=== PATIENT | female | born 1940 | race Caucasian/White ===

== ENCOUNTER 2016-08-28 08:13 | Outpatient (CLI) | payer MEDICARE, OTHER | END 2016-08-28 08:14 | disposition home or self-care (01) | DX: I10 Essential (primary) hypertension (principal); K21.9 Gastro-esophageal reflux disease without esophagitis; E78.00 Pure hypercholesterolemia, unspecified ==

== ENCOUNTER 2016-09-18 13:51 | Outpatient (CLI) | payer MEDICARE, OTHER | END 2016-09-18 13:52 | disposition home or self-care (01) | DX: M19.072 Primary osteoarthritis, left ankle and foot (principal) ==

== ENCOUNTER 2016-10-19 15:55 | Outpatient (CLI) | payer MEDICARE, OTHER | END 2016-10-19 15:56 | disposition home or self-care (01) | DX: I10 Essential (primary) hypertension (principal) ==

== ENCOUNTER 2016-10-20 08:09 | Outpatient (CLI) | payer MEDICARE, OTHER | END 2016-10-20 08:10 | disposition home or self-care (01) | DX: I10 Essential (primary) hypertension (principal) ==

== ENCOUNTER 2017-09-15 08:45 | Outpatient (CLI) | payer MEDICARE, OTHER ==
[2017-09-15 13:37] LABS: ALBUMIN 4.7 g/dL (3.2-5.5); ALBUMIN/GLOBULIN RATIO 1.7 (1.0-2.2); ALKALINE PHOSPHATASE 43 IU/L (42-121); ALT ALANINE AMINOTRANSFERASE 16 IU/L (10-60); AST ASPARTATE AMINOTRANSFERASE 19 IU/L (10-42); BILIRUBIN,TOTAL 0.6 mg/dL (0.2-1.0); BUN - BLOOD UREA NITROGEN 25 mg/dL (6-20); CALCIUM 9.1 mg/dL (8.5-10.3); CARBON DIOXIDE - CO2 28 mmol/L (21-32); CHLORIDE 100 mmol/L (101-111); CHOLESTEROL 182 mg/dL; CREATININE 0.9 mg/dL (0.4-1.0); GFR - MDRD 61 (>89); GLUCOSE 109 mg/dL (70-100); HDL CHOLESTEROL 60 mg/dL; LDL CHOLESTEROL,CALCULATED 110 mg/dL; LDL/HDL RATIO 1.8 (<4.4); SODIUM 134 mmol/L (135-145); TOTAL PROTEIN 7.5 g/dL (6.7-8.2); VLDL CHOLESTEROL 12 mg/dL
== END 2017-09-15 08:46 | disposition home or self-care (01) ==
LOC: LAB.WCP 08:45
PROVIDERS: ATTEND Physician Assistant Medical
DX: E78.00 Pure hypercholesterolemia, unspecified (principal)
CPT/HCPCS: 36415; 80053; 80061; 83721

== ENCOUNTER 2017-09-16 08:55 | Outpatient (CLI) | payer MEDICARE, OTHER ==
--- NOTE | 2017-09-17 15:52 | Mammography Report ---
DIGITAL SCREENING MAMMOGRAM: 09/16/2017 CLINICAL INDICATION: A 76-year-old, for screening. COMPARISON: 02/2016, 01/2015, 01/2014, 01/2012, 10/2010, 10/2009. TECHNIQUE: Routine CC and MLO projections were obtained of the breasts. FINDINGS: The breasts again demonstrate fatty replacement bilaterally. Coarse and punctate, typically benign calcifications are present. No suspicious masses, clustered microcalcifications, or regions of architectural distortion are identified. IMPRESSION: BENIGN FINDINGS. RECOMMENDATION: ROUTINE ANNUAL SCREENING UNLESS OTHERWISE CLINICALLY INDICATED. BIRADS CATEGORY 2-BENIGN FINDINGS. STANDARD QUALIFYING STATEMENTS: 1. This examination was reviewed with the aid of Computer-Aided Detection (CAD). 2. A negative or benign imaging report should not delay biopsy if clinically suspicious findings are present. Consider surgical consultation if warranted. More than 5% of cancers are not identified by imaging. 3. Dense breasts may obscure an underlying neoplasm. TD: 09/17/2017 15:50
== END 2017-09-16 08:56 | disposition home or self-care (01) ==
LOC: DI 08:55
PROVIDERS: ATTEND Physician Assistant Medical
DX: Z12.31 Encounter for screening mammogram for malignant neoplasm of breast (principal)
CPT/HCPCS: 77067

== ENCOUNTER 2017-09-20 16:03 | Outpatient (CLI) | payer MEDICARE, OTHER ==
[2017-09-20 16:41] LABS: HB2 TOTAL 13.1 g/dL; HEMOGLOBIN A1C 0.57 g/dL; HEMOGLOBIN A1C % 6.1 % (4.6-6.2)
== END 2017-09-20 16:04 | disposition home or self-care (01) ==
LOC: LAB 16:03
PROVIDERS: ATTEND Physician Assistant Medical
DX: R73.9 Hyperglycemia, unspecified (principal)
CPT/HCPCS: 36415; 83036

== ENCOUNTER 2018-03-07 10:05 | Outpatient (CLI) | payer MEDICARE, OTHER ==
--- NOTE | 2018-03-07 11:34 | DEXA Report ---
Procedure Date: 03/07/2018 Accession Number: [id number] / [id number] Procedure: DEX - Dexa Spine and/or Hip CPT Code: FULL RESULT: EXAM: Dexa Spine and/or Hip DATE: 03/07/2018 10:39 AM CLINICAL HISTORY: ENC FOR SCREENING FOR OSTEOPOROSIS TECHNIQUE: Dual energy x-ray absorptiometry (DXA) was performed on a Sharypic System. Regions measured are the AP Spine, femoral neck, and if needed forearm. COMPARISON: None. In accordance with the International Society for Clinical Densitometry (ISCD) guidelines, data from previous exams may be reanalyzed using current recommendations and techniques. This is done to allow a more accurate basis for comparison with the current study. FINDINGS: The data for the lumbar spine is as follows: BMD (g/cm/cm) T-SCORE Z-SCORE REGION L1 1.431 2.5 3.9 L2 1.532 2.8 4.2 L3 1.670 3.9 5.3 L4 1.808 5.1 6.5 TOTAL 1.630 3.8 5.1 NOTE: All evaluable vertebrae are used for classification The data for the hip is as follows: BMD (g/cm/cm) T-SCORE Z-SCORE REGION Neck 1.235 1.4 3.1 TOTAL 1.246 1.9 3.4 NOTE: The femoral neck or total proximal femur, whichever is lowest, is used for classification. IMPRESSION: THE WHO CLASSIFICATION BASED ON THE INTERNATIONAL REFERENCE STANDARD IS NORMAL. THE FRACTURE RISK IS NOT INCREASED. RECOMMENDATION: Patients with diagnosis of osteoporosis or osteopenia should have regular bone mineral density assessment. For those eligible for Medicare, routine testing is allowed once every 2 years. Testing frequency can be increased for patients who have rapidly progressing disease or for those who are receiving medical therapy to restore bone mass. COMMENT: World Health Organization (WHO) definitions for osteoporosis and osteopenia: NORMAL BMD: T-score at -1.0 or higher, fracture risk is low OSTEOPENIA BMD: T-score between -1.0 and -2.5, fracture risk is increased. OSTEOPOROSIS BMD: T-score at -2.5 or lower, fracture risk is high. National Osteoporosis Foundation recommends: 1. Obtain adequate dietary calcium (at least 1200 mg per day) and vitamin D (400-800 international units per day). 2. Participate, as appropriate, in regular weightbearing and muscle-strengthening exercise. 3. Avoid tobacco use and reduce alcohol and caffeine intake. 4. For more detailed information see the website at www.NOF.org.
== END 2018-03-07 10:06 | disposition home or self-care (01) ==
LOC: DI 10:05
PROVIDERS: ATTEND Physician Assistant Medical
DX: Z13.820 Encounter for screening for osteoporosis (principal); Z78.0 Asymptomatic menopausal state
CPT/HCPCS: 77080

== ENCOUNTER 2018-09-15 07:40 | Outpatient (CLI) | payer MEDICARE, OTHER ==
[2018-09-15 08:13] LABS: CALCIUM 9.5 mg/dL (8.5-10.3); CREATININE 1.1 mg/dL (0.4-1.0)
[2018-09-15 08:16] LABS: HB2 TOTAL 13.2 g/dL; HEMOGLOBIN A1C 0.48 g/dL; HEMOGLOBIN A1C % 5.5 % (4.6-6.2)
== END 2018-09-15 07:41 | disposition home or self-care (01) ==
LOC: LAB 07:40
PROVIDERS: ATTEND Physician Assistant Medical
DX: R73.9 Hyperglycemia, unspecified (principal)
CPT/HCPCS: 36415; 80048; 83036

== ENCOUNTER 2018-09-16 13:53 | Outpatient (CLI) | payer MEDICARE, OTHER ==
--- NOTE | 2018-09-19 09:30 | Mammography Report ---
Reason: SCREENING MAMMO Procedure Date: 09/16/2018 Accession Number: [id number] / [id number] Procedure: AGUILAR - Screening Mammo w/Beni CPT Code: FULL RESULT: EXAM: Screening Mammo w/Beni DATE: 09/16/2018 2:16 PM CLINICAL HISTORY: Routine screening TECHNIQUE: Bilateral CC and MLO views were obtained. COMPARISON: 09/16/2017, 02/27/2016, 01/18/2015 and 01/15/2014 FINDINGS: There are scattered fibroglandular densities. No significant interval change. No suspicious masses, clustered microcalcifications, or regions of architectural distortion are identified. Few scattered benign-appearing calcifications are stable. IMPRESSION: Benign findings RECOMMENDATION: Routine annual screening unless otherwise clinically indicated. BIRADS CATEGORY 2: Benign findings STANDARD QUALIFYING STATEMENTS: 1. This examination was not reviewed with the aid of Computer-Aided Detection (CAD). 2. A negative or benign imaging report should not delay biopsy if clinically suspicious findings are present. Consider surgical consultation if warrented. More than 5% of cancers are not identified by imaging. 3. Dense breasts may obscure an underlying neoplasm. 4. This examination was reviewed with the aid of 3D breast imaging (tomosynthesis).
== END 2018-09-16 13:54 | disposition home or self-care (01) ==
LOC: DI 13:53
DX: Z12.31 Encounter for screening mammogram for malignant neoplasm of breast (principal)
CPT/HCPCS: 77063; 77067

== ENCOUNTER 2018-10-18 08:31 | Outpatient (CLI) | payer MEDICARE, OTHER ==
[2018-10-18 09:27] LABS: CHOL/HDL RATIO 3.1 (<4.4); CHOLESTEROL 174 mg/dL; HDL CHOLESTEROL 56 mg/dL; LDL CHOLESTEROL,CALCULATED 107 mg/dL; LDL/HDL RATIO 1.9 (<4.4); VLDL CHOLESTEROL 11 mg/dL
== END 2018-10-18 08:32 | disposition home or self-care (01) ==
LOC: LAB 08:31
PROVIDERS: ATTEND Physician Assistant Medical
DX: E78.00 Pure hypercholesterolemia, unspecified (principal)
CPT/HCPCS: 36415; 80061; 83721

== ENCOUNTER 2018-12-17 05:12 | Emergency (ER) | payer MEDICARE, OTHER ==
--- NOTE | 2018-12-17 05:19 | ED Physician Documentation ---
PD HPI CHEST PAIN - Stated complaint Stated Complaint: CP - Chief complaint Chief Complaint: Cardiac - History obtained from History obtained from: Patient - History of Present Illness Timing - onset: Enter time (04:30), Today Timing - onset during: Light activity Timing - details: Abrupt onset Pain level now: 5 Quality: Pressure, Pain Location: Substernal Radiation: Jaw, Neck Improved by: Rest Worsened by: Exertion Associated symptoms: No: Shortness of air, Nausea Similar symptoms before: Other (similar episode one week ago, self-limited and did not seek medical attention. otherwise no previous episodes) Recently seen: Not recently seen Review of Systems Constitutional: reports: Reviewed and negative Eyes: reports: Reviewed and negative Ears: reports: Reviewed and negative Nose: reports: Reviewed and negative Throat: reports: Reviewed and negative Cardiac: reports: Chest pain / pressure. denies: Palpitations, Pedal edema, Calf pain Respiratory: reports: Reviewed and negative GI: reports: Reviewed and negative : reports: Reviewed and negative Skin: reports: Reviewed and negative Musculoskeletal: reports: Reviewed and negative Neurologic: reports: Reviewed and negative PD PAST MEDICAL HISTORY - Past Medical History Cardiovascular: Hypertension Respiratory: None Endocrine/Autoimmune: None GI: None : None HEENT: None Psych: None Musculoskeletal: Osteoarthritis, Osteoporosis, Other Derm: None - Past Surgical History General: Appendectomy Ortho: Knee replacement, Carpal Tunnel surgery, 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, 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 - Present Medications Home Medications: Ambulatory Orders Medication Instructions Recorded Confirmed Aspirin [Aspir-Low] 81 mg PO DAILY 12/19/15 12/17/18 Benazepril HCl 10 mg PO DAILY 12/19/15 12/17/18 Ergocalciferol [Vitamin D2] 50,000 unit PO ONCE 12/19/15 12/17/18 Estradiol 0.5 mg PO ONCE 12/19/15 12/17/18 Flaxseed Oil [[place]-3 Flaxseed Oil] 1,000 mg PO DAILY 12/19/15 12/17/18 Melatonin 10 mg PO ACHS 12/19/15 12/17/18 [place]-3/Dha/Epa/Fish Oil [Fish Oil 1,000 mg PO DAILY 12/19/15 12/17/18 Conc 1,000 mg Softgel] Omeprazole [PriLOSEC] 20 mg PO DAILY 12/19/15 12/17/18 Simvastatin 40 mg PO DAILY 12/19/15 12/17/18 Zolpidem [Ambien] 10 mg PO HS 12/19/15 12/17/18 - Allergies Allergies/Adverse Reactions: Allergies Allergy/AdvReac Type Severity Reaction Status Date / Time No Known Drug Allergies Allergy Verified 12/17/18 05:21 - Living Situation Living Situation: reports: With spouse/s.o. Living Arrangement: reports: At home - Social History Does the pt smoke?: No PD ED PE NORMAL - Vitals Vital signs reviewed: Yes - General General: Alert and oriented X 3, No acute distress, Well developed/nourished - HEENT HEENT: Moist mucous membranes - Neck Neck: Supple, no meningeal sign - Cardiac Cardiac: RRR, No murmur, No gallop, No rub - Respiratory Respiratory: No respiratory distress, Clear bilaterally - Abdomen Abdomen: Soft, Non tender, Non distended - Derm Derm: Normal color, Warm and dry - Extremities Extremities: No edema - Neuro Neuro: Alert and oriented X 3 Results - Vitals Vitals: Vital Signs - 24 hr 12/17/18 12/17/18 12/17/18 05:17 05:20 05:36 Temperature 36.5 C Heart Rate 64 60 73 Respiratory 16 13 13 Rate Blood Pressure 159/70 H 159/70 H 170/74 H O2 Saturation 98 98 97 12/17/18 05:40 Temperature 36.6 C Heart Rate 70 Respiratory 16 Rate Blood Pressure 155/77 H O2 Saturation 97 Oxygen O2 Source Room air - EKG (time done) No standard instances Rate: Rate (enter#) (55) Rhythm: NSR [place]: Normal Intervals: Normal [place] QRS: Normal Ischemia: ST elevation c/w ischemia (II, III, aVF), ST depression (V2, V3, I, AVL) - Labs Labs: Laboratory Tests 12/17/18 12/17/18 12/17/18 05:24 05:24 05:24 WBC 6.0 RBC 3.53 L Hgb 11.5 L Hct 32.6 L MCV 92.5 MCH 32.6 H MCHC 35.2 RDW 13.6 Plt Count 301 MPV 7.3 L Neut # (Auto) 1.7 Lymph # (Auto) 3.2 [place] # (Auto) 0.9 Eos # (Auto) 0.1 Baso # (Auto) 0.1 Absolute Nucleated RBC 0.00 Nucleated RBC % 0.0 Sodium 133 L Potassium 4.1 Chloride 98 L Carbon Dioxide 21 Anion Gap 14.0 H BUN 40 H Creatinine 1.0 Estimated GFR (MDRD) 54 L Glucose 135 H Calcium 9.1 Total Bilirubin 0.6 AST 19 ALT 16 Alkaline Phosphatase 40 L Troponin I 0.11 Total Protein 7.2 Albumin 4.1 Globulin 3.1 Albumin/Globulin Ratio 1.3 Lipase 40 PD MEDICAL DECISION MAKING - ED course Complexity details: reviewed results, re-evaluated patient, considered differential, d/w patient ED course: D/W Dr. Naik (ED at [facility]), accepts patient for transfer. Recommends hold Clopidogrel. Recommends NTG drip at 5mcg/min, and heparin per protocol. - Critical Care Time(min): 30 Time Includes: Direct patient care, Reassess patient, Document care, Coordinate care, Medical consult, See progress note Data interpretation: Labs, Pulse ox, See progress note Procedures included in critical care time: See progress note Procedures excluded from critical care time: See progress note Departure - Departure Disposition: 02 Transfer Acute Care Hosp Clinical Impression: STEMI (ST elevation myocardial infarction) Qualifiers: Involved coronary artery: unspecified coronary artery Qualified Code(s): I21.3 - ST elevation (STEMI) myocardial infarction of unspecified site Condition: Stable Discharge Date/Time: 12/17/18 05:49
[2018-12-17 05:29] LABS: BASOPHILS # (AUTO) 0.1 10^3/uL (0.0-0.1); BASOPHILS % (AUTO) 1.2 %; EOSINOPHILS # (AUTO) 0.1 10^3/uL (0.0-0.7); EOSINOPHILS % (AUTO) 2.4 %; HGB - HEMOGLOBIN 11.5 g/dL (12.0-16.0); LYMPHOCYTES # (AUTO) 3.2 10^3/uL (1.5-3.5); LYMPHOCYTES % (AUTO) 53.2 %; MEAN CORPUSCULAR HEMOGLOBIN 32.6 pg (27.0-31.0); MEAN CORPUSCULAR HGB CONC 35.2 g/dL (32.0-36.0); MEAN CORPUSCULAR VOLUME 92.5 fL (81.0-99.0); MEAN PLATELET VOLUME 7.3 fL (7.9-10.8); MONOCYTES # (AUTO) 0.9 10^3/uL (0.0-1.0); MONOCYTES % (AUTO) 15.4 %; NEUTROPHILS # (AUTO) 1.7 10^3/uL (1.5-6.6); NEUTROPHILS % (AUTO) 27.8 %; PLT - PLATELET COUNT 301 10^3/uL (130-450); RED BLOOD COUNT 3.53 10^6/uL (4.20-5.40); RED CELL DISTRIBUTION WIDTH 13.6 % (12.0-15.0)
[2018-12-17] MEDS ORDERED: NITROGLYCERIN 50 MG/250 ML 50 MG/250 ML BOTTLE IV STA (05:32)
[2018-12-17] MEDS ORDERED: ASPIRIN CHEW 81 MG TABLET PO STA (05:33)
[2018-12-17] MEDS ORDERED: NITROGLYCERIN SL 0.4 MG TABLET SL ONE (05:34)
[2018-12-17] MEDS ORDERED: METOPROLOL TARTRATE 50 MG TABLET PO STA (05:34)
[2018-12-17] MEDS ORDERED: HEPARIN 5,000 UNIT/ML VIAL ONE (05:35)
[2018-12-17] MEDS ORDERED: CLOPIDOGREL 300 MG TABLET PO ONE (05:35)
[2018-12-17] MEDS ORDERED: HEPARIN 25000UNITS/500ML (D5W) 25,000 UNIT/500 ML BAG IV ONE (05:35)
[2018-12-17] MEDS ORDERED: ASPIRIN CHEW 81 MG TABLET ONE (05:35)
[2018-12-17] MEDS ORDERED: METOPROLOL TARTRATE 50 MG TABLET ONE (05:35)
[2018-12-17] MEDS ORDERED: NITROGLYCERIN 50 MG/250 ML 50 MG/250 ML BOTTLE IV ONE (05:39)
[2018-12-17] MEDS ORDERED: HEPARIN 25000UNITS/500ML (D5W) 25,000 UNIT/500 ML BAG IV STA (05:40)
[2018-12-17] MEDS ORDERED: HEPARIN 5,000 UNIT/ML VIAL IVP STA (05:40)
[2018-12-17 05:42] VITALS: BP 155/77
[2018-12-17 05:42] LABS: ALBUMIN 4.1 g/dL (3.2-5.5); ALBUMIN/GLOBULIN RATIO 1.3 (1.0-2.2); BILIRUBIN,TOTAL 0.6 mg/dL (0.2-1.0); CALCIUM 9.1 mg/dL (8.5-10.3); TOTAL PROTEIN 7.2 g/dL (6.7-8.2)
== END 2018-12-17 05:49 | disposition short-term general hospital (02) ==
LOC: ED 05:12
DX: I21.3 ST elevation (STEMI) myocardial infarction of unspecified site (principal); I10 Essential (primary) hypertension
CPT/HCPCS: 36415; 80053; 83690; 84484; 85025; 93005; 96374; 96375; 96376; 99284; 99291; A9270

== ENCOUNTER 2018-12-17 05:50 | Outpatient (CLI) | payer MEDICARE, OTHER | END 2018-12-17 05:51 | disposition short-term general hospital (02) | LOC: EMS 05:50 | PROVIDERS: ATTEND Surgery | DX: I21.3 ST elevation (STEMI) myocardial infarction of unspecified site (principal) | CPT/HCPCS: A0425; A0427 ==

== ENCOUNTER 2018-12-29 10:56 | Outpatient (CLI) | payer MEDICARE, OTHER ==
[2018-12-29 18:59] LABS: ABSOLUTE RETICS # AUTO 0.081 10^6/uL (0.020-0.110); MEAN RETIC VALUE 110.4; RED BLOOD COUNT 3.49 10^6/uL (4.20-5.40)
[2018-12-29 19:49] LABS: ALBUMIN 4.6 g/dL (3.2-5.5); ALBUMIN/GLOBULIN RATIO 1.5 (1.0-2.2); BILIRUBIN,TOTAL 0.9 mg/dL (0.2-1.0); CALCIUM 9.3 mg/dL (8.5-10.3); TOTAL PROTEIN 7.6 g/dL (6.7-8.2)
== END 2018-12-29 10:57 | disposition home or self-care (01) ==
LOC: LAB.WCP 10:56
PROVIDERS: ATTEND Internal Medicine Cardiovascular Disease
DX: D64.9 Anemia, unspecified (principal); E87.1 Hypo-osmolality and hyponatremia
CPT/HCPCS: 36415; 80053; 82607; 82746; 83540; 83930; 84466; 85044

== ENCOUNTER 2019-01-17 17:33 | Outpatient (CLI) | payer MEDICARE, OTHER ==
[2019-01-17 18:12] LABS: HGB - HEMOGLOBIN 10.4 g/dL (12.0-16.0); MEAN CORPUSCULAR HEMOGLOBIN 33.4 pg (27.0-31.0); MEAN CORPUSCULAR HGB CONC 36.7 g/dL (32.0-36.0); MEAN CORPUSCULAR VOLUME 90.8 fL (81.0-99.0); MEAN PLATELET VOLUME 7.1 fL (7.9-10.8); RED BLOOD COUNT 3.12 10^6/uL (4.20-5.40); RED CELL DISTRIBUTION WIDTH 13.1 % (12.0-15.0); WHITE BLOOD COUNT 9.1 x10^3/uL (4.8-10.8)
[2019-01-17 18:33] LABS: CRP - C-REACTIVE PROTEIN 6.5 mg/dL (0-1.0)
[2019-01-17 18:40] LABS: URIC ACID 3.7 mg/dL (2.6-7.2)
[2019-01-17 19:40] LABS: RHEUMATOID FACTOR NEGATIVE (Negative)
[2019-01-19 13:11] LABS: ANA SCREEN NEGATIVE (NEGATIVE)
== END 2019-01-17 17:34 | disposition home or self-care (01) ==
LOC: LAB 17:33
PROVIDERS: ATTEND Family Medicine
DX: M25.50 Pain in unspecified joint (principal)
CPT/HCPCS: 36415; 84550; 85027; 85651; 86038; 86140; 86200; 86430

== ENCOUNTER 2019-01-30 08:00 | Outpatient (CLI) | payer MEDICARE, OTHER ==
[2019-01-30 14:26] LABS: ABSOLUTE RETICS # AUTO 0.077 10^6/uL (0.020-0.110); BASOPHILS % (AUTO) 0.4 %; EOSINOPHILS # (AUTO) 0.2 10^3/uL (0.0-0.7); EOSINOPHILS % (AUTO) 2.2 %; HGB - HEMOGLOBIN 10.1 g/dL (12.0-16.0); LYMPHOCYTES # (AUTO) 2.7 10^3/uL (1.5-3.5); MEAN CORPUSCULAR HEMOGLOBIN 31.5 pg (27.0-31.0); MEAN CORPUSCULAR HGB CONC 33.4 g/dL (32.0-36.0); MEAN CORPUSCULAR VOLUME 94.1 fL (81.0-99.0); MEAN PLATELET VOLUME 8.7 fL (7.9-10.8); MONOCYTES % (AUTO) 10.8 %; NEUTROPHILS # (AUTO) 5.4 10^3/uL (1.5-6.6); NEUTROPHILS % (AUTO) 57.4 %; PLT - PLATELET COUNT 322 10^3/uL (130-450); RED BLOOD COUNT 3.21 10^6/uL (4.20-5.40); RED CELL DISTRIBUTION WIDTH 12.3 % (12.0-15.0); WHITE BLOOD COUNT 9.5 x10^3/uL (4.8-10.8)
[2019-01-30 14:49] LABS: % IRON SATURATION 10 % (20-50); IRON 34 ug/dL (28-170); TOTAL IRON BINDING CAPACITY 333 ug/dL (250-450); TRANSFERRIN 238 mg/dL (192-382)
[2019-01-30 15:04] LABS: FERRITIN 91.1 ng/mL (11.0-306.8)
== END 2019-01-30 23:59 | disposition home or self-care (01) ==
LOC: LAB 08:00
PROVIDERS: ATTEND Family Medicine
DX: D64.9 Anemia, unspecified (principal)
CPT/HCPCS: 36415; 82607; 82728; 82746; 83540; 84466; 85025; 85044

== ENCOUNTER 2019-02-05 02:35 | Outpatient (CLI) | payer MEDICARE, OTHER | END 2019-02-05 02:36 | disposition critical access hospital (66) | LOC: EMS 02:35 | PROVIDERS: ATTEND Surgery | DX: R07.9 Chest pain, unspecified (principal) | CPT/HCPCS: A0425; A0427 ==

== ENCOUNTER 2019-02-05 02:49 | Emergency (ER) | payer MEDICARE, OTHER ==
--- NOTE | 2019-02-05 02:58 | ED Physician Documentation ---
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 She states there was a remaining anterior vessel that had a 50% lesion but no other stenoses. She had some reactions to the antiplatelet agents and so is currently on Brillante. She has been having general malaise weakness and fatigue since her heart attack but noted onset of the chest discomfort and feeling of some dyspnea couple of hours ago this evening while at rest in bed.), Still present Quality: Pressure, Tightness, Aching. No: Sharp, Tearing Location: Substernal Radiation: Jaw, Neck Improved by: No: Rest Worsened by: Exertion (just walking around in the house) Associated symptoms: Shortness of air, General Weakness. 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 denies: Palpitations, Pedal edema, Calf pain Respiratory: reports: Dyspnea. denies: Cough, Wheezing GI: denies: Nausea, Vomiting, Diarrhea, Bloody / black stool Neurologic: reports: Generalized weakness. 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 - Present Medications Home Medications: Ambulatory Orders Medication Instructions Recorded Confirmed Aspirin [Aspir-Low] 81 mg PO DAILY 12/19/15 02/05/19 Benazepril HCl 10 mg PO DAILY 12/19/15 02/05/19 Ergocalciferol [Vitamin D2] 50,000 unit PO ONCE 12/19/15 02/05/19 Flaxseed Oil [[place]-3 Flaxseed Oil] 1,000 mg PO DAILY 12/19/15 02/05/19 Melatonin 10 mg PO ACHS 12/19/15 02/05/19 [place]-3/Dha/Epa/Fish Oil [Fish Oil 1,000 mg PO DAILY 12/19/15 02/05/19 Conc 1,000 mg Softgel] Omeprazole [PriLOSEC] 20 mg PO DAILY 12/19/15 02/05/19 Simvastatin 40 mg PO DAILY 12/19/15 02/05/19 Zolpidem [Ambien] 10 mg PO HS 12/19/15 02/05/19 Biotin 10,000 mcg PO 02/05/19 Cholecalciferol (Vitamin D3) 1,000 unit PO 02/05/19 [Vitamin D3] Metoprolol Succinate [Toprol Xl] 25 mg PO BID 02/05/19 02/05/19 Multivitamin [Multivitamins] 1 each PO 02/05/19 Nitroglycerin 0.4 mg SL PRN 02/05/19 PARoxetine [Paxil] 10 02/05/19 - Allergies Allergies/Adverse Reactions: Allergies Allergy/AdvReac Type Severity Reaction Status Date / Time No Known Drug Allergies Allergy Verified 12/17/18 05:21 - Social History Does the pt smoke?: No Smoking Status: Never smoker Does the pt drink ETOH?: Yes Does the pt have substance abuse?: No - Immunizations Immunizations are current?: No Immunizations: TDAP >10years/unknown - POLST Patient has POLST: No PD ED PE NORMAL - Vitals Vital signs reviewed: Yes (heart rate tachycardic, consistent though at 127-132) - General General: Alert and oriented X 3, No acute distress, Well developed/nourished - Neck Neck: Supple, no meningeal sign, No adenopathy - Cardiac Cardiac: No: RRR (regular but tachycardic) - Respiratory Respiratory: Clear bilaterally - Abdomen Abdomen: Soft, Non tender - Derm Derm: Normal color, Warm and dry - Extremities Extremities: No tenderness to palpate, Normal ROM s pain, No edema, No calf tenderness / cord - Neuro Neuro: Alert and oriented X 3, No motor deficit, Normal speech Results - Vitals Vitals: Vital Signs - 24 hr 02/05/19 02/05/19 02/05/19 02:53 03:26 03:35 Temperature 36.5 C Heart Rate 129 H 138 H 96 Respiratory 20 18 16 Rate Blood Pressure 154/83 H 137/67 H 110/59 L O2 Saturation 98 98 98 02/05/19 02/05/19 02/05/19 03:40 03:46 04:01 Temperature Heart Rate 94 93 87 Respiratory 17 18 Rate Blood Pressure 99/63 103/66 93/64 O2 Saturation 95 94 02/05/19 02/05/19 04:13 05:33 Temperature Heart Rate 89 81 Respiratory 18 16 Rate Blood Pressure 97/57 L 124/66 O2 Saturation 95 98 Oxygen O2 Source Room air - EKG (time done) 02:50 Rate: Rate (enter#) (128) Rhythm: Sinus tachycardia, Atrial flutter [place]: Normal Ischemia: Normal ST segments. No: ST elevation c/w ischemia, ST depression Compare to prior EKG: Changed from prior EKG - Labs Labs: Laboratory Tests 02/05/19 02/05/19 02/05/19 03:35 03:35 03:35 WBC 7.8 RBC 3.04 L Hgb 9.7 L Hct 28.2 L MCV 92.8 MCH 31.9 H MCHC 34.4 RDW 12.3 Plt Count 257 MPV 8.7 Neut # (Auto) 4.1 Lymph # (Auto) 2.5 [place] # (Auto) 0.8 Eos # (Auto) 0.2 Baso # (Auto) 0.0 Absolute Nucleated RBC 0.00 Nucleated RBC % 0.0 PT 13.8 H INR 1.2 APTT 25.2 Sodium 131 L Potassium 4.1 Chloride 95 L Carbon Dioxide 21 Anion Gap 15.0 H BUN 40 H Creatinine 1.0 Estimated GFR (MDRD) 54 L Glucose 119 H Calcium 9.5 Magnesium 1.9 Total Bilirubin 0.8 AST 18 ALT 18 Alkaline Phosphatase 63 Troponin I B-Natriuretic Peptide Total Protein 8.0 Albumin 3.9 Globulin 4.1 Albumin/Globulin Ratio 1.0 Lipase 35 02/05/19 02/05/19 02/05/19 03:35 03:35 05:10 WBC RBC Hgb Hct MCV MCH MCHC RDW Plt Count MPV Neut # (Auto) Lymph # (Auto) [place] # (Auto) Eos # (Auto) Baso # (Auto) Absolute Nucleated RBC Nucleated RBC % PT INR APTT Sodium Potassium Chloride Carbon Dioxide Anion Gap BUN Creatinine Estimated GFR (MDRD) Glucose Calcium Magnesium Total Bilirubin AST ALT Alkaline Phosphatase Troponin I < 0.04 < 0.04 B-Natriuretic Peptide 51 Total Protein Albumin Globulin Albumin/Globulin Ratio Lipase - Rads (name of study) chest xray Radiology: Prelim report reviewed, EMP read contemporaneously (no CHF nor effusions. ), See rad report PD MEDICAL DECISION MAKING - ED course Complexity details: re-evaluated patient (Her heart rate slowed down with an extra dose of metoprolol and the rhythm reverted to a normal sinus rhythm. This made it more clearly atrial flutter with initial ECG, and I presume that was the cause of her symptoms.), considered differential (Her heart monitor and EKG are most likely consistent with atrial flutter. The abruptness of her symptoms this evening suggest to new onset of it. She is on anticoagulation with Brillante anyway. We will give some IV beta-rula and see if her rate slows. Check for recurrent PA and also effusion nor enlarged heart with blood tests and x-ray.), d/w patient Departure - Departure Disposition: 01 Home, Self Care Clinical Impression: Chest discomfort, Atrial flutter, paroxysmal Condition: Stable Record reviewed to determine appropriate education?: Yes Health Concerns: chest discomfort, with recent PA Plan of Treatment: continue current medications. follow up with Cardiology office. Care Goals: resolution of symptoms Assessment: symptoms seem related to episode of atrial flutter. Continue current medications and stay well hydrated. Instructions: ED Paroxysmal Atrial Flutter Follow-Up: Odette Ortega PA-C [Primary Care Provider] - Gagan Delaney MD [Physician No Access] - Comments: Your symptoms seem to be related to an episode of atrial flutter that has resolved. Your blood pressure is on the low side and so there is not really much room for increasing your medications. Continue all your current medications as is and stay well-hydrated. Follow-up with your cardiology office on Wednesday to update them on symptoms and how you are feeling. Return if symptoms again. 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
[2019-02-05] MEDS ORDERED: SODIUM CHLORIDE 0.9% 1,000 ML IV ONE (03:21)
[2019-02-05] MEDS ORDERED: METOPROLOL 5 MG/5 ML VIAL IVP STA (03:24)
[2019-02-05 03:42] LABS: BASOPHILS % (AUTO) 0.5 %; EOSINOPHILS # (AUTO) 0.2 10^3/uL (0.0-0.7); EOSINOPHILS % (AUTO) 2.9 %; HGB - HEMOGLOBIN 9.7 g/dL (12.0-16.0); LYMPHOCYTES # (AUTO) 2.5 10^3/uL (1.5-3.5); LYMPHOCYTES % (AUTO) 32.1 %; MEAN CORPUSCULAR HEMOGLOBIN 31.9 pg (27.0-31.0); MEAN CORPUSCULAR HGB CONC 34.4 g/dL (32.0-36.0); MEAN CORPUSCULAR VOLUME 92.8 fL (81.0-99.0); MEAN PLATELET VOLUME 8.7 fL (7.9-10.8); MONOCYTES # (AUTO) 0.8 10^3/uL (0.0-1.0); MONOCYTES % (AUTO) 10.8 %; NEUTROPHILS # (AUTO) 4.1 10^3/uL (1.5-6.6); NEUTROPHILS % (AUTO) 52.5 %; PLT - PLATELET COUNT 257 10^3/uL (130-450); RED BLOOD COUNT 3.04 10^6/uL (4.20-5.40); RED CELL DISTRIBUTION WIDTH 12.3 % (12.0-15.0); WHITE BLOOD COUNT 7.8 x10^3/uL (4.8-10.8)
[2019-02-05 03:52] LABS: INR 1.2 (0.8-1.2); PT - PROTHROMBIN TIME 13.8 secs (9.9-12.6)
[2019-02-05 03:55] LABS: ALBUMIN 3.9 g/dL (3.2-5.5); BILIRUBIN,TOTAL 0.8 mg/dL (0.2-1.0); CALCIUM 9.5 mg/dL (8.5-10.3); MAGNESIUM 1.9 mg/dL (1.7-2.8)
[2019-02-05 04:00] LABS: PARTIAL THROMBOPLASTIN TIME 25.2 secs (24.9-33.3)
--- NOTE | 2019-02-05 04:18 | XRAY Report ---
Reason: chest pain Procedure Date: 02/05/2019 Accession Number: [id number] / [id number] Procedure: XR - Chest 1 View X-Ray CPT Code: 92512 FULL RESULT: EXAM: CHEST RADIOGRAPHY EXAM DATE: 02/05/2019 03:28 AM. CLINICAL HISTORY: Chest pain. COMPARISON: None. TECHNIQUE: 1 view. FINDINGS: Lungs/Pleura: No alveolar consolidation or pleural effusion seen. No pneumothorax. Mediastinum: Within exam limitations, the cardiomediastinal contour is normal. Other: None. IMPRESSION: 1. No acute abnormality seen in the chest. RADIA
[2019-02-05 05:36] VITALS: BP 124/66
== END 2019-02-05 05:52 | disposition home or self-care (01) ==
LOC: EDUNIT# → ED 02:49
DX: I48.92 Unspecified atrial flutter (principal); R07.89 Other chest pain; I10 Essential (primary) hypertension; I25.2 Old myocardial infarction; Z95.5 Presence of coronary angioplasty implant and graft; Z79.01 Long term (current) use of anticoagulants; Z79.82 Long term (current) use of aspirin
CPT/HCPCS: 36415; 71045; 80053; 83690; 83735; 83880; 84484; 85025; 85610; 85730; 93005; 96374; 99283; 99284

== ENCOUNTER 2019-04-01 08:21 | Outpatient (CLI) | payer MEDICARE, OTHER ==
[2019-04-01 09:02] LABS: CALCIUM 9.7 mg/dL (8.5-10.3); CREATININE 1.1 mg/dL (0.4-1.0)
[2019-04-01 09:20] LABS: BASOPHILS % (AUTO) 0.5 %; EOSINOPHILS # (AUTO) 0.1 10^3/uL (0.0-0.7); EOSINOPHILS % (AUTO) 2.3 %; HGB - HEMOGLOBIN 10.1 g/dL (12.0-16.0); LYMPHOCYTES # (AUTO) 1.7 10^3/uL (1.5-3.5); LYMPHOCYTES % (AUTO) 38.5 %; MEAN CORPUSCULAR HEMOGLOBIN 33.7 pg (27.0-31.0); MEAN CORPUSCULAR HGB CONC 35.1 g/dL (32.0-36.0); MONOCYTES # (AUTO) 0.5 10^3/uL (0.0-1.0); MONOCYTES % (AUTO) 11.8 %; PLT - PLATELET COUNT 221 10^3/uL (130-450); RED CELL DISTRIBUTION WIDTH 13.1 % (12.0-15.0); WHITE BLOOD COUNT 4.4 x10^3/uL (4.8-10.8)
== END 2019-04-01 08:22 | disposition home or self-care (01) ==
LOC: LAB 08:21
PROVIDERS: ATTEND Nurse Practitioner
DX: I10 Essential (primary) hypertension (principal); D64.9 Anemia, unspecified
CPT/HCPCS: 36415; 80048; 85025

== ENCOUNTER 2019-06-09 03:50 | Outpatient (CLI) | payer MEDICARE, OTHER ==
--- NOTE | 2019-06-09 18:09 | HISTORY & PHYSICAL EXAMINATION ---
Chief Complaint - Chief Complaint Chief Complaint: Hip pain after a fall History of Present Illness - Admitted From Admitted From:: Home - History Obtained From History obtained from: Patient and patient chart - History of Present Illness HPI Comment/Other: Mrs. Herman is a 78 y.o. female w/ a hx of HTN, ID s/p stent placment in December and Apr of this year, with a intra-stint thrombosis in Apr. presented to the ED for hip pain after a fall. She explains that a couple of weeks ago she was taking a step down the stairs in her hallway while holding an ipad when she mis sed the step and fell on her left hip. She initially didn't have any pain until 3 days later but her and her had already planned to travel to [place], so she "rode it out" and they went anyway. While in [place], her pain made her miserable. After returning back to [place], she immediately went to the urgent care in [place]. An X-ray of the hip was done and came back negative for fx so she was sent home on pain medicine. 3-4 days later, she was getting up in the middle of the night to use the restroom and it was dark. As she was reaching for the flashlight on her night stand, she fell on her right side. Her rushed over to help her, but she was unable to get up. So they called 911. Upon arrival to the ED, a hip X-ray and CT were done but there were no obvious signs of a fracture. She was, however noted to have a serum calcium of 12.9, Hct of 21.6, and a Hgb of 7.3. Also, her creatinine was 2.3 (baseline is 1). She was admitted for further workup. History - Past Medical History Cardiovascular: reports: Hypertension, High cholesterol, Coronary artery disease, ID, Other (Intra-stent thrombosis) Respiratory: reports: None, Shortness of breath Neuro: reports: None Endocrine/Autoimmune: reports: None GI: reports: None, GERD TIE BUCKER: reports: None : reports: None HEENT: reports: None Psych: reports: None Musculoskeletal: reports: Osteoarthritis, Osteoporosis, Other Derm: reports: None MRSA Hx?: No - Past Surgical History General: reports: Appendectomy Ortho: reports: Knee replacement, Carpal Tunnel surgery, Spine surgery /TIE BUCKER: reports: Hysterectomy, Oophrectomy Cardiovascular: reports: Coronary stent, Cardiac catheterization - Family & Social History Family History: Mother: , CAD (Heart failure), Father: , Cancer, Sister: , CAD Family History Comment/Other: She has 3 children as well as grandchildren and great grandchildren. Her children live in [facility] and [facility] Living arrangement: At home Living Situation: With spouse/s.o. - Substance History Use: Uses substance without health or social issues: NONE Use Issues: Sleep Disorder (Chronic; takes Ambien ) Abuse: Recurrent use of substance despite neg consequences: NONE Dependence: Experiences withdrawal or developed tolerances: NONE - POLST Patient has POLST: No POLST Status: Full Code Meds/Allgy - Home Medications Home Medications: Ambulatory Orders Medication Instructions Recorded Confirmed Aspirin [Aspir-Low] 81 mg PO DAILY 12/19/15 06/09/19 [place]-3/Dha/Epa/Fish Oil [Fish Oil 1,000 mg PO DAILY 12/19/15 06/09/19 Conc 1,000 mg Softgel] Zolpidem [Ambien] 10 mg PO HS 12/19/15 06/09/19 Biotin 10,000 mcg PO DAILY 02/05/19 06/09/19 Cholecalciferol (Vitamin D3) 1,000 unit PO DAILY 02/05/19 06/09/19 [Vitamin D3] Multivitamin [Multivitamins] 1 each PO DAILY 02/05/19 06/09/19 Nitroglycerin 0.4 mg SL PRN PRN 02/05/19 06/09/19 Atorvastatin Calcium 80 mg PO DAILY 06/09/19 06/09/19 Benazepril HCl 20 mg PO DAILY 06/09/19 06/09/19 Isosorbide Mononitrate [Isosorbide 60 mg PO DAILY 06/09/19 06/09/19 Mononitrate ER] Melatonin 5 mg PO QPM 06/09/19 06/09/19 Metoprolol Succinate 50 mg PO BID 06/09/19 06/09/19 Ticagrelor [Brilinta] 90 mg PO BID 06/09/19 06/09/19 - Allergies Allergies/Adverse Reactions: Allergies Allergy/AdvReac Type Severity Reaction Status Date / Time No Known Drug Allergies Allergy Verified 06/09/19 04:14 Review of Systems - Constitutional Constitutional: reports: Fatigue, Malaise, Other (Fatigue since first ID in December). denies: Fever, Chills, Poor appetite, Diaphoresis, Night sweats, Weight loss - Eyes Eyes: denies: Pain, Irritation, Blurred vision, Vision loss - Ears, Nose & Throat Ears, Nose & Throat: denies: Ear pain, Hearing loss, Tinnitus, Vertigo, Nosebleeds, Bleeding gums - Cardiovascular Cariovascular: reports: Lightheadedness. denies: Irregular heart rate, Palpitations, Chest pain, Edema - Respiratory Respiratory: reports: Cough (Ongoing dry cough since first ID). denies: Sputum production, Wheezing, Snoring, Hemoptysis, Orthopnea, SOB at rest, SOB with exertion, Apnea, Stridor, Pleuritic pain - Gastrointestinal Gastrointestinal: reports: Constipation (Last BM 4 days ago). denies: Abdominal pain, Abdominal distention, Black stools, Bloody stools, Nausea, Coffee grounds emesis, Reflux/heartburn, Bloating - Genitourinary Genitourinary: denies: Dysuria, Frequency, Urgency, Hematuria, Incontinence, Flank pain, Nocturia, Urethral discharge - Musculoskeletal Musculoskeletal: reports: Muscle pain (Buttocks post fall), Limited range of motion. denies: Back pain, Muscle aches, Stiffness, Muscle weakness, Gout, Joint pain, Joint swelling - Integumentary Integumentary: denies: Rash, Pruritis, Lesions, Dryness, Pigment changes, Nail changes - Neurological Neurological: reports: Dizziness. denies: General weakness, Focal weakness, Headache, Numbness, Memory problems, Abnormal gait, Seizures, Incoordination, Slurred speech - Psychiatric Psychiatric: denies: Depression, Anxiety, Suicidal, Delusions, Hallucinations - Endocrine Endocrine: denies: Polyuria, Polydypsia, Polyphagia, Intolerance to cold - Hematologic/Lymphatic Hematologic/Lymphatic: reports: Anemia, Blood clots. denies: Bruising, Petechiae, Lymphadenopathy, Bleeding tendencies, Recurrent infections - All Other Systems All Other Systems: reports: Reviewed and negative Prior Level of Functionality: Prior to arrival, Mrs. Herman was a normal functioning lady who enjoyed traveling with her . 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 Exam - Physical Exam General Appearance: positive: No acute distress, Alert. negative: Severe dist ress, Anxious, Lethargic Eyes Bilateral: positive: Normal inspection. negative: No lid inflammation, Conjunctivae nml, No scleral icterus ENT: positive: ENT inspection nml, Pharynx nml, No signs of dehydration. negative: Purulent nasal drainage, Pharyngeal erythema, Oral lesions, Dry mucous membranes Neck: positive: Nml inspection, Thyroid nml, Trachea midline. negative: Stiff neck, Kernig's sign, Brudzinski's sign, Carotid bruit, Swelling/bruising, Tracheal deviation Respiratory: positive: Chest non-tender, No respiratory distress, Breath sounds nml. negative: Wheezes, Rales, Rhonchi Cardiovascular: positive: Regular rate & rhythm, No murmur, Decreased pulse(s). negative: No gallop, JVD present Peripheral Pulses: positive: 1+ Abdomen: positive: Non-tender, Nml bowel sounds, Other (Hypoactive; semi-soft; no BM X 4 days) Rectal: positive: Non-tender. negative: Black stool, Bloody stool, Hemorrhoid, Enlarged prostate, Tender prostate Back: positive: Nml inspection. negative: CVA tenderness (R), CVA tenderness (L) Skin: positive: Color nml, No rash, Warm, Dry. negative: Cyanosis, Diaphoresis, Pallor, Skin rash, Decubitus Extremities: positive: Non-tender, Full ROM (Pain to R/L buttocks and R inguinal fold during passive/active ROM), Nml appearance, No pedal edema. negative: Calf tenderness, Joint swelling Neurologic/Psychiatric: positive: Oriented x3, CN's nml (2-12), Sensation nml, Mood/affect nml. negative: Facial droop, Slurred/abnml speech, Depressed mood/affect Conclusion/Plan - Problem List (1) Pelvic hematoma in female Conclusion/Plan: she has close to a 10 cm pelvic mass that correlates with her fracture, use of platelet inhibitor and an acute drop in hgb indicating a hematoma. Stable hemodyamics at this time . However, she is at continued risk for bleeding. I spoke her Cardiology group seasonal sales associate MD, who states that she must have her Brilinta in the face of a coronary thrombosis of her stent in April (an ID in December) Cardiology recommends a higher level of care but not at their facility which is [facility]. I also spoke to our orthopedic surgeon, and he feels that she must also go to a higher level of care. Plan: I have spoken to the patient and her . I have explained to him that her status is changed for our critical access hospital. And I will be making arrangements for transfer. I will reach out to [facility].She was accepted by Ken Taylor MD Ortho seasonal sales associate. (2) Closed fracture dislocation of pubic symphysis with diastasis Conclusion/Plan: conservative tx anticipated with touch wt bearing down the road. pain managment for now. Qualifiers: Encounter type: initial encounter Laterality: right Qualified Code(s): S32.591A - Other specified fracture of right pubis, initial encounter for closed fracture (3) Sacral fracture, closed Conclusion/Plan: same as #2. Qualifiers: Encounter type: initial encounter Zone of sacrum fracture: unspecified portion of sacrum Qualified Code(s): S32.10XA - Unspecified fracture of sacrum, initial encounter for closed fracture (4) Acute blood loss anemia Conclusion/Plan: This patient is taking Brilinta and has fallen twice within the past week. Her hip MRI showed a 10.5X 8.9X 4.4cm suprapubic hematoma. Upon arrival, Hbg was 7.3 (chronically 10) and Hct was 21.6. She was feeling malaise and experiencing mild respiratory distress. 2 units of PRBC were ordered. -Transfuse 2 units of PRBC -Supplementary O2 as needed -brilinta will be given at [facility] ER or at least anticoaglation will be evaluated there. (5) Acute renal failure Conclusion/Plan: Likely a result of hypercalcemia and anemia; both of which may be associated w/ possible malignancy. Her creatinine was 2.3 upon arrival (baseline is 1). -NS at 100/hr -BMP in the am Qualifiers: Acute renal failure type: unspecified Qualified Code(s): N17.9 - Acute kidney failure, unspecified (6) Hypercalcemia Conclusion/Plan: As noted above, may be secondary to malignancy. PTH was checked and was normal. At this point we are leaning more toward possible multiple myeloma, as she meets CRAB criteria (elevated calcium, poor renal function, anemia and osseous lesions). -Check Ca in the am -SPEP will need to be done at [facility]. It's a send out lab for us. I did discuss this with the patient and her . (7) Hypertension Conclusion/Plan: Takes Metoprolol and Isosorbide at home. She is normotensive at this time. -Hold home meds for now Qualifiers: Hypertension type: essential hypertension Qualified Code(s): I10 - Essential (primary) hypertension (8) Fall at home Conclusion/Plan: Per HPI, has fallen twice in the past 2 weeks. The first time she fell, she was walking up stairs while looking at her ipad. The second time she was using the restroom in he middle on the night, she fell as she was reaching for the flashlight. She was unable to get up so called 911. Bth times she was using ambien. -Bed alarm -Will need PT/OT - I burst her bubble and told she and her , no more ambien, ever. She needs to address her insomnia without benzo's Qualifiers: Encounter type: initial encounter Qualified Code(s): W19.XXXA - Unspecified fall, initial encounter; Y92.009 - Unspecified place in unspecified non- institutional (private) residence as the place of occurrence of the external cause (9) Chronic insomnia Conclusion/Plan: Takes Ambien at home. This may have contributed to her fall. She may need to change her sleep aid. (10) History of right coronary artery stent placement Conclusion/Plan: Has experienced 2 MIs in the past year; one in December (3 stents placed) and one in April bc stent thrombosed (2 stents placed). She was started on Brilinta, Atorvastatin and ASA. Unfortunately, she is also actively bleeding but she needs this medication but the Brilinta cannot be stopped d/t a intra-stent thrombosis in April. (this case was discussed with an on-call clinical liaison). Due to the complexity of her condition, she needs to be tranferred [facility]. -Resume Atorvastatin -Resume Brilinta once at [facility] - Lab Results Lab results reviewed: Yes - Diagnostic Imaging Results Diagnostic Imaging Results: positive: Final report reviewed - EKG Results EKG Interpreted Independently: No Core Measures - Anticipated LOS I expect patient to be DC'd or transferred within 96 hours.: Yes - DVT/VTE - Prophylaxis VTE/DVT Device ordered at admit?: Yes
== END 2019-06-09 03:51 | disposition critical access hospital (66) ==
LOC: EMS 03:50
PROVIDERS: ATTEND Surgery
DX: M25.552 Pain in left hip (principal); W18.39XA Other fall on same level, initial encounter; Y92.009 Unspecified place in unspecified non-institutional (private) residence as the place of occurrence of the external cause

== ENCOUNTER 2019-06-09 04:07 | Inpatient (IN) | payer MEDICARE, OTHER ==
[2019-06-09] MEDS ORDERED: MORPHINE 2 MG/ML CARPUJECT IVP STA ×2 (04:17→06:46)
--- NOTE | 2019-06-09 04:17 | ED Physician Documentation ---
PD HPI Fall - Stated complaint Stated Complaint: GLF/HIP PAIN - Chief complaint Chief Complaint: Trauma Ext - History obtained from History obtained from: Patient, Family - History of Present Illness Mechanism of injury: Tripped Fall distance: Standing position Where injury occurred: Home Timing - onset: Today (and one week ago) Injury(ies) location: Left Lower Extremity (left hip) Pain level max: 10 Pain level now: 6 Quality of pain: Pain Associated symptoms: No: LOC, AMS, Amnesia, Neck pain, Weakness, Paresthesias, Dyspnea, Nausea / vomiting Symptoms improve with: Rest Worsens with: Movement, Palpation Contributing factors: No: Anticoagulated, Intoxicated Similar symptoms before: No diagnosis Recently seen: Other (urgent care) - Additional information Additional information: BIBA. patient fell approximately 1 week ago at home but did not note any significant discomfort at that time. She subsequently went on a trip (flight) to grandarash's wedding and during this trip, she developed left hip pain that was constant and steadily progressive in intensity. By the time she flew back from the wedding (approximately 2-3 days ago), the pain had become severe and she went to an urgent care center where xrays were performed and were reportedly (per patient) negative for acute injury. She was prescribed vicodin and had some degree of relief with this. Tonight, while walking from bedroom to bathroom, she fell again, landing on left hip and left side of lower back, and this caused severe pain at left hip and left buttock. Review of Systems Constitutional: denies: Fever, Chills, Sweats Eyes: reports: Reviewed and negative Ears: reports: Reviewed and negative Nose: reports: Reviewed and negative Throat: reports: Reviewed and negative Cardiac: reports: Reviewed and negative Respiratory: reports: Reviewed and negative GI: reports: Reviewed and negative : denies: Dysuria, Frequency, Unable to Void, Incontinent Skin: reports: Reviewed and negative Musculoskeletal: reports: Back pain, Joint pain (left hip), Pain with weight bearing. 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 - Present Medications Home Medications: Ambulatory Orders Medication Instructions Recorded Confirmed Aspirin [Aspir-Low] 81 mg PO DAILY 12/19/15 06/09/19 [place]-3/Dha/Epa/Fish Oil [Fish Oil 1,000 mg PO DAILY 12/19/15 06/09/19 Conc 1,000 mg Softgel] Zolpidem [Ambien] 10 mg PO HS 12/19/15 06/09/19 Biotin 10,000 mcg PO DAILY 02/05/19 06/09/19 Cholecalciferol (Vitamin D3) 1,000 unit PO DAILY 02/05/19 06/09/19 [Vitamin D3] Multivitamin [Multivitamins] 1 each PO DAILY 02/05/19 06/09/19 Nitroglycerin 0.4 mg SL PRN PRN 02/05/19 06/09/19 Atorvastatin Calcium 80 mg PO DAILY 06/09/19 06/09/19 Benazepril HCl 20 mg PO DAILY 06/09/19 06/09/19 Isosorbide Mononitrate [Isosorbide 60 mg PO DAILY 06/09/19 06/09/19 Mononitrate ER] Melatonin 5 mg PO QPM 06/09/19 06/09/19 Metoprolol Succinate 50 mg PO BID 06/09/19 06/09/19 Ticagrelor [Brilinta] 90 mg PO BID 06/09/19 06/09/19 - Allergies Allergies/Adverse Reactions: Allergies Allergy/AdvReac Type Severity Reaction Status Date / Time clopidogrel [From Plavix] Allergy Severe Itching Verified 06/09/19 21:17 - Social History Does the pt smoke?: No Smoking Status: Never smoker Does the pt drink ETOH?: Yes Does the pt have substance abuse?: No - Immunizations Immunizations are current?: No Immunizations: TDAP >10years/unknown - POLST Patient has POLST: No PD ED PE NORMAL - Vitals Vital signs reviewed: Yes - General General: Alert and oriented X 3, No acute distress (NAD at rest, obvious painful distress with movement involving lower back or left hip, LLE), Well developed/nourished - HEENT HEENT: Atraumatic, PERRL, EOMI - Neck Neck: Supple, no meningeal sign, No bony TTP - Cardiac Cardiac: RRR, No murmur - Respiratory Respiratory: No respiratory distress, Clear bilaterally - Abdomen Abdomen: Soft, Non tender, Non distended - Back Back: No spinal TTP - Derm Derm: Normal color, Warm and dry - Extremities Extremities: No deformity, No edema - Neuro Neuro: Alert and oriented X 3, collections manager 2-12 intact, No motor deficit, No sensory deficit, Normal speech Eye Opening: Spontaneous Motor: Obeys Commands Verbal: Oriented GCS Score: 15 PD ED PE EXPANDED - Extremities Extremities: Tenderness (left hip, left hemipelvis (with compression)), Limited ROM (unable to ROM left hip due to severe pain with any such attempts. ). No: Deformity Results - Vitals Vitals: Vital Signs - 24 hr 06/09/19 06/09/19 09:10 10:20 Heart Rate 83 91 Respiratory 18 18 Rate Blood Pressure 114/49 L 132/52 H O2 Saturation 95 96 Oxygen O2 Source Room air - Labs Labs: Laboratory Tests 06/09/19 06/09/19 06/09/19 04:26 04:26 04:26 WBC 5.5 RBC 2.24 L Hgb 7.3 L Hct 21.6 L MCV 96.4 MCH 32.6 H MCHC 33.8 RDW 13.6 Plt Count 148 MPV 9.6 Reticulocyte % (Auto) Neut # (Auto) Not Reportable Lymph # (Auto) Not Reportable [place] # (Auto) Not Reportable Eos # (Auto) Not Reportable Baso # (Auto) Not Reportable Absolute Nucleated RBC Not Reportable Total Counted 100 Band Neuts % (Manual) 1 Abnorm Lymph % (Manual) 0 Nucleated RBC % Not Reportable Neutrophils # (Manual) 3.1 Lymphocytes # (Manual) 1.8 Monocytes # (Manual) 0.6 Eosinophils # (Manual) 0.1 Basophils # (Manual) 0.0 Differential Comment MANUAL DIFFERENTIAL Platelet Estimate NORMAL (130-450,000) Platelet Morphology NORMAL APPEARANCE RBC Morph Micro Appear 1+ SPHEROCYTES Absolute Retic PT 12.9 H INR 1.1 VBG pH Ionized Calcium Sodium 132 L Potassium 3.9 Chloride 95 L Carbon Dioxide 26 Anion Gap 11.0 BUN 59 H Creatinine 2.3 H Estimated GFR (MDRD) 21 L Glucose 129 H Calcium 12.9 H* Iron TIBC % Saturation Transferrin Ferritin Lactate Dehydrogenase Vitamin B12 PTH Intact Blood Type Recheck 06/09/19 06/09/19 06/09/19 04:55 04:55 04:55 WBC RBC 2.18 L Hgb Hct MCV MCH MCHC RDW Plt Count MPV Reticulocyte % (Auto) 1.97 Neut # (Auto) Lymph # (Auto) [place] # (Auto) Eos # (Auto) Baso # (Auto) Absolute Nucleated RBC Total Counted Band Neuts % (Manual) Abnorm Lymph % (Manual) Nucleated RBC % Neutrophils # (Manual) Lymphocytes # (Manual) Monocytes # (Manual) Eosinophils # (Manual) Basophils # (Manual) Differential Comment Platelet Estimate Platelet Morphology RBC Morph Micro Appear Absolute Retic 0.043 PT INR VBG pH Ionized Calcium Sodium Potassium Chloride Carbon Dioxide Anion Gap BUN Creatinine Estimated GFR (MDRD) Glucose Calcium Iron 76 TIBC 316 % Saturation 24 Transferrin 226 Ferritin 292.7 Lactate Dehydrogenase Vitamin B12 590 PTH Intact Blood Type Recheck 06/09/19 06/09/19 06/09/19 04:55 04:55 06:52 WBC RBC Hgb Hct MCV MCH MCHC RDW Plt Count MPV Reticulocyte % (Auto) Neut # (Auto) Lymph # (Auto) [place] # (Auto) Eos # (Auto) Baso # (Auto) Absolute Nucleated RBC Total Counted Band Neuts % (Manual) Abnorm Lymph % (Manual) Nucleated RBC % Neutrophils # (Manual) Lymphocytes # (Manual) Monocytes # (Manual) Eosinophils # (Manual) Basophils # (Manual) Differential Comment Platelet Estimate Platelet Morphology RBC Morph Micro Appear Absolute Retic PT INR VBG pH Ionized Calcium Sodium Potassium Chloride Carbon Dioxide Anion Gap BUN Creatinine Estimated GFR (MDRD) Glucose Calcium Iron TIBC % Saturation Transferrin Ferritin Lactate Dehydrogenase 209 Vitamin B12 PTH Intact 4 L Blood Type Recheck A NEGATIVE 06/09/19 10:04 WBC RBC Hgb Hct MCV MCH MCHC RDW Plt Count MPV Reticulocyte % (Auto) Neut # (Auto) Lymph # (Auto) [place] # (Auto) Eos # (Auto) Baso # (Auto) Absolute Nucleated RBC Total Counted Band Neuts % (Manual) Abnorm Lymph % (Manual) Nucleated RBC % Neutrophils # (Manual) Lymphocytes # (Manual) Monocytes # (Manual) Eosinophils # (Manual) Basophils # (Manual) Differential Comment Platelet Estimate Platelet Morphology RBC Morph Micro Appear Absolute Retic PT INR VBG pH 7.415 H Ionized Calcium 1.58 H* Sodium Potassium Chloride Carbon Dioxide Anion Gap BUN Creatinine Estimated GFR (MDRD) Glucose Calcium Iron TIBC % Saturation Transferrin Ferritin Lactate Dehydrogenase Vitamin B12 PTH Intact Blood Type Recheck - Rads (name of study) left hip/pelvis xrays Radiology: Prelim report reviewed, See rad report left hip CT scan Radiology: Prelim report reviewed, See rad report PD MEDICAL DECISION MAKING - ED course Complexity details: reviewed old records (Of note, GERON[facility] form appears to have a combination of correct information on this patient as well as information on a different patient that has same name and birthdate (patient in my ED confirms some of the GERONIMO information, but says she was not inpatient 2 days ago at another hospital as GERONIMO indicates; records faxed from that facility seem to indicate it is indeed a different person with same name (middle name spelled differently) and same birthday), reviewed results, re-evaluated patient, considered differential, d/w patient, d/w family ED course: CT hip results pending at end of my shift, and thus care of patient turned over to Dr. Briceño Departure - Departure Disposition: 66 [facility] DC/Xfer Clinical Impression: Fracture of sacrum without disruption of pelvic ring, Hypercalcemia Anemia Qualifiers: Anemia type: unspecified type Qualified Code(s): D64.9 - Anemia, unspecified Acute renal failure Qualifiers: Acute renal failure type: unspecified Qualified Code(s): N17.9 - Acute kidney failure, unspecified Condition: Stable Discharge Date/Time: 06/09/19 11:35
[2019-06-09] MEDS ORDERED: MORPHINE 10 MG/ML VIAL ONE (04:29)
[2019-06-09] MEDS ORDERED: MORPHINE 10 MG/ML VIAL IVP STA (04:37)
--- NOTE | 2019-06-09 05:33 | XRAY Report ---
Reason: fall, left hip and left pelvis pain Procedure Date: 06/09/2019 Accession Number: [id number] / [id number] Procedure: XR - Hip w/Pelvis 2-3V LT CPT Code: Final Report FULL RESULT: EXAM: LEFT HIP RADIOGRAPHY EXAM DATE: 06/09/2019 05:16 AM. CLINICAL HISTORY: Fall, left hip and left pelvis pain. COMPARISON: None. TECHNIQUE: 2 views. FINDINGS: Bones: Normal. No fractures or bone lesion. Joints: Mild degenerative changes of the hips. Soft Tissues: Vascular calcifications. IMPRESSION: No evidence of acute fracture. Mild osteoarthritis. RADIA
[2019-06-09] MEDS ORDERED: KETOROLAC 30 MG/ML VIAL IVP STA (06:46)
[2019-06-09 07:59] LABS: INR 1.1 (0.8-1.2); PT - PROTHROMBIN TIME 12.9 secs (9.9-12.6)
--- NOTE | 2019-06-09 07:59 | CT Report ---
Reason: fall, left hip pain Procedure Date: 06/09/2019 Accession Number: [id number] / [id number] Procedure: CT - LOWER EXTREMITY WO - LT CPT Code: Final Report FULL RESULT: EXAM: LEFT HIP CT WITHOUT CONTRAST EXAM DATE: 06/09/2019 07:23 AM. CLINICAL HISTORY: Fall, left hip pain. COMPARISON: HIP W/PELVIS 2-3V LT 06/09/2019 4:54 AM. TECHNIQUE: Thin-section axial images were acquired of the hip without contrast. Post-processing: Coronal and sagittal reformats. Other: None. In accordance with CT protocol optimization, one or more of the following dose reduction techniques were utilized for this exam: automated exposure control, adjustment of mA and/or KV based on patient size, or use of iterative reconstructive technique. FINDINGS: Bones: Possible nondisplaced incomplete fracture left femoral neck. Nondisplaced comminuted fracture left sacral wing. Joints: Moderate left hip osteoarthritis. Left hip joint space narrowing. Mild left femoral head collar degenerative spurring. Mild acetabulum spurring. Musculature: Normal. No fatty atrophy. Other: The visualized intraperitoneal structures are unremarkable. Calcific tendinosis proximal hamstrings. IMPRESSION: 1. Comminuted nondisplaced fracture left sacral wing. 2. Indeterminate for incomplete nondisplaced left femoral neck fracture. 3. Moderate osteoarthritis left hip. 4. MRI left hip for exclusion of left femoral neck fracture. RADIA
[2019-06-09 08:02] LABS: BASOPHILS % (AUTO) 0.2 %; EOSINOPHILS % (AUTO) 1.6 %; HGB - HEMOGLOBIN 7.3 g/dL (12.0-16.0); LYMPHOCYTES % (AUTO) 34.7 %; MEAN CORPUSCULAR HEMOGLOBIN 32.6 pg (27.0-31.0); MEAN CORPUSCULAR HGB CONC 33.8 g/dL (32.0-36.0); MEAN CORPUSCULAR VOLUME 96.4 fL (81.0-99.0); MEAN PLATELET VOLUME 9.6 fL (7.9-10.8); MONOCYTES % (AUTO) 10.3 %; NEUTROPHILS % (AUTO) 50.7 %; PLT - PLATELET COUNT 148 10^3/uL (130-450); RED BLOOD COUNT 2.24 10^6/uL (4.20-5.40); RED CELL DISTRIBUTION WIDTH 13.6 % (12.0-15.0); WHITE BLOOD COUNT 5.5 x10^3/uL (4.8-10.8)
[2019-06-09 08:18] LABS: ABNORMAL LYMPHS % (MANUAL) 0 %
--- NOTE | 2019-06-09 08:20 | ED Physician Documentation ---
History of Present Illness - Stated complaint Stated Complaint: GLF/HIP PAIN - Chief complaint Chief Complaint: Trauma Ext - History obtained from History obtained from: Patient - Additonal information Additional information: see Dr. Chaney note for full H&P, signed out to me awaiting CT of the L hip. 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 Cardiovascular: Coronary stent, Cardiac catheterization - Present Medications Home Medications: Ambulatory Orders Medication Instructions Recorded Confirmed Aspirin [Aspir-Low] 81 mg PO DAILY 12/19/15 06/09/19 [place]-3/Dha/Epa/Fish Oil [Fish Oil 1,000 mg PO DAILY 12/19/15 06/09/19 Conc 1,000 mg Softgel] Zolpidem [Ambien] 10 mg PO HS 12/19/15 06/09/19 Biotin 10,000 mcg PO DAILY 02/05/19 06/09/19 Cholecalciferol (Vitamin D3) 1,000 unit PO DAILY 02/05/19 06/09/19 [Vitamin D3] Multivitamin [Multivitamins] 1 each PO DAILY 02/05/19 06/09/19 Nitroglycerin 0.4 mg SL PRN PRN 02/05/19 06/09/19 Atorvastatin Calcium 80 mg PO DAILY 06/09/19 06/09/19 Benazepril HCl 20 mg PO DAILY 06/09/19 06/09/19 Isosorbide Mononitrate [Isosorbide 60 mg PO DAILY 06/09/19 06/09/19 Mononitrate ER] Melatonin 5 mg PO QPM 06/09/19 06/09/19 Metoprolol Succinate 50 mg PO BID 06/09/19 06/09/19 Ticagrelor [Brilinta] 90 mg PO BID 06/09/19 06/09/19 - Allergies Allergies/Adverse Reactions: Allergies Allergy/AdvReac Type Severity Reaction Status Date / Time No Known Drug Allergies Allergy Verified 06/09/19 04:14 - Social History Does the pt smoke?: No Smoking Status: Never smoker Does the pt drink ETOH?: Yes Does the pt have substance abuse?: No - Immunizations Immunizations are current?: No Immunizations: TDAP >10years/unknown - POLST Patient has POLST: No PD ED PE NORMAL - Vitals Vital signs reviewed: Yes - General General: Alert and oriented X 3, No acute distress - Derm Derm: Warm and dry - Extremities Extremities: Other (Left hip -Tender to palpation over the left side of the lower sacrum. Mild bruising. No tenderness with compression of the hip via the greater trochanter. No pain with isolated internal and external rotation of the hip. Neurovascular intact.) - Neuro Neuro: Alert and oriented X 3 - Psych Psych: Normal mood, Normal affect Results - Vitals Vitals: Vital Signs - 24 hr 06/09/19 06/09/19 06/09/19 04:08 04:14 05:43 Temperature 36.9 C 36.7 C Heart Rate 78 82 67 Respiratory 18 17 17 Rate Blood Pressure 134/66 H 134/66 H 109/46 L O2 Saturation 97 100 94 06/09/19 06/09/19 06/09/19 07:42 09:10 10:20 Temperature Heart Rate 79 83 91 Respiratory 18 18 18 Rate Blood Pressure 117/49 L 114/49 L 132/52 H O2 Saturation 97 95 96 Oxygen O2 Source Room air - EKG (time done) 1036 Rate: Rate (enter#) (85) Rhythm: NSR Mears: Normal Intervals: Normal FL QRS: Normal Ischemia: Normal ST segments - Labs Labs: Laboratory Tests 06/09/19 06/09/19 06/09/19 04:26 04:26 04:26 WBC 5.5 RBC 2.24 L Hgb 7.3 L Hct 21.6 L MCV 96.4 MCH 32.6 H MCHC 33.8 RDW 13.6 Plt Count 148 MPV 9.6 Reticulocyte % (Auto) Neut # (Auto) Not Reportable Lymph # (Auto) Not Reportable [place] # (Auto) Not Reportable Eos # (Auto) Not Reportable Baso # (Auto) Not Reportable Absolute Nucleated RBC Not Reportable Total Counted 100 Band Neuts % (Manual) 1 Abnorm Lymph % (Manual) 0 Nucleated RBC % Not Reportable Neutrophils # (Manual) 3.1 Lymphocytes # (Manual) 1.8 Monocytes # (Manual) 0.6 Eosinophils # (Manual) 0.1 Basophils # (Manual) 0.0 Differential Comment MANUAL DIFFERENTIAL Platelet Estimate NORMAL (130-450,000) Platelet Morphology NORMAL APPEARANCE RBC Morph Micro Appear 1+ SPHEROCYTES Absolute Retic PT 12.9 H INR 1.1 VBG pH Ionized Calcium Sodium 132 L Potassium 3.9 Chloride 95 L Carbon Dioxide 26 Anion Gap 11.0 BUN 59 H Creatinine 2.3 H Estimated GFR (MDRD) 21 L Glucose 129 H Calcium 12.9 H* Iron TIBC % Saturation Transferrin Ferritin Lactate Dehydrogenase Vitamin B12 PTH Intact Blood Type Recheck 06/09/19 06/09/19 06/09/19 04:55 04:55 04:55 WBC RBC 2.18 L Hgb Hct MCV MCH MCHC RDW Plt Count MPV Reticulocyte % (Auto) 1.97 Neut # (Auto) Lymph # (Auto) [place] # (Auto) Eos # (Auto) Baso # (Auto) Absolute Nucleated RBC Total Counted Band Neuts % (Manual) Abnorm Lymph % (Manual) Nucleated RBC % Neutrophils # (Manual) Lymphocytes # (Manual) Monocytes # (Manual) Eosinophils # (Manual) Basophils # (Manual) Differential Comment Platelet Estimate Platelet Morphology RBC Morph Micro Appear Absolute Retic 0.043 PT INR VBG pH Ionized Calcium Sodium Potassium Chloride Carbon Dioxide Anion Gap BUN Creatinine Estimated GFR (MDRD) Glucose Calcium Iron 76 TIBC 316 % Saturation 24 Transferrin 226 Ferritin 292.7 Lactate Dehydrogenase Vitamin B12 590 PTH Intact Blood Type Recheck 06/09/19 06/09/19 06/09/19 04:55 04:55 06:52 WBC RBC Hgb Hct MCV MCH MCHC RDW Plt Count MPV Reticulocyte % (Auto) Neut # (Auto) Lymph # (Auto) [place] # (Auto) Eos # (Auto) Baso # (Auto) Absolute Nucleated RBC Total Counted Band Neuts % (Manual) Abnorm Lymph % (Manual) Nucleated RBC % Neutrophils # (Manual) Lymphocytes # (Manual) Monocytes # (Manual) Eosinophils # (Manual) Basophils # (Manual) Differential Comment Platelet Estimate Platelet Morphology RBC Morph Micro Appear Absolute Retic PT INR VBG pH Ionized Calcium Sodium Potassium Chloride Carbon Dioxide Anion Gap BUN Creatinine Estimated GFR (MDRD) Glucose Calcium Iron TIBC % Saturation Transferrin Ferritin Lactate Dehydrogenase 209 Vitamin B12 PTH Intact 4 L Blood Type Recheck A NEGATIVE 06/09/19 10:04 WBC RBC Hgb Hct MCV MCH MCHC RDW Plt Count MPV Reticulocyte % (Auto) Neut # (Auto) Lymph # (Auto) [place] # (Auto) Eos # (Auto) Baso # (Auto) Absolute Nucleated RBC Total Counted Band Neuts % (Manual) Abnorm Lymph % (Manual) Nucleated RBC % Neutrophils # (Manual) Lymphocytes # (Manual) Monocytes # (Manual) Eosinophils # (Manual) Basophils # (Manual) Differential Comment Platelet Estimate Platelet Morphology RBC Morph Micro Appear Absolute Retic PT INR VBG pH 7.415 H Ionized Calcium 1.58 H* Sodium Potassium Chloride Carbon Dioxide Anion Gap BUN Creatinine Estimated GFR (MDRD) Glucose Calcium Iron TIBC % Saturation Transferrin Ferritin Lactate Dehydrogenase Vitamin B12 PTH Intact Blood Type Recheck - Rads (name of study) CT left hip Radiology: Prelim report reviewed, EMP read contemporaneously, See rad report (Comminuted nondisplaced fracture left sacral wing. 2. Indeterminate for incomplete nondisplaced left femoral neck fracture. 3. Moderate osteoarthritis left hip. 4. MRI left hip for exclusion of left femoral neck fracture. ) PD MEDICAL DECISION MAKING - ED course Complexity details: reviewed results, re-evaluated patient, considered differential, d/w patient, d/w family, d/w beauty sales consultant ED course: 78-year-old female presents to the emergency department with left hip pain after a fall. She fell a week ago and then fell again last night. Likely that the cause of her pain is the comminuted nondisplaced fracture of the left sacral wing, however there is an indeterminant possible incomplete nondisplaced left femoral neck fracture. Discussed the case with orthopedics on-call Dr. Light and he recommends an MRI Radiology also recommends an MRI. This was ordered. Laboratory testing shows a significant drop in her hemoglobin from 10-7. Denies any dark or tarry stools. Denies any visible blood. Has never needed transfusions before. She feels short of breath when attempting to walk up the stairs. She also does not have a history of renal failure or hypercalcemia. She was given IV fluids, Lasix. Will type and screen as well. Will admit to the hospitalist for further care. Departure - Departure Disposition: 66 [facility] DC/Xfer Clinical Impression: Fracture of sacrum without disruption of pelvic ring, Hypercalcemia Anemia Qualifiers: Anemia type: unspecified type Qualified Code(s): D64.9 - Anemia, unspecified Acute renal failure Qualifiers: Acute renal failure type: unspecified Qualified Code(s): N17.9 - Acute kidney failure, unspecified Condition: Stable Discharge Date/Time: 06/09/19 11:35
[2019-06-09 08:32] LABS: BAND NEUTROPHILS % (MANUAL) 1 %; EOSINOPHILS # (MANUAL) 0.1 10^3/uL (0-0.7); LYMPHOCYTES # (MANUAL) 1.8 10^3/uL (1.5-3.5); LYMPHOCYTES % (MANUAL) 32 %; MONOCYTES # (MANUAL) 0.6 10^3/uL (0.0-1.0)
[2019-06-09 08:33] LABS: PLATELET ESTIMATE, MANUAL NORMAL (130-450,000) (NORMAL); PLATELET MORPHOLOGY NORMAL APPEARANCE (NORMAL); RBC MORPHOLOGY (MULTIPLE) 1+ SPHEROCYTES (NORMAL)
[2019-06-09 08:34] LABS: DIFFERENTIAL COMMENT MANUAL DIFFERENTIAL
[2019-06-09] MEDS ORDERED: LORazepam 2 MG/ML VIAL IVP STA (08:41)
[2019-06-09 09:22] LABS: CREATININE 2.3 mg/dL (0.4-1.0)
[2019-06-09 09:23] LABS: CALCIUM 12.9 mg/dL (8.5-10.3)
[2019-06-09] MEDS ORDERED: SODIUM CHLORIDE 0.9% 1,000 ML IV ONE ×2 (09:23)
[2019-06-09 10:10] LABS: VBG PH 7.415 (7.31-7.41)
[2019-06-09] MEDS ORDERED: FUROSEMIDE 40 MG/4 ML VIAL IVP STA (10:15)
--- NOTE | 2019-06-09 10:42 | PROVIDER PROGRESS NOTE ---
Subjective - Prog Note Date Prog Note Date: 06/09/19 Prog Note Time: 10:40 - Subjective Pt reports feeling: No change (See dictated note) Objective - Vital Signs/Intake & Output Vital Signs: Vital Signs x48h Temp Pulse Resp BP Pulse Ox 06/09/19 10:20 91 18 132/52 H 96 06/09/19 09:10 83 18 114/49 L 95 06/09/19 07:42 79 18 117/49 L 97 06/09/19 05:43 36.7 C 67 17 109/46 L 94 06/09/19 04:14 82 17 134/66 H 100 06/09/19 04:08 36.9 C 78 18 134/66 H 97 - Lab Results Fish Bones: 06/09/19 04:26 06/09/19 04:26 Other Labs: Lab Results x24hrs 06/09/19 06/09/19 06/09/19 Range/Units 10:04 04:26 04:26 WBC (4.8-10.8) x10^3/uL RBC (4.20-5.40) 10^6/uL Hgb (12.0-16.0) g/dL Hct (37.0-47.0) % MCV (81.0-99.0) fL MCH (27.0-31.0) pg MCHC (32.0-36.0) g/dL RDW (12.0-15.0) % Plt Count (130-450) 10^3/uL MPV (7.9-10.8) fL Neut # (Auto) Lymph # (Auto) Marathon # (Auto) Eos # (Auto) Baso # (Auto) Absolute Nucleated RBC Total Counted Band Neuts % (Manual) (0 - 10) % Abnorm Lymph % (Manual) % Nucleated RBC % Neutrophils # (Manual) (1.5-6.6) 10^3/uL Lymphocytes # (Manual) (1.5-3.5) 10^3/uL Monocytes # (Manual) (0.0-1.0) 10^3/uL Eosinophils # (Manual) (0-0.7) 10^3/uL Basophils # (Manual) (0-0.1) 10^3/uL Differential Comment Platelet Estimate (NORMAL) Platelet Morphology (NORMAL) RBC Morph Micro Appear (NORMAL) PT 12.9 H (9.9-12.6) secs INR 1.1 (0.8-1.2) VBG pH 7.415 H (7.31-7.41) Ionized Calcium 1.58 H* (1.15-1.33) mmol/L Sodium 132 L (135-145) mmol/L Potassium 3.9 (3.5-5.0) mmol/L Chloride 95 L (101-111) mmol/L Carbon Dioxide 26 (21-32) mmol/L Anion Gap 11.0 (6-13) BUN 59 H (6-20) mg/dL Creatinine 2.3 H (0.4-1.0) mg/dL Estimated GFR (MDRD) 21 L (>89) Glucose 129 H (70-100) mg/dL Calcium 12.9 H* (8.5-10.3) mg/dL 06/09/19 Range/Units 04:26 WBC 5.5 (4.8-10.8) x10^3/uL RBC 2.24 L (4.20-5.40) 10^6/uL Hgb 7.3 L (12.0-16.0) g/dL Hct 21.6 L (37.0-47.0) % MCV 96.4 (81.0-99.0) fL MCH 32.6 H (27.0-31.0) pg MCHC 33.8 (32.0-36.0) g/dL RDW 13.6 (12.0-15.0) % Plt Count 148 (130-450) 10^3/uL MPV 9.6 (7.9-10.8) fL Neut # (Auto) Not Reportable Lymph # (Auto) Not Reportable Marathon # (Auto) Not Reportable Eos # (Auto) Not Reportable Baso # (Auto) Not Reportable Absolute Nucleated RBC Not Reportable Total Counted 100 Band Neuts % (Manual) 1 (0 - 10) % Abnorm Lymph % (Manual) 0 % Nucleated RBC % Not Reportable Neutrophils # (Manual) 3.1 (1.5-6.6) 10^3/uL Lymphocytes # (Manual) 1.8 (1.5-3.5) 10^3/uL Monocytes # (Manual) 0.6 (0.0-1.0) 10^3/uL Eosinophils # (Manual) 0.1 (0-0.7) 10^3/uL Basophils # (Manual) 0.0 (0-0.1) 10^3/uL Differential Comment MANUAL DIFFERENTIAL Platelet Estimate NORMAL (130-450,000) (NORMAL) Platelet Morphology NORMAL APPEARANCE (NORMAL) RBC Morph Micro Appear 1+ SPHEROCYTES (NORMAL) PT (9.9-12.6) secs INR (0.8-1.2) VBG pH (7.31-7.41) Ionized Calcium (1.15-1.33) mmol/L Sodium (135-145) mmol/L Potassium (3.5-5.0) mmol/L Chloride (101-111) mmol/L Carbon Dioxide (21-32) mmol/L Anion Gap (6-13) BUN (6-20) mg/dL Creatinine (0.4-1.0) mg/dL Estimated GFR (MDRD) (>89) Glucose (70-100) mg/dL Calcium (8.5-10.3) mg/dL - Diagnostic Imaging Diagnostic Imaging Comments: No obvious hip fracture seen on XR or CT scan. Left sacral ala fracture seen - Other Results/Comments Other Results/Comments: EXAM: Tender over posterior lower back, near sacrl ala. Pelvis stable on stressing. Left hip with excellent flexion and rotation without pain. No focal hip tenderness. Negative anvil sx on heel percussion. Moves toes well. sensation intact. Good cap filling Assessment/Plan - Problem List (1) Fracture of sacrum without disruption of pelvic ring Impression: Stable sacral fracture. clinically not likely to have a femoral neck hip fracture PLAN: Symptomatic treatment. Walker ambulate -WBAT on left. MRI scan to rule out an occult left hip fracture.
[2019-06-09] MEDS ORDERED: ONDANSETRON 4 MG/2 ML VIAL IVP PRN (11:03)
[2019-06-09] MEDS ORDERED: SODIUM CHLORIDE FLUSH 0.9% 10 ML SYRINGE IVP PRN (11:03)
[2019-06-09] MEDS ORDERED: ACETAMINOPHEN 325 MG TABLET PO PRN (11:03)
[2019-06-09] MEDS ORDERED: ONDANSETRON ODT 4 MG TABLET TL PRN (11:03)
[2019-06-09] MEDS ORDERED: MORPHINE 2 MG/ML CARPUJECT IVP PRN (11:03)
[2019-06-09 11:31] LABS: ABSOLUTE RETICS # AUTO 0.043 10^6/uL (0.020-0.110); RED BLOOD COUNT 2.18 10^6/uL (4.20-5.40)
--- NOTE | 2019-06-09 11:31 | CONSULTATION NOTE ---
DATE OF SERVICE: 06/09/2019 Physician: August Light MD REFERRING PHYSICIAN: Dr. Greg Briceño of the Emergency Room Department CHIEF COMPLAINT: "My left side hurts." HISTORY OF PRESENT ILLNESS: Patient is a 78-year-old woman who apparently had a fall appro ximately 10 days to 2 weeks ago, landing on her left side. She did not notice any continuing pain or difficulty after this fall. Several days later, she flew to [place] on a trip. She was there for a pproximately 5 days. The last 3 days while she was down there, she again began noticing problems garrett nikita in her left buttock region. There was no subsequent fall from the first incident. No distal weakness or numbness noted. She eventually returned back to [place] on the flight. Her pain ruby me so exquisitely painful and tender that she sought medical evaluation in [place], [place] on h er way back home to [facility]. Apparently x-rays taken at that time showed no fractures and she was discharged from the emergency room. Last evening, she apparently had another fall while at home on her way to the bathroom. She was unable to stand or weight bear after this fall. She was taken by ambulance to the emergency room here at [facility] for an evaluation. Initial x-rays were neg ative for any fractures. Subsequent CT scan of the pelvic regions again showed what appeared to be e ssentially a minimally displaced sacral ala type fracture on the left side. There was a questionable tank seen on CT scan of the femoral neck suspicious for a possible fracture. Orthopedics was consul shavon to see if any further workup or treatment was indicated. PHYSICAL EXAMINATION: Patient appears to be relatively comfortable lying in bed. Does have tenderne ss in the lower back region in the area of the sacrum on the left side. Pelvis appeared to be stable on stressing. Examination of the left hip showed no focal tenderness laterally over the anterior gr oin region. The patient had excellent hip flexion and rotation noted today of the left hip without a ny apparent pain. Neurovascular appears to be intact distally with good toe active motion, sensation intact, and good capillary filling noted. IMAGING: Review of the x-rays and CT scan was done of the pelvis and hip region again shows the sacr al ala fracture present. Focusing on her hip, however, there does not appear any obvious radiographi c evidence of a hip fracture seen. ASSESSMENT: 1. Closed minimally displaced left sacral ala fracture - not associated with any neurovascular compr omise. It should be structurally stable. 2. Possible left hip fracture - clinically this does not appear to be a fracture, though there was a radiologist's interpretation of a possible subtle abnormality on CT scan of the hip. PLAN: Would suggest doing one other workup, namely an MRI scan of the pelvic region, specifically lo oking for an occult left hip fracture. Appears as if patient is going to be admitted to the medical service for workup of other medical abnormalities detected here in the emergency room. If she does i ndeed become more symptomatic and has evidence of a nondisplaced femoral neck fracture, she could sandra efit from surgical fixation of this fracture. Otherwise, if she continues to be a benign clinical pr esentation and the MRI scan is not positive for fracture she may be started on physical therapy and m ay be weightbearing as tolerated on this extremity. Only symptomatic treatment would be needed in th is case. TD: 06/09/2019 10:42
[2019-06-09 11:32] LABS: BILIRUBIN,URINE NEGATIVE (NEGATIVE); GLUCOSE, URINE (UA) NEGATIVE (NEGATIVE); KETONES,URINE (UA) NEGATIVE (NEGATIVE); LEUKOCYTE ESTERASE, URINE NEGATIVE (NEGATIVE); NITRITE,URINE NEGATIVE (NEGATIVE); OCCULT BLOOD,URINE NEGATIVE (NEGATIVE); PH,URINE 5.5 PH (5.0-7.5); PROTEIN,URINE TRACE mg/dL (NEGATIVE); UROBILINOGEN,URINE 0.2 (NORMAL) E.U./dL (NORMAL)
[2019-06-09 11:34] LABS: CLARITY,URINE CLEAR (CLEAR)
[2019-06-09 11:45] LABS: % IRON SATURATION 24 % (20-50); IRON 76 ug/dL (28-170); TOTAL IRON BINDING CAPACITY 316 ug/dL (250-450); TRANSFERRIN 226 mg/dL (192-382)
[2019-06-09] MEDS ORDERED: SODIUM CHLORIDE 0.9% 1,000 ML IV SCH (12:00)
[2019-06-09 12:20] LABS: FERRITIN 292.7 ng/mL (11.0-306.8)
[2019-06-09] MEDS ORDERED: SODIUM CHLORIDE 0.9% MINIBAG 100 ML IV ONE (15:40)
--- NOTE | 2019-06-09 16:02 | MRI Report ---
Reason: possible non-dsiplaced fracture fem neck, fall Procedure Date: 06/09/2019 Accession Number: [id number] / [id number] Procedure: MRI - Hip LT W/O CPT Code: Final Report FULL RESULT: EXAM: LEFT HIP MRI WITHOUT CONTRAST EXAM DATE: 06/09/2019 02:10 PM. CLINICAL HISTORY: Left hip pain after fall. Possible left femoral neck fracture. COMPARISON: LOWER EXTREMITY LEFT W/O 06/09/2019 7:13 AM HIP W/PELVIS 2-3V LT 06/09/2019 4:54 AM. TECHNIQUE: Multiplanar, multisequence T1-weighted and fluid-sensitive, small wlthn-ms-sxio sequences of the hip and large dvvfw-hy-deot sequences of the pelvis without contrast. Other: None. FINDINGS: Bones: There is abnormal, T1 isointense and slightly T2 hyperintense marrow signal within most of the visualized osseous structures which include the visualized lower lumbar spine, sacrum, bony pelvis, and proximal femurs. There is sparing and normal fat signal within the femoral heads and greater trochanters. There is a nondisplaced zone 1 fracture at the left lateral aspect of the sacrum. There is a mildly displaced right pubic bone parasymphyseal fracture. No definite fracture lines are seen within the visualized proximal femurs. Left Hip: No acetabular retroversion. Femoral head/neck offset is within normal limits. No effusion or loose bodies. The articular cartilage is intact. The labrum is unremarkable on this nonarthrographic study. The ligamentum teres is intact. Other Joints: Degenerative changes of the visualized lower lumbar spine. The sacroiliac joints are unremarkable. Mild to moderate arthritic changes at the pubic symphysis. The right hip is unremarkable. Musculature: Edema along the posterior margins of the iliacus muscles. Mild edema within and around the piriformis muscles. Small amount of free fluid and/or edema along the anterior margins of the iliopsoas muscles. Edema and enlargement of the right pectineus, obturator externus, adductor mello muscles. Edema and possible partial tear at the distal aspect of the right rectus abdominal muscle. The gluteus medius and minimus tendons are normal. The visualized hamstring tendons are normal. The ischiofemoral space is normal. Pelvic Cavity: There is an approximately 10.5 cm superior to inferior by 8.9 cm AP by 4.4 cm medial to lateral heterogeneous, T1 isointense to slightly hyperintense and T2 isointense to slightly hyperintense extraperitoneal collection or mass at the right hemipelvic sidewall. The mass or collection compresses the right lateral aspect of the bladder. Other: The visualized sciatic nerves are unremarkable. No bursitis. The subcutaneous tissues are unremarkable. IMPRESSION: 1. Abnormal marrow signal within most of the visualized osseous structures which may be due to marrow hyperplasia, a marrow replacing disorder, or a myeloproliferative disorder. Clinical correlation is recommended. 2. Nondisplaced fracture at the left lateral aspect of the sacrum. Mildly displaced right pubic bone parasymphyseal fracture. No definite fracture lines are seen within the visualized proximal femurs. 3. A 10.5 x 8.9 x 4.4 cm heterogeneous extraperitoneal collection or mass at the right hemipelvic sidewall which compresses the right lateral aspect of the bladder. In the setting of recent trauma, the finding most likely represents a hematoma. A neoplasm cannot be entirely excluded. Recommend short interval follow-up CT or MRI imaging in 3-4 weeks without and with intravenous contrast to evaluate for interval change. 4. Edema and enlargement of the right pectineus, obturator externus, and adductor mello muscles which most likely represents strain or contusion. 5. Edema and a possible partial tear at the distal aspect of the right rectus abdominal muscle. RADIA
[2019-06-09] MEDS ORDERED: SODIUM CHLORIDE FLUSH 0.9% 10 ML SYRINGE IVP SCH (17:00)
[2019-06-09] MEDS ORDERED: POLYETHYLENE GLYCOL 3350 17 GM PACKET PO SCH (17:32)
[2019-06-09] MEDS ORDERED: SODIUM CHLORIDE 0.9% 500 ML ONE (18:34)
--- NOTE | 2019-06-09 20:19 | Discharge Plan ---
Discharge Plan Problem Reviewed?: Yes Disposition: 02 Transfer Acute Care Hosp Condition: Stable Diet: Cardiac Activity Restrictions: Non weight bearing Assistance Devices: Other (bedrest) Health Concerns: Pelvic hematoma in female: You were found to have a pelvic mass which measured about 10cm in diameter. In light of your hip fracture, use of platelet inhibitor and acute drop in hemoglobin, this is consistent with a hematoma. You were transfused 2 units of PRBC because your hemoglobin dropped from 10 to 7. As a result of your cardiac history with stents that recently thrombosed. Your brilinta and aspirin are being continued. This was agreed upon by cardiology. This information was relayed to the accepting physician Dr Ken Taylor at [facility]. IT will be addressed up arrival there today 06/09/19 You will be transferred to [facility]. Closed fracture dislocation of pubic symphysis with diastasis: Sacral fracture, closed: We will continue pain management. You are being transferred to [facility] for higher level of care. Acute blood loss anemia: You have a hematoma as a result of you fall and fractures. This is also complicated by taking brilinta and asprin (which are necessary) for your heart. You have been transfused 2 units of PRBC. Anticoagulation will be revaluated at [facility]. Based on further development interventional radiology may need to be consulted for possible embolization Acute Renal Failure Likely related to malignancy (multiple myeloma). Will give IV hydration for now Subsequent labs (BMP) will be checked in the morning. The underlying problem multiple myeloma will need to be addressed by oncology after the more immediate problems of hematoma and fractures Hypertension: Currently normotensive Hypercalcemia: Likely 2/2 malignancy (multiple myeloma) IV hydration for now with recheck on subsequent labs SPEP will need to be done at [facility] History of right coronary artery stent placement: In light of recent stent placements and subsequent thrombosis.Continue brilinta, atorvastatin and aspirin. Multiple Myeloma: In light of lab findings of hypercalcemia, renal failure, anemia and abnormal marrow signal on MRI. Multiple myeloma is suspected. SPEP will need to be done at [facility]. You will need to see an oncologist for further evaluation and treatment. Plan of Treatment: You are being transferred to [facility] where you have been accepted by Dr Ken Taylor for higher level of care Care Goals: Once the immediate concerns of hematoma and fractures have been adressed, you will need to be seen by an oncologist regarding the Multiple Myeloma diagnosis Assessment: This was discussed with the patient and her who expressed understanding No Smoking: If you smoke, Please STOP! Call for help.
[2019-06-09 22:04] VITALS: BP 162/68
--- NOTE | 2019-06-10 02:06 | DISCHARGE SUMMARY ---
"Discharge Summary Admit Date: 06/09/19 Discharge Date: 06/09/19 Discharging Provider: Teo Gerardo Primary Care Provider: Odette Ortega Code Status: Attempt Resuscitation Condition at Discharge: Stable Discharge Disposition: 02 Transfer Acute Care Hosp Discharge Facility Name: [facility] - DIAGNOSES Admission Diagnoses: 1. Pelvic hematoma in female 2. Closed fracture dislocation of pubic symphysis with diastasis 3. Sacral fracture, closed 4. Acute blood loss anemia 5. Acute renal failure 6. Hypercalcemia 7. Hypertension 8. Fall at home 9. Chronic Insomnia 10. History of right coronary artery stent placement Discharge Diagnoses with Status of Each Condition: 1. Pelvic hematoma in female: Guarded 2. Closed fracture dislocation of pubic symphysis with diastasis: Transferred for higher level of care 3. Sacral fracture, closed: Transferred for higher level of care 4. Acute blood loss anemia: Ongoing. S/p transfusion of 2 units of PRBC 5. Acute renal failure: Ongoing 6. Hypercalcemia: Ongoing 7. Hypertension: Chronic. Normotensive on home medications 8. Fall at home 9. Chronic Insomnia: Chronic 10. History of right coronary artery stent placement: Chronic. On home medications (brilinta, aspirin, atorvastatin) 11. Malignancy (Multiple myeloma): Acute/New. Patient will need follow up with oncology for further evaluation and treatment. - HPI History of Present Illness: HPI Patient is a 78 y/o female with history of HTN, NC s/p stent placement in December and Apr with an intra-stent thrombosis in Apr who presented to the ED with hip pain after a fall. She had also fallen on her left hip down the stair in her home 2 weeks prior. It started hurting 3 days after the incident, however she left with her for a previously planned trip to [place]. Her pain persisted and made her miserable in [place]. Upon returning she went to an [facility] in [facility] where an xray of the hip was negative for fracture so she was sent home with pain medications. 3-4 days later while getting out of the bed at night to use the restroom, she fell on her right side as she was reaching for the flashlight. She was unable to get up despite are 's help. As a result EMS was called and she presented to [facility] ED. Hip xray was done which showed no obvious signs of a fracture. This was followed with a CT of the left hip without contrast which showed a comminuted nondisplaced fracture of the left sacral wing and an indeterminate for complete nondisplaced left femoral neck fracture. An MRI of the left hip for exclusion of left femoral neck fracture was recommended. She was also noted to have a serum creatinine of 2.3, calcium of 12.9, Hct of 21.6 and a hemoglobin of 7.3. He baseline creatinine was 1 and her previous hemoglobin was 10. She was admitted for further work up The MRI results showed abnormal marrow signal with most of the visual osseous structures which may be due to marrow hyperplasia, a marrow replacing disorder or a myeloproliferative disorder. Clinical correlation was recommended. A nondisplaced fracture at the left lateral aspect of the sacrum and a mildly displaced right pubic bone parasymphyseal fracture were noted. Also a 10.5X8.9X4.4cm heterogeneous extraperitoneal collection or mass at the right hem ipelvic sidewall which compressed the right lateral aspect of the bladder. It was suspected to represent a hematoma. In light of the radiologic findings, acute drop in hemoglobin and continued use of brilinta and aspirin, the patient's cardiology group was contacted. The strongly recommended continuing brilinta despite continued risk of bleeding because the patient has thrombosis of her stent in April 2019 and an NC in December 2018. They also advised transferring the patient for higher level of care. The orthopedic surgeon on [facility] also concurred to a transfer for higher level of care. A call was placed to [facility] and the patient was accepted by Ken Taylor MD ortho pony edger. - CONSULTS | PROCEDURES Consultations: Orthopedic surgeon: Dr August Light - HOSPITAL COURSE Hospital Course: While the patient was admitted at [facility], she received 2 units of PRBC. for the acute blood loss anemia. It was determined that her anticoagulation status will be evaluated upon arrival to [facility] and brilinta will be administered there. She was given pain medication for her fractures. She received IV hydration for hypercalcemia and acute renal failure. In the light of the marrow hyperplacia, hypercalcemia, acute renal failure and anemia (even before the hematoma), it was suspected that the patient has multiple myeloma. She would need to follow up with oncology after the immediate concerns of trauma (hematoma in light of continued brilinta use and fractures) has been addressed. She will also need an SPEP done at [facility], since this is a send out lab at [facility]. This was explained to the patient and her . She was transferred by BLS ambulance around 9pm on 06/09/19. - ALLERGIES Allergies/Adverse Reactions: Allergies Allergy/AdvReac Type Severity Reaction Status Date / Time clopidogrel [From Plavix] Allergy Severe Itching Verified 06/09/19 21:17 - MEDICATIONS Home Medications: Ambulatory Orders Medication Instructions Recorded Confirmed Aspirin [Aspir-Low] 81 mg PO DAILY 12/19/15 06/09/19 [place]-3/Dha/Epa/Fish Oil [Fish Oil 1,000 mg PO DAILY 12/19/15 06/09/19 Conc 1,000 mg Softgel] Zolpidem [Ambien] 10 mg PO HS 12/19/15 06/09/19 Biotin 10,000 mcg PO DAILY 02/05/19 06/09/19 Cholecalciferol (Vitamin D3) 1,000 unit PO DAILY 02/05/19 06/09/19 [Vitamin D3] Multivitamin [Multivitamins] 1 each PO DAILY 02/05/19 06/09/19 Nitroglycerin 0.4 mg SL PRN PRN 02/05/19 06/09/19 Atorvastatin Calcium 80 mg PO DAILY 06/09/19 06/09/19 Benazepril HCl 20 mg PO DAILY 06/09/19 06/09/19 Isosorbide Mononitrate [Isosorbide 60 mg PO DAILY 06/09/19 06/09/19 Mononitrate ER] Melatonin 5 mg PO QPM 06/09/19 06/09/19 Metoprolol Succinate 50 mg PO BID 06/09/19 06/09/19 Ticagrelor [Brilinta] 90 mg PO BID 06/09/19 06/09/19 - LABS Result Diagrams: 06/09/19 04:26 06/09/19 04:26 - QUALITY (Female Hip Fx Only) Was patient sent home on osteoporosis medication?: No (Patient was transferred to another Acute care hospital for higher level of ) - FOLLOW UP Follow Up: To be determined by [facility] medical team when patient is ready for discharge - TIME SPENT Time Spent in Discharge (Minutes): 40"
[2019-06-10] MEDS ORDERED: SENNA 8.6 MG TABLET PO SCH (09:00)
[2019-06-10] MEDS ORDERED: POLYETHYLENE GLYCOL 3350 17 GM PACKET PO SCH (09:00)
[2019-06-10] MEDS ORDERED: DOCUSATE SODIUM 250 MG CAPSULE PO SCH (09:00)
--- NOTE | 2019-06-12 11:04 | HISTORY & PHYSICAL EXAMINATION ---
Chief Complaint - Chief Complaint Chief Complaint: Hip pain after a fall History of Present Illness - Admitted From Admitted From:: Home - History Obtained From History obtained from: Patient and patient chart - History of Present Illness HPI Comment/Other: Mrs. Herman is a 78 y.o. female w/ a hx of HTN, MD s/p stent placment in December and Apr of this year, with a intra-stint thrombosis in Apr. presented to the ED for hip pain after a fall. She explains that a couple of weeks ago she was taking a step down the stairs in her hallway while holding an ipad when she mis sed the step and fell on her left hip. She initially didn't have any pain until 3 days later but her and her had already planned to travel to [place], so she "rode it out" and they went anyway. While in [place], her pain made her miserable. After returning back to [place], she immediately went to the urgent care in [place]. An X-ray of the hip was done and came back negative for fx so she was sent home on pain medicine. 3-4 days later, she was getting up in the middle of the night to use the restroom and it was dark. As she was reaching for the flashlight on her night stand, she fell on her right side. Her rushed over to help her, but she was unable to get up. So they called 911. Upon arrival to the ED, a hip X-ray and CT were done but there were no obvious signs of a fracture. She was, however noted to have a serum calcium of 12.9, Hct of 21.6, and a Hgb of 7.3. Also, her creatinine was 2.3 (baseline is 1). She was admitted for further workup. History - Past Medical History Cardiovascular: reports: Hypertension, High cholesterol, Coronary artery disease, MD, Other (Intra-stent thrombosis) Respiratory: reports: None, Shortness of breath Neuro: reports: None Endocrine/Autoimmune: reports: None GI: reports: None, GERD MACHINE COMPOSITOR: reports: None : reports: None HEENT: reports: None Psych: reports: None Musculoskeletal: reports: Osteoarthritis, Osteoporosis, Other Derm: reports: None MRSA Hx?: No - Past Surgical History General: reports: Appendectomy Ortho: reports: Knee replacement, Carpal Tunnel surgery, Spine surgery /MACHINE COMPOSITOR: reports: Hysterectomy, Oophrectomy Cardiovascular: reports: Coronary stent, Cardiac catheterization - Family & Social History Family History: Mother: , CAD (Heart failure), Father: , Cancer, Sister: , CAD Family History Comment/Other: She has 3 children as well as grandchildren and great grandchildren. Her children live in [facility] and [facility] Living arrangement: At home Living Situation: With spouse/s.o. - Substance History Use: Uses substance without health or social issues: NONE Use Issues: Sleep Disorder (Chronic; takes Ambien ) Abuse: Recurrent use of substance despite neg consequences: NONE Dependence: Experiences withdrawal or developed tolerances: NONE - POLST Patient has POLST: No POLST Status: Full Code Meds/Allgy - Home Medications Home Medications: Ambulatory Orders Medication Instructions Recorded Confirmed Aspirin [Aspir-Low] 81 mg PO DAILY 12/19/15 06/09/19 [place]-3/Dha/Epa/Fish Oil [Fish Oil 1,000 mg PO DAILY 12/19/15 06/09/19 Conc 1,000 mg Softgel] Zolpidem [Ambien] 10 mg PO HS 12/19/15 06/09/19 Biotin 10,000 mcg PO DAILY 02/05/19 06/09/19 Cholecalciferol (Vitamin D3) 1,000 unit PO DAILY 02/05/19 06/09/19 [Vitamin D3] Multivitamin [Multivitamins] 1 each PO DAILY 02/05/19 06/09/19 Nitroglycerin 0.4 mg SL PRN PRN 02/05/19 06/09/19 Atorvastatin Calcium 80 mg PO DAILY 06/09/19 06/09/19 Benazepril HCl 20 mg PO DAILY 06/09/19 06/09/19 Isosorbide Mononitrate [Isosorbide 60 mg PO DAILY 06/09/19 06/09/19 Mononitrate ER] Melatonin 5 mg PO QPM 06/09/19 06/09/19 Metoprolol Succinate 50 mg PO BID 06/09/19 06/09/19 Ticagrelor [Brilinta] 90 mg PO BID 06/09/19 06/09/19 - Allergies Allergies/Adverse Reactions: Allergies Allergy/AdvReac Type Severity Reaction Status Date / Time clopidogrel [From Plavix] Allergy Severe Itching Verified 06/09/19 21:17 Review of Systems - Constitutional Constitutional: reports: Fatigue, Malaise, Other (Fatigue since first MD in December). denies: Fever, Chills, Poor appetite, Diaphoresis, Night sweats, Weight loss - Eyes Eyes: denies: Pain, Irritation, Blurred vision, Vision loss - Ears, Nose & Throat Ears, Nose & Throat: denies: Ear pain, Hearing loss, Tinnitus, Vertigo, Nosebleeds, Bleeding gums - Cardiovascular Cariovascular: reports: Lightheadedness. denies: Irregular heart rate, Palpitations, Chest pain, Edema - Respiratory Respiratory: reports: Cough (Ongoing dry cough since first MD). denies: Sputum production, Wheezing, Snoring, Hemoptysis, Orthopnea, SOB at rest, SOB with exertion, Apnea, Stridor, Pleuritic pain - Gastrointestinal Gastrointestinal: reports: Constipation (Last BM 4 days ago). denies: Abdominal pain, Abdominal distention, Black stools, Bloody stools, Nausea, Coffee grounds emesis, Reflux/heartburn, Bloating - Genitourinary Genitourinary: denies: Dysuria, Frequency, Urgency, Hematuria, Incontinence, Flank pain, Nocturia, Urethral discharge - Musculoskeletal Musculoskeletal: reports: Muscle pain (Buttocks post fall), Limited range of motion. denies: Back pain, Muscle aches, Stiffness, Muscle weakness, Gout, Joint pain, Joint swelling - Integumentary Integumentary: denies: Rash, Pruritis, Lesions, Dryness, Pigment changes, Nail changes - Neurological Neurological: reports: Dizziness. denies: General weakness, Focal weakness, Headache, Numbness, Memory problems, Abnormal gait, Seizures, Incoordination, Slurred speech - Psychiatric Psychiatric: denies: Depression, Anxiety, Suicidal, Delusions, Hallucinations - Endocrine Endocrine: denies: Polyuria, Polydypsia, Polyphagia, Intolerance to cold - Hematologic/Lymphatic Hematologic/Lymphatic: reports: Anemia, Blood clots. denies: Bruising, Petechiae, Lymphadenopathy, Bleeding tendencies, Recurrent infections - All Other Systems All Other Systems: reports: Reviewed and negative Prior Level of Functionality: Prior to arrival, Mrs. Herman was a normal functioning lady who enjoyed traveling with her . 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 Exam - Physical Exam General Appearance: positive: No acute distress, Alert. negative: Severe distress, Anxious, Lethargic Eyes Bilateral: positive: Normal inspection. negative: No lid inflammation, Conjunctivae nml, No scleral icterus ENT: positive: ENT inspection nml, Pharynx nml, No signs of dehydration. negative: Purulent nasal drainage, Pharyngeal erythema, Oral lesions, Dry mucous membranes Neck: positive: Nml inspection, Thyroid nml, Trachea midline. negative: Stiff neck, Kernig's sign, Brudzinski's sign, Carotid bruit, Swelling/bruising, Tracheal deviation Respiratory: positive: Chest non-tender, No respiratory distress, Breath sounds nml. negative: Wheezes, Rales, Rhonchi Cardiovascular: positive: Regular rate & rhythm, No murmur, Decreased pulse(s). negative: No gallop, JVD present Peripheral Pulses: positive: 1+ Abdomen: positive: Non-tender, Nml bowel sounds, Other (Hypoactive; semi-soft; no BM X 4 days) Rectal: positive: Non-tender. negative: Black stool, Bloody stool, Hemorrhoid, Enlarged prostate, Tender prostate Back: positive: Nml inspection. negative: CVA tenderness (R), CVA tenderness (L) Skin: positive: Color nml, No rash, Warm, Dry. negative: Cyanosis, Diaphoresis, Pallor, Skin rash, Decubitus Extremities: positive: Non-tender, Full ROM (Pain to R/L buttocks and R inguinal fold during passive/active ROM), Nml appearance, No pedal edema. negative: Calf tenderness, Joint swelling Neurologic/Psychiatric: positive: Oriented x3, CN's nml (2-12), Sensation nml, Mood/affect nml. negative: Facial droop, Slurred/abnml speech, Depressed mood/affect Conclusion/Plan - Problem List (1) Fall at home Conclusion/Plan: Per HPI, has fallen twice in the past 2 weeks. The first time she fell, she was walking up stairs while looking at her ipad. The second time she was using the restroom in he middle on the night, she fell as she was reaching for the flashlight. She was unable to get up so called 911. Bth times she was using ambien. -Bed alarm -Will need PT/OT - I burst her bubble and told she and her , no more ambien, ever. She needs to address her insomnia without benzo's Qualifiers: Qualifiers: initial encounter Qualifiers: [id number] Qualifiers: [id number] (2) Chronic insomnia Conclusion/Plan: Takes Ambien at home. This may have contributed to her fall. She may need to change her sleep aid. (3) Pelvic hematoma in female Conclusion/Plan: she has close to a 10 cm pelvic mass that correlates with her fracture, use of platelet inhibitor and an acute drop in hgb indicating a hematoma. Stable hemodyamics at this time . However, she is at continued risk for bleeding. I spoke her Cardiology group freedom of information officer MD, who states that she must have her Brilinta in the face of a coronary thrombosis of her stent in April (an MD in December) Cardiology recommends a higher level of care but not at their facility which is [facility]. I also spoke to our orthopedic surgeon, and he feels that she must also go to a higher level of care. Plan: I have spoken to the patient and her . I have explained to him that her status is changed for our critical access hospital. And I will be making arrangements for transfer. I will reach out to [facility].She was accepted by Ken Taylor MD Ortho freedom of information officer. (4) Closed fracture dislocation of pubic symphysis with diastasis Conclusion/Plan: conservative tx anticipated with touch wt bearing down the road. pain managment for now. Qualifiers: Qualifiers: initial encounter Qualifiers: right Qualifiers: [id number] Qualifiers: [id number] (5) Sacral fracture, closed Conclusion/Plan: same as #2. Qualifiers: Qualifiers: initial encounter Qualifiers: unspecified portion of sacrum Qualifiers: [id number] Qualifiers: [id number] (6) History of right coronary artery stent placement Conclusion/Plan: Has experienced 2 MIs in the past year; one in December (3 stents placed) and one in April bc stent thrombosed (2 stents placed). She was started on Brilinta, Atorvastatin and ASA. Unfortunately, she is also actively bleeding but she needs this medication but the Brilinta cannot be stopped d/t a intra-stent thrombosis in April. (this case was discussed with an on-call staff developer). Due to the complexity of her condition, she needs to be tranferred [facility]. -Resume Atorvastatin -Resume Brilinta once at [facility] (7) Hypercalcemia Conclusion/Plan: As noted above, may be secondary to malignancy. PTH was checked and was normal. At this point we are leaning more toward possible multiple myeloma, as she meets CRAB criteria (elevated calcium, poor renal function, anemia and osseous lesions). -Check Ca in the am -SPEP will need to be done at [facility]. It's a send out lab for us. I did discuss this with the patient and her . (8) Acute renal failure Conclusion/Plan: Likely a result of hypercalcemia and anemia; both of which may be associated w/ possible malignancy. Her creatinine was 2.3 upon arrival (baseline is 1). -NS at 100/hr -BMP in the am Qualifiers: Qualifiers: unspecified Qualifiers: [id number] Qualifiers: [id number] (9) Acute blood loss anemia Conclusion/Plan: This patient is taking Brilinta and has fallen twice within the past week. Her hip MRI showed a 10.5X 8.9X 4.4cm suprapubic hematoma. Upon arrival, Hbg was 7.3 (chronically 10) and Hct was 21.6. She was feeling malaise and experiencing mild respiratory distress. 2 units of PRBC were ordered. -Transfuse 2 units of PRBC -Supplementary O2 as needed -brilinta will be given at [facility] ER or at least anticoaglation will be evaluated there. (10) Hypertension Conclusion/Plan: Takes Metoprolol and Isosorbide at home. She is normotensive at this time. -Hold home meds for now Qualifiers: Qualifiers: essential hypertension Qualifiers: [id number] Qualifiers: [id number] - Lab Results Lab results reviewed: Yes Fish Bones: 06/09/19 04:26 06/09/19 04:26 - Diagnostic Imaging Results Diagnostic Imaging Results: positive: Final report reviewed - EKG Results EKG Interpreted Independently: No Core Measures - Anticipated LOS I expect patient to be DC'd or transferred within 96 hours.: Yes - DVT/VTE - Prophylaxis VTE/DVT Device ordered at admit?: Yes
== END 2019-06-09 22:16 | disposition short-term general hospital (02) | DRG 552 ==
LOC: EDUNIT# → ED 04:07 → MS3 11:03
PROVIDERS: ADMIT Specialist; ATTEND Internal Medicine
PROC: 30233N1 Transfusion of Nonautologous Red Blood Cells into Peripheral Vein, Percutaneous Approach (ICD-10-PCS; principal; 2019-06-09)
DX: S32.10XA Unspecified fracture of sacrum, initial encounter for closed fracture (principal); S32.110A Nondisplaced Zone I fracture of sacrum, initial encounter for closed fracture; T79.2XXA Traumatic secondary and recurrent hemorrhage and seroma, initial encounter; S32.810A Multiple fractures of pelvis with stable disruption of pelvic ring, initial encounter for closed fracture; N17.9 Acute kidney failure, unspecified; D64.9 Anemia, unspecified; C90.00 Multiple myeloma not having achieved remission; D62 Acute posthemorrhagic anemia; W01.0XXA Fall on same level from slipping, tripping and stumbling without subsequent striking against object, initial encounter; Y92.009 Unspecified place in unspecified non-institutional (private) residence as the place of occurrence of the external cause; E83.52 Hypercalcemia; I10 Essential (primary) hypertension; M19.90 Unspecified osteoarthritis, unspecified site; M81.0 Age-related osteoporosis without current pathological fracture; F51.04 Psychophysiologic insomnia; Z96.659 Presence of unspecified artificial knee joint; Z79.02 Long term (current) use of antithrombotics/antiplatelets; Z79.82 Long term (current) use of aspirin; Z79.899 Other long term (current) drug therapy; Z95.5 Presence of coronary angioplasty implant and graft; Z86.718 Personal history of other venous thrombosis and embolism
CPT/HCPCS: 36415; 73502; 73700; 73721; 80048; 81003; 82330; 82607; 82728; 83540; 83615; 83970; 84466; 85025; 85045; 85610; 86850; 86900; 86901; 86920; 93005; 96361; 96374; 96375; 96376; 99284; 99285; A9270; J2060; P9016; 81001; 82274; 87086

== ENCOUNTER 2019-07-11 10:11 | Outpatient (CLI) | payer MEDICARE, OTHER ==
[2019-07-11 11:34] LABS: CHOL/HDL RATIO 3.2 (<4.4); CHOLESTEROL 126 mg/dL; HDL CHOLESTEROL 40 mg/dL; LDL CHOLESTEROL,CALCULATED 69 mg/dL; LDL/HDL RATIO 1.7 (<4.4); VLDL CHOLESTEROL 17 mg/dL
== END 2019-07-11 10:12 | disposition home or self-care (01) ==
LOC: LAB 10:11
PROVIDERS: ATTEND Internal Medicine Cardiovascular Disease
DX: I10 Essential (primary) hypertension (principal)
CPT/HCPCS: 36415; 80061; 83721

== ENCOUNTER 2019-07-18 10:43 | Emergency (ER) | payer MEDICARE, OTHER ==
[2019-07-18] MEDS ORDERED: SODIUM CHLORIDE 0.9% 1,000 ML IV ONE (11:05)
--- NOTE | 2019-07-18 11:06 | ED Physician Documentation ---
History of Present Illness - Stated complaint Stated Complaint: LOW BLOOD COUNT - Chief complaint Chief Complaint: Cardiac - History obtained from History obtained from: Patient, Family - History of Present Illness Timing: Prior to arrival Severity Comments: moderate Quality: generalized, lightheadedness Radiates to: none Improved by: sitting down Worsened by: standing up Associated symptoms: feeling lightheaded and having low blood pressure - Treatment prior to arrival Treatment prior to arrival: none - Additonal information Additional information: Pt with Multiple Myeloma undergoing chemotherapy was seen in the MAC clinic just prior to arrival and sent to ED for low blood pressure. She is on Brillinta for hx of CAD but denies any bleeding - no blood per rectum or dark tarry stool. At clinic she was lightheaded on standing and admits to some generalized fatigue. Review of Systems Ten Systems: 10 systems reviewed and negative Constitutional: reports: Fatigue Eyes: reports: Reviewed and negative Nose: reports: Reviewed and negative Throat: reports: Reviewed and negative Cardiac: reports: Reviewed and negative Respiratory: reports: Reviewed and negative GI: reports: Reviewed and negative : reports: Reviewed and negative Skin: reports: Reviewed and negative Musculoskeletal: reports: Reviewed and negative Neurologic: reports: Reviewed and negative Endocrine: reports: Reviewed and negative Immunocompromised: reports: Immunocompromised, Chemotherapy PD PAST MEDICAL HISTORY - Past Medical History Past Medical History: Yes Cardiovascular: Hypertension Respiratory: None Endocrine/Autoimmune: None GI: None : None HEENT: None Psych: None Musculoskeletal: Osteoarthritis, Other Derm: None - Past Surgical History Past Surgical History: Yes General: Appendectomy Ortho: Knee replacement, Carpal Tunnel surgery, 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, 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 Cardiovascular: Coronary stent, Cardiac catheterization - Present Medications Home Medications: Ambulatory Orders Medication Instructions Recorded Confirmed Aspirin [Aspir-Low] 81 mg PO DAILY 12/19/15 07/12/19 [place]-3/Dha/Epa/Fish Oil [Fish Oil 1,000 mg PO DAILY 12/19/15 07/12/19 Conc 1,000 mg Softgel] Biotin 10,000 mcg PO DAILY 02/05/19 07/12/19 Cholecalciferol (Vitamin D3) 1,000 unit PO DAILY 02/05/19 07/12/19 [Vitamin D3] Multivitamin [Multivitamins] 1 each PO DAILY 02/05/19 07/12/19 Nitroglycerin 0.4 mg SL PRN PRN 02/05/19 07/12/19 Atorvastatin Calcium 80 mg PO DAILY 06/09/19 07/12/19 Benazepril HCl 20 mg PO DAILY 06/09/19 07/12/19 Isosorbide Mononitrate [Isosorbide 60 mg PO DAILY 06/09/19 07/12/19 Mononitrate ER] Melatonin 5 mg PO QPM 06/09/19 07/12/19 Ticagrelor [Brilinta] 90 mg PO BID 06/09/19 07/12/19 Sulfamethox/Trimeth 800/160 1 tab PO DAILY 30 Days #12 tab 06/21/19 07/12/19 [Bactrim Ds 800/160] dexAMETHasone [Decadron] 40 mg PO ONCE 30 Days #80 tablet 06/21/19 07/12/19 Cyclophosphamide 550 mg PO DAILY 06/23/19 07/12/19 Prochlorperazine [Compazine] 10 mg PO Q6H PRN 06/27/19 07/12/19 Acyclovir 400 mg PO BID 07/04/19 07/12/19 Escitalopram Oxalate [Lexapro] 5 mg PO DAILY #30 tablet 07/12/19 Lenalidomide [Revlimid] 15 mg PO DAILY 07/13/19 07/13/19 - Allergies Allergies/Adverse Reactions: Allergies Allergy/AdvReac Type Severity Reaction Status Date / Time clopidogrel [From Plavix] Allergy Severe Itching Verified 07/12/19 12:03 - Social History Does the pt smoke?: No Smoking Status: Former smoker Does the pt drink ETOH?: Yes Does the pt have substance abuse?: No - Immunizations Immunizations are current?: No Immunizations: TDAP >10years/unknown - POLST Patient has POLST: No PD ED PE NORMAL - Vitals Vital signs reviewed: Yes - General General: Alert and oriented X 3, No acute distress, Well developed/nourished - HEENT HEENT: Atraumatic, Moist mucous membranes, Pharynx benign - Neck Neck: Supple, no meningeal sign - Cardiac Cardiac: RRR, No murmur, No gallop, No rub, Strong equal pulses - Respiratory Respiratory: No respiratory distress, Clear bilaterally - Abdomen Abdomen: Soft, Non tender, Non distended - Female Female : Deferred - Rectal Rectal: Deferred - Derm Derm: Normal color, Warm and dry, No rash, Other (no pallor ) - Extremities Extremities: No deformity, No tenderness to palpate, Normal ROM s pain, No edema, No calf tenderness / cord - Neuro Neuro: Alert and oriented X 3, No motor deficit, No sensory deficit, Normal speech Eye Opening: Spontaneous Motor: Obeys Commands Verbal: Oriented GCS Score: 15 - Psych Psych: Normal mood, Normal affect PD ED PE EXPANDED - Rectal Rectal: Heme Occult Neg - QC+ Results - Vitals Vitals: Oxygen O2 Source Room air - Labs Labs: Laboratory Tests 07/18/19 07/18/19 11:10 11:15 Stl Occult Blood (IFOB) NEGATIVE Blood Type A NEGATIVE Antibody Screen NEGATIVE Crossmatch IS Only See Detail pt is hemoccult negative. Labs from today as outpt demonstrated significant panctyopenia likely due to chemotherapy and anemia in particular, mildy worse than baseline. PD MEDICAL DECISION MAKING - ED course Complexity details: reviewed results, re-evaluated patient, considered differential, d/w patient, d/w family ED course: 78 y/o F with multiple myeloma undergoing chemo sent to ED from [facility] for low blood pressure. Her ekg is normal. In the ED her BP improved but pt does appear to be orthostatic. She has no infectious symptoms. No fever, no urinary symptoms, no elevated wbc count. Denies GI bleeding and has a neg rectal here despite being on Brillinta. Her labs demonstrate pancytopenia and particularly worsened anemia. Given her hx of CAD advised pt to give a blood transfusion. Consented pt for blood products and she agrees to try a transfusion. Transfusion performed without incident. Pt is feeling better and is stable for discharge. Departure - Departure Disposition: 01 Home, Self Care Clinical Impression: Pancytopenia Anemia Qualifiers: Anemia type: unspecified type Qualified Code(s): D64.9 - Anemia, unspecified Condition: Stable Record reviewed to determine appropriate education?: Yes Instructions: Anemia Chemo Follow-Up: Odette Ortega PA-C [Primary Care Provider] - Within 1 week (recheck your symptoms and your blood work) Comments: You were evaluated today for low blood pressure and low blood counts. You have anemia and what we call pancytopenia meaning that all of your blood counts are low due to your chemotherapy. There was no evidence of blood in your stool. You also appear to be dehydratedion with low sodium. You were given a liter of fluids for dehydration and blood transfusion for low hemaglobin. This improved your blood pressure and your symptoms. You are stable to follow up with your doctors as an outpatient for recheck of your lab work within a week. If you have worsening symptoms return to the ED. Discharge Date/Time: 07/18/19 16:40
[2019-07-18 16:23] VITALS: BP 104/49
== END 2019-07-18 16:40 | disposition home or self-care (01) ==
LOC: ED 10:43
DX: D61.810 Antineoplastic chemotherapy induced pancytopenia (principal); T45.1X5A Adverse effect of antineoplastic and immunosuppressive drugs, initial encounter; C90.00 Multiple myeloma not having achieved remission; D64.9 Anemia, unspecified; E86.0 Dehydration; I25.10 Atherosclerotic heart disease of native coronary artery without angina pectoris; Z95.5 Presence of coronary angioplasty implant and graft; I10 Essential (primary) hypertension; Z79.02 Long term (current) use of antithrombotics/antiplatelets; Z79.82 Long term (current) use of aspirin; Z87.891 Personal history of nicotine dependence
CPT/HCPCS: 36430; 82274; 86850; 86900; 86901; 86920; 93005; 96360; 99284; 99285; P9016

== ENCOUNTER 2019-08-02 09:07 | Outpatient (CLI) | payer MEDICARE, OTHER | END 2019-08-02 09:08 | disposition critical access hospital (66) | LOC: EMS 09:07 | PROVIDERS: ATTEND Surgery | DX: R06.02 Shortness of breath (principal); R06.2 Wheezing; I25.2 Old myocardial infarction; Z95.5 Presence of coronary angioplasty implant and graft | CPT/HCPCS: A0425; A0427 ==

== ENCOUNTER 2019-08-02 09:21 | Emergency (ER) | payer MEDICARE, OTHER ==
--- NOTE | 2019-08-02 09:33 | ED Physician Documentation ---
History of Present Illness - Stated complaint Stated Complaint: SOA - Chief complaint Chief Complaint: Resp - Additonal information Additional information: This is a 78-year-old female with a history of multiple myeloma, and pelvic fracture in the last around 1 month related to lytic lesions, CAD status post multiple PCI's with stents, and possible past cardiomyopathy, unknown ejection fraction, who presents with acute onset shortness of breath. Patient was feeling well yesterday but this morning she suddenly began feeling short of breath. She took nitroglycerin and aspirin, without immediate improvement, EMS was called and given DuoNeb treatment which seemed to improve her symptoms and wheezing. Now she is feeling quite well. She denies any chest pain. She denies a diagnosis of past COPD or asthma. No fever. Review of Systems Constitutional: denies: Fever Nose: denies: Rhinorrhea / runny nose Cardiac: denies: Chest pain / pressure Respiratory: reports: Dyspnea. denies: Hemoptysis GI: denies: Abdominal Pain : denies: Dysuria Skin: denies: Rash Musculoskeletal: reports: Other (Sacral pain from recent fracture) Immunocompromised: reports: Other (Multiple Myeloma) PD PAST MEDICAL HISTORY - Past Medical History Cardiovascular: Hypertension, Coronary artery disease Respiratory: None Neuro: None Endocrine/Autoimmune: None GI: None : None HEENT: None Psych: None Musculoskeletal: Osteoarthritis, Other Derm: None Other Past Medical History: Multiple Myeloma - Past Surgical History Past Surgical History: Yes General: Appendectomy Ortho: Knee replacement, Carpal Tunnel surgery, 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, 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 Cardiovascular: Coronary stent, Cardiac catheterization - Present Medications Home Medications: Ambulatory Orders Medication Instructions Recorded Confirmed Aspirin [Aspir-Low] 81 mg PO DAILY 12/19/15 08/02/19 [place]-3/Dha/Epa/Fish Oil [Fish Oil 1,000 mg PO DAILY 12/19/15 08/02/19 Conc 1,000 mg Softgel] Biotin 10,000 mcg PO DAILY 02/05/19 08/02/19 Cholecalciferol (Vitamin D3) 1,000 unit PO DAILY 02/05/19 08/02/19 [Vitamin D3] Multivitamin [Multivitamins] 1 each PO DAILY 02/05/19 08/02/19 Nitroglycerin 0.4 mg SL PRN PRN 02/05/19 08/02/19 Atorvastatin Calcium 80 mg PO DAILY 06/09/19 08/02/19 Benazepril HCl 20 mg PO DAILY 06/09/19 08/02/19 Isosorbide Mononitrate [Isosorbide 60 mg PO DAILY 06/09/19 08/02/19 Mononitrate ER] Melatonin 5 mg PO QPM 06/09/19 08/02/19 Ticagrelor [Brilinta] 90 mg PO BID 06/09/19 08/02/19 Sulfamethox/Trimeth 800/160 1 tab PO DAILY 30 Days #12 tab 06/21/19 08/02/19 [Bactrim Ds 800/160] dexAMETHasone [Decadron] 40 mg PO ONCE 30 Days #80 tablet 06/21/19 08/02/19 Cyclophosphamide 550 mg PO DAILY 06/23/19 08/02/19 Prochlorperazine [Compazine] 10 mg PO Q6H PRN 06/27/19 08/02/19 Acyclovir 400 mg PO BID 07/04/19 08/02/19 Escitalopram Oxalate [Lexapro] 5 mg PO DAILY #30 tablet 07/12/19 08/02/19 Lenalidomide [Revlimid] 15 mg PO DAILY 07/13/19 08/02/19 Furosemide 20 mg PO DAILY #5 tablet 08/02/19 - Allergies Allergies/Adverse Reactions: Allergies Allergy/AdvReac Type Severity Reaction Status Date / Time clopidogrel [From Plavix] Allergy Severe Itching Verified 08/02/19 09:37 - Living Situation Living Situation: reports: With family Living Arrangement: reports: At home - Social History Does the pt smoke?: No Smoking Status: Former smoker Does the pt drink ETOH?: Yes Does the pt have substance abuse?: No - Immunizations Immunizations are current?: No Immunizations: TDAP >10years/unknown - POLST Patient has POLST: No PD ED PE NORMAL - Vitals Vital signs reviewed: Yes - General General: Alert and oriented X 3 - HEENT HEENT: Atraumatic - Cardiac Cardiac: RRR - Respiratory Respiratory: No respiratory distress, Other (Basilar crackles, no wheeze. Currently on 1 L nasal cannula. Normal work of breathing) - Abdomen Abdomen: Soft, Non tender, Non distended - Extremities Extremities: Other (1+ edema of the bilateral lower extremities) - Neuro Neuro: Alert and oriented X 3, Other (No focal deficits) - Psych Psych: Normal mood, Normal affect Results - Vitals Vitals: Vital Signs - 24 hr 08/02/19 08/02/19 08/02/19 09:22 09:32 10:51 Temperature 36.9 C Heart Rate 93 80 75 Respiratory 16 20 19 Rate Blood Pressure 190/90 H 187/78 H 173/78 H O2 Saturation 96 96 94 08/02/19 08/02/19 12:10 13:13 Temperature 36.6 C Heart Rate 82 78 Respiratory 19 20 Rate Blood Pressure 167/72 H 169/83 H O2 Saturation 96 98 Oxygen O2 Source Room air Oxygen Flow Rate 2 - EKG (time done) EKG Other comments: Other comments (Rate 83, rhythm sinus, there is no ST segment elevation or depression, no T wave inversions. There is T wave flattening in lead III. QRS appears borderline prolonged in the inferior leads suggestive of nonspecific IVCD, otherwise intervals are within normal limits) - Labs Labs: Laboratory Tests 08/02/19 08/02/19 08/02/19 10:09 10:09 10:09 WBC 7.5 RBC 2.59 L Hgb 7.9 L Hct 23.7 L MCV 91.5 MCH 30.5 MCHC 33.3 RDW 17.2 H Plt Count 156 MPV 9.3 Neut # (Auto) 6.1 Lymph # (Auto) 0.5 L [place] # (Auto) 0.6 Eos # (Auto) 0.0 Baso # (Auto) 0.0 Absolute Nucleated RBC 0.00 Nucleated RBC % 0.0 Sodium 130 L Potassium 3.2 L Chloride 99 L Carbon Dioxide 22 Anion Gap 9.0 BUN 24 H Creatinine 0.7 Estimated GFR (MDRD) 81 L Glucose 107 H Calcium 7.9 L Total Bilirubin 0.9 AST 62 H ALT 90 H Alkaline Phosphatase 167 H Troponin I High Sens 9.6 B-Natriuretic Peptide Total Protein 5.8 L Albumin 3.3 Globulin 2.5 Albumin/Globulin Ratio 1.3 Lipase 34 08/02/19 10:09 WBC RBC Hgb Hct MCV MCH MCHC RDW Plt Count MPV Neut # (Auto) Lymph # (Auto) [place] # (Auto) Eos # (Auto) Baso # (Auto) Absolute Nucleated RBC Nucleated RBC % Sodium Potassium Chloride Carbon Dioxide Anion Gap BUN Creatinine Estimated GFR (MDRD) Glucose Calcium Total Bilirubin AST ALT Alkaline Phosphatase Troponin I High Sens B-Natriuretic Peptide 538 H Total Protein Albumin Globulin Albumin/Globulin Ratio Lipase - Rads (name of study) XR Radiology: Other (Bilateral lower airspace opacities which could represent pneumonia versus pulmonary edema.) PD MEDICAL DECISION MAKING - ED course Complexity details: considered differential (Heart failure, pulmonary edema, hypertensive emergency, ACS, dysrhythmia, pneumonia, pneumothorax, pleural effusion, asthma/COPD, electrolyte abnormality, pulmonary embolism) ED course: On arrival patient is well-appearing per EMS she was having work of breathing before the DuoNeb treatment. She now is on 1 L nasal cannula and feeling well. Her lungs do have some bibasilar crackles, but no wheezing. X-rays obtained and shows bibasilar opacities which on my review appears most consistent with pulmonary edema/volume overload. She has not had any fever, no cough, making pneumonia less likely. EKG is obtained and shows no significant change from prior, no convincing signs of ischemia or dysrhythmia. Her troponin is negative, and she has had no chest pain whatsoever, making ACS less likely. CBC is notable for a anemia 7.9 which is at patient's baseline, CMP shows a stable hyponatremia, mild hypo-kalemia 3.2, mild AST and ALT elevations (but non-tender abdomen), and a elevated BNP at 538. Overall I am most concerned for heart failure with volume overload, she may have had flash pulmonary edema earlier in the morning, which may have in fact responded to the nitroglycerin that she took, as well as the oxygen delivered by EMS. COPD or asthma is less likely given she does not have history of these types of lung disease, and she has not had any wheezing. Patient was served in the emergency department for multiple hours, and she continued to be very well-appearing, she required no oxygen whatsoever, and she is maintaining her saturations in the mid to upper 90s on room air. I discussed that I would like to admit her for further work-up of her volume overload, and treatment of what appears to be heart failure at this time. Patient declines and states she needs to spend [place] with her family. I obtained an ambulatory oxygen saturation and she maintained saturation in the mid 90s with ambulation, and she continued to feel well with no significant increased work of breathing. I considered pulmonary embolism, however she does not have unilateral leg swelling erythema, she has no chest pain, and her shortness of breath completely resolved, which is not consistent with pulmonary embolism. Given that patient is adamant about going home, and will not stay in the hospital, I discussed my concerns, the risk of worsening, Or symptoms recurring, and the fact that If she goes home we will not be able to finish some more work- up such as further testing of the heart with serial troponins and echocardiogram. Patient is aware of these risks and understands them, would still like to go home. Given her signs of volume overload we will start her on 20 mg of furosemide daily, and she understands that she needs to have her electrolytes rechecked this week, And she needs to see her club attendant as soon as possible. I also discussed that if she has any worsening whatsoever she is to return to the Emergency department immediately. Patient agrees and according to her wishes was discharged home in the care of family. Departure - Departure Disposition: Home, Self Care Clinical Impression: Shortness of breath, Elevated brain natriuretic peptide (BNP) level Condition: Good Follow-Up: Odette Ortega PA-C [Primary Care Provider] - Within 3 Days () Prescriptions: Furosemide 20 mg PO DAILY #5 tablet Comments: You were seen today for shortness of breath which has improved. I am concerned that you have some heart failure which is causing you to retain fluid both in your lungs and on your legs. Your BNP which is a lab that measure strain in your heart is elevated at 538. We will start you on a low-dose of a diuretic for the next 5 days which may help eliminate extra fluid, but it may also change your sodium and potassium levels, which is why it is very important you have your labs redrawn this week to check them. Please call your club attendant to get the next available appointment within the week. You likely need an echocardiogram or ultrasound of your heart. If you have any worsening whatsoever including worsening swelling of the legs, shortness of breath, chest pain, or any other concerning symptoms return to the emergency department immediately There are several lab values you need to review with your PCP and club attendant: Your labs show an anemia of 7.9, which is stable from your past values. Your sodium and potassium are also a bit low at 130 and 3.2, respectively. You have an elevation of your BNP, which suggest that you have some heart dysfunction. Your chest x-ray also shows some likely fluid on the lungs. Your ALT and AST are slightly elevated as well. Discharge Date/Time: 08/02/19 13:17
[2019-08-02 10:14] LABS: BASOPHILS % (AUTO) 0.1 %; HGB - HEMOGLOBIN 7.9 g/dL (12.0-16.0); LYMPHOCYTES % (AUTO) 6.1 %; MEAN CORPUSCULAR HEMOGLOBIN 30.5 pg (27.0-31.0); MEAN CORPUSCULAR HGB CONC 33.3 g/dL (32.0-36.0); MEAN CORPUSCULAR VOLUME 91.5 fL (81.0-99.0); RED BLOOD COUNT 2.59 10^6/uL (4.20-5.40)
[2019-08-02 10:17] LABS: LYMPHOCYTES # (AUTO) 0.5 10^3/uL (1.5-3.5); MEAN PLATELET VOLUME 9.3 fL (7.9-10.8); MONOCYTES # (AUTO) 0.6 10^3/uL (0.0-1.0); NEUTROPHILS # (AUTO) 6.1 10^3/uL (1.5-6.6); NEUTROPHILS % (AUTO) 80.8 %; PLT - PLATELET COUNT 156 10^3/uL (130-450); RED CELL DISTRIBUTION WIDTH 17.2 % (12.0-15.0); WHITE BLOOD COUNT 7.5 x10^3/uL (4.8-10.8)
[2019-08-02 10:28] LABS: ALBUMIN 3.3 g/dL (3.2-5.5); ALBUMIN/GLOBULIN RATIO 1.3 (1.0-2.2); BILIRUBIN,TOTAL 0.9 mg/dL (0.2-1.0); CALCIUM 7.9 mg/dL (8.5-10.3); CREATININE 0.7 mg/dL (0.4-1.0); TOTAL PROTEIN 5.8 g/dL (6.7-8.2)
--- NOTE | 2019-08-02 10:41 | XRAY Report ---
Reason: Shortness of breath Procedure Date: 08/02/2019 Accession Number: [id number] / [id number] Procedure: XR - Chest 2 View X-Ray CPT Code: 21963 Final Report FULL RESULT: EXAM: CHEST RADIOGRAPHY EXAM DATE: 08/02/2019 10:29 AM. CLINICAL HISTORY: Shortness of breath. COMPARISON: CHEST 1 VIEW 02/05/2019 3:28 AM. TECHNIQUE: 2 views. FINDINGS: Lungs/Pleura: Bilateral lower lung predominant airspace consolidation could reflect pneumonia versus pulmonary edema.. No focal upper lung consolidation is seen. No pneumothorax. Possible small basal pleural effusions. Mediastinum: Stable heart size and mediastinum. Other: Osteopenia evident. IMPRESSION: 1. Bilateral lower lung predominant airspace consolidation could reflect pneumonia or pulmonary edema. Suggest follow-up to radiographic resolution. [facility]
[2019-08-02] MEDS ORDERED: POTASSIUM CHLORIDE 20 MEQ TABLET PO STA (12:57)
[2019-08-02] MEDS ORDERED: FUROSEMIDE 20 MG TABLET PO STA (12:58)
[2019-08-02 13:14] VITALS: BP 169/83
== END 2019-08-02 13:17 | disposition home or self-care (01) ==
LOC: EDUNIT# → ED 09:21
DX: R06.02 Shortness of breath (principal); R79.89 Other specified abnormal findings of blood chemistry; I10 Essential (primary) hypertension; D64.9 Anemia, unspecified; E87.1 Hypo-osmolality and hyponatremia; E87.6 Hypokalemia; R74.8 Abnormal levels of other serum enzymes; R91.8 Other nonspecific abnormal finding of lung field; Z87.891 Personal history of nicotine dependence
CPT/HCPCS: 36415; 71046; 80053; 83690; 83880; 84484; 85025; 93005; 99283; 99284; A9270

== ENCOUNTER 2019-08-16 09:06 | Outpatient (CLI) | payer MEDICARE, OTHER | END 2019-08-16 09:07 | disposition home or self-care (01) | LOC: LAB 09:06 | PROVIDERS: ATTEND Internal Medicine Cardiovascular Disease | DX: Z53.9 Procedure and treatment not carried out, unspecified reason (principal) ==

== ENCOUNTER 2019-08-27 11:53 | Outpatient (CLI) | payer MEDICARE, OTHER | END 2019-08-27 11:54 | disposition critical access hospital (66) | LOC: EMS 11:53 | PROVIDERS: ATTEND Surgery | DX: R55 Syncope and collapse (principal) | CPT/HCPCS: A0425; A0427 ==

== ENCOUNTER 2019-08-27 12:10 | Inpatient (IN) | payer MEDICARE, OTHER ==
[2019-08-27] MEDS ORDERED: DEXAMETHASONE 10 MG/ML VIAL IVP STA (12:57)
[2019-08-27] MEDS ORDERED: SODIUM CHLORIDE 0.9% 1,000 ML IV ONE (12:57)
--- NOTE | 2019-08-27 12:59 | ED Physician Documentation ---
PD HPI SYNCOPE - Stated complaint Stated Complaint: ABD PX - Chief complaint Chief Complaint: Neuro - History obtained from History obtained from: Patient, Family - History of Present Illness Witnessed: Witnessed (78-year-old woman who presents with family for a near syncopal or syncopal episode today. She has a history of hypertension, ME with stents, on Brilinta, multiple myeloma under treatment. She had an ME in December of last year and in-stent thrombosis in April of last year. She has had several falls recently, and today she did not fall but she kind of slumped over and was helped to the ground by family. Low blood pressure was noted. She felt good prior to that this morning and there is been no chest pain or trouble breathing. Yesterday she had poor appetite and vomiting. Of note she recently had a decrease in her steroid dose, according the oncologist note it was supposed to go from 40 mg of dexamethasone a day to 20 mg of dexamethasone a day. Looking at the patient's med list, it says she is supposed to take 5 x 2 mg tablets, but then the says that they he thinks they are 0.4 mg tablets. She denies fevers, chills, body aches, abdominal pain although the daughter says she was complaining of abdominal pain yesterday. She is been anemic recently and has been transfused recently as well.) Review of Systems Ten Systems: 10 systems reviewed and negative Constitutional: reports: Fatigue. denies: Fever, Chills Nose: denies: Rhinorrhea / runny nose, Congestion Cardiac: denies: Palpitations Respiratory: denies: Dyspnea, Cough PD PAST MEDICAL HISTORY - Past Medical History Past Medical History: Yes Cardiovascular: Hypertension, Coronary artery disease Respiratory: None Neuro: None Endocrine/Autoimmune: None GI: None AUDIT CLERKS SUPERVISOR: None : None HEENT: None Psych: None Musculoskeletal: Osteoarthritis, Other Derm: None Other Past Medical History: multiple myloma - Past Surgical History Past Surgical History: Yes General: Appendectomy Ortho: Knee replacement, Carpal Tunnel surgery, Spine surgery /AUDIT CLERKS SUPERVISOR: Hysterectomy, Oophrectomy Cardiovascular: Coronary stent, Cardiac catheterization - Present Medications Home Medications: Ambulatory Orders Medication Instructions Recorded Confirmed Aspirin [Aspir-Low] 81 mg PO DAILY 12/19/15 08/27/19 Nitroglycerin 0.4 mg SL [id number] PRN 02/05/19 08/27/19 Atorvastatin Calcium 80 mg PO QPM 06/09/19 08/27/19 Isosorbide Mononitrate [Isosorbide 60 mg PO DAILY 06/09/19 08/27/19 Mononitrate ER] Melatonin 10 mg PO QPM 06/09/19 08/27/19 Ticagrelor [Brilinta] 90 mg PO BID 06/09/19 08/27/19 Prochlorperazine [Compazine] 10 mg PO Q6H PRN 06/27/19 08/27/19 Acyclovir 400 mg PO BID 08/27/19 08/27/19 Benazepril HCl 20 mg PO BID 08/27/19 08/27/19 Escitalopram Oxalate [Lexapro] 5 mg PO QPM 08/27/19 08/27/19 Multivitamin [Theragran] 1 tab PO DAILY 08/27/19 08/27/19 Sulfamethox/Trimeth 800/160 1 tab PO MOWEFR@0900 08/27/19 08/27/19 [Bactrim Ds 800/160] carvediloL [Carvedilol] 12.5 mg PO BID 08/27/19 08/27/19 dexAMETHasone [Dexamethasone] 20 mg PO DAILY 08/27/19 08/27/19 - Allergies Allergies/Adverse Reactions: Allergies Allergy/AdvReac Type Severity Reaction Status Date / Time clopidogrel [From Plavix] Allergy Severe Itching Verified 08/27/19 12:33 - Social History Does the pt smoke?: No Smoking Status: Never smoker Does the pt drink ETOH?: Yes Does the pt have substance abuse?: No - Immunizations Immunizations are current?: Yes Immunizations: TDAP >10years/unknown - POLST Patient has POLST: No PD ED PE NORMAL - Vitals Vital signs reviewed: Yes - General General: No acute distress, Well developed/nourished, Other (She seem slightly confused and admits that her memory is "shaky.") - Neck Neck: Other (Bruising on the right side of the face from a previous fall) - Cardiac Cardiac: RRR (diminished heart sounds), No murmur - Respiratory Respiratory: No respiratory distress, Clear bilaterally - Abdomen Abdomen: Soft, Non tender - Back Back: No CVA TTP, No spinal TTP - Derm Derm: Normal color, Warm and dry - Extremities Extremities: No edema, No calf tenderness / cord - 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 Eye Opening: Spontaneous Motor: Obeys Commands Verbal: Confused (slight) GCS Score: 14 Results - Vitals Vitals: Vital Signs - 24 hr 08/27/19 08/27/19 12:22 14:04 Temperature 37.2 C 36.9 C Heart Rate 67 60 Respiratory 18 12 Rate Blood Pressure 93/52 L 119/51 L O2 Saturation 96 97 Oxygen O2 Source Room air - EKG (time done) 1224 Rate: Rate (enter#) (67) Rhythm: NSR [place]: Normal Intervals: Normal [place] QRS: Normal Ischemia: Normal ST segments Computer interpretation: Agree with computer - Labs Labs: Laboratory Tests 08/27/19 08/27/19 08/27/19 13:55 13:55 13:55 WBC 7.1 RBC 2.36 L Hgb 7.4 L Hct 21.4 L MCV 90.7 MCH 31.4 H MCHC 34.6 RDW 16.8 H Plt Count 111 L MPV 10.2 Neut # (Auto) 5.2 Lymph # (Auto) 0.6 L [place] # (Auto) 1.0 Eos # (Auto) 0.1 Baso # (Auto) 0.0 Absolute Nucleated RBC 0.02 Nucleated RBC % 0.3 Sodium 123 L Potassium 4.0 Chloride 93 L Carbon Dioxide 22 Anion Gap 8.0 BUN 28 H Creatinine 0.9 Estimated GFR (MDRD) 61 L Glucose 112 H Lactic Acid 0.9 Calcium 7.7 L Total Bilirubin 1.0 AST 18 ALT 24 Alkaline Phosphatase 80 Troponin I High Sens Total Protein 5.1 L Albumin 3.1 L Globulin 2.0 L Albumin/Globulin Ratio 1.6 Lipase 43 Blood Type Antibody Screen Crossmatch IS Only 08/27/19 08/27/19 13:55 14:03 WBC RBC Hgb Hct MCV MCH MCHC RDW Plt Count MPV Neut # (Auto) Lymph # (Auto) [place] # (Auto) Eos # (Auto) Baso # (Auto) Absolute Nucleated RBC Nucleated RBC % Sodium Potassium Chloride Carbon Dioxide Anion Gap BUN Creatinine Estimated GFR (MDRD) Glucose Lactic Acid Calcium Total Bilirubin AST ALT Alkaline Phosphatase Troponin I High Sens 4.9 Total Protein Albumin Globulin Albumin/Globulin Ratio Lipase Blood Type A NEGATIVE Antibody Screen NEGATIVE Crossmatch IS Only See Detail PD MEDICAL DECISION MAKING - ED course ED course: 78-year-old woman presents with hypotension, on my examination her blood pressure is 65/30 and a near syncopal episode today. Differential diagnosis is broad and includes but is not limited to anemia, steroid withdrawal, dehydration from vomiting yesterday. Low suspicion for ME given normal EKG. Low suspicion for pulmonary embolism given lack of chest pain or trouble breathing. Her blood pressure came up with IV fluids and a dose of Decadron, she needs the blood to though given that she has a history of coronary disease, Dr. Jonas will admit. Departure - Departure Disposition: ED Place in Observation Clinical Impression: Addisons disease Syncope Qualifiers: Syncope type: unspecified Qualified Code(s): R55 - Syncope and collapse Anemia Qualifiers: Anemia type: unspecified type Qualified Code(s): D64.9 - Anemia, unspecified Hypotension Qualifiers: Hypotension type: hypotension due to hypovolemia Qualified Code(s): I95.89 - Other hypotension; E86.1 - Hypovolemia Condition: Serious Discharge Date/Time: 08/27/19 16:03
[2019-08-27 14:11] LABS: BASOPHILS % (AUTO) 0.1 %; EOSINOPHILS # (AUTO) 0.1 10^3/uL (0.0-0.7); EOSINOPHILS % (AUTO) 1.4 %; HGB - HEMOGLOBIN 7.4 g/dL (12.0-16.0); LYMPHOCYTES # (AUTO) 0.6 10^3/uL (1.5-3.5); LYMPHOCYTES % (AUTO) 8.4 %; MEAN CORPUSCULAR HEMOGLOBIN 31.4 pg (27.0-31.0); MEAN CORPUSCULAR HGB CONC 34.6 g/dL (32.0-36.0); MEAN CORPUSCULAR VOLUME 90.7 fL (81.0-99.0); MEAN PLATELET VOLUME 10.2 fL (7.9-10.8); MONOCYTES % (AUTO) 13.5 %; NEUTROPHILS # (AUTO) 5.2 10^3/uL (1.5-6.6); NEUTROPHILS % (AUTO) 74.2 %; PLT - PLATELET COUNT 111 10^3/uL (130-450); RED BLOOD COUNT 2.36 10^6/uL (4.20-5.40); RED CELL DISTRIBUTION WIDTH 16.8 % (12.0-15.0); WHITE BLOOD COUNT 7.1 x10^3/uL (4.8-10.8)
[2019-08-27 14:25] LABS: ALBUMIN 3.1 g/dL (3.2-5.5); ALBUMIN/GLOBULIN RATIO 1.6 (1.0-2.2); CALCIUM 7.7 mg/dL (8.5-10.3); CREATININE 0.9 mg/dL (0.4-1.0); TOTAL PROTEIN 5.1 g/dL (6.7-8.2)
[2019-08-27] MEDS ORDERED: SODIUM CHLORIDE FLUSH 0.9% 10 ML SYRINGE IVP PRN (15:00)
[2019-08-27] MEDS ORDERED: ACETAMINOPHEN 325 MG TABLET PO PRN (15:00)
[2019-08-27] MEDS ORDERED: PROCHLORPERAZINE 10 MG/2 ML VIAL IVP PRN (15:00)
[2019-08-27] MEDS ORDERED: NITROGLYCERIN SL 0.4 MG TABLET SL PRN (15:28)
--- NOTE | 2019-08-27 15:47 | PHARMACY PROGRESS NOTE ---
- Best Possible Medication History Admit Date and Time: 08/27/19 1455 Processed by: Pharmacy Medication History completed: Yes Patient Interview: Pt unable to participate Secondary Source(s): Written medication list, Spouse/Significant other, Pharmacy records As the person ultimately responsible for medication therapy, providers are able to order a medication from an existing home medication list in [facility] via the "Reconcile Routine" prior to Confirmation of that medication by technician support association. Such practice is discouraged except when the physician, in their clinical judgment, deems that a medical need exists for a medication without regard to previous use.
[2019-08-27 16:56] LABS: INR 1.2 (0.8-1.2); PT - PROTHROMBIN TIME 13.9 secs (9.9-12.6)
[2019-08-27] MEDS: SODIUM CHLORIDE FLUSH 0.9% 10 ML SYRINGE IVP SCH (17:16)
--- NOTE | 2019-08-27 19:36 | XRAY Report ---
Reason: Syncope, Hx CAD Procedure Date: 08/27/2019 Accession Number: [id number] / [id number] Procedure: XR - Chest 1 View X-Ray CPT Code: 85348 Final Report FULL RESULT: EXAM: CHEST RADIOGRAPHY EXAM DATE: 08/27/2019 04:59 PM. CLINICAL HISTORY: Syncope and collapse. COMPARISON: CHEST 2 VIEW 08/02/2019 10:17 AM. TECHNIQUE: 1 view. FINDINGS: Lungs/Pleura: No focal opacities evident. No pleural effusion. No pneumothorax. Mediastinum: Within exam limitations, the cardiomediastinal contour is normal. Other: None. IMPRESSION: Normal single view chest. RADIA
[2019-08-27] MEDS: SODIUM CHLORIDE 0.9% 1,000 ML IV SCH (20:15)
[2019-08-27 20:20] LABS: BILIRUBIN,URINE NEGATIVE (NEGATIVE); GLUCOSE, URINE (UA) NEGATIVE (NEGATIVE); KETONES,URINE (UA) NEGATIVE (NEGATIVE); LEUKOCYTE ESTERASE, URINE NEGATIVE (NEGATIVE); NITRITE,URINE NEGATIVE (NEGATIVE); OCCULT BLOOD,URINE NEGATIVE (NEGATIVE); PROTEIN,URINE NEGATIVE (NEGATIVE); UROBILINOGEN,URINE 0.2 (NORMAL) E.U./dL (NORMAL)
[2019-08-27 20:22] LABS: CLARITY,URINE CLEAR (CLEAR)
--- NOTE | 2019-08-27 20:48 | HISTORY & PHYSICAL EXAMINATION ---
DATE OF SERVICE: 08/27/2019 Physician: Andreia Jonas MD HISTORY OF PRESENT ILLNESS: This is a 78-year-old white female with history of multiple myeloma, on medications, and seen at the oncology [facility] here by Dr. Cavanaugh. She has a history of coronary artery disease with an MS in 12/2018 requiring 5 stents. She then underwent cardiac rehab. She had occlusion of 2 of her stents in 04/2019 and needed repeat angiography. The following month, she tripped, fell and broke her pelvis, and had continued bleeding because she needed to stay on Brilinta, and needed transfer from our emergency room for higher level of care for management of the pelvic fracture. She was discharged to home with home PT. From that time on, she has had worsening complaints of weakness, she has needed a walker. She was seen by her oncologist 4 days ago and advised to decrease her dose of Decadron from 40 mg daily to 20 mg daily. However, it appears that she decreased it down to 4 mg daily or even lower. In the last one week, she has had 5 falls. She could not remember any of them, she states she has no warning. The and 2 daughters are at the bedside and give me descriptions of the falls: she was walking, was upright, using her walker, and then would have sudden fall and found syncopal. Two falls occurred a week ago and with one she fell onto the edge of her walker, hit her right cheek and jaw, and did not seek medical attention. She had another 2 events occur last night, one at 6 p.m. and one at 3 in the morning, with both she was getting up to use the bathroom. The daughter was following her and described that her legs buckled under her and she fell. At the 6 p.m. event, her blood pressure was checked, after she was supine, back in bed and the BP was "normal". She refused to have an ambulance called and then at 3 in the morning when she fell in the bathroom she again refused help from EMS. This morning, she was walking after breakfast, and the daughter did notice that her legs were buckling, and the daughter helped her down to the ground so she would not fall. With this event, the family insisted she be brought to the emergency room. In the emergency room, she was found to have a blood pressure of 60/30. She started to receive IV fluids and the blood pressure has improved into the 130/50 range. She has not been tachycardic, heart rate is in the 60s, probably because she is on a beta rula. In the last 24 hours, she has also had nausea and vomiting. There was no diarrhea or fever. She denies eating at a restaurant, no sick contacts, no other people in the house have vomiting or diarrhea. She does have a history of esophageal stricture, which needed stretching in the past, and currently when food gets stuck she "vomits it up." She is able to tolerate soft food like pudding and all liquids. She has had low blood pressures documented in the past. At the oncology visit 4 days ago, it was also 60 systolic and she required a liter of fluid before being sent home. She was not told to decrease any of her medications, however. She did use Lasix with potassium approximately 2 weeks ago for leg edema, and when she contacted her modern and contemporary art curator about "low blood pressures", she was told to stop taking that. Her anginal symptoms were jaw pain and upper chest pain, and when she gets these now she takes a sublingual nitroglycerin and sits, needs to sit for about 1 hour, so that she does not have "severe exhaustion." The patient states she gets no warning signs before these events of falling, but reports other episodes of getting out of bed to stand up and use her walker and then gets "complete exhaustion" and then lays back down in bed. She does not describe this as lightheadedness, but only "complete exhaustion" ALLERGIES: CLOPIDOGREL, which probably is listed because of stent failure while on Plavix . MEDICATIONS 1. Melatonin q.p.m. 2. Brilinta 90 mg b.i.d. 3. Tylenol p.r.n. 4. Zovirax 400 b.i.d. 5. Baby aspirin daily. 6. Lipitor 80 mg every night. 7. Coreg 12.5 b.i.d. 8. Nitroglycerin sublingual p.r.n. 9. Multivitamin daily. 10. Isosorbide ER 60 mg daily. 11. Lexapro 5 mg every night. 12. Dexamethasone unknown dose daily, but less than 40 mg or 20 mg daily. 13. Compazine p.r.n. 14. Benazepril 20 mg b.i.d. 15. TMP/sulfa on Wednesday, Wednesday, Wednesday. REVIEW OF SYSTEMS: The daughter states that when she fell yesterday, she fell on her coccyx and the tailbone has not been x-rayed. A comprehensive review of systems was performed and the pertinent positives are listed above in the HPI, the rest are negative. FAMILY HISTORY: Noncontributory. SOCIAL HISTORY: She is a nonsmoker, who never smoked, drinks no alcohol. No illicit drug use history. She lives with her and the adult daughter also helps in the house. PHYSICAL EXAMINATION GENERAL: Elderly white female, who appears very fatigued. VITAL SIGNS: Blood pressure 130/53 in a supine position, heart rate 60 and regular, afebrile, room air saturation 97%. HEENT: She appears very fatigued. Oral mucosa is moist. She has a large bruise of her right lower cheek that is approximately 8 cm in diameter. The skin is not torn. NECK: No JVD or carotid bruits, but there is a transmitted murmur heard in the right neck. CHEST: Clear. HEART: Normal S1, S2 and a 2-3/6 systolic murmur heard at the lower left sternal border radiating to the base and to the neck. There is no gallop. ABDOMEN: Soft, positive bowel sounds, nontender. No organomegaly. EXTREMITIES: No edema. NEUROLOGIC: Grossly intact. LABORATORY DATA: Sodium 133, potassium 4.0, BUN 28, creatinine 0.9. Troponin high sensitivities are normal at 4.9 and 4.5. Albumin 3.1. White blood count 7.1, hemoglobin 7.4, RDW 16, platelet count 111. INR 1.2. EKG: Sinus rhythm at a rate of 67 with a Q-wave only seen in lead III and otherwise within normal limits. EKG there was no chest x-ray done yet. IMPRESSION/DIAGNOSES 1. Syncope. 2. Hypotension. 3. Fall at home. 4. Garo's disease. 5. Hyponatremia. 6. Coronary artery disease with stent. 7. Old myocardial infarction. 8. Multiple myeloma. 9. Anemia. 10. Heart murmur. PLAN: Place the patient in Observation status on telemetry. Troponins have now been cycled and have ruled out an acute coronary event. Obtain an Echo to evaluate her LV and RV contractility and the murmur. Obtain carotid Dopplers to rule out carotid stenosis. Decrease her medications by stopping the Benazepril, decreasing the Coreg dose to lowest dose 3.125 b.i.d., but continue her Brilinta, baby aspirin, her vitamins and statin. Check orthostatic vital signs every shift while we are adjusting her medications. Give antiemetics for her emesis and start IV fluid hydration. I discussed the possibility of needing Florinef and Midodrine, which will be ordered if needed. Start compression stockings, on during the day, off at night. DEEP VENOUS THROMBOSIS PROPHYLAXIS: SCDs. CODE STATUS: FULL CODE, but she wants to be a DO NOT INTUBATE. ATTESTATION: The patient is expected to be discharged or transferred to another facility within 96 hours: Yes. cc: ATA , TD: 08/27/2019 19:18 LILIA
[2019-08-27 21:24] LABS: BASOPHILS % (AUTO) 0.3 %; EOSINOPHILS % (AUTO) 0.2 %; HGB - HEMOGLOBIN 9.2 g/dL (12.0-16.0); LYMPHOCYTES # (AUTO) 0.4 10^3/uL (1.5-3.5); LYMPHOCYTES % (AUTO) 6.7 %; MEAN CORPUSCULAR HGB CONC 33.9 g/dL (32.0-36.0); MEAN CORPUSCULAR VOLUME 91.2 fL (81.0-99.0); MEAN PLATELET VOLUME 10.4 fL (7.9-10.8); MONOCYTES # (AUTO) 0.2 10^3/uL (0.0-1.0); MONOCYTES % (AUTO) 3.4 %; NEUTROPHILS # (AUTO) 5.5 10^3/uL (1.5-6.6); NEUTROPHILS % (AUTO) 84.5 %; PLT - PLATELET COUNT 119 10^3/uL (130-450); RED BLOOD COUNT 2.97 10^6/uL (4.20-5.40); RED CELL DISTRIBUTION WIDTH 16.4 % (12.0-15.0); WHITE BLOOD COUNT 6.5 x10^3/uL (4.8-10.8)
--- NOTE | 2019-08-27 21:31 | XRAY Report ---
Reason: fell on coccyx during syncope Procedure Date: 08/27/2019 Accession Number: [id number] / [id number] Procedure: XR - Sacrum/Coccyx CPT Code: Final Report FULL RESULT: EXAM: SACRUM AND COCCYX RADIOGRAPHY EXAM DATE: 08/27/2019 07:24 PM. HISTORY: Fell on coccyx during syncope. COMPARISONS: HIP W/PELVIS 2-3V LT 06/09/2019 4:54 AM HIP LT W/O 06/09/2019 1:50 PM LOWER EXTREMITY LEFT W/O 06/09/2019 7:13 AM. TECHNIQUE: 3 views. FINDINGS: Alignment: Normal. The sacrum and coccyx are normally aligned. Bones: Bones appear mildly heterogeneous and osteopenic. There is nondisplaced fracture of inferior sacrum (S4-S5 level). Coccyx appears intact. Fracture deformity at right pubis, probably stable. Osseous degenerative changes evident. Joints: Normal. The sacroiliac joints and visualized hips are within normal limits. Soft Tissues: No significant soft tissue swelling evident. IMPRESSION: 1. Nondisplaced fracture of inferior sacrum. 2. Right pubis fracture, probably nonacute. 3. CT or MRI can further assess for acute fractures, particularly given history of recent pelvic fractures. RADIA
--- NOTE | 2019-08-27 21:33 | XRAY Report ---
Reason: fell on R face during syncope/upper and lower jaw Procedure Date: 08/27/2019 Accession Number: [id number] / [id number] Procedure: XR - Facial Bones Limited CPT Code: Final Report FULL RESULT: EXAM: FACIAL BONES RADIOGRAPHY EXAM DATE: 08/27/2019 07:35 PM. CLINICAL HISTORY: Fell on R face during syncope/upper and lower jaw. COMPARISON: None. TECHNIQUE: 4 views. FINDINGS: Bones: Mild heterogeneity of bones. Advanced degenerative changes of the cervical spine. No definite skull or facial bone fractures evident. Temporomandibular Joints: Appeared normally aligned on provided views. Sinuses: Normal. No opacities or fluid levels. Other: No significant soft tissue swelling. IMPRESSION: No facial bone fracture evident radiographically. RADIA
[2019-08-27] MEDS: FAMOTIDINE 20 MG TABLET PO SCH (21:52)
[2019-08-27] MEDS: carvediloL 3.125 MG TABLET PO SCH (21:52)
[2019-08-27] MEDS: ACYCLOVIR 200 MG CAPSULE PO SCH (21:54)
[2019-08-27] MEDS: ESCITALOPRAM 10 MG TABLET PO SCH (21:54)
[2019-08-27] MEDS: ATORVASTATIN 40 MG TABLET PO SCH (21:55)
[2019-08-27] MEDS: TICAGRELOR 90 MG PO SCH (21:58)
[2019-08-28] MEDS: SODIUM CHLORIDE FLUSH 0.9% 10 ML SYRINGE IVP SCH ×4 (00:53→23:42)
[2019-08-28 05:37] LABS: BASOPHILS % (AUTO) 0.1 %; EOSINOPHILS % (AUTO) 0.1 %; HGB - HEMOGLOBIN 8.8 g/dL (12.0-16.0); LYMPHOCYTES # (AUTO) 0.6 10^3/uL (1.5-3.5); LYMPHOCYTES % (AUTO) 7.8 %; MEAN CORPUSCULAR HEMOGLOBIN 31.5 pg (27.0-31.0); MEAN CORPUSCULAR HGB CONC 34.9 g/dL (32.0-36.0); MEAN CORPUSCULAR VOLUME 90.3 fL (81.0-99.0); MEAN PLATELET VOLUME 10.4 fL (7.9-10.8); MONOCYTES # (AUTO) 0.6 10^3/uL (0.0-1.0); NEUTROPHILS # (AUTO) 5.7 10^3/uL (1.5-6.6); NEUTROPHILS % (AUTO) 79.9 %; PLT - PLATELET COUNT 128 10^3/uL (130-450); RED BLOOD COUNT 2.79 10^6/uL (4.20-5.40); RED CELL DISTRIBUTION WIDTH 16.2 % (12.0-15.0); WHITE BLOOD COUNT 7.2 x10^3/uL (4.8-10.8)
[2019-08-28 05:44] LABS: CALCIUM 7.9 mg/dL (8.5-10.3); CREATININE 0.7 mg/dL (0.4-1.0)
[2019-08-28] MEDS: SODIUM CHLORIDE 0.9% 1,000 ML IV SCH ×3 (05:47→19:42)
[2019-08-28] MEDS ORDERED: SULFAMETH/TRIMETH DS 800/160 MG TABLET PO SCH (09:00)
[2019-08-28] MEDS: FAMOTIDINE 20 MG TABLET PO SCH ×2 (09:16→20:37)
[2019-08-28] MEDS: ASPIRIN EC 81 MG TABLET PO SCH (09:16)
[2019-08-28] MEDS: ACYCLOVIR 200 MG CAPSULE PO SCH ×2 (09:16→20:35)
[2019-08-28] MEDS: carvediloL 3.125 MG TABLET PO SCH ×2 (09:16→20:35)
[2019-08-28] MEDS: dexAMETHasone 4 MG TABLET PO SCH (09:16)
[2019-08-28] MEDS: MULTIVITAMIN TABLET PO SCH (09:16)
[2019-08-28] MEDS: TICAGRELOR 90 MG PO SCH ×2 (09:17→20:37)
--- NOTE | 2019-08-28 10:34 | PROVIDER PROGRESS NOTE ---
Assessment/Plan - Problem List (1) Syncope Qualifiers: Syncope type: unspecified Qualified Code(s): R55 - Syncope and collapse Assessment/Plan: Telemetry has been stable. Echo showed normal LVEF Carotid Doppler showed mild-moderate stenosis of the L carotid system. Orthostatic checks have been abnormal and medications are being adjusted and compression stockings started. Continue to do vital sign checks, will decrease the IV saline rehydration, probably no Florinef or Midodrin start because of supine hypertension. I updated the patient in her bed, today with the and 2 adult daughters at bedside and answered all the questions to their satisfaction. (2) Orthostatic hypotension Assessment/Plan: She does have supine hypertension. She then drops her blood pressure greater than 40 mmHg when she stands, as of this morning's Orthostatic vital sign check. Her Decadron dose was increased which will help with the blood pressure. Her Benazepril is on hold starting today and her carvedilol dose has been decreased which will also help the orthostasis. The HENRY inhibitor may need to be resumed if the EF is <40% by Echo. The Echo ended up showing a normal LVEF. Orthostatic checks have been abnormal and medications are being adjusted Will order compression stockings. The daughter reported that she already ordered by mail 20-30 mmHg compression knee-high stockings. Continue to do vital sign checks, will decrease the IV saline rehydration. Cannot order Florinef or Midodrine because of the supine hypertension. She will be made inpatient status since there are still further adjustment of medications that need to be done, recheck of orthostasis. Will also order PT and OT evaluation regarding her weakness and use of a walker when she has falls. (3) Addisons disease Assessment/Plan: She was on Decadron 40 mg daily, she decreased her dose excessively. The dose has been adjusted to what Dr. Cavnaaugh had recommended: Dexamethasone 20 mg orally daily (4) Fall at home Assessment/Plan: The bruise on her right cheek prompted x-rays of the right facial bones which showed no fracture. The description of falling on her tailbone prompted x-rays of the coccyx area. She does have a a new fracture of S4-S5 vertebrae. There is also the old pelvic fracture seen. Will order PT evaluation and OT. (5) Sacral fracture, closed Qualifiers: Encounter type: initial encounter Zone of sacrum fracture: unspecified portion of sacrum Qualified Code(s): S32.10XA - Unspecified fracture of sacrum, initial encounter for closed fracture Assessment/Plan: As above (6) Anemia Qualifiers: Anemia type: unspecified type Qualified Code(s): D64.9 - Anemia, unspecified Assessment/Plan: She got 1U PRBCs transfused, ordered by ER doctor. We will check guaiac of stool and iron stores. She may have low iron stores since she had blood loss from hemorrhage when she had her pelvic fracture in May 2019 and Brilinta could not be stopped then because she had a new coronary stent 1 month previously. Follow CBC daily. (7) Hyponatremia Assessment/Plan: Continue IV saline. We will decrease the IV rate as we are adjusting her medications for orthostasis. Follow BMP daily. (8) History of right coronary artery stent placement Assessment/Plan: Continue with her aspirin and Brilinta while here (patient's own Brilinta dose since we do not have it on formulary). Troponins were within normal limits x2. Continue her statin. Her other cardiac medications which dropped blood pressure have been adjusted slightly due to orthostasis. (9) Old [place] (myocardial infarction) Assessment/Plan: She had [place] in December 2018 and possibly again in April 2019 which led to repeat angiography and they found that 2 of her 5 stents had occluded, she needed restenting and was started on Brilinta, Plavix was stopped then. Awaiting the Echo to evaluate LV function. (10) Yeast dermatitis Assessment/Plan: Reddened areas of skin under breasts found by RN at admission (photographed). Will order topical Nystatin powder. (11) Multiple myeloma Assessment/Plan: He is on steroids and immunotherapy, followed by Dr. Cavanaugh of [facility] here. This could also be a reason for the (? chronic) anemia - Current Meds Current Meds: Current Medications Generic Name Dose Route Start Last Admin Trade Name Freq PRN Reason Stop Dose Admin Acyclovir 400 mg 08/27/19 21:00 08/28/19 09:16 Zovirax PO 400 mg BID SHREYAS Administration Aspirin 81 mg 08/28/19 09:00 08/28/19 09:16 Ecotrin PO 81 mg DAILY SHREYAS Administration Atorvastatin Calcium 80 mg 08/27/19 21:00 08/27/19 21:55 Lipitor PO 80 mg QPM HSREYAS Administration Carvedilol 3.125 mg 08/27/19 21:00 08/28/19 09:16 Coreg PO 3.125 mg BID SHREYAS Administration Dexamethasone 20 mg 08/28/19 09:00 08/28/19 09:16 Decadron PO 20 mg DAILY SHREYAS Administration Escitalopram Oxalate 5 mg 08/27/19 21:00 08/27/19 21:54 Lexapro PO 5 mg QPM SHREYAS Administration Famotidine 20 mg 08/27/19 21:00 08/28/19 09:16 Pepcid PO 20 mg BID SHREYAS Administration Multivitamins 1 tab 08/28/19 09:00 08/28/19 09:16 Theragran PO 1 tab DAILY SHRYEAS Administration (Melatonin [ 1 each 08/27/19 21:00 08/27/19 21:59 Melatonin] 10 Mg) PO 1 each Tab QPM SHREYAS Administration (Ticagrelor [ 1 each 08/27/19 21:00 08/28/19 09:17 Brilinta] 90 Mg) PO 1 each Capsule BID SHREYAS Administration Sodium Chloride 10 ml 08/27/19 17:00 08/28/19 09:18 Normal Saline Flush 0.9% IVP 10 ml 0100,0900,1700 SHREYAS Administration Trimethoprim/Sulfamethoxazole 1 tab 08/28/19 09:00 08/28/19 09:16 Bactrim Ds 800/160 PO 1 tab MOWEFR@0900 SHREYAS Administration - Lab Result Fish Bone Diagrams: 08/28/19 05:21 08/28/19 05:21 - Additional Planning My Orders: My Active Orders 08/27/19 15:00 Activity Orders [RC] Q2HR IO [RC] IOSHIFT Initiate Bowel Care Protocol [RC] .protocol Initiate Line Care Protocol [RC] QSHIFT Initiate Personal Care Protoco [RC] .protocol Oxygen Therapy [RC] Routine Telemetry (24 Hour) [RC] Q4HR Vital Signs [RC] 0800,1600,0000 Acetaminophen [Tylenol] 650 mg PO Q4HR PRN Prochlorperazine Inj [Compazine Inj] 10 mg IVP Q6HR PRN Sodium Chloride Flush 0.9% [Normal Saline Flush 0.9%] 10 ml IVP PRN PRN Code Status [OTHERS] Routine Condition of Patient [OTHERS] Routine DVT Prophylaxis [OTHERS] Routine 08/27/19 15:01 IV Insert [RC] .ONCE SCDs [RC] QSHIFT 08/27/19 15:05 Miscellaenous Nursing Order [RC] ONCE 08/27/19 15:28 Nitroglycerin [Nitrostat] 0.4 mg SL Q5MIN PRN 08/27/19 15:30 Orthostatic [Vital Signs - Orthostatic] [RC] QSHIFT 08/27/19 15:31 Miscellaenous Nursing Order [RC] QSHIFT 08/27/19 17:00 Sodium Chloride Flush 0.9% [Normal Saline Flush 0.9%] 10 ml IVP 0100,0900,1700 08/27/19 18:59 Carotid Doppler Complete [US] Routine 08/27/19 21:00 Acyclovir [Zovirax] 400 mg PO BID Atorvastatin [Lipitor] 80 mg PO QPM Escitalopram [Lexapro] 5 mg PO QPM Famotidine [Pepcid] 20 mg PO BID Patient Own Med [Patient Own Medication] 1 each PO BID Patient Own Med [Patient Own Medication] 1 each PO QPM carvediloL [Coreg] 3.125 mg PO BID 08/27/19 Dinner Cardiac Diet [DIET] 08/28/19 Evaluate and Treat OT [OT] Routine Evaluate and Treat PT [PT] Routine 08/28/19 05:21 IRON TIBC PANEL [CHEM] Urgent 08/28/19 08:00 Echo Transthoracic Complete [ECHO] Routine 08/28/19 09:00 Aspirin EC [Ecotrin] 81 mg PO DAILY Multivitamin [Theragran] 1 tab PO DAILY Sulfamethox/Trimeth 800/160 [Bactrim Ds 800/160] 1 tab PO MOWEFR@0900 dexAMETHasone [Decadron] 20 mg PO DAILY 08/28/19 10:10 Miscellaenous Nursing Order [RC] ONCE Lionel Hose and Compression Devic [RC] Q8H 08/28/19 10:15 Sodium Chloride 0.9% [Normal Saline 0.9%] 1,000 ml IV 60 mls/hr 08/29/19 05:00 BMP - BASIC METABOLIC PANEL [CHEM] DAILYLAB CBC - COMP BLD CT W/AUTO DIFF [HEME] DAILYLAB MAGNESIUM [CHEM] DAILYLAB Objective Vital Signs: Vital Signs - 24 hr 08/27/19 08/27/19 08/27/19 12:22 14:04 15:45 Temperature 37.2 C 36.9 C 37.2 C Heart Rate 67 60 Heart Rate [ 67 Monitoring electrodes] Heart Rate [ Sitting (After 1 Minute)] Heart Rate [ Standing (After 1 Minute)] Heart Rate [ Supine] Respiratory 18 12 16 Rate Blood Pressure 93/52 L 119/51 L Blood Pressure 115/54 L [Left Brachial artery] Blood Pressure [Sitting (After 1 Minute)] Blood Pressure [Standing ( After 1 Minute) ] Blood Pressure [Supine] O2 Saturation 96 97 96 08/27/19 08/27/19 08/27/19 16:00 16:52 17:05 Temperature 36.7 C 37.2 C 37.1 C Heart Rate 62 68 70 Heart Rate [ Monitoring electrodes] Heart Rate [ Sitting (After 1 Minute)] Heart Rate [ Standing (After 1 Minute)] Heart Rate [ Supine] Respiratory 16 12 12 Rate Blood Pressure 133/53 H 147/44 H 139/57 H Blood Pressure [Left Brachial artery] Blood Pressure [Sitting (After 1 Minute)] Blood Pressure [Standing ( After 1 Minute) ] Blood Pressure [Supine] O2 Saturation 97 08/27/19 08/27/19 08/27/19 17:15 18:00 19:55 Temperature 37.1 C 36.9 C Heart Rate 69 83 Heart Rate [ Monitoring electrodes] Heart Rate [ 92 Sitting (After 1 Minute)] Heart Rate [ 98 Standing (After 1 Minute)] Heart Rate [ 83 Supine] Respiratory 16 20 Rate Blood Pressure 130/54 L Blood Pressure [Left Brachial artery] Blood Pressure 100/69 [Sitting (After 1 Minute)] Blood Pressure 88/50 L [Standing ( After 1 Minute) ] Blood Pressure 126/58 L [Supine] O2 Saturation 98 08/27/19 08/27/19 08/27/19 20:00 20:50 23:57 Temperature 37.1 C 36.9 C 36.9 C Heart Rate 77 Heart Rate [ 72 75 Monitoring electrodes] Heart Rate [ Sitting (After 1 Minute)] Heart Rate [ Standing (After 1 Minute)] Heart Rate [ Supine] Respiratory 16 16 18 Rate Blood Pressure 114/54 L Blood Pressure 138/58 H 138/55 H [Left Brachial artery] Blood Pressure [Sitting (After 1 Minute)] Blood Pressure [Standing ( After 1 Minute) ] Blood Pressure [Supine] O2 Saturation 96 97 08/28/19 08/28/19 08/28/19 05:00 05:44 08:00 Temperature 36.9 C 37.2 C Heart Rate Heart Rate [ 79 83 Monitoring electrodes] Heart Rate [ 83 Sitting (After 1 Minute)] Heart Rate [ 88 Standing (After 1 Minute)] Heart Rate [ 75 Supine] Respiratory 18 17 Rate Blood Pressure Blood Pressure 158/62 H 176/64 H [Left Brachial artery] Blood Pressure 132/67 H [Sitting (After 1 Minute)] Blood Pressure 125/62 [Standing ( After 1 Minute) ] Blood Pressure 162/63 H [Supine] O2 Saturation 96 96 Oxygen O2 Source Room air I&O (Last 24 Hrs): Intake and Output Totals x24h 08/26/19 08/27/19 08/28/19 23:59 23:59 23:59 Intake Total 1640 1293.333 Output Total 300 200 Balance 1340 1093.333 - Results Results: Laboratory Results WBC 7.2 x10^3/uL (4.8-10.8) 08/28/19 05:21 RBC 2.79 10^6/uL (4.20-5.40) L 08/28/19 05:21 Hgb 8.8 g/dL (12.0-16.0) L 08/28/19 05:21 Hct 25.2 % (37.0-47.0) L 08/28/19 05:21 MCV 90.3 fL (81.0-99.0) 08/28/19 05:21 MCH 31.5 pg (27.0-31.0) H 08/28/19 05:21 MCHC 34.9 g/dL (32.0-36.0) 08/28/19 05:21 RDW 16.2 % (12.0-15.0) H 08/28/19 05:21 Plt Count 128 10^3/uL (130-450) L 08/28/19 05:21 MPV 10.4 fL (7.9-10.8) 08/28/19 05:21 Neut # (Auto) 5.7 10^3/uL (1.5-6.6) 08/28/19 05:21 Lymph # (Auto) 0.6 10^3/uL (1.5-3.5) L 08/28/19 05:21 Petroleum # (Auto) 0.6 10^3/uL (0.0-1.0) 08/28/19 05:21 Eos # (Auto) 0.0 10^3/uL (0.0-0.7) 08/28/19 05:21 Baso # (Auto) 0.0 10^3/uL (0.0-0.1) 08/28/19 05:21 Absolute Nucleated RBC 0.00 x10^3/uL 08/28/19 05:21 Nucleated RBC % 0.0 /100WBC 08/28/19 05:21 PT 13.9 secs (9.9-12.6) H 08/27/19 13:55 INR 1.2 (0.8-1.2) 08/27/19 13:55 Sodium 124 mmol/L (135-145) L 08/28/19 05:21 Potassium 4.0 mmol/L (3.5-5.0) 08/28/19 05:21 Chloride 96 mmol/L (101-111) L 08/28/19 05:21 Carbon Dioxide 19 mmol/L (21-32) L 08/28/19 05:21 Anion Gap 9.0 (6-13) 08/28/19 05:21 BUN 24 mg/dL (6-20) H 08/28/19 05:21 Creatinine 0.7 mg/dL (0.4-1.0) 08/28/19 05:21 Estimated GFR (MDRD) 81 (>89) L 08/28/19 05:21 Glucose 120 mg/dL (70-100) H 08/28/19 05:21 Lactic Acid 0.9 mmol/L (0.5-2.2) 08/27/19 13:55 Calcium 7.9 mg/dL (8.5-10.3) L 08/28/19 05:21 Total Bilirubin 1.0 mg/dL (0.2-1.0) 08/27/19 13:55 AST 18 IU/L (10-42) 08/27/19 13:55 ALT 24 IU/L (10-60) 08/27/19 13:55 Alkaline Phosphatase 80 IU/L (42-121) 08/27/19 13:55 Troponin I High Sens 4.5 ng/L (2.3-14.8) 08/27/19 16:03 Total Protein 5.1 g/dL (6.7-8.2) L 08/27/19 13:55 Albumin 3.1 g/dL (3.2-5.5) L 08/27/19 13:55 Globulin 2.0 g/dL (2.1-4.2) L 08/27/19 13:55 Albumin/Globulin Ratio 1.6 (1.0-2.2) 08/27/19 13:55 Lipase 43 U/L (22-51) 08/27/19 13:55 Urine Color YELLOW 08/27/19 19:50 Urine Clarity CLEAR (CLEAR) 08/27/19 19:50 Urine pH 6.0 PH (5.0-7.5) 08/27/19 19:50 Ur Specific [place] 1.010 (1.002-1.030) 08/27/19 19:50 Urine Protein NEGATIVE mg/dL (NEGATIVE) 08/27/19 19:50 Urine Glucose (UA) NEGATIVE mg/dL (NEGATIVE) 08/27/19 19:50 Urine Ketones NEGATIVE mg/dL (NEGATIVE) 08/27/19 19:50 Urine Occult Blood NEGATIVE (NEGATIVE) 08/27/19 19:50 Urine Nitrite NEGATIVE (NEGATIVE) 08/27/19 19:50 Urine Bilirubin NEGATIVE (NEGATIVE) 08/27/19 19:50 Urine Urobilinogen 0.2 (NORMAL) E.U./dL (NORMAL) 08/27/19 19:50 Ur Leukocyte Esterase NEGATIVE (NEGATIVE) 08/27/19 19:50 Ur Microscopic Review NOT INDICATED 08/27/19 19:50 Urine Culture Comments NOT INDICATED 08/27/19 19:50 Blood Type A NEGATIVE 08/27/19 14:03 Antibody Screen NEGATIVE 08/27/19 14:03 Crossmatch IS Only See Detail 08/27/19 14:03 - Procedures Procedures: Procedures INSPECTION OF LOWER INTESTINAL TRACT, ENDO (12/19/15) TRANSFUSE NONAUT RED BLOOD CELLS IN PERIPH VEIN, PERC (06/09/19)
--- NOTE | 2019-08-28 10:49 | Ultrasound Report ---
Reason: recurrent syncope Procedure Date: 08/28/2019 Accession Number: [id number] / [id number] Procedure: US - Carotid Doppler Complete CPT Code: Final Report FULL RESULT: EXAM: BILATERAL CAROTID AND VERTEBRAL ARTERY DUPLEX DOPPLER ULTRASOUND: EXAM DATE: 08/28/2019 08:55 AM CLINICAL HISTORY: Recurrent syncope. COMPARISON: 08/28/2019 8:53 AM. TECHNIQUE: Grayscale imaging, color Doppler, and duplex spectral Doppler were used to evaluate the carotid and vertebral arteries bilaterally. Static images were obtained. FINDINGS: Mild atheromatous plaques are noted in the right common carotid, carotid bulb and internal and external carotid arteries. No hemodynamically significant stenosis, occlusion or dissection is noted in the right internal carotid artery system. Elevated velocities are noted in the right external carotid artery concerning for a component of stenosis. Mild atheromatous plaques are noted in the left common carotid, carotid bulb and internal and external carotid arteries. Mildly elevated velocities are noted in the mid left internal carotid artery. The color and grayscale imaging suggests a lesser degree of stenosis. Based on strict velocity criteria, elevated mid internal carotid artery velocities are concerning for stenosis of 50-69%. Elevated velocities are noted in the left external carotid artery concerning for a component of stenosis. Normal antegrade flow is present in bilateral vertebral arteries. VELOCITIES (cm/sec): Doppler Measurements Summary: Right: Prox CCA: PSV 103.0 cm/sec, EDV 13.7 cm/sec. Mid CCA: PSV 135.5 cm/sec, EDV 19.4 cm/sec. Distal CCA: PSV 105.9 cm/sec, EDV 13.7 cm/sec. Bulb: PSV 119.4 cm/sec, EDV 11.8 cm/sec. Proximal ECA: PSV 189.1 cm/sec, EDV 4.6 cm/sec. Proximal ICA: PSV 93.4 cm/sec, EDV 14.2 cm/sec. Mid ICA: PSV 90.5 cm/sec, EDV 17.6 cm/sec. Distal ICA: PSV 43.3 cm/sec, EDV 11.6 cm/sec. Vertebral Artery: PSV 51.3 cm/sec, EDV 7.6 cm/sec. Right ICA/CCA Ratio: 0.3. Left: Prox CCA: PSV 93.4 cm/sec, EDV 12.0 cm/sec. Mid CCA: PSV 120.0 cm/sec, EDV 9.9 cm/sec. Distal CCA: PSV 106.1 cm/sec, EDV 12.4 cm/sec. Proximal ECA: PSV 184.5 cm/sec, EDV 0.0 cm/sec. Proximal ICA: PSV 95.7 cm/sec, EDV 12.8 cm/sec. Mid ICA: PSV 126.1 cm/sec, EDV 17.5 cm/sec. Distal ICA: PSV 76.5 cm/sec, EDV 16.4 cm/sec. Vertebral Artery: PSV 69.7 cm/sec, EDV 8.7 cm/sec. Left ICA/CCA Ratio: 1.1. ICA diameter stenosis: Right: <50% by velocity and <70% by NASCET criteria. Left: 50-69% by velocity and <70% by NASCET criteria. IMPRESSION: 1. Mild bilateral carotid artery plaquing. 2. In the right carotid artery there are no elevated carotid artery velocities to suggest hemodynamically significant stenosis. 3. Based on strict velocity criteria, elevated velocities in the mid left internal carotid artery are concerning for stenosis of 50-69%. However, the color and grayscale imaging suggests a lesser degree of stenosis. Consider a CT angiogram of the head and neck for confirmation as needed, particularly if management is affected. 4. Normal antegrade flow is present in bilateral vertebral arteries. General Recommendations: Stenosis =50% ICA - Follow-up ultrasound 6-12 months Stenosis <50% ICA - High Risk Patient with plaque - Follow-up ultrasound 1-2 years Normal Study but High Risk Patient - Follow-up ultrasound 3-5 years Management recommendations and diagnostic criteria are based on current IAC endorsed standards in Carotid Artery Stenosis: Grayscale and Doppler Ultrasound Diagnosis. Validated velocity measurements with angiographic measurements and velocity criteria are extrapolated from diameter data as defined by the Society of Radiologists in Ultrasound Consensus Conference Radiology 2003; 229;340-346. RADIA
[2019-08-28 11:39] LABS: IRON 84 ug/dL (28-170)
[2019-08-28 11:40] LABS: % IRON SATURATION 31 % (20-50); TOTAL IRON BINDING CAPACITY 274 ug/dL (250-450); TRANSFERRIN 196 mg/dL (192-382)
[2019-08-28] MEDS: NYSTATIN POWDER 15 GM TOP SCH ×2 (14:16→20:37)
[2019-08-28] MEDS: ATORVASTATIN 40 MG TABLET PO SCH (20:35)
[2019-08-28] MEDS: ESCITALOPRAM 10 MG TABLET PO SCH (20:36)
[2019-08-29 05:26] LABS: BASOPHILS % (AUTO) 0.2 %; EOSINOPHILS % (AUTO) 0.1 %; HGB - HEMOGLOBIN 8.9 g/dL (12.0-16.0); LYMPHOCYTES # (AUTO) 0.7 10^3/uL (1.5-3.5); LYMPHOCYTES % (AUTO) 5.1 %; MEAN CORPUSCULAR HEMOGLOBIN 31.7 pg (27.0-31.0); MEAN CORPUSCULAR HGB CONC 34.8 g/dL (32.0-36.0); MEAN CORPUSCULAR VOLUME 91.1 fL (81.0-99.0); MEAN PLATELET VOLUME 10.2 fL (7.9-10.8); MONOCYTES # (AUTO) 0.9 10^3/uL (0.0-1.0); MONOCYTES % (AUTO) 6.8 %; NEUTROPHILS # (AUTO) 11.1 10^3/uL (1.5-6.6); NEUTROPHILS % (AUTO) 85.9 %; PLT - PLATELET COUNT 144 10^3/uL (130-450); RED BLOOD COUNT 2.81 10^6/uL (4.20-5.40); RED CELL DISTRIBUTION WIDTH 16.5 % (12.0-15.0); WHITE BLOOD COUNT 12.9 x10^3/uL (4.8-10.8)
[2019-08-29 05:35] LABS: CALCIUM 8.5 mg/dL (8.5-10.3); CREATININE 0.6 mg/dL (0.4-1.0)
[2019-08-29] MEDS ORDERED: polyethylene glycoL 3350 17 GM PACKET PO SCH (09:00)
[2019-08-29 09:09] VITALS: BP 158/61
--- NOTE | 2019-08-29 09:50 | Discharge Plan ---
Discharge Plan Problem Reviewed?: Yes Disposition: Home, Self Care Condition: Stable Prescriptions: Carvedilol [Coreg] 6.25 mg PO BID #60 tablet Diet: Cardiac Activity Restrictions: Activity as Tolerated Shower Restrictions: No Assistance Devices: Walker Instruction Topics: ED Hypotension Orthostatic Health Concerns: You were admitted after falling from fainting spells and extreme exhaustion when standing and the causes were found to be: Excessively high cardiac medication doses, too low of a Deacdron dose recently, anemia requiring transfusion, low sodium and dehydration. The fall on your tailbone did cause a fracture. Your medications have been decreased and adjusted and he required IV saline fluid and 1 unit of blood transfusion. Please follow the new list of medications, no new medications were required, the benazepril was stopped and the carvedilol dose has been decreased. You may use your 12.5 mg tablets of carvedilol and cut them in half to use 6.25 twice a day but a new prescription was sent to your [facility] pharmacy electronically for the 6.25 mg size. Also stay well-hydrated but not over hydrated. Use support stockings every day, while awake, off at night, and measure your blood pressure as we discussed. See your PCP in routine follow-up, see your window draper and your specialty c ardiologist as scheduled. Plan of Treatment: As above. Home Health visits will be resumed. Care Goals: Improvement in symptoms and stabilization are the goals. Assessment: The patient and family understand and are in agreement with the plan. Follow-Up Care: Home Health - RN, Home Health - PT No Smoking: If you smoke, Please STOP! Call for help. Follow-up with: Odette Ortega PA-C [Primary Care Provider] -
[2019-08-29] MEDS: FAMOTIDINE 20 MG TABLET PO SCH (09:55)
[2019-08-29] MEDS: carvediloL 3.125 MG TABLET PO SCH (09:55)
[2019-08-29] MEDS: dexAMETHasone 4 MG TABLET PO SCH (09:55)
[2019-08-29] MEDS: MULTIVITAMIN TABLET PO SCH (09:55)
[2019-08-29] MEDS: ASPIRIN EC 81 MG TABLET PO SCH (09:55)
[2019-08-29] MEDS: ACYCLOVIR 200 MG CAPSULE PO SCH (09:55)
[2019-08-29] MEDS: SODIUM CHLORIDE FLUSH 0.9% 10 ML SYRINGE IVP SCH (09:56)
[2019-08-29] MEDS: TICAGRELOR 90 MG PO SCH (10:03)
[2019-08-29] MEDS: NYSTATIN POWDER 15 GM TOP SCH (10:39)
--- NOTE | 2019-08-31 09:41 | DISCHARGE SUMMARY ---
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 Four days ago, she had an Oncology appointment at [facility] [place], her BP was 69 systolic, and she needed a litre of IV fluid. She was told to decrease her Decadron from 40 mg daily to 20 mg daily, but she decreased it to 4 mg daily or lower, as she misunderstood. In the past 1 week, she has fallen 5 times: 1 week ago she hit her R cheek on her walker handle while falling, and with the 4th fall she fell on her tailbone. She said there was no warning, and family witnessed several of these. She refused the family to call EMS for transport to the ER or medical evaluation until the family insisted after the 5th fall. In the ER, her BP was 60/30, HR 68 (but she is on a B-rula) and she was given a fluid bolus, which improved the supine BP to 130/50. She was placed in Observation status to manage syncope and falls. - HOSPITAL COURSE Hospital Course: (1) Syncope She was placed on hotel associate which was stable throughout her stay. Troponins showed no AK, an Echo showed normal LVEF, Carotid Doppler showed mild- moderate stenosis of the L carotid system which will need future follow-up. Her marked hypotension was felt to be the cause of recurrent syncope and falls. The hypotension was felt to be multi-factorial (see below). (2) Orthostatic hypotension The patient described that over the past 3 months, whenever she stood up from a seated position, she felt "exhausted and had to sit back down". This was likely her orthostatic symptom, as well as the recurrent syncope causing falls. After her severe supine hypotension improved with saline volume replacement, her orthostatic VS were checked every shift, to adjust her medication doses. She initailly had a drop in systolic BP of > 40 mmHg. She was made Inpatient status since there were still further adjustment of medications that needed to be done, with close monitoring of orthostatic BP and heart rate. Her Decadron dose was increased from 4mg to 20 mg daily. Her Benazepril was stopped and her Carvedilol dose was decreased which helped the orthostasis. The Echo showed a normal LVEF, therefore the Benazipril was not resumed. Compression stockings were recommednded and the daughter reported that she already ordered them by mail: 20-30 mmHg compression, knee-high stockings. Florinef or Midodrine were not used because of the supine hypertension. On the day of discharge, Physical Therapy measured her BP and it finally was stable during upright posture and with walking. (3) Addisons disease Last week, she was on Decadron 40 mg daily, and she had mistakenly decreased her dose excessively. While here and at the time of discharge, her Decadron dose was as Dr. Cavanaugh had recommended: Dexamethasone 20 mg orally daily (4) Fall at home The bruise on her right cheek prompted x-rays of the right facial bones which showed no fracture. The description of falling on her tailbone prompted x-rays of the coccyx area. She does have a a new fracture of S4-S5 vertebrae. There is also the old pelvic fracture seen. A PT evaluation was done and she was able to ambulate well with a walker and did not need rehab at a SNF. (5) Sacral fracture, closed Acute, as described above in #4. She had no complaints of pain at the site. (6) Anemia She got 1U PRBCs transfused, which was ordered by ER doctor. The Hgb went from 7.4 to 9.2 and was 8.9 at discharge. Her B12, Folate and Iron stores were evaluated and were adequate. (7) Hyponatremia She was dehydrated (BUN/creat at admission was 28/0.9) and she got iv Normal Saline continuously while here. Her serum sodium improved from 123>> 124>> 129. She was advised to stay well hydrated with electrolyte-containing fluids. (8) History of right coronary artery stent placement She was kept on her statin, aspirin and Brilinta while here. Her other cardiac medications were adjusted slightly due to orthostasis. (9) Old AK (myocardial infarction) She had AK in December 2018 and possibly again in April 2019 which led to repeat angiography and they found that 2 of her 5 stents had occluded, she needed restenting and was changed to Brilinta from Plavix. Her hs-troponins were cycled here, and were normal at 4.9 and 4.5. The Echo done here showed normal LV and RV sizes, normal LV systolic function with EF 60%, mild mitral and aortic regurgitation,and moderate tricuspid regurgitation with moderate pulmonary HTN (PA pressure 53 mmHg). (10) Yeast dermatitis Reddened areas of skin under her breasts was found by RN at admission, and this was treated with topical Nystatin powder. (11) Multiple myeloma This could also be a reason for the (? chronic) anemia. She is on steroids and immune chemotherapy, followed by Dr. Cavanaugh of [facility] here. - ALLERGIES Allergies/Adverse Reactions: Allergies Allergy/AdvReac Type Severity Reaction Status Date / Time clopidogrel [From Plavix] Allergy Severe Itching Verified 08/27/19 12:33 - MEDICATIONS Home Medications: Ambulatory Orders Medication Instructions Recorded Confirmed Aspirin [Aspir-Low] 81 mg PO DAILY 12/19/15 08/30/19 Nitroglycerin 0.4 mg SL Q5MX3 PRN 02/05/19 08/30/19 Atorvastatin Calcium 80 mg PO QPM 06/09/19 08/30/19 Isosorbide Mononitrate [Isosorbide 60 mg PO DAILY 06/09/19 08/30/19 Mononitrate ER] Melatonin 10 mg PO QPM 06/09/19 08/30/19 Ticagrelor [Brilinta] 90 mg PO BID 06/09/19 08/30/19 Prochlorperazine [Compazine] 10 mg PO Q6H PRN 06/27/19 08/30/19 Acyclovir 400 mg PO BID 08/27/19 08/30/19 Multivitamin [Theragran] 1 tab PO DAILY 08/27/19 08/30/19 Sulfamethox/Trimeth 800/160 1 tab PO MOWEFR@0900 08/27/19 08/30/19 [Bactrim Ds] dexAMETHasone [Dexamethasone] 20 mg PO ONCE 08/27/19 08/30/19 Carvedilol [Coreg] 6.25 mg PO BID #60 tablet 08/29/19 08/30/19 - PHYSICAL EXAM AT DISCHARGE General Appearance: positive: No acute distress, Alert Eyes Bilateral: positive: Normal inspection, EOMI ENT: positive: ENT inspection nml, No signs of dehydration, Other (Large bruise of R cheek, with swelling and purple color.) Neck: positive: Nml inspection, No JVD Respiratory: positive: No respiratory distress, Breath sounds nml Cardiovascular: positive: Regular rate & rhythm, Systolic murmur (3/6 systolic murmur at LLSB, rading to neck) Abdomen: positive: Non-tender, Nml bowel sounds, No distention Skin: positive: Color nml Extremities: positive: Non-tender, No pedal edema Neurologic/Psychiatric: positive: Oriented x3, Other (Grossly intact) - LABS Result Diagrams: 08/29/19 05:15 08/29/19 05:15 - DIAGNOSTIC IMAGING Diagnostic Imaging Results: Final report reviewed - FOLLOW UP Follow Up: Keep appointment with new Transformer Tester, Dr Cervantes at , later today. See PCP in about 1 week in follow-up. See Oncologist and Transformer Tester as previously scheduled. - TIME SPENT Time Spent in Discharge (Minutes): 60
== END 2019-08-29 10:47 | disposition home health service (06) | DRG 312 ==
LOC: EDUNIT# → ED 12:10 → MS2 14:51 → OBSVTOIN 08-28 10:07
PROVIDERS: ADMIT Internal Medicine; ATTEND Internal Medicine
DX: R55 Syncope and collapse (principal); I95.1 Orthostatic hypotension; S32.10XA Unspecified fracture of sacrum, initial encounter for closed fracture; I95.9 Hypotension, unspecified; I10 Essential (primary) hypertension; E87.1 Hypo-osmolality and hyponatremia; C90.00 Multiple myeloma not having achieved remission; E27.1 Primary adrenocortical insufficiency; R01.1 Cardiac murmur, unspecified; W19.XXXA Unspecified fall, initial encounter; D64.9 Anemia, unspecified; E86.0 Dehydration; I65.22 Occlusion and stenosis of left carotid artery; B37.2 Candidiasis of skin and nail; I25.10 Atherosclerotic heart disease of native coronary artery without angina pectoris; T38.0X6A Underdosing of glucocorticoids and synthetic analogues, initial encounter; Z91.138 Patient's unintentional underdosing of medication regimen for other reason; S32.501D Unspecified fracture of right pubis, subsequent encounter for fracture with routine healing; S00.83XD Contusion of other part of head, subsequent encounter; W19.XXXD Unspecified fall, subsequent encounter; Z91.81 History of falling; Z74.09 Other reduced mobility; Y92.009 Unspecified place in unspecified non-institutional (private) residence as the place of occurrence of the external cause; Z79.82 Long term (current) use of aspirin; Z79.02 Long term (current) use of antithrombotics/antiplatelets; Z79.52 Long term (current) use of systemic steroids; Z79.899 Other long term (current) drug therapy; I25.2 Old myocardial infarction; Z95.5 Presence of coronary angioplasty implant and graft
CPT/HCPCS: 36415; 70140; 71045; 72220; 80048; 80053; 81003; 83540; 83605; 83690; 83735; 84466; 84484; 85025; 85610; 86850; 86900; 86901; 86920; 93005; 93306; 93880; 96361; 96374; 97161; 97166; 99283; 99285; A9270; G0378; J8540; P9016; 81001; 87086

== ENCOUNTER 2019-09-22 08:00 | Outpatient (CLI) | payer MEDICARE, OTHER ==
[2019-09-22 18:34] LABS: BASOPHILS % (AUTO) 0.2 %; EOSINOPHILS # (AUTO) 0.1 10^3/uL (0.0-0.7); EOSINOPHILS % (AUTO) 1.4 %; HGB - HEMOGLOBIN 8.9 g/dL (12.0-16.0); LYMPHOCYTES # (AUTO) 0.4 10^3/uL (1.5-3.5); LYMPHOCYTES % (AUTO) 8.1 %; MEAN CORPUSCULAR HEMOGLOBIN 31.1 pg (27.0-31.0); MEAN CORPUSCULAR HGB CONC 32.2 g/dL (32.0-36.0); MEAN CORPUSCULAR VOLUME 96.5 fL (81.0-99.0); MEAN PLATELET VOLUME 10.8 fL (7.9-10.8); MONOCYTES # (AUTO) 0.9 10^3/uL (0.0-1.0); MONOCYTES % (AUTO) 16.7 %; NEUTROPHILS # (AUTO) 3.7 10^3/uL (1.5-6.6); NEUTROPHILS % (AUTO) 72.4 %; PLT - PLATELET COUNT 176 10^3/uL (130-450); RED BLOOD COUNT 2.86 10^6/uL (4.20-5.40); RED CELL DISTRIBUTION WIDTH 17.4 % (12.0-15.0); WHITE BLOOD COUNT 5.1 x10^3/uL (4.8-10.8)
[2019-09-22 19:02] LABS: ALBUMIN 3.7 g/dL (3.2-5.5); ALBUMIN/GLOBULIN RATIO 1.5 (1.0-2.2); BILIRUBIN,TOTAL 1.1 mg/dL (0.2-1.0); CALCIUM 8.5 mg/dL (8.5-10.3); CREATININE 0.8 mg/dL (0.4-1.0); TOTAL PROTEIN 6.1 g/dL (6.7-8.2)
== END 2019-09-22 23:59 | disposition home or self-care (01) ==
LOC: LAB.WCP 08:00
PROVIDERS: ATTEND Family Medicine
DX: N18.9 Chronic kidney disease, unspecified (principal); I95.1 Orthostatic hypotension; C90.00 Multiple myeloma not having achieved remission; D64.9 Anemia, unspecified; E78.5 Hyperlipidemia, unspecified; E87.1 Hypo-osmolality and hyponatremia
CPT/HCPCS: 36415; 80053; 82728; 83540; 84300; 84466; 85025

== ENCOUNTER 2020-06-20 11:12 | Outpatient (CLI) | payer MEDICARE, OTHER ==
--- NOTE | 2020-06-20 11:57 | CT Report ---
PROCEDURE: Abdomen/Pelvis WO INDICATIONS: HEMATURIA (PROV INDICATES POSSIBLE KIDNEY STONE) TECHNIQUE: Noncontrast 5 mm thick sections acquired from the diaphragms to the symphysis. 5 mm coronal and sagi ttal reformats were then performed. For radiation dose reduction, the following was used: automated exposure control, adjustment of mA and/or kV according to patient size. COMPARISON: Chest plain film 08/27/2019. Also, MR left hip 06/09/[address] scanning that includes th e left hip region 06/09/2019 is reviewed. FINDINGS: Image quality: Limited quality visualization due to absence of both oral and intravenous contrast.. ABDOMEN: Lung bases: Lung bases are abnormal with a lobulated mass at the left lower lobe, measuring up to 3. 0 solid and approximately 3.0 cm craniocaudad.. Heart size is normal. Solid organs: Liver and spleen are normal in size. Gallbladder contains faintly calcified layering small gallstones dorsally. Pancreas is normal in contours. No adrenal nodules. Kidneys are normal in size, without hydronephrosis or nephrolithiasis. Peritoneum and bowel: Unenhanced bowel loops demonstrate normal wall thickness and caliber. No free fluid or air. There is prominent colonic obstipation greater on the right than the left. Nodes and vessels: No retroperitoneal or mesenteric adenopathy by size criteria. Aorta and inferior vena cava are normal in caliber. Miscellaneous: No ventral hernias. PELVIS: Genitourinary: Bladder wall thickness is normal. Note is made of an air-fluid level within the ante rior bladder lumen, etiology uncertain. Miscellaneous: No inguinal hernias or adenopathy. Bones: There is a relatively sharply demarcated radiolucency at the femoral head on the left, with th inning of the anterior cortex where a possible permeative extension of an intraluminal process is pre sent. More inferiorly at the posterior aspect of the proximal femoral left diaphysis and additional o steal lucency is present extending into the lesser trochanter. The femoral head/neck junction area os seous lucency measures up to 2.9 cm. Note is made of what appears to be old trauma at the right symph ysis pubis and contiguous superior obturator ring. No vertebral body compression fractures. IMPRESSION: 1. Spiculated 3.0 cm lung mass left lower lobe appears to represent coincidental finding of a primary bronchogenic carcinoma. 2. Osteolytic process at the left femoral neck and intertrochanteric left femur, not present on prior CT scanning 06/09/2019. Metastatic disease is presumed. 3. Unexplained finding of gas within the bladder lumen. Please correlate for whether the patient has been recently catheterized. Diverticulitis with fistula to the bladder lumen is a potential alternati ve etiology. The study is performed without oral and intravenous contrast and definite diverticulitis is not found. 4. Given the findings discussed above contrast-enhanced staging CT of the chest abdomen and pelvis li leonor is warranted electively. Also, nuclear medicine bone scan or PET/CT scanning would be recommende d. Reviewed by: Isrrael Lagos MD on 06/20/2020 11:56 AM PST Approved by: Isrrael Lagos MD on 06/20/2020 11:56 AM PST Station ID: [id number]
== END 2020-06-20 11:13 | disposition home or self-care (01) ==
LOC: DI 11:12
PROVIDERS: ATTEND Nurse Practitioner Obstetrics & Gynecology
DX: R91.8 Other nonspecific abnormal finding of lung field (principal); R93.6 Abnormal findings on diagnostic imaging of limbs; R93.41 Abnormal radiologic findings on diagnostic imaging of renal pelvis, ureter, or bladder
CPT/HCPCS: 74176

== ENCOUNTER 2020-07-02 16:05 | Outpatient (CLI) | payer MEDICARE, OTHER ==
[2020-07-02 16:31] LABS: BASOPHILS # (AUTO) 0.1 10^3/uL (0.0-0.1); BASOPHILS % (AUTO) 1.3 %; EOSINOPHILS # (AUTO) 0.1 10^3/uL (0.0-0.7); EOSINOPHILS % (AUTO) 2.8 %; HGB - HEMOGLOBIN 7.3 g/dL (12.0-16.0); LYMPHOCYTES # (AUTO) 0.8 10^3/uL (1.5-3.5); LYMPHOCYTES % (AUTO) 16.3 %; MEAN CORPUSCULAR HEMOGLOBIN 34.8 pg (27.0-31.0); MEAN CORPUSCULAR HGB CONC 34.1 g/dL (32.0-36.0); MEAN CORPUSCULAR VOLUME 101.9 fL (81.0-99.0); MEAN PLATELET VOLUME 8.2 fL (7.9-10.8); MONOCYTES # (AUTO) 0.9 10^3/uL (0.0-1.0); MONOCYTES % (AUTO) 19.1 %; NEUTROPHILS # (AUTO) 2.8 10^3/uL (1.5-6.6); NEUTROPHILS % (AUTO) 59.6 %; PLT - PLATELET COUNT 294 10^3/uL (130-450); RED CELL DISTRIBUTION WIDTH 15.1 % (12.0-15.0); WHITE BLOOD COUNT 4.7 x10^3/uL (4.8-10.8)
[2020-07-02 16:37] LABS: INR 1.3 (0.8-1.2); PT - PROTHROMBIN TIME 14.2 secs (9.9-12.6)
[2020-07-02 16:40] LABS: ALBUMIN 3.3 g/dL (3.2-5.5); ALBUMIN/GLOBULIN RATIO 0.9 (1.0-2.2); BILIRUBIN,TOTAL 0.6 mg/dL (0.2-1.0); CALCIUM 8.9 mg/dL (8.5-10.3); CREATININE 0.9 mg/dL (0.4-1.0); TOTAL PROTEIN 6.8 g/dL (6.7-8.2)
== END 2020-07-02 16:06 | disposition home or self-care (01) ==
LOC: LAB 16:05
PROVIDERS: ATTEND Internal Medicine
DX: Z01.818 Encounter for other preprocedural examination (principal); M17.12 Unilateral primary osteoarthritis, left knee
CPT/HCPCS: 36415; 80053; 85025; 85610

== ENCOUNTER 2020-07-06 15:51 | Inpatient (IN) | payer MEDICARE, OTHER ==
--- NOTE | 2020-07-06 16:14 | ED Physician Documentation ---
PD HPI ABD PAIN - Stated complaint Stated Complaint: FEMALE - Chief complaint Chief Complaint: UTI - History obtained from History obtained from: Patient - Additional information Additional information: 79-year-old woman with history of coronary disease, multiple myeloma in remission presents with severe intermittent bandlike lower abdominal pain that is been going on for about 5 days. She states that at times she is pain-free but then she will get a spasm and has severe lower abdominal pain which is profound for about a minute and then it goes away. She denies nausea, no changes in bowel movements. She was seen by her physician 3 days ago and evidently had a positive urinalysis, was started on Bactrim but she has not had any relief with that. Of note she had a CAT scan done about 3 weeks ago of her belly. She was unaware of the results, but it did show concern for likely primary bronchogenic carcinoma in the left lower lung with metastatic disease presumed in the left hip. Also gas within the bladder lumen, she states she had not been recently catheterized. Review of Systems Ten Systems: 10 systems reviewed and negative Constitutional: denies: Fever, Chills Nose: reports: Reviewed and negative Cardiac: reports: Reviewed and negative Respiratory: reports: Reviewed and negative PD PAST MEDICAL HISTORY - Past Medical History Cardiovascular: Hypertension, Coronary artery disease, [place] Respiratory: None Neuro: None Endocrine/Autoimmune: None GI: None WHIZZER HAND: None : None HEENT: None Psych: None Musculoskeletal: Osteoarthritis, Other Derm: None - Past Surgical History Past Surgical History: Yes General: Appendectomy Ortho: Knee replacement, Carpal Tunnel surgery, Spine surgery /WHIZZER HAND: Hysterectomy, Oophrectomy Cardiovascular: Coronary stent, Cardiac catheterization HEENT: Cataracts - Present Medications Home Medications: Ambulatory Orders Medication Instructions Recorded Confirmed Aspirin [Aspir-Low] 81 mg PO DAILY 12/19/15 05/29/20 Nitroglycerin 0.4 mg SL Q5MX3 PRN 02/05/19 05/29/20 Atorvastatin Calcium 80 mg PO QPM 06/09/19 05/29/20 Isosorbide Mononitrate [Isosorbide 60 mg PO DAILY 06/09/19 05/29/20 Mononitrate ER] Melatonin 10 mg PO QPM 06/09/19 05/29/20 Ticagrelor [Brilinta] 90 mg PO BID 06/09/19 05/29/20 Acyclovir 400 mg PO BID 08/27/19 05/29/20 Multivitamin [Theragran] 1 tab PO DAILY 08/27/19 05/29/20 Sulfamethox/Trimeth 800/160 1 tab PO MOWEFR@0900 08/27/19 05/29/20 [Bactrim Ds] Carvedilol [Coreg] 6.25 mg PO BID #60 tablet 08/29/19 05/29/20 Zolpidem Tartrate [Ambien] 10 mg PO QPM PRN 11/02/19 05/29/20 Lenalidomide [Revlimid] 10 mg PO DAILY 02/14/20 05/29/20 - Allergies Allergies/Adverse Reactions: Allergies Allergy/AdvReac Type Severity Reaction Status Date / Time clopidogrel [From Plavix] Allergy Severe Itching Verified 07/06/20 17:05 - Social History Does the pt smoke?: No Smoking Status: Never smoker Does the pt drink ETOH?: Yes Does the pt have substance abuse?: No - Family History Family history: reports: Non contributory - Immunizations Immunizations are current?: Yes Immunizations: TDAP >10years/unknown - POLST Patient has POLST: No PD ED PE NORMAL - Vitals Vital signs reviewed: Yes - General General: Alert and oriented X 3, No acute distress - HEENT HEENT: PERRL, EOMI - Neck Neck: Supple, no meningeal sign, No bony TTP - Cardiac Cardiac: RRR, No murmur - Respiratory Respiratory: No respiratory distress, Clear bilaterally - Abdomen Abdomen: Normal bowel sounds, Soft, Non tender - Back Back: No CVA TTP, No spinal TTP - Derm Derm: Normal color, Warm and dry - Extremities Extremities: No deformity, No edema, No calf tenderness / cord - Neuro Neuro: Alert and oriented X 3, Normal speech Results - Vitals Vitals: Vital Signs - 24 hr 07/06/20 07/06/20 07/06/20 15:55 17:42 18:16 Temperature 36.6 C Heart Rate 81 76 77 Respiratory 15 18 18 Rate Blood Pressure 162/63 H 172/69 H 149/77 H O2 Saturation 99 99 100 Oxygen O2 Source Room air - Labs Labs: Laboratory Tests 07/06/20 07/06/20 07/06/20 16:35 16:35 16:35 WBC 8.1 RBC 2.21 L Hgb 7.5 L Hct 21.9 L MCV 99.1 H MCH 33.9 H MCHC 34.2 RDW 14.6 Plt Count 299 MPV 8.7 Neut # (Auto) 6.5 Lymph # (Auto) 0.9 L Yancey # (Auto) 0.5 Eos # (Auto) 0.1 Baso # (Auto) 0.0 Absolute Nucleated RBC 0.00 Nucleated RBC % 0.0 Sodium 120 L* Potassium 3.9 Chloride 85 L Carbon Dioxide 24 Anion Gap 11.0 BUN 25 H Creatinine 0.9 Estimated GFR (MDRD) 61 L Glucose 123 H Lactic Acid 1.2 Calcium 8.4 L Total Bilirubin 0.6 AST 15 ALT 14 Alkaline Phosphatase 74 Total Protein 6.6 L Albumin 3.0 L Globulin 3.6 Albumin/Globulin Ratio 0.8 L Lipase 34 Urine Color Urine Clarity Urine pH Ur Specific [place] Urine Protein Urine Glucose (UA) Urine Ketones Urine Occult Blood Urine Nitrite Urine Bilirubin Urine Urobilinogen Ur Leukocyte Esterase Urine RBC Urine WBC Urine WBC Clumps Ur Squamous Epith Cells Urine Bacteria Ur Microscopic Review Urine Culture Comments 07/06/20 17:10 WBC RBC Hgb Hct MCV MCH MCHC RDW Plt Count MPV Neut # (Auto) Lymph # (Auto) Yancey # (Auto) Eos # (Auto) Baso # (Auto) Absolute Nucleated RBC Nucleated RBC % Sodium Potassium Chloride Carbon Dioxide Anion Gap BUN Creatinine Estimated GFR (MDRD) Glucose Lactic Acid Calcium Total Bilirubin AST ALT Alkaline Phosphatase Total Protein Albumin Globulin Albumin/Globulin Ratio Lipase Urine Color YELLOW Urine Clarity HAZY Urine pH 6.0 Ur Specific [place] 1.010 Urine Protein NEGATIVE Urine Glucose (UA) NEGATIVE Urine Ketones NEGATIVE Urine Occult Blood SMALL H Urine Nitrite NEGATIVE Urine Bilirubin NEGATIVE Urine Urobilinogen 0.2 (NORMAL) Ur Leukocyte Esterase LARGE H Urine RBC 11-25 H Urine WBC >25 H Urine WBC Clumps PRESENT Ur Squamous Epith Cells RARE Squamous Urine Bacteria Moderate H Ur Microscopic Review INDICATED Urine Culture Comments INDICATED PD MEDICAL DECISION MAKING - ED course Complexity details: d/w family (her daughter by phone, ) ED course: Spoke with the on-call surgeon, Dr. Tomas at 7:26 PM, I cannot think of any reason for the air in her bladder other than diverticular vesicular fistula. He will consult. 79-year-old woman presents with persistent lower abdominal pain, recent diagnosis of UTI, persistently positive urinalysis and CT showing air in the bladder. This is confirmed concerning for fistula which would explain the recalcitrant nature of the infection. Also new findings of severe hyponatremia, lung mass and potential mets to the hip. Case was discussed by phone initially with Dr. Tomas who will consult given the possibility of colovesicular fistula. Then Dr. Light who will consult regarding weightbearing options. Finally Dr. Mims the hospitalist to admit. Departure - Departure Disposition: 66 [facility] DC/Xfer Clinical Impression: Hyponatremia, Lung mass Urinary tract infection Qualifiers: Urinary tract infection type: site unspecified Hematuria presence: without hematuria Qualified Code(s): N39.0 - Urinary tract infection, site not specified Condition: Serious
[2020-07-06] MEDS ORDERED: MORPHINE 2 MG/ML CARPUJECT IVP STA ×2 (16:30→17:56)
[2020-07-06 16:45] LABS: BASOPHILS % (AUTO) 0.5 %; EOSINOPHILS # (AUTO) 0.1 10^3/uL (0.0-0.7); EOSINOPHILS % (AUTO) 1.7 %; HGB - HEMOGLOBIN 7.5 g/dL (12.0-16.0); LYMPHOCYTES # (AUTO) 0.9 10^3/uL (1.5-3.5); LYMPHOCYTES % (AUTO) 10.6 %; MEAN CORPUSCULAR HEMOGLOBIN 33.9 pg (27.0-31.0); MEAN CORPUSCULAR HGB CONC 34.2 g/dL (32.0-36.0); MEAN CORPUSCULAR VOLUME 99.1 fL (81.0-99.0); MEAN PLATELET VOLUME 8.7 fL (7.9-10.8); MONOCYTES # (AUTO) 0.5 10^3/uL (0.0-1.0); MONOCYTES % (AUTO) 5.7 %; NEUTROPHILS # (AUTO) 6.5 10^3/uL (1.5-6.6); NEUTROPHILS % (AUTO) 80.5 %; PLT - PLATELET COUNT 299 10^3/uL (130-450); RED BLOOD COUNT 2.21 10^6/uL (4.20-5.40); RED CELL DISTRIBUTION WIDTH 14.6 % (12.0-15.0); WHITE BLOOD COUNT 8.1 x10^3/uL (4.8-10.8)
[2020-07-06 16:58] LABS: ALBUMIN/GLOBULIN RATIO 0.8 (1.0-2.2); BILIRUBIN,TOTAL 0.6 mg/dL (0.2-1.0); CALCIUM 8.4 mg/dL (8.5-10.3); CREATININE 0.9 mg/dL (0.4-1.0); TOTAL PROTEIN 6.6 g/dL (6.7-8.2)
[2020-07-06] MEDS ORDERED: IOVERSOL 320 50 ML VIAL ONE (17:15)
[2020-07-06] MEDS ORDERED: IOVERSOL 320 100 ML VIAL IVP ONE ×2 (17:15→19:07)
[2020-07-06 17:21] LABS: BILIRUBIN,URINE NEGATIVE (NEGATIVE); GLUCOSE, URINE (UA) NEGATIVE (NEGATIVE); KETONES,URINE (UA) NEGATIVE (NEGATIVE); LEUKOCYTE ESTERASE, URINE LARGE (NEGATIVE); NITRITE,URINE NEGATIVE (NEGATIVE); OCCULT BLOOD,URINE SMALL (NEGATIVE); PROTEIN,URINE NEGATIVE (NEGATIVE); UROBILINOGEN,URINE 0.2 (NORMAL) E.U./dL (NORMAL)
[2020-07-06 17:33] LABS: CLARITY,URINE HAZY (CLEAR); WBC CLUMPS,URINE PRESENT
[2020-07-06 17:34] LABS: BACTERIA,URINE Moderate /HPF (None Seen); SQUAMOUS EPITHELIAL CELL,UR RARE Squamous (<= Few)
[2020-07-06] MEDS ORDERED: IOVERSOL 320 50 ML VIAL PO ONE (19:08)
[2020-07-06] MEDS ORDERED: cefTRIAXone 1 GM VIAL IVP STA (19:27)
[2020-07-06] MEDS ORDERED: SODIUM CHLORIDE 0.9% 1,000 ML IV STA (19:27)
--- NOTE | 2020-07-06 19:34 | CT Report ---
PROCEDURE: CHEST W INDICATIONS: Lung CA staging CONTRAST: IV CONTRAST: Optiray 320 ml: 100 PO CONTRAST: Optiray 320 ml50 TECHNIQUE: After the administration of intravenous contrast, 5 mm thick sections acquired from the pulmonary api marycarmen to the posterior costophrenic angles. 7 mm thick coronal MIP reformats were acquired. For radia tion dose reduction, the following was used: automated exposure control, adjustment of mA and/or kV according to patient size. COMPARISON: CT abdomen and pelvis without contrast 3.6 cm spiculated mass, left lower lobe. Dated , CT abdomen and pelvis with contrast dated 07/06/2020. FINDINGS: Image quality: Excellent. Lungs and pleura: No acute air space opacities. No pleural effusions or pneumothorax. Central and peripheral airways are patent and normal in caliber. Mediastinum: Heart size is normal. No pericardial effusion. Dense coronary artery atherosclerotic c alcifications. No mediastinal or hilar adenopathy by size criteria. Thoracic aorta and central pulm onary arteries are normal in size. Esophagus is normal in caliber. No hiatal hernia. Bones and chest wall: No suspicious bony lesions. No vertebral body compression fractures. No axil natalia or supraclavicular adenopathy by size criteria. Thyroid gland is unremarkable as visualized. Abdomen: Visualized upper abdominal solid organs appear normal. Upper abdominal bowel loops are nor mal in caliber. IMPRESSION: 1. 3.6 cm spiculated mass, left lower lobe, presumed to represent bronchogenic carcinoma. 2. There is also a lytic lesion of the left femoral neck/trochanteric region of the left femur, which is presumed to represent a metastatic lesion. Comment: The lung mass would be amenable to CT-guided biopsy for diagnosis. PET CT is suggested for t umor staging. Additional comment: Please refer to a separate report for CT abdomen and pelvis findings. Above discussed with SEAN ST at the time of dictation. Reviewed by: Jono Martin MD on 07/06/2020 7:32 PM PST Approved by: Jono Martin MD on 07/06/2020 7:32 PM PST Station ID: [id number]
--- NOTE | 2020-07-06 19:34 | CT Report ---
PROCEDURE: Abdomen/Pelvis W INDICATIONS: IV and PO, abd pain, recent CT with gas in bladder CONTRAST: IV CONTRAST: Optiray 320 ml: 100 PO CONTRAST: Optiray 320 ml50 TECHNIQUE: After the administration of intravenous contrast, 5 mm thick sections acquired from the diaphragms to the symphysis. 5 mm thick coronal and sagittal reformats were acquired. For radiation dose reducti on, the following was used: automated exposure control, adjustment of mA and/or kV according to pushpa ent size. COMPARISON: CT chest from today, CT abdomen and pelvis without contrast dated 06/20/2020, CT left lo wer extremity dated 06/09/2019. FINDINGS: Image quality: Excellent. ABDOMEN: Lung bases: Spiculated mass, left lower lobe, measuring 3.6 cm. Heart size is normal. Advanced coron raymond artery calcifications. Solid organs: Liver and spleen are normal in size and enhancement. Gallbladder contains multiple pr obable tiny stones. No gallbladder wall thickening. Biliary system is non dilated. Pancreas enhance s normally. No adrenal nodules. Kidneys demonstrate normal size and enhancement, without hydronephr osis. Peritoneum and bowel: There is marked diffuse sigmoid wall thickening with mild associated diverticul osis. Proximal to the sigmoid, there is a large amount of fecal debris. Nodes and vessels: No retroperitoneal or mesenteric adenopathy by size criteria. Aorta and inferior vena cava are normal in size. Extensive atherosclerotic calcifications. Miscellaneous: No ventral hernias. PELVIS: Genitourinary: There is air present in the bladder. Bladder wall thickening is present. Miscellaneous: No inguinal hernias or adenopathy. Bones: A lytic lesion has developed in the left femoral head measuring 3.3 x 2.7 cm. There is also pe rmeative lucency present in the femoral neck as well as a focal lytic area that has developed in the trochanteric region which measures approximately 2.5 x 1.8 cm. There is risk for pathologic fracture. There is chronic deformity of the right symphysis pubis related to remote fracture. No vertebral bod y compression fractures. IMPRESSION: 1. 3.6 cm spiculated mass, left lower lobe. 2. Advanced coronary atherosclerotic calcifications. 3. Diffuse generalized atherosclerosis. 4. Development of a large lytic lesion involving the left femoral head with permeative lucency in the left femoral neck and a lytic lesion in the trochanteric region of the left hip. Patient is at risk for pathologic fracture. 5. Extensive thickening of the sigmoid colon. Cannot exclude a superficial spreading neoplasm. Sugges t direct visualization utilizing colonoscopy on a nonemergent basis. 6. Air present in the bladder. This may potentially indicate the presence of a fistula with the sigmo id colon. Alternatively, this may simply represent bacterial cystitis with a gas-forming organism. 7. Destructive lesion involving the left femoral head and neck and trochanteric region of the hip. Ri sk of impending pathologic fracture. Above discussed with SEAN ST at the time of dictation. Reviewed by: Jono Martin MD on 07/06/2020 7:32 PM PST Approved by: Jono Martin MD on 07/06/2020 7:32 PM PST Station ID: [id number]
[2020-07-06] MEDS ORDERED: ONDANSETRON 4 MG/2 ML VIAL IVP PRN (19:49)
[2020-07-06] MEDS ORDERED: ONDANSETRON ODT 4 MG TABLET TL PRN (19:49)
--- NOTE | 2020-07-06 20:13 | HISTORY & PHYSICAL EXAMINATION ---
Chief Complaint - Chief Complaint Chief Complaint: lower abd pain History of Present Illness - Admitted From Admitted From:: Home via ER - History Obtained From Records Reviewed: [facility] History obtained from: Dr. Hernandez, Patient, daughter at the bedside Exam Limitations: none - History of Present Illness HPI Comment/Other: This is a 79-year-old female who was last admitted in August 2019 for syncope due to inadequate steroids in the face of adrenal insufficiency from chronic steroid suppression, chronic anemia, and has been closely followed by Dr. Marcus Cavanaugh in the oncology clinic for her multiple myeloma diagnosed 06/2019 after fall with 10 cm pelvic hematoma and found to have hypercalcemia, PERLA, and anemia that presents today with lower abdominal pain in the pelvis that is waxing and waning over the last 5 days. Bowel movements are the same as always. No diarrhea, no emesis. She is passing gas, and there is no blood in urine or stool. The pain will last about a minute and then goes away but then will have frequent episodes throughout the day. She was seen by her primary care provider 3 days ago and started on Bactrim for a UTI. There has been no relief of her pain with this. CT of the abdomen was done June 20 to work-up hematuria with a possible kidney stone and ordered by her Sprinkler Driver. That CT showed a lobulated mass of the left lower lobe that was 3 x 3 cm. Liver and spleen were normal. No adrenal masses. Kidneys were normal without hydro or nephrolithiasis. She also had a sharply demarcated radiolucency at the femoral head on the left that extended inferiorly at the posterior aspect of the proximal femoral left diaphysis and more ostial lucency extending into the lesse r trochanter. Overall it measured about 2.9 cm. It was felt to be bronchogenic carcinoma with a presumed metastatic osteolytic process of the left femoral neck and intertrochanteric left femur that was not present on previous CT June 09, 2019. There was also unexplained findings of gas within the bladder lumen. She does have osteoarthritis of the knee. She was scheduled to have an elective knee replacement next week. She was instructed By Dr. Cavanaugh to stop her Brilinta and her aspirin this week in preparation for surgery. Unfortunately the patient was not aware of this process. Dr. Hernandez verified the news with her as well as her daughter. On physical examination the patient is afebrile at 36.6. Heart rate 81. Blood pressure 162/63. Respiratory rate 15. She is 99% on room air. Weight is 55.3 kg. In reviewing her weight the following was noted: December 19, 2015 74.1 kg. June 09, 2019 68.5 kg. September 06, 2019 62.5 kg November 29, 2019 58.96 kg March 06, 2020 56.1 kg She was found to be alert and oriented. No acute distress. Negative cardiac and pulmonary exam. Abdomen had normal bowel sounds, was soft, nontender. Extremities were without edema. White cell count was 8.1. Hemoglobin is 7.5. Sodium is 120. Potassium 3.9. BUN 25, creatinine 0.9. Random glucose 123. Lactic acid 1.2. Total protein is 6.6 with albumin 3.0. Urinalysis had small amount of occult blood, large amount of leukocyte Estrace, 11-25 RBCs, greater than 25 white cells. Rare squamous epithelial cells. Moderate bacteria. He ordered a repeat CT of the chest abdomen and pelvis on the basis of the previous CT results. She continues to have a spiculated mass of the left lower lung that is 3.6 cm. Advanced coronary calcifications. Liver and spleen normal. No adrenal masses. Marked diffuse sigmoid wall thickening and mild associated diverticulosis. Proximal to the sigmoid there is a large amount of fecal debris. Air is again present in the bladder. Bladder wall thickening is present. Lytic lesion in the left femoral head is 3.3 x 2.7 cm. There is also a permeative lucency present in the femoral neck as well as a focal lytic area that is 2.5 x 1.8 cm. There is risk for pathologic fracture. Chronic deformity of the right symphysis pubis related to remote fracture. Differential diagnosis includes bronchogenic carcinoma with metastatic disease to the bones. Also cannot exclude a superficial spreading neoplasm to the colon. Air in the bladder seen today and with previous CT may indicate bacterial cystitis with gas-forming organism or a fistula between the sigmoid bowel and the bladder. 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 Dr. Hernandez has already spoken to both surgery and orthopedics. They are not urgent consults and will be seen at their convenience. History - Past Medical History Cardiovascular: reports: Hypertension, Coronary artery disease (SD x2, 2019. Drug-eluting stent to RCA 12/26/18. Recurrent cp with findings of in-stent thrombosis and 70% disease of ramus beyond stent 04/26/19. Plasty in UDS to ramus. She was started on Brilinta, atorvastatin, aspirin.Echo 08/2019.EF 65 to 70%. M AR, m MR, mod TR, severe LAE, mod OWEN, RVSP 53), Peripheral Vascular Disease (Left carotid stenosis 50 to 69%.), SD Respiratory: reports: None Neuro: reports: Peripheral neuropathy (From treatment for multiple myeloma) Endocrine/Autoimmune: reports: Other (adrenal suppression from steroids 08/2019) GI: reports: GERD (History of esophageal stricture. Has needed dilation in the past. Currently food will get stuck and she will have emesis. Tolerating soft food.), Other (BRBPR once. Mentioned in last oncology visit June 2020) DIRECTOR OF EMPLOYER SERVICES: reports: Other () : reports: Other (Recent hematuria) HEENT: reports: Chronic vision loss (And wears glasses.) Psych: reports: None Musculoskeletal: reports: Osteoarthritis, Other (Two falls June 2019. Pubic and alar fractures. Dual platelet therapy resulted in large pelvic hematoma. Transfer to [facility].) Derm: reports: None MRSA Hx?: No Other Past Medical History: Multiple myeloma. IgA kappa, FISH positive. 14: 16 translocation since May 28, 2019. C1D1 CyBorD initiated weekly June 12, [address] [facility]. Weekly Velcade instituted at cycle 3, August 16, 2019 due to neuropathy and fatigue. Completed cycle 8 of sideboard D on March 06, 2020. Follow-up BM BX (-). Maintenance lenalidomide 10 mg 3 weeks, 1 week off. Started March 10, 2020. Increased risk of DVTs on Revlimid. To continue antiplatelet therapy. - Past Surgical History General: reports: Appendectomy Ortho: reports: Knee replacement, Carpal Tunnel surgery, Spine surgery /DIRECTOR OF EMPLOYER [employer]: reports: Hysterectomy, Oophrectomy Cardiovascular: reports: Coronary stent, Cardiac catheterization HEENT: reports: Cataracts - Family & Social History Family History Comment/Other: Father of metastatic prostate cancer. Mom of complications of SD and CHF at 78. 1 sister of complications of drug abuse. 3 children healthy without CAD, DM, cancer, thyroid disease Living arrangement: At home Living Situation: With spouse/s.o. Social History Notes: Smoked 5 to 10 years. At most half pack per day. Quit 2017. Occasional alcohol with wine. No history of alcohol abuse. 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 Lives with her on [facility]. - Substance History Use: Uses substance without health or social issues: NONE Abuse: Recurrent use of substance despite neg consequences: NONE Dependence: Experiences withdrawal or developed tolerances: NONE - POLST Patient has POLST: No POLST Status: DNR (She wants everything done for aggressive treatment up until the time her heart stops or she stops breathing.) Meds/Allgy - Home Medications Home Medications: Ambulatory Orders Medication Instructions Recorded Confirmed Aspirin [Aspir-Low] 81 mg PO DAILY 12/19/15 05/29/20 Nitroglycerin 0.4 mg SL [id number] PRN 02/05/19 05/29/20 Atorvastatin Calcium 80 mg PO QPM 06/09/19 05/29/20 Isosorbide Mononitrate [Isosorbide 60 mg PO DAILY 06/09/19 05/29/20 Mononitrate ER] Melatonin 10 mg PO QPM 06/09/19 05/29/20 Ticagrelor [Brilinta] 90 mg PO BID 06/09/19 05/29/20 Acyclovir 400 mg PO BID 08/27/19 05/29/20 Multivitamin [Theragran] 1 tab PO DAILY 08/27/19 05/29/20 Sulfamethox/Trimeth 800/160 1 tab PO MOWEFR@0900 08/27/19 05/29/20 [Bactrim Ds] Carvedilol [Coreg] 6.25 mg PO BID #60 tablet 08/29/19 05/29/20 Zolpidem Tartrate [Ambien] 10 mg PO QPM PRN 11/02/19 05/29/20 Lenalidomide [Revlimid] 10 mg PO DAILY 02/14/20 05/29/20 - Allergies Allergies/Adverse Reactions: Allergies Allergy/AdvReac Type Severity Reaction Status Date / Time clopidogrel [From Plavix] Allergy Severe Itching Verified 07/06/20 17:05 Review of Systems - Constitutional Constitutional: reports: Fatigue, Malaise, Weakness, Poor appetite, Weight loss. denies: Fever, Chills - Eyes Eyes: reports: Blurred vision, Corrective lenses. denies: Pain, Field loss, Vision loss - Ears, Nose & Throat Ears, Nose & Throat: denies: Hearing loss, Hearing aids, Vertigo, Sore throat, Hoarseness - Cardiovascular Cariovascular: reports: Lightheadedness (as equiv of angina. sudden exhaustion and fatigue will resolve w SL NTG), Exertional dyspnea (for months), Decr. exercise tolerance (for months). denies: Irregular heart rate, Palpitations, Chest pain, Edema - Respiratory Respiratory: reports: SOB with exertion. denies: Cough, Sputum production, Wheezing, Snoring, Hemoptysis, SOB at rest, Apnea - Gastrointestinal Gastrointestinal: reports: Abdominal pain, Abdominal distention, Constipation (if she takes opiates), Diarrhea (a few times this last month), Rectal bleeding (once this last month), Reflux/heartburn, Poor appetite. denies: Black stools, Bloody stools, Nausea, Vomiting, Coffee grounds emesis - Genitourinary Genitourinary: reports: Frequency, Urgency, Hematuria. denies: Flank pain, N octuria Prior Level of Functionality: Since April 2019 no longer independent. She used to walk 4 times a week for 3 miles at a time. Progressive weakness requiring rehab after her broken pelvis. Then started treatment for multiple myeloma. She has had physical therapy, needs a walker. Fell 5 times in August 2019 in relation to anemia and sudden drop of steroid dose where she misunderstood instructions. She was admitted then. She hit her face, cheek, and legs will just buckle under her. She now uses a cane to walk with. Exam - Vital Signs Reviewed Vital Signs: Yes Vital Signs: Vital Signs x48h Temp Pulse Resp BP Pulse Ox 07/06/20 18:16 77 18 149/77 H 100 07/06/20 17:42 76 18 172/69 H 99 07/06/20 15:55 36.6 C 81 15 162/63 H 99 - Physical Exam General Appearance: positive: No acute distress, Alert, Other (Cachectic elderly woman who has dyed magenta hair. Wearing glasses. Eating applesauce. Daughter at the bedside.) Eyes Bilateral: positive: PERRL, EOMI, Other (wearing her glasses) ENT: positive: Pharynx nml, Dry mucous membranes Neck: positive: No JVD, Carotid bruit. negative: Lymphadenopathy (R), Lymphadenopathy (L), Stiff neck Respiratory: positive: Chest non-tender. negative: Wheezes, Rales, Rhonchi Cardiovascular: positive: Regular rate & rhythm, Systolic murmur. negative: Gallop/S4, Friction rub Peripheral Pulses: positive: 1+ Abdomen: positive: No organomegaly, Nml bowel sounds, No distention, Tenderness (That is episodic. Spasms that occurred twice during my exam. Causing sudden urge to get up to go urinate. She was very impulsive, and did not want to wait for nurse and did not want to use a walker.). negative: Guarding, Rebound Skin: positive: Warm, Dry, Pallor Extremities: positive: Non-tender, Full ROM, No pedal edema Neurologic/Psychiatric: positive: Oriented x3 (However, subtle findings of cognitive loss. Has lost track of certain events and exactly when they happened. Also her interpretation of events is different than stated at times.), CN's nml (2-12), Motor nml Conclusion/Plan - Problem List (1) Hyponatremia Conclusion/Plan: Low possibility that she has ectopic production of ADH by tumor in her lung. That would be small cell carcinoma. She is not on SSRIs. She is not on any carbamazepine or derivatives of carbamazepine. She is not on imatinib. With her last visit she was felt to be just dehydrated and responded to normal saline. With this visit creatinine is normal. Plan: spot urine Na judicious NS or LR repeat labs in am. (2) Urinary tract infection Conclusion/Plan: She has pelvic abdominal pain that brought her in. Gas in bladder indicating possible colovesicular fistula. Plan: General surgery consult requested thru ER MD. Dr. Tomas has a case to do and will see the patient later. Rocephin 1 g initially ordered. But with the thickened sigmoid bowel, and possible diverticulitis, I will order single agent Zosyn. Cipro can cause wors ening hyponatremia. Owens considered and I will hold off for now. Low-dose morphine for as needed pain management Colace on a daily basis for stool softener because she fears constipation Qualifiers: Urinary tract infection type: acute cystitis Hematuria presence: without hematuria Qualified Code(s): N30.00 - Acute cystitis without hematuria (3) Anemia Conclusion/Plan: This is a patient who has multiple myeloma. Recent bone marrow biopsy shows clearing of disease on her completed therapy and maintenance therapy. Previous B12 and iron studies were normal. In the face of someone who has significant coronary artery disease hemoglobin aim would be above 8. 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 Next step would be biopsy of the lung mass followed by MRI of the brain or CT of brain, PET CT for diffuse bone imaging. If this is small cell lung CA, treatment should be instituted relatively quickly. She already has a relationship that is ongoing with oncology. That will make it easier. By description she has poor performance status and has had significant weight loss. This is an adverse prognostic factor. By TNM staging she is already stage IV. (5) Chronic insomnia Conclusion/Plan: She is still using Ambien on a nightly basis. I reminded her that I explained to her the last visit when I had seen her, that she is not to take Ambien every day. If she must use a benzodiazepine such as Ambien, try and use it sparingly. Probably no more than 3-4 nights a week. 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 Plan: Ortho consult verbally he told ER to have her be non weight bearing on that leg. She is not happy with that. During my exam she suddenly had an urge to urinate because of a bladder spasm and got up. Tried to actually walk without a cane. I explained to her and her daughter that she cannot do that. I would rather that she have urge incontinence then suddenly get up and break her hip in the bathroom or on the way to the bathroom. She states that that will not happen. In that she refuses to wait, because she refuses to have incontinence. I have reexplained the high risk of pathologic fracture in her left femur again. (7) CAD (coronary artery disease), [place] coronary artery Conclusion/Plan: Are aspirin 81 mg, Brilinta, isosorbide mononitrate, sublingual nitroglycerin. She was also started on carvedilol in August 2019. Angina equivalent is just sudden exhaustion, no real chest pain. Plan: Resume Brilinta and aspirin since surgery will be canceled for her knee Qualifiers: [place] vs. transplanted heart: [place] heart Associated angina: with stable angina Qualified Code(s): I25.118 - Atherosclerotic heart disease of [place] coronary artery with other forms of angina pectoris (8) At risk for deep venous thrombosis Conclusion/Plan: Per oncology notes, she is maintained on Brilinta and aspirin. Those were stopped temporarily in preparation for a knee surgery this coming week. I will not add Lovenox subcu while she is here but will use compression stockings. However this woman already fell in the past with symptomatic pelvic hematoma. If she falls and breaks her hip she would be at significant risk of bleeding within the thigh. Plan: Resume Brilinta and aspirin (9) Osteoarthritis of knee Conclusion/Plan: I have carefully explained that I think her surgery will most likely be canceled for right now. The question of a colovesicular fistula needs to be addressed. An orthopedic surgeon would like to reduce the risk of arthroplasty infection as much as possible. Qualifiers: Osteoarthritis type: primary (10) Do not resuscitate status Conclusion/Plan: When I discussed CODE STATUS with her, daughter initially was shaking her head silently when mom wanted to be DO NOT RESUSCITATE. But I made it clear that DO NOT RESUSCITATE does not mean do not treat. All aggressive therapies will be offered to her and she can choose to do them or decline on a [id number] basis depending on what she needs. However if we have done everything possible to treat her disease status and her heart stops or she has respiratory failure with stopping breathing, we will not resuscitate her at her request. She states that is what she wants. (11) Multiple myeloma Conclusion/Plan: Patient may use own Revlimid. It is 100 mg daily for 3 weeks in a row with 1 week off. Daughter is to find out where she is in her cycle and she can use her own medications. Qualifiers: Multiple myeloma remission status: in remission Qualified Code(s): C90.01 - Multiple myeloma in remission (12) History of dysphasia Conclusion/Plan: due to esophageal stricture and has had dilations. will continue soft mechanical diet while here. (13) Moderate protein-calorie malnutrition Conclusion/Plan: Since December 2015 she is gone from 74.1 kg to 55.3 kg. Nutritional intake is less than 50% of recommended for the more than 2 weeks. She has significant muscle wasting on examination. She has reduced functional capacity. So she is somew here between moderate malnutrition and severe protein calorie malnutrition. Plan: Mechanical soft diet, Ensure, nutrition consult - Lab Results Lab results reviewed: Yes Fish Bones: 07/06/20 16:35 07/06/20 16:35 - Diagnostic Imaging Results Diagnostic Imaging Results: positive: Final report reviewed Core Measures - Anticipated LOS I expect patient to be DC'd or transferred within 96 hours.: Yes - DVT/VTE - Prophylaxis VTE/DVT Device ordered at admit?: Yes
[2020-07-06] MEDS: PIPERACILLIN/TAZOBACTAM 3.375 GM in SODIUM CHLORIDE 0.9% MINIBAG 100 ML IV SCH (21:56)
[2020-07-06] MEDS ORDERED: MELATONIN 10 MG PO SCH (22:07)
[2020-07-06] MEDS ORDERED: TICAGRELOR 90 MG PO SCH (22:30)
[2020-07-06] MEDS: ACETAMINOPHEN 325 MG TABLET PO PRN (22:35)
[2020-07-06] MEDS: oxyCODONE 5 MG TABLET PO PRN (22:35)
[2020-07-06] MEDS: carvediloL 3.125 MG TABLET PO SCH (22:46)
[2020-07-06] MEDS: MORPHINE 2 MG/ML CARPUJECT IVP PRN (22:59)
[2020-07-06] MEDS ORDERED: CALCIUM CARBONATE CHEW 500 MG TABLET PO STA (23:24)
--- NOTE | 2020-07-07 00:14 | ADVANCE CARE PLANNING NOTE ---
Advance Care Planning - Planning Encounter Date: 07/06/20 Time: 21:00 Purpose: establish CODE STATUS Parties in Attendance: Patient, daughter who lives in [place], 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 Seen on CAT scan earlier this month. Patient did not know the results until tonight. She has a left lung mass as well as metastatic disease to the trochanter and femoral neck left hip. - Encounter Subjective/Patient's Story: She was living in independent, very active life of travel. Spending vidales in [place]. 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 Everything changed tremendously in June 2019. Prior to that she was walking 4 times a week up to 3 miles at a time. Independent with all activities of daily living. She had stents placed in December 2018 after an SD. She then had recurrence of angina and April 2019 and was found to have an IntraStent thrombosis and had needed 2 more stents. She has been on Brilinta and aspirin because of that. She then fell in June 2019. Went on to travel to [place] and had tremendous pain in her hip region and pelvic rim. Seen by an urgent care clinic not in this area and x-rays were negative. She got up in the middle of the night at home to go to the bathroom and fell. Had such tremendous pain in the same areas that she came to the emergency room. She was found to have a pubic and alar fracture. She then had a drop in her hemoglobin and a pelvic hematoma was noted. At that same visit she was found to have acute kidney injury, hypercalcemia, anemia and was the beginning diagnosis of multiple myeloma. She is required extensive rehab to get back some functional status. She now walks with a cane. 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 She can still dress herself and feed herself but needs help with doctors visits, getting to places outside the house. She relies on her and her daughter. One daughter lives in [place] and comes over frequently to help mom. The other daughter also lives in the [facility] and also comes over frequently to help mom. Son lives in [place]. She is followed by Dr. Marcus Cavanaugh. She is now in remission with regards to multiple myeloma. But unfortunately has now been diagnosed with a new neoplasm of uncertain behavior of the lung. It is most certainly lung cancer by visualization and she has metastatic disease to the left femur. I asked her if she had any advanced directives and she does not. We discussed DNR status. We discussed what an active resuscitation meant with intubation, chest compressions, electrical shock, and the low chances of recovery in a patient who is severely ill and not responding to treatment. If she did recover, the chances of needing further rehab, or some cognitive deficits, and increased level of care beyond what she currently had was most likely occur. With that in mind she did not want to be resuscitated. Out of the corner of my eye, I could see her daughter shaking her head no. I finished my history and physical, and advance care planning discussion after answering all of their questions. Advance care planning discussion lasted 35 minutes. After approximately 20 minutes, nurse came to inform me that the patient had changed her mind and wanted to be a full code. I went back in the room, and asked the patient if she wanted to be a code as stated by nursing. The patient said she did. I asked Pointblank if her daughter had changed her mind. The daughter says that she had talked to mom, was not happy about the DNR decision, but wanted her mom to make up her own mind. We rediscussed resuscitative efforts, and that DO NOT RESUSCITATE does not mean do not treat. No matter what her illness was, even with his current lung cancer and high risk of pathologic fracture, she was still get treatment. She would be offered everything for every single problem. Only at the time of her heart stopping or if she stopped breathing would we not resuscitate her. That is what DO NOT RESUSCITATE means. With that in mind, the patient again stated she wanted to be a DO NOT RESUSCITATE. Daughter was respectful of that decision. Objective/Medical Story: This is a 79-year-old female who was last admitted in August 2019 for syncope due to inadequate steroids in the face of adrenal insufficiency from chronic steroid suppression, chronic anemia, and has been closely followed by Dr. Marcus Cavanaugh in the oncology clinic for her multiple myeloma diagnosed 06/2019 after fall with 10 cm pelvic hematoma and found to have hypercalcemia, PERLA, and anemia that presents today with lower abdominal pain in the pelvis that is waxing and waning over the last 5 days. Bowel movements are the same as always. No diarrhea, no emesis. She is passing gas, and there is no blood in urine or stool. The pain will last about a minute and then goes away but then will have frequent episodes throughout the day. She was seen by her primary care provider 3 days ago and started on Bactrim for a UTI. There has been no relief of her pain with this. CT of the abdomen was done June 20 to work-up hematuria with a possible kidney stone and ordered by her Loss Prevention Representative. That CT showed a lobulated mass of the left lower lobe that was 3 x 3 cm. Liver and spleen were normal. No adrenal masses. Kidneys were normal without hydro or nephr olithiasis. She also had a sharply demarcated radiolucency at the femoral head on the left that extended inferiorly at the posterior aspect of the proximal femoral left diaphysis and more ostial lucency extending into the lesser trochanter. Overall it measured about 2.9 cm. It was felt to be bronchogenic carcinoma with a presumed metastatic osteolytic process of the left femoral neck and intertrochanteric left femur that was not present on previous CT June 09, 2019. There was also unexplained findings of gas within the bladder lumen. She does have osteoarthritis of the knee. She was scheduled to have an elective knee replacement next week. She was instructed By Dr. Cavanaugh to stop her Brilinta and her aspirin this week in preparation for surgery. Unfortunately the patient was not aware of this process. Dr. Hernandez verified the news with her as well as her daughter. On physical examination the patient is afebrile at 36.6. Heart rate 81. Blood pressure 162/63. Respiratory rate 15. She is 99% on room air. Weight is 55.3 kg. In reviewing her weight the following was noted: December 19, 2015 74.1 kg. June 09, 2019 68.5 kg. September 06, 2019 62.5 kg November 29, 2019 58.96 kg March 06, 2020 56.1 kg She was found to be alert and oriented. No acute distress. Negative cardiac and pulmonary exam. Abdomen had normal bowel sounds, was soft, nontender. Extremities were without edema. White cell count was 8.1. Hemoglobin is 7.5. Sodium is 120. Potassium 3.9. BUN 25, creatinine 0.9. Random glucose 123. Lactic acid 1.2. Total protein is 6.6 with albumin 3.0. Urinalysis had small amount of occult blood, large amount of leukocyte Estrace, 11-25 RBCs, greater than 25 white cells. Rare squamous epithelial cells. Moderate bacteria. He ordered a repeat CT of the chest abdomen and pelvis on the basis of the previous CT results. She continues to have a spiculated mass of the left lower lung that is 3.6 cm. Advanced coronary calcifications. Liver and spleen normal. No adrenal masses. Marked diffuse sigmoid wall thickening and mild associated diverticulosis. Proximal to the sigmoid there is a large amount of fecal debris. Air is again present in the bladder. Bladder wall thickening is present. Lytic lesion in the left femoral head is 3.3 x 2.7 cm. There is also a permeative lucency present in the femoral neck as well as a focal lytic area that is 2.5 x 1.8 cm. There is risk for pathologic fracture. Chronic deformity of the right symphysis pubis related to remote fracture. Differential diagnosis includes bronchogenic carcinoma with metastatic disease to the bones. Also cannot exclude a superficial spreading neoplasm to the colon. Air in the bladder seen today and with previous CT may indicate bacterial cystitis with gas-forming organism or a fistula between the sigmoid bowel and the bladder. 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 Dr. Hernandez has already spoken to both surgery and orthopedics. They are not urgent consults and will be seen at their convenience. History - Past Medical History Cardiovascular: reports: Hypertension, Coronary artery disease (SD x2, 2019. Drug-eluting stent to RCA 12/26/18. Recurrent cp with findings of in-stent thrombosis and 70% disease of ramus beyond stent 04/26/19. Plasty in UDS to ramus. She was started on Brilinta, atorvastatin, aspirin.Echo 08/2019.EF 65 to 70%. M AR, m MR, mod TR, severe LAE, mod OWEN, RVSP 53), Peripheral Vascular Disease (Left carotid stenosis 50 to 69%.), SD Respiratory: reports: None Neuro: reports: Peripheral neuropathy (From treatment for multiple myeloma) Endocrine/Autoimmune: reports: Other (adrenal suppression from steroids 08/2019) GI: reports: GERD (History of esophageal stricture. Has needed dilation in the past. Currently food will get stuck and she will have emesis. Tolerating soft food.), Other (BRBPR once. 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 Pubic and alar fractures. Dual platelet therapy resulted in large pelvic hematoma. Transfer to [facility].) Derm: reports: None MRSA Hx?: No Other Past Medical History: Multiple myeloma. IgA kappa, FISH positive. 14: 16 translocation since May 28, 2019. C1D1 CyBorD initiated weekly June 12, 2019 at [facility]. Weekly Velcade instituted at cycle 3, August 16, 2019 due to neuropathy and fatigue. Completed cycle 8 of sideboard D on March 06, 2020. Follow-up BM BX (-). Maintenance lenalidomide 10 mg 3 weeks, 1 week off. Started March 10, 2020. Increased risk of DVTs on Revlimid. To continue antiplatelet therapy. - Past Surgical History General: reports: Appendectomy Ortho: reports: Knee replacement, Carpal Tunnel surgery, Spine surgery /PREPARATION ROOM MANAGER: reports: Hysterectomy, Oophrectomy Cardiovascular: reports: Coronary stent, Cardiac catheterization HEENT: reports: Cataracts Goals of Care: 1. To continue to stay in remission from her multiple myeloma 2. To continue to hopefully regain some strength and weight since she has lost close to 20 kg 3. To get an opinion from orthopedics and general surgery about what to do with this colovesicular fistula and possible diverticulitis 4. To move forward with seeing Dr. Marcus Cavanaugh in follow-up for her myeloma, as well as what to do next for this new lung mass and what her options are Plan: 1. Complete current episode of care with regards to colovesicular fistula, UTI 2. Dr. Cavanaugh will be notified of admission via history and physical as well as this note Code Status: Do Not Attempt Resuscitation
--- NOTE | 2020-07-07 00:44 | CONSULTATION NOTE ---
Referring Provider Name of Referring Provider:: Dr. Trev Brown Consult Date: 07/08/20 Chief Complaint - Chief Complaint Chief Complaint: Pneumaturia/abdominal pain History of Present Illness - Admitted From Admitted From:: HOME - History Obtained From Records Reviewed: EMR/NOTES History obtained from: Patient Exam Limitations: NONE - History of Present Illness HPI Comment/Other: 79-year-old female with multiple comorbid states including multiple myeloma who was admitted with fractures as well as abdominal pain and newly diagnosed lung mass and the incidental finding of air in the bladder in the setting of likely diverticular disease with active inflammatory changes along the sigmoid colon. Patient has had historic hysterectomy as well as salpingo-oophorectomy. Remote colonoscopy. No family history of colorectal cancer. She does report flatus per vagina. She denies any change in color of urine. She presents with history of recurrent urinary tract infections. Surgical consult called for air in the bladder in the setting of diverticular d isease. History - Past Medical History Cardiovascular: reports: Hypertension, Coronary artery disease, Peripheral Vascular Disease, [place] Respiratory: reports: None Neuro: reports: Peripheral neuropathy Endocrine/Autoimmune: reports: Other GI: reports: GERD, Other BILL ADJUSTER: reports: Other () : reports: Other HEENT: reports: Chronic vision loss (And wears glasses.) Psych: reports: None Musculoskeletal: reports: Osteoarthritis, Other Derm: reports: None MRSA Hx?: No Other Past Medical History: Multiple myeloma. IgA kappa, FISH positive. 14: 16 translocation since May 28, 2019. C1D1 CyBorD initiated weekly June 12, 2019 at [facility]. Weekly Velcade instituted at cycle 3, August 16, 2019 due to neuropathy and fatigue. Completed cycle 8 of sideboard D on March 06, 2020. Follow-up BM BX (-). Maintenance lenalidomide 10 mg 3 weeks, 1 week off. Started March 10, 2020. Increased risk of DVTs on Revlimid. To continue antiplatelet therapy. - Past Surgical History General: reports: Appendectomy Ortho: reports: Knee replacement, Carpal Tunnel surgery, Spine surgery /BILL ADJUSTER: reports: Hysterectomy, Oophrectomy Cardiovascular: reports: Coronary stent, Cardiac catheterization HEENT: reports: Cataracts - Family & Social History Family History Comment/Other: Father of metastatic prostate cancer. Mom of complications of [place] and CHF at 78. 1 sister of complications of drug abuse. 3 children healthy without CAD, DM, cancer, thyroid disease Living arrangement: At home Living Situation: With spouse/s.o. Social History Notes: Smoked 5 to 10 years. At most half pack per day. Quit 2017. Occasional alcohol with wine. No history of alcohol abuse. 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 Lives with her on [facility]. - Substance History Use: Uses substance without health or social issues: NONE Abuse: Recurrent use of substance despite neg consequences: NONE Dependence: Experiences withdrawal or developed tolerances: NONE - POLST Patient has POLST: No POLST Status: DNR (She wants everything done for aggressive treatment up until the time her heart stops or she stops breathing.) Meds/Allgy - Home Medications Home Medications: Ambulatory Orders Medication Instructions Recorded Confirmed Aspirin [Aspir-Low] 81 mg PO DAILY 12/19/15 07/07/20 Atorvastatin Calcium 80 mg PO QPM 06/09/19 07/07/20 Isosorbide Mononitrate [Isosorbide 60 mg PO DAILY 06/09/19 07/07/20 Mononitrate ER] Melatonin 10 mg PO QPM 06/09/19 07/07/20 Ticagrelor [Brilinta] 90 mg PO BID 06/09/19 07/07/20 Acyclovir 400 mg PO BID 08/27/19 07/07/20 Multivitamin [Theragran] 1 tab PO DAILY 08/27/19 07/07/20 Zolpidem Tartrate [Ambien] 10 mg PO QPM PRN 11/02/19 07/07/20 Carvedilol [Coreg] 3.125 mg PO BID 07/07/20 07/07/20 Lenalidomide [Revlimid] 10 mg PO DAILY 07/07/20 07/07/20 Anderson-3/Dha/Epa/Fish Oil [Fish Oil 1 cap PO DAILY 07/09/20 07/09/20 1,000 mg Softgel] - Allergies Allergies/Adverse Reactions: Allergies Allergy/AdvReac Type Severity Reaction Status Date / Time clopidogrel [From Plavix] Allergy Severe Itching Verified 07/06/20 17:05 Review of Systems - Constitutional Constitutional: reports: Fatigue, Fever - Gastrointestinal Gastrointestinal: reports: Abdominal pain, Abdominal distention Exam - Vital Signs Reviewed Vital Signs: Yes Vital Signs: Vital Signs x48h Temp Pulse Pulse Resp BP BP Pulse Ox 07/06/20 23:17 36.8 C 82 18 141/50 H 07/06/20 23:02 37.1 C 80 19 154/64 H 07/06/20 20:58 36.8 C 76 20 146/57 H 100 07/06/20 18:16 77 18 149/77 H 100 07/06/20 17:42 76 18 172/69 H 99 - Physical Exam General Appearance: positive: No acute distress, Alert Eyes Bilateral: positive: Normal inspection, PERRL, EOMI ENT: positive: ENT inspection nml Neck: positive: Nml inspection Respiratory: positive: Chest non-tender, No respiratory distress, Breath sounds nml Cardiovascular: positive: Regular rate & rhythm Abdomen: positive: Tenderness, Other (Suprapubic tenderness to palpation. No global rebound or guarding. No peritoneal signs.). negative: Guarding, Rebound Rectal: positive: Other (Pending colonoscopy thus deferred.) Skin: positive: Color nml Extremities: positive: Non-tender, Full ROM, Nml appearance Neurologic/Psychiatric: positive: Oriented x3, CN's nml (2-12), Motor nml, Sensation nml, Mood/affect nml Conclusion and Plan - Lab Results Laboratory Results 07/06/20 21:50: Urine Sodium 17.0 07/06/20 21:21: Blood Type A NEGATIVE, Antibody Screen NEGATIVE, Crossmatch IS Only See Detail 07/06/20 17:10: Urine Color YELLOW, Urine Clarity HAZY, Urine pH 6.0, Ur Specific [place] 1.010, Urine Protein NEGATIVE, Urine Glucose (UA) NEGATIVE, Urine Ketones NEGATIVE, Urine Occult Blood SMALL H, Urine Nitrite NEGATIVE, Urine Bilirubin NEGATIVE, Urine Urobilinogen 0.2 (NORMAL), Ur Leukocyte Esterase LARGE H, Urine RBC 11-25 H, Urine WBC >25 H, Urine WBC Clumps PRESENT, Ur Squamous Epith Cells RARE Squamous, Urine Bacteria Moderate H, Ur Microscopic Review INDICATED, Urine Culture Comments INDICATED 07/06/20 16:35: Lactic Acid 1.2 07/06/20 16:35: Sodium 120 L*, Potassium 3.9, Chloride 85 L, Carbon Dioxide 24, Anion Gap 11.0, BUN 25 H, Creatinine 0.9, Estimated GFR (MDRD) 61 L, Glucose 123 H, Calcium 8.4 L, Total Bilirubin 0.6, AST 15, ALT 14, Alkaline Phosphatase 74, Total Protein 6.6 L, Albumin 3.0 L, Globulin 3.6, Albumin/Globulin Ratio 0.8 L, Lipase 34 // 16:35: WBC 8.1, RBC 2.21 L, Hgb 7.5 L, Hct 21.9 L, MCV 99.1 H, MCH 33.9 H, MCHC 34.2, RDW 14.6, Plt Count 299, MPV 8.7, Neut # (Auto) 6.5, Lymph # (Auto) 0.9 L, [place] # (Auto) 0.5, Eos # (Auto) 0.1, Baso # (Auto) 0.0, Absolute Nucleated RBC 0.00, Nucleated RBC % 0.0 - Diagnostic Imaging Results Diagnostic Imaging Results Comments: CT of the chest impression: 1. 3.6 cm spiculated mass, left lower lobe, presumed to represent bronchogenic carcinoma. 2. There is also a lytic lesion of the left femoral neck/trochanteric region of the left femur which is presumed to represent a metastatic lesion. CT abdomen pelvis impression: 1. 3.6 cm spiculated mass, left lower lobe 2. Advanced coronary arthrosclerotic calcifications 3. Diffuse generalized atherosclerosis 4. Development of a large lytic lesion involving the left femoral head with permeative lucency in the left femoral neck and a lytic lesion in the trochanteric region of the left hip. Patient is at risk for pathologic fracture. 5. Extensive thickening of the sigmoid colon. Cannot exclude a superficial s preading neoplasm. Suggest direct visualization utilizing colonoscopy on a nonemergent basis. 6. Air present within the bladder. This may potentially indicate the presence of a fistula with the sigmoid colon alternatively this may simply represent bacterial cystitis with a gas-forming organism. 7. Destructive lesion involving the left femoral head and neck intertrochanteric region of the hip. Risk of impending pathologic fracture. - Diagnosis Diagnosis: 1. Newly diagnosed lung mass. 2. Multiple myeloma. 3. Sigmoid diverticulitis. 4. 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 5. Suspected pathologic fractures. 6. Abdominal pain - Plan Plan: 1. Recommend CT cystogram to evaluate for any direct communication of the bladder with the sigmoid colon as suggested on the recent CAT scan during her ER evaluation. 2. Recommend the patient undergo bowel prep with colonoscopy to evaluate for potential source of fistula could very likely be malignant in origin as opposed to diverticular. 3. The presence of a fistula in the setting of the patient's current oncologic management especially should there be concerns for active inflammatory and infectious disease would likely preclude the patient from palliative chemotherapy and thus these would necessarily require work-up prior and possible intervention with likely Weeks's if the care team deems the patient appropriate candidate. Moreover if indeed this is a true sequelae of chronic diverticular disease any consideration for future implant would also have considerations thereof. 4. Would necessarily require tissue diagnosis for both areas of concern both musculoskeletal and pulmonary. 5. Would recommend extensive discussion as relates to her multiple competing pathologies as it relates to the indication for any colorectal interventions. Patient was advised that if she were to undergo any operative intervention for likely complicated diverticulitis with fistula in the setting of historic hysterectomy she would be best served with Weeks's and end colostomy as any anastomotic complications would preclude future oncologic care. 6. We will instill methylene blue within the colon and Place Owens catheter to evaluate for any dye extravasation within the Owens. Or over a urinalysis and urine culture that is polymicrobial will also be suggestive of a colovesical fistula.
[2020-07-07] MEDS: SODIUM CHLORIDE FLUSH 0.9% 10 ML SYRINGE IVP SCH ×4 (01:07→15:36)
[2020-07-07] MEDS: PIPERACILLIN/TAZOBACTAM 3.375 GM in SODIUM CHLORIDE 0.9% MINIBAG 100 ML IV SCH ×4 (02:51→21:41)
[2020-07-07] MEDS: ACETAMINOPHEN 325 MG TABLET PO PRN (02:51)
[2020-07-07] MEDS: oxyCODONE 5 MG TABLET PO PRN ×2 (02:51→08:09)
[2020-07-07] MEDS: SODIUM CHLORIDE FLUSH 0.9% 10 ML SYRINGE IVP PRN ×2 (02:53→05:41)
[2020-07-07 05:39] LABS: BASOPHILS # (AUTO) 0.1 10^3/uL (0.0-0.1); EOSINOPHILS # (AUTO) 0.2 10^3/uL (0.0-0.7); EOSINOPHILS % (AUTO) 3.3 %; HGB - HEMOGLOBIN 8.6 g/dL (12.0-16.0); LYMPHOCYTES # (AUTO) 0.6 10^3/uL (1.5-3.5); LYMPHOCYTES % (AUTO) 8.6 %; MEAN CORPUSCULAR HEMOGLOBIN 32.2 pg (27.0-31.0); MEAN CORPUSCULAR HGB CONC 33.7 g/dL (32.0-36.0); MEAN CORPUSCULAR VOLUME 95.5 fL (81.0-99.0); MEAN PLATELET VOLUME 8.8 fL (7.9-10.8); MONOCYTES # (AUTO) 0.7 10^3/uL (0.0-1.0); MONOCYTES % (AUTO) 9.1 %; NEUTROPHILS # (AUTO) 5.6 10^3/uL (1.5-6.6); NEUTROPHILS % (AUTO) 77.2 %; PLT - PLATELET COUNT 251 10^3/uL (130-450); RED BLOOD COUNT 2.67 10^6/uL (4.20-5.40); RED CELL DISTRIBUTION WIDTH 15.9 % (12.0-15.0); WHITE BLOOD COUNT 7.2 x10^3/uL (4.8-10.8)
[2020-07-07] MEDS: MORPHINE 2 MG/ML CARPUJECT IVP PRN ×3 (05:41→16:41)
[2020-07-07 05:46] LABS: CALCIUM 8.7 mg/dL (8.5-10.3); CREATININE 0.9 mg/dL (0.4-1.0)
--- NOTE | 2020-07-07 07:21 | PROVIDER PROGRESS NOTE ---
Subjective - Prog Note Date Prog Note Date: 07/07/20 Prog Note Time: 07:14 - Subjective Pt reports feeling: Improved Subjective: c/o indigestion last night and asked for tums which provided relief. no new complaints. episodic abd pain helped w MS q2h prn but it's still there not happy at having to use walker to go to bathroom. really really wants to go home Gen Surg or Ortho have not been by to see her yet and she is asking when, I reassured her they will be by today. It is still early yet. she keeps on forgetting why and I re-explained the possible colovesicular fistula. She forgot each time and I re-explained 3 times. Sodium is up from 120>>128 Hbg is up from 7.5>>8.6 Current Medications - Current Medications Current Medications: Active Medications Acetaminophen (Tylenol) 650 mg PO Q4HR PRN PRN Reason: Pain 1 to 4 Last Admin: 07/07/20 02:51 Dose: 650 mg Documented by: Aspirin (Ecotrin) 81 mg PO DAILY [facility] Calcium Carbonate/Glycine (Tums) 500 mg PO BID [facility] Carvedilol (Coreg) 3.125 mg PO BID [facility] Last Admin: 07/06/20 22:46 Dose: 3.125 mg Documented by: Docusate Sodium (Colace 100mg Capsule) 100 mg PO DAILY [facility] Sodium Chloride (Normal Saline 0.9%) 1,000 mls @ 75 mls/hr IV .[id number] STA Stop: 07/07/20 08:46 Last Infusion: 07/06/20 22:09 Dose: 0 mls/hr Documented by: Piperacillin Sod/Tazobactam (Sod 3.375 gm/ Sodium Chloride) 100 mls @ 200 mls/hr IV Q6H [facility] Last Infusion: 07/07/20 03:32 Dose: Infused Documented by: Isosorbide Mononitrate (Imdur) 60 mg PO DAILY [facility] Morphine Sulfate (Morphine (Carpuject)) 2 mg IVP Q2HR PRN PRN Reason: PAIN Last Admin: 07/07/20 05:41 Dose: 2 mg Documented by: Nitroglycerin (Nitrostat) 0.4 mg SL Q5MIN PRN PRN Reason: Chest Pain Non-Formulary Medication (Melatonin) 10 mg PO QPM [facility] Last Admin: 07/06/20 23:07 Dose: 10 mg Documented by: Ondansetron HCl (Zofran Odt) 4 mg TL Q6HR PRN PRN Reason: Nausea / Vomiting Ondansetron HCl (Zofran Inj) 4 mg IVP Q6HR PRN PRN Reason: Nausea / Vomiting Oxycodone HCl (Roxicodone) 5 mg PO Q4HR PRN PRN Reason: Pain 5 to 7 Last Admin: 07/07/20 02:51 Dose: 5 mg Documented by: Brilinta 90 Mg 1 each PO BID [facility] Polyethylene Glycol (Miralax) 17 gm PO DAILY [facility] Sodium Chloride (Normal Saline Flush 0.9%) 10 ml IVP PRN PRN PRN Reason: NEEDED PER PROVIDER ORDERS Last Admin: 07/07/20 05:41 Dose: 10 ml Documented by: Sodium Chloride (Normal Saline Flush 0.9%) 10 ml IVP 0100,0900,1700 [facility] Last Admin: 07/07/20 01:07 Dose: Not Given Documented by: Aspirin [Aspir-Low] 81 mg PO DAILY 12/19/15 Nitroglycerin 0.4 mg SL [id number] PRN 02/05/19 Atorvastatin Calcium 80 mg PO QPM 06/09/19 Isosorbide Mononitrate [Isosorbide Mononitrate ER] 60 mg PO DAILY 06/09/19 Melatonin 10 mg PO QPM 06/09/19 Ticagrelor [Brilinta] 90 mg PO BID 06/09/19 Acyclovir 400 mg PO BID 08/27/19 Multivitamin [Theragran] 1 tab PO DAILY 08/27/19 Sulfamethox/Trimeth 800/160 [Bactrim Ds] 1 tab PO MOWEFR@0900 08/27/19 Zolpidem Tartrate [Ambien] 10 mg PO QPM PRN 11/02/19 Lenalidomide [Revlimid] 10 mg PO DAILY 02/14/20 Objective - Vital Signs/Intake & Output Reviewed Vital Signs: Yes Vital Signs: Vital Signs x48h Temp Pulse Resp BP Pulse Ox 07/07/20 03:14 37 C 72 18 100 07/07/20 02:57 37 C 72 18 145/64 H 07/06/20 23:17 36.8 C 82 18 141/50 H Intake & Output: Intake & Output 11/26/20 11/27/20 11/28/20 11/29/20 23:59 23:59 23:59 23:59 Intake Total 388.75 500 Output Total 375 1650 Balance 13.75 -1150 - Objective General Appearance: positive: Alert Eyes Bilateral: positive: PERRL ENT: positive: No signs of dehydration Respiratory: positive: No respiratory distress. negative: Wheezes, Rales, Rhonchi Cardiovascular: positive: Regular rate & rhythm, Systolic murmur. negative: Gallop/S4, Friction rub Abdomen: positive: Non-tender, No organomegaly, Nml bowel sounds, Tenderness (that is minimal LLQ but she says the spasms still come and go. She just had one 10 minutes ago.). negative: Guarding, Rebound Skin: positive: Warm, Dry Neurologic/Psychiatric: positive: Oriented x3, CN's nml (2-12), Motor nml, Other (but having memory issues as noted in HPI) - Lab Results Fish Bones: 07/07/20 05:26 07/07/20 05:26 Other Labs: Lab Results x24hrs 07/07/20 07/07/20 07/06/20 Range/Units 05:26 05:26 21:50 WBC 7.2 (4.8-10.8) x10^3/uL RBC 2.67 L (4.20-5.40) 10^6/uL Hgb 8.6 L (12.0-16.0) g/dL Hct 25.5 L (37.0-47.0) % MCV 95.5 (81.0-99.0) fL MCH 32.2 H (27.0-31.0) pg MCHC 33.7 (32.0-36.0) g/dL RDW 15.9 H (12.0-15.0) % Plt Count 251 (130-450) 10^3/uL MPV 8.8 (7.9-10.8) fL Neut # (Auto) 5.6 (1.5-6.6) 10^3/uL Lymph # (Auto) 0.6 L (1.5-3.5) 10^3/uL [place] # (Auto) 0.7 (0.0-1.0) 10^3/uL Eos # (Auto) 0.2 (0.0-0.7) 10^3/uL Baso # (Auto) 0.1 (0.0-0.1) 10^3/uL Absolute Nucleated RBC 0.00 x10^3/uL Nucleated RBC % 0.0 /100WBC Sodium 128 L (135-145) mmol/L Potassium 3.6 (3.5-5.0) mmol/L Chloride 94 L (101-111) mmol/L Carbon Dioxide 24 (21-32) mmol/L Anion Gap 10.0 (6-13) BUN 19 (6-20) mg/dL Creatinine 0.9 (0.4-1.0) mg/dL Estimated GFR (MDRD) 61 L (>89) Glucose 110 H (70-100) mg/dL Lactic Acid (0.5-2.2) mmol/L Calcium 8.7 (8.5-10.3) mg/dL Total Bilirubin (0.2-1.0) mg/dL AST (10-42) IU/L ALT (10-60) IU/L Alkaline Phosphatase (42-121) IU/L Total Protein (6.7-8.2) g/dL Albumin (3.2-5.5) g/dL Globulin (2.1-4.2) g/dL Albumin/Globulin Ratio (1.0-2.2) Lipase (22-51) U/L Urine Color Urine Clarity (CLEAR) Urine pH (5.0-7.5) PH Ur Specific [place] (1.002-1.030) Urine Protein (NEGATIVE) mg/dL Urine Glucose (UA) (NEGATIVE) mg/dL Urine Ketones (NEGATIVE) mg/dL Urine Occult Blood (NEGATIVE) Urine Nitrite (NEGATIVE) Urine Bilirubin (NEGATIVE) Urine Urobilinogen (NORMAL) E.U./dL Ur Leukocyte Esterase (NEGATIVE) Urine RBC (0-5) /HPF Urine WBC (0-5) /HPF Urine WBC Clumps Ur Squamous Epith Cells (<= Few) Urine Bacteria (None Seen) /HPF Ur Microscopic Review Urine Culture Comments Urine Sodium 17.0 mmol/L Blood Type Antibody Screen Crossmatch IS Only 07/06/20 07/06/20 07/06/20 Range/Units 21:21 17:10 16:35 WBC (4.8-10.8) x10^3/uL RBC (4.20-5.40) 10^6/uL Hgb (12.0-16.0) g/dL Hct (37.0-47.0) % MCV (81.0-99.0) fL MCH (27.0-31.0) pg MCHC (32.0-36.0) g/dL RDW (12.0-15.0) % Plt Count (130-450) 10^3/uL MPV (7.9-10.8) fL Neut # (Auto) (1.5-6.6) 10^3/uL Lymph # (Auto) (1.5-3.5) 10^3/uL [place] # (Auto) (0.0-1.0) 10^3/uL Eos # (Auto) (0.0-0.7) 10^3/uL Baso # (Auto) (0.0-0.1) 10^3/uL Absolute Nucleated RBC x10^3/uL Nucleated RBC % /100WBC Sodium (135-145) mmol/L Potassium (3.5-5.0) mmol/L Chloride (101-111) mmol/L Carbon Dioxide (21-32) mmol/L Anion Gap (6-13) BUN (6-20) mg/dL Creatinine (0.4-1.0) mg/dL Estimated GFR (MDRD) (>89) Glucose (70-100) mg/dL Lactic Acid 1.2 (0.5-2.2) mmol/L Calcium (8.5-10.3) mg/dL Total Bilirubin (0.2-1.0) mg/dL AST (10-42) IU/L ALT (10-60) IU/L Alkaline Phosphatase (42-121) IU/L Total Protein (6.7-8.2) g/dL Albumin (3.2-5.5) g/dL Globulin (2.1-4.2) g/dL Albumin/Globulin Ratio (1.0-2.2) Lipase (22-51) U/L Urine Color YELLOW Urine Clarity HAZY (CLEAR) Urine pH 6.0 (5.0-7.5) PH Ur Specific [place] 1.010 (1.002-1.030) Urine Protein NEGATIVE (NEGATIVE) mg/dL Urine Glucose (UA) NEGATIVE (NEGATIVE) mg/dL Urine Ketones NEGATIVE (NEGATIVE) mg/dL Urine Occult Blood SMALL H (NEGATIVE) Urine Nitrite NEGATIVE (NEGATIVE) Urine Bilirubin NEGATIVE (NEGATIVE) Urine Urobilinogen 0.2 (NORMAL) (NORMAL) E.U./dL Ur Leukocyte Esterase LARGE H (NEGATIVE) Urine RBC 11-25 H (0-5) /HPF Urine WBC >25 H (0-5) /HPF Urine WBC Clumps PRESENT Ur Squamous Epith Cells RARE Squamous (<= Few) Urine Bacteria Moderate H (None Seen) /HPF Ur Microscopic Review INDICATED Urine Culture Comments INDICATED Urine Sodium mmol/L Blood Type A NEGATIVE Antibody Screen NEGATIVE Crossmatch IS Only See Detail 07/06/20 07/06/20 Range/Units 16:35 16:35 WBC 8.1 (4.8-10.8) x10^3/uL RBC 2.21 L (4.20-5.40) 10^6/uL Hgb 7.5 L (12.0-16.0) g/dL Hct 21.9 L (37.0-47.0) % MCV 99.1 H (81.0-99.0) fL MCH 33.9 H (27.0-31.0) pg MCHC 34.2 (32.0-36.0) g/dL RDW 14.6 (12.0-15.0) % Plt Count 299 (130-450) 10^3/uL MPV 8.7 (7.9-10.8) fL Neut # (Auto) 6.5 (1.5-6.6) 10^3/uL Lymph # (Auto) 0.9 L (1.5-3.5) 10^3/uL [place] # (Auto) 0.5 (0.0-1.0) 10^3/uL Eos # (Auto) 0.1 (0.0-0.7) 10^3/uL Baso # (Auto) 0.0 (0.0-0.1) 10^3/uL Absolute Nucleated RBC 0.00 x10^3/uL Nucleated RBC % 0.0 /100WBC Sodium 120 L* (135-145) mmol/L Potassium 3.9 (3.5-5.0) mmol/L Chloride 85 L (101-111) mmol/L Carbon Dioxide 24 (21-32) mmol/L Anion Gap 11.0 (6-13) BUN 25 H (6-20) mg/dL Creatinine 0.9 (0.4-1.0) mg/dL Estimated GFR (MDRD) 61 L (>89) Glucose 123 H (70-100) mg/dL Lactic Acid (0.5-2.2) mmol/L Calcium 8.4 L (8.5-10.3) mg/dL Total Bilirubin 0.6 (0.2-1.0) mg/dL AST 15 (10-42) IU/L ALT 14 (10-60) IU/L Alkaline Phosphatase 74 (42-121) IU/L Total Protein 6.6 L (6.7-8.2) g/dL Albumin 3.0 L (3.2-5.5) g/dL Globulin 3.6 (2.1-4.2) g/dL Albumin/Globulin Ratio 0.8 L (1.0-2.2) Lipase 34 (22-51) U/L Urine Color Urine Clarity (CLEAR) Urine pH (5.0-7.5) PH Ur Specific [place] (1.002-1.030) Urine Protein (NEGATIVE) mg/dL Urine Glucose (UA) (NEGATIVE) mg/dL Urine Ketones (NEGATIVE) mg/dL Urine Occult Blood (NEGATIVE) Urine Nitrite (NEGATIVE) Urine Bilirubin (NEGATIVE) Urine Urobilinogen (NORMAL) E.U./dL Ur Leukocyte Esterase (NEGATIVE) Urine RBC (0-5) /HPF Urine WBC (0-5) /HPF Urine WBC Clumps Ur Squamous Epith Cells (<= Few) Urine Bacteria (None Seen) /HPF Ur Microscopic Review Urine Culture Comments Urine Sodium mmol/L Blood Type Antibody Screen Crossmatch IS Only ABX Reporting Has patient been on IV antibiotics over the past 48 hours?: Yes Assessment/Plan - Problem List (1) Hyponatremia Impression: Her sodium has rebounded more quickly that I expected with LR and she is now 128. But no symptoms of CPM. I was considering DD of ectopic production of ADH by tumor in her lung. That would be small cell carcinoma. She is not on SSRIs. She is not on any carbamazepine or derivatives of carbamazepine. She is not on imatinib. With her last visit she was felt to be just dehydrated and responded to normal saline. With this visit creatinine is normal. Her spot urine sodium is 17 and low so I think she is dehydrated. Plan: stop LR repeat labs daily (2) Urinary tract infection Conclusion/Plan: She has pelvic abdominal pain that brought her in. Gas in bladder indicating possible colovesicular fistula. Plan: General surgery consult requested thru ER MD. Dr. Tomas has a case to do and will see the patient later. Rocephin 1 g initially ordered. But with the thickened sigmoid bowel, and possible diverticulitis, I will order single agent Zosyn. Cipro can cause worsening hyponatremia. She is day #2 zosyn. . Low-dose morphine for as needed pain management is working for pain control. Continue Colace on a daily basis for stool softener because she fears constipation Qualifiers: Urinary tract infection type: acute cystitis Hematuria presence: without hematuria Qualified Code(s): N30.00 - Acute cystitis without hematuria (3) Anemia Conclusion/Plan: This is a patient who has multiple myeloma. Recent bone marrow biopsy shows clearing of disease on her completed therapy and maintenance therapy. Previous B12 and iron studies were normal. In the face of someone who has significant coronary artery disease hemoglobin aim would be above 8. She started at 7.5 grams and with 1 unit of transfusion she is 8.6 this am. 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 Next step would be biopsy of the lung mass followed by MRI of the brain or CT of brain, PET CT for diffuse bone imaging. If this is small cell lung CA, treatment should be instituted relatively quickly. She already has a relationship that is ongoing with oncology. That will make it easier. By description she has poor performance status and has had significant weight loss. This is an adverse prognostic factor. By TNM staging she is already stage IV. (5) Chronic insomnia Conclusion/Plan: She is still using Ambien on a nightly basis. I reminded her that I explained to her the last visit when I had seen her, that she is not to take Ambien every day. If she must use a benzodiazepine such as Ambien, try and use it sparingly. Probably no more than 3-4 nights a week. Plan: Patient may use own melatonin and she corrects me with stating that she is on 3 melatonin tablets, not just 1. So i will increase the patient may take own dose to 30 mg. 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 Plan: Ortho consult verbally he told ER to have her be non weight bearing on that leg. She is not happy with that. During my exam on admission, she suddenly had an urge to urinate because of a bladder spasm and got up. She quickly got up and before nurse and I could get to her, tried to actually walk without a cane. I explained to her and her daughter that she cannot do that. I would rather that she have urge incontinence then suddenly get up and break her hip in the bathroom or on the way to the bathroom. She states that that will not happen. In that she refuses to wait, because she refuses to have incontinence. I have reexplained the high risk of pathologic fracture in her left femur again. She will try and use a cane. (7) CAD (coronary artery disease), enterprise coronary artery Conclusion/Plan: Are aspirin 81 mg, Brilinta, isosorbide mononitrate, sublingual nitroglycerin. She was also started on carvedilol in August 2019. Angina equivalent is just sudden exhaustion, no real chest pain. Plan: Resume Brilinta and aspirin since surgery will be canceled for her knee Qualifiers: [place] vs. transplanted heart: enterprise heart Associated angina: with stable angina Qualified Code(s): I25.118 - Atherosclerotic heart disease of enterprise coronary artery with other forms of angina pectoris (8) At risk for deep venous thrombosis Conclusion/Plan: Per oncology notes, she is maintained on Brilinta and aspirin. Those were stopped temporarily in preparation for a knee surgery this coming week. I will not add Lovenox subcu while she is here but will use compression stockings. However this woman already fell in the past with symptomatic pelvic hematoma. If she falls and breaks her hip she would be at significant risk of bleeding wi thin the thigh. Plan: Resume Brilinta and aspirin (9) Osteoarthritis of knee Conclusion/Plan: I have carefully explained that I think her surgery will most likely be canceled for right now. The question of a colovesicular fistula needs to be addressed. An orthopedic surgeon would like to reduce the risk of arthroplasty infection as much as possible. Qualifiers: Osteoarthritis type: primary (10) Multiple myeloma Conclusion/Plan: Patient may use own Revlimid. It is 100 mg daily for 3 weeks in a row with 1 week off. Daughter is to find out where she is in her cycle and she can use her own medications. Thru nursing last night, no report yet. Daughter is due to come in this morning and will let us know. Qualifiers: Multiple myeloma remission status: in remission Qualified Code(s): C90.01 - Multiple myeloma in remission
[2020-07-07] MEDS: ISOSORBIDE MONONITRATE ER 30 MG TABLET PO SCH (08:08)
[2020-07-07] MEDS: carvediloL 3.125 MG TABLET PO SCH ×2 (08:08→21:39)
[2020-07-07] MEDS: ASPIRIN EC 81 MG TABLET PO SCH (08:08)
[2020-07-07] MEDS: DOCUSATE SODIUM 100 MG CAPSULE PO SCH (08:08)
[2020-07-07] MEDS: polyethylene glycoL 3350 17 GM PACKET PO SCH (08:09)
[2020-07-07] MEDS: CALCIUM CARBONATE CHEW 500 MG TABLET PO SCH ×2 (08:09→21:39)
--- NOTE | 2020-07-07 10:36 | PROVIDER PROGRESS NOTE ---
Objective - Vital Signs/Intake & Output Vital Signs: Vital Signs x48h Temp Pulse Pulse Resp BP BP Pulse Ox 07/07/20 08:00 37.3 C 77 18 146/67 H 97 07/07/20 03:14 37 C 72 18 100 07/07/20 02:57 37 C 72 18 145/64 H Intake & Output: Intake & Output 07/04/20 07/05/20 07/06/20 07/07/20 23:59 23:59 23:59 23:59 Intake Total 388.75 1080.25 Output Total 375 1650 Balance 13.75 -569.75 - Lab Results Fish Bones: 07/07/20 05:26 07/07/20 05:26 Other Labs: Lab Results x24hrs 07/07/20 07/07/20 07/06/20 Range/Units 05:26 05:26 21:50 WBC 7.2 (4.8-10.8) x10^3/uL RBC 2.67 L (4.20-5.40) 10^6/uL Hgb 8.6 L (12.0-16.0) g/dL Hct 25.5 L (37.0-47.0) % MCV 95.5 (81.0-99.0) fL MCH 32.2 H (27.0-31.0) pg MCHC 33.7 (32.0-36.0) g/dL RDW 15.9 H (12.0-15.0) % Plt Count 251 (130-450) 10^3/uL MPV 8.8 (7.9-10.8) fL Neut # (Auto) 5.6 (1.5-6.6) 10^3/uL Lymph # (Auto) 0.6 L (1.5-3.5) 10^3/uL [place] # (Auto) 0.7 (0.0-1.0) 10^3/uL Eos # (Auto) 0.2 (0.0-0.7) 10^3/uL Baso # (Auto) 0.1 (0.0-0.1) 10^3/uL Absolute Nucleated RBC 0.00 x10^3/uL Nucleated RBC % 0.0 /100WBC Sodium 128 L (135-145) mmol/L Potassium 3.6 (3.5-5.0) mmol/L Chloride 94 L (101-111) mmol/L Carbon Dioxide 24 (21-32) mmol/L Anion Gap 10.0 (6-13) BUN 19 (6-20) mg/dL Creatinine 0.9 (0.4-1.0) mg/dL Estimated GFR (MDRD) 61 L (>89) Glucose 110 H (70-100) mg/dL Lactic Acid (0.5-2.2) mmol/L Calcium 8.7 (8.5-10.3) mg/dL Total Bilirubin (0.2-1.0) mg/dL AST (10-42) IU/L ALT (10-60) IU/L Alkaline Phosphatase (42-121) IU/L Total Protein (6.7-8.2) g/dL Albumin (3.2-5.5) g/dL Globulin (2.1-4.2) g/dL Albumin/Globulin Ratio (1.0-2.2) Lipase (22-51) U/L Urine Color Urine Clarity (CLEAR) Urine pH (5.0-7.5) PH Ur Specific [place] (1.002-1.030) Urine Protein (NEGATIVE) mg/dL Urine Glucose (UA) (NEGATIVE) mg/dL Urine Ketones (NEGATIVE) mg/dL Urine Occult Blood (NEGATIVE) Urine Nitrite (NEGATIVE) Urine Bilirubin (NEGATIVE) Urine Urobilinogen (NORMAL) E.U./dL Ur Leukocyte Esterase (NEGATIVE) Urine RBC (0-5) /HPF Urine WBC (0-5) /HPF Urine WBC Clumps Ur Squamous Epith Cells (<= Few) Urine Bacteria (None Seen) /HPF Ur Microscopic Review Urine Culture Comments Urine Sodium 17.0 mmol/L Blood Type Antibody Screen Crossmatch IS Only 07/06/20 07/06/20 07/06/20 Range/Units 21:21 17:10 16:35 WBC (4.8-10.8) x10^3/uL RBC (4.20-5.40) 10^6/uL Hgb (12.0-16.0) g/dL Hct (37.0-47.0) % MCV (81.0-99.0) fL MCH (27.0-31.0) pg MCHC (32.0-36.0) g/dL RDW (12.0-15.0) % Plt Count (130-450) 10^3/uL MPV (7.9-10.8) fL Neut # (Auto) (1.5-6.6) 10^3/uL Lymph # (Auto) (1.5-3.5) 10^3/uL [place] # (Auto) (0.0-1.0) 10^3/uL Eos # (Auto) (0.0-0.7) 10^3/uL Baso # (Auto) (0.0-0.1) 10^3/uL Absolute Nucleated RBC x10^3/uL Nucleated RBC % /100WBC Sodium (135-145) mmol/L Potassium (3.5-5.0) mmol/L Chloride (101-111) mmol/L Carbon Dioxide (21-32) mmol/L Anion Gap (6-13) BUN (6-20) mg/dL Creatinine (0.4-1.0) mg/dL Estimated GFR (MDRD) (>89) Glucose (70-100) mg/dL Lactic Acid 1.2 (0.5-2.2) mmol/L Calcium (8.5-10.3) mg/dL Total Bilirubin (0.2-1.0) mg/dL AST (10-42) IU/L ALT (10-60) IU/L Alkaline Phosphatase (42-121) IU/L Total Protein (6.7-8.2) g/dL Albumin (3.2-5.5) g/dL Globulin (2.1-4.2) g/dL Albumin/Globulin Ratio (1.0-2.2) Lipase (22-51) U/L Urine Color YELLOW Urine Clarity HAZY (CLEAR) Urine pH 6.0 (5.0-7.5) PH Ur Specific [place] 1.010 (1.002-1.030) Urine Protein NEGATIVE (NEGATIVE) mg/dL Urine Glucose (UA) NEGATIVE (NEGATIVE) mg/dL Urine Ketones NEGATIVE (NEGATIVE) mg/dL Urine Occult Blood SMALL H (NEGATIVE) Urine Nitrite NEGATIVE (NEGATIVE) Urine Bilirubin NEGATIVE (NEGATIVE) Urine Urobilinogen 0.2 (NORMAL) (NORMAL) E.U./dL Ur Leukocyte Esterase LARGE H (NEGATIVE) Urine RBC 11-25 H (0-5) /HPF Urine WBC >25 H (0-5) /HPF Urine WBC Clumps PRESENT Ur Squamous Epith Cells RARE Squamous (<= Few) Urine Bacteria Moderate H (None Seen) /HPF Ur Microscopic Review INDICATED Urine Culture Comments INDICATED Urine Sodium mmol/L Blood Type A NEGATIVE Antibody Screen NEGATIVE Crossmatch IS Only See Detail 07/06/20 07/06/20 Range/Units 16:35 16:35 WBC 8.1 (4.8-10.8) x10^3/uL RBC 2.21 L (4.20-5.40) 10^6/uL Hgb 7.5 L (12.0-16.0) g/dL Hct 21.9 L (37.0-47.0) % MCV 99.1 H (81.0-99.0) fL MCH 33.9 H (27.0-31.0) pg MCHC 34.2 (32.0-36.0) g/dL RDW 14.6 (12.0-15.0) % Plt Count 299 (130-450) 10^3/uL MPV 8.7 (7.9-10.8) fL Neut # (Auto) 6.5 (1.5-6.6) 10^3/uL Lymph # (Auto) 0.9 L (1.5-3.5) 10^3/uL [place] # (Auto) 0.5 (0.0-1.0) 10^3/uL Eos # (Auto) 0.1 (0.0-0.7) 10^3/uL Baso # (Auto) 0.0 (0.0-0.1) 10^3/uL Absolute Nucleated RBC 0.00 x10^3/uL Nucleated RBC % 0.0 /100WBC Sodium 120 L* (135-145) mmol/L Potassium 3.9 (3.5-5.0) mmol/L Chloride 85 L (101-111) mmol/L Carbon Dioxide 24 (21-32) mmol/L Anion Gap 11.0 (6-13) BUN 25 H (6-20) mg/dL Creatinine 0.9 (0.4-1.0) mg/dL Estimated GFR (MDRD) 61 L (>89) Glucose 123 H (70-100) mg/dL Lactic Acid (0.5-2.2) mmol/L Calcium 8.4 L (8.5-10.3) mg/dL Total Bilirubin 0.6 (0.2-1.0) mg/dL AST 15 (10-42) IU/L ALT 14 (10-60) IU/L Alkaline Phosphatase 74 (42-121) IU/L Total Protein 6.6 L (6.7-8.2) g/dL Albumin 3.0 L (3.2-5.5) g/dL Globulin 3.6 (2.1-4.2) g/dL Albumin/Globulin Ratio 0.8 L (1.0-2.2) Lipase 34 (22-51) U/L Urine Color Urine Clarity (CLEAR) Urine pH (5.0-7.5) PH Ur Specific [place] (1.002-1.030) Urine Protein (NEGATIVE) mg/dL Urine Glucose (UA) (NEGATIVE) mg/dL Urine Ketones (NEGATIVE) mg/dL Urine Occult Blood (NEGATIVE) Urine Nitrite (NEGATIVE) Urine Bilirubin (NEGATIVE) Urine Urobilinogen (NORMAL) E.U./dL Ur Leukocyte Esterase (NEGATIVE) Urine RBC (0-5) /HPF Urine WBC (0-5) /HPF Urine WBC Clumps Ur Squamous Epith Cells (<= Few) Urine Bacteria (None Seen) /HPF Ur Microscopic Review Urine Culture Comments Urine Sodium mmol/L Blood Type Antibody Screen Crossmatch IS Only Assessment/Plan - Problem List (1) 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 Limited mobility. She wishes to reconsult with her orthopedist DR.. Castelan? at [facility] in [place], [place] re: TKR and possible prophyllactic stabilization of left femoral head vs hip hemiarthroplasty at the same time. Also preop consideration of a consult with a orthopedic oncologist would be helpful. FULL NOTE DICTATED
--- NOTE | 2020-07-07 10:57 | CONSULTATION NOTE ---
DATE OF SERVICE: 07/07/2020 Physician: August Light MD REFERRING PHYSICIAN: Dr. Solitario Hernandez of the emergency room department. CHIEF COMPLAINT: "I'm here because I have a urinary tract infection." HISTORY OF PRESENT ILLNESS: Patient is a 79-year-old female who was recently diagnosed with multiple myeloma and currently on medical treatment for this problem. 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 She is pending general surgical consultation for further workup of this problem and treatment of urinary tract infection. During her workup, CT scan of the abdomen was obtained, and she was noted to have a rather large lytic appearing lesion in her left femoral head. This along with her pulmonary lesion in the left pulmonary field is of concern. We have been consulted to see if anything further was indicated for her lytic lesion in her left hip. Speaking with patient, she has had no real problems with her left hip. She has been able to ambulate and move her hip without any pain. Her main pain in the left lower extremity has been rather advanced osteoarthritis of her left knee. She has been seen by Dr. Castelan of [facility] in [place], [place], for her knee problem. Actually had been tentatively scheduled for a total knee replacement in early 07/2020. PHYSICAL EXAM: Patient's left hip was evaluated. She has no significant swelling or discoloration noted. No focal tenderness on palpation of the anterior groin on the lateral aspect of the hip. Has good hip rotation noted without any pain or restriction in motion. Although not witnessed, she apparently has been ambulatory to the bathroom with her baseline discomfort in her left knee. Review of the CT scan that was done of her abdomen focusing specifically in the left hip region we can see a rather large lytic oval shaped lesion probably measures about 3 cm in diameter. On some cuts it appears as if there may be a somewhat sclerotic border around this lesion insert and cuts. There is no apparent fractures visible in the femoral neck or head. Some mild osteoarthritis was noted in the hip joint itself. ASSESSMENT 1. 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 pulmonary cancer origin? 2. History of multiple myeloma. 3. Severe osteoarthritis of the left knee - had been scheduled in early 07/2020 for a total knee replacement with her orthopedic surgeon, Dr. Castelan at [facility] in [place], [place]. PLAN: I talked to length with patient and her daughter today about her new diagnosis and her left hip. She does have a pending pathologic fracture in this region, though currently she is asymptomatic. She has been still quite functional with regard to the hip. Her activities have been restricted because of her rather severe symptomatic left knee osteoarthritis. At the moment, her current admission will deal primarily with her urinary tract infection and any possible treatment for a possible colovesicular fistula, which general surgery will be addressing. Once she is able to be discharged she will be careful as to avoid any further falls that might stress her left hip region. She will consult with her orthopedist in [place] to see if they will still proceed with total knee replacement in view of her new pulmonary diagnosis. It is her preference that if surgery can be done for her left knee and prophylactic surgery is indicated for her left hip, she would like her orthopedist at [place] to perform both procedures, hopefully under the same anesthetic. Also, while over in [facility], as necessary, a consultation with an orthopedic oncologist may be helpful for determining all the various surgical options that would be indicated for this hip lesion. TD: 07/07/2020 10:32 LILIA
[2020-07-07 11:06] LABS: CALCIUM 8.8 mg/dL (8.5-10.3)
--- NOTE | 2020-07-07 14:34 | PHARMACY PROGRESS NOTE ---
- Best Possible Medication History Admit Date and Time: 07/06/201948 Processed by: Pharmacy Medication History completed: Yes Secondary Source(s): Prescription bottles, Physician records, Pharmacy records, Insurance records As the person ultimately responsible for medication therapy, providers are able to order a medication from an existing home medication list in [facility] via the "Reconcile Routine" prior to Confirmation of that medication by direct support specialist. Such practice is discouraged except when the physician, in their clinical judgment, deems that a medical need exists for a medication without regard to previous use.
[2020-07-07] MEDS: NON FORMULARY MED (Lenalidomide [Revlimid] 10 MG) PO SCH (18:30)
[2020-07-07] MEDS ORDERED: cefTRIAXone 1 GM in SODIUM CHLORIDE 0.9% MINIBAG 100 ML IV SCH (19:56)
[2020-07-07] MEDS ORDERED: ZOLPIDEM 5 MG TABLET PO PRN (21:09)
[2020-07-07] MEDS: MELATONIN 30 MG PO SCH (21:39)
[2020-07-07] MEDS: ZOLPIDEM 5 MG TABLET PO PRN (21:41)
[2020-07-08 05:43] LABS: BASOPHILS # (AUTO) 0.1 10^3/uL (0.0-0.1); BASOPHILS % (AUTO) 1.1 %; EOSINOPHILS # (AUTO) 0.2 10^3/uL (0.0-0.7); EOSINOPHILS % (AUTO) 4.9 %; HGB - HEMOGLOBIN 8.2 g/dL (12.0-16.0); LYMPHOCYTES # (AUTO) 0.7 10^3/uL (1.5-3.5); LYMPHOCYTES % (AUTO) 14.3 %; MEAN CORPUSCULAR HEMOGLOBIN 32.4 pg (27.0-31.0); MEAN CORPUSCULAR HGB CONC 33.2 g/dL (32.0-36.0); MEAN CORPUSCULAR VOLUME 97.6 fL (81.0-99.0); MEAN PLATELET VOLUME 9.2 fL (7.9-10.8); MONOCYTES # (AUTO) 0.6 10^3/uL (0.0-1.0); MONOCYTES % (AUTO) 13.9 %; NEUTROPHILS % (AUTO) 65.1 %; PLT - PLATELET COUNT 237 10^3/uL (130-450); RED BLOOD COUNT 2.53 10^6/uL (4.20-5.40); RED CELL DISTRIBUTION WIDTH 16.2 % (12.0-15.0); WHITE BLOOD COUNT 4.5 x10^3/uL (4.8-10.8)
[2020-07-08 05:56] LABS: CALCIUM 8.7 mg/dL (8.5-10.3)
[2020-07-08] MEDS: PIPERACILLIN/TAZOBACTAM 3.375 GM in SODIUM CHLORIDE 0.9% MINIBAG 100 ML IV SCH ×4 (07:29→22:25)
[2020-07-08] MEDS: SODIUM CHLORIDE FLUSH 0.9% 10 ML SYRINGE IVP SCH ×3 (07:29→18:20)
[2020-07-08] MEDS: ASPIRIN EC 81 MG TABLET PO SCH (08:04)
[2020-07-08] MEDS: ISOSORBIDE MONONITRATE ER 30 MG TABLET PO SCH (08:50)
[2020-07-08] MEDS: carvediloL 3.125 MG TABLET PO SCH ×2 (08:50→20:47)
[2020-07-08] MEDS: DOCUSATE SODIUM 100 MG CAPSULE PO SCH (08:50)
[2020-07-08] MEDS: CALCIUM CARBONATE CHEW 500 MG TABLET PO SCH ×3 (08:50→20:52)
[2020-07-08] MEDS: polyethylene glycoL 3350 17 GM PACKET PO SCH (08:51)
[2020-07-08] MEDS: NON FORMULARY MED (Lenalidomide [Revlimid] 10 MG) PO SCH (08:55)
[2020-07-08] MEDS: oxyCODONE 5 MG TABLET PO PRN ×3 (09:06→21:02)
[2020-07-08 11:22] LABS: BILIRUBIN,URINE NEGATIVE (NEGATIVE); GLUCOSE, URINE (UA) NEGATIVE (NEGATIVE); KETONES,URINE (UA) NEGATIVE (NEGATIVE); LEUKOCYTE ESTERASE, URINE MODERATE (NEGATIVE); NITRITE,URINE NEGATIVE (NEGATIVE); OCCULT BLOOD,URINE TRACE-INTA (NEGATIVE); PROTEIN,URINE NEGATIVE (NEGATIVE); UROBILINOGEN,URINE 0.2 (NORMAL) E.U./dL (NORMAL)
[2020-07-08 11:24] LABS: CLARITY,URINE CLEAR (CLEAR)
[2020-07-08 11:57] LABS: RBC,URINE 0-5 /HPF (0-5)
[2020-07-08 11:58] LABS: BACTERIA,URINE Rare /HPF (None Seen); SQUAMOUS EPITHELIAL CELL,UR FEW Squamous (<= Few)
[2020-07-08] MEDS ORDERED: MORPHINE 2 MG/ML CARPUJECT IVP STA (12:23)
[2020-07-08] MEDS: SODIUM CHLORIDE FLUSH 0.9% 10 ML SYRINGE IVP PRN ×2 (12:47→16:00)
--- NOTE | 2020-07-08 13:26 | PROVIDER PROGRESS NOTE ---
Subjective - Prog Note Date Prog Note Date: 07/08/20 - Subjective Subjective: She complains of lower abdominal spasms and pain that come and go. She states never he had any dysuria or urgency or hematuria. She [place] treated with Bactrim outpatient 3 different times with persistent symptoms. She does have left hip pain this is been present for a few months now. Does complain of some left lower quadrant tenderness. No nausea or vomiting. Current Medications - Current Medications Current Medications: Active Medications Acetaminophen (Tylenol) 650 mg PO Q4HR PRN PRN Reason: Pain 1 to 4 Last Admin: 07/07/20 02:51 Dose: 650 mg Documented by: Aspirin (Ecotrin) 81 mg PO DAILY [facility] Last Admin: 07/08/20 08:04 Dose: 81 mg Documented by: Calcium Carbonate/Glycine (Tums) 500 mg PO BID [facility] Last Admin: 07/08/20 08:50 Dose: 500 mg Documented by: Carvedilol (Coreg) 3.125 mg PO BID [facility] Last Admin: 07/08/20 08:50 Dose: 3.125 mg Documented by: Docusate Sodium (Colace 100mg Capsule) 100 mg PO DAILY [facility] Last Admin: 07/08/20 08:50 Dose: 100 mg Documented by: Piperacillin Sod/Tazobactam (Sod 3.375 gm/ Sodium Chloride) 100 mls @ 25 mls/hr IV Q8H [facility] Isosorbide Mononitrate (Imdur) 60 mg PO DAILY [facility] Last Admin: 07/08/20 08:50 Dose: 60 mg Documented by: Lorazepam (Lorazepam 0.5 Mg Tablet) 0.5 mg PO ONCE STA Stop: 07/08/20 14:57 Mineral Oil (Min Oil/Dimethicon/Coconut Oil 92 Gm Tube) 1 applic TOP BID [facility] Nitroglycerin (Nitrostat) 0.4 mg SL Q5MIN PRN PRN Reason: Chest Pain Non-Formulary Medication (Melatonin) 30 mg PO QPM [facility] Last Admin: 07/07/20 21:39 Dose: 20 mg Documented by: Non-Formulary Medication (Lenalidomide [Revlimid]) 10 mg PO DAILY [facility] Last Admin: 07/08/20 08:55 Dose: 10 mg Documented by: Ondansetron HCl (Zofran Odt) 4 mg TL Q6HR PRN PRN Reason: Nausea / Vomiting Ondansetron HCl (Zofran Inj) 4 mg IVP Q6HR PRN PRN Reason: Nausea / Vomiting Oxycodone HCl (Roxicodone) 5 mg PO Q4HR PRN PRN Reason: Pain 5 to 7 Last Admin: 07/08/20 14:14 Dose: 5 mg Documented by: Brilinta 90 Mg 1 each PO BID [facility] Last Admin: 07/08/20 08:52 Dose: 1 each Documented by: Polyethylene Glycol (Miralax) 17 gm PO DAILY [facility] Last Admin: 07/08/20 08:51 Dose: 17 gm Documented by: Sodium Chloride (Normal Saline Flush 0.9%) 10 ml IVP PRN PRN PRN Reason: NEEDED PER PROVIDER ORDERS Last Admin: 07/08/20 12:47 Dose: 10 ml Documented by: Sodium Chloride (Normal Saline Flush 0.9%) 10 ml IVP 0100,0900,1700 [facility] Last Admin: 07/08/20 08:05 Dose: 10 ml Documented by: Sodium Sulfate/Potass Sulf/Mag Sulf (Sodium/Potassium/Mag Sulfates 354 Ml Prep Kit) 177 ml PO 1800,0500 [facility] Stop: 07/09/20 05:01 Zolpidem Tartrate (Ambien) 10 mg PO QPM PRN PRN Reason: Insomnia Last Admin: 07/07/20 21:41 Dose: 10 mg Documented by: Aspirin [Aspir-Low] 81 mg PO DAILY 12/19/15 Atorvastatin Calcium 80 mg PO QPM 06/09/19 Isosorbide Mononitrate [Isosorbide Mononitrate ER] 60 mg PO DAILY 06/09/19 Melatonin 10 mg PO QPM 06/09/19 Ticagrelor [Brilinta] 90 mg PO BID 06/09/19 Acyclovir 400 mg PO BID 08/27/19 Multivitamin [Theragran] 1 tab PO DAILY 08/27/19 Zolpidem Tartrate [Ambien] 10 mg PO QPM PRN 11/02/19 Carvedilol [Coreg] 3.125 mg PO BID 07/07/20 Lenalidomide [Revlimid] 10 mg PO DAILY 07/07/20 Objective - Vital Signs/Intake & Output Reviewed Vital Signs: Yes Vital Signs: Vital Signs x48h Temp Pulse Resp BP Pulse Ox 07/08/20 08:00 37.1 C 77 20 121/56 L 94 Intake & Output: Intake & Output 07/05/20 07/06/20 07/07/20 07/08/20 23:59 23:59 23:59 23:59 Intake Total 388.75 1880.25 340 Output Total 375 1650 250 Balance 13.75 230.25 90 - Objective General Appearance: positive: Alert, Mild distress Eyes Bilateral: positive: Normal inspection, Conjunctivae nml ENT: positive: ENT inspection nml Neck: positive: Nml inspection Respiratory: positive: No respiratory distress. negative: Wheezes, Rales Cardiovascular: positive: Regular rate & rhythm. negative: Tachycardia Abdomen: positive: Nml bowel sounds, Tenderness (Left lower quadrant tenderness.). negative: Non-tender, Guarding, Rebound Skin: positive: Warm, Dry Extremities: positive: No pedal edema Neurologic/Psychiatric: negative: Disoriented to person, Disoriented to place - Lab Results Fish Bones: 07/08/20 05:22 07/08/20 05:22 Other Labs: Lab Results x24hrs 07/08/20 07/08/20 07/08/20 Range/Units 10:15 05:22 05:22 WBC 4.5 L (4.8-10.8) x10^3/uL RBC 2.53 L (4.20-5.40) 10^6/uL Hgb 8.2 L (12.0-16.0) g/dL Hct 24.7 L (37.0-47.0) % MCV 97.6 (81.0-99.0) fL MCH 32.4 H (27.0-31.0) pg MCHC 33.2 (32.0-36.0) g/dL RDW 16.2 H (12.0-15.0) % Plt Count 237 (130-450) 10^3/uL MPV 9.2 (7.9-10.8) fL Neut # (Auto) 3.0 (1.5-6.6) 10^3/uL Lymph # (Auto) 0.7 L (1.5-3.5) 10^3/uL [place] # (Auto) 0.6 (0.0-1.0) 10^3/uL Eos # (Auto) 0.2 (0.0-0.7) 10^3/uL Baso # (Auto) 0.1 (0.0-0.1) 10^3/uL Absolute Nucleated RBC 0.00 x10^3/uL Nucleated RBC % 0.0 /100WBC Sodium 130 L (135-145) mmol/L Potassium 3.7 (3.5-5.0) mmol/L Chloride 97 L (101-111) mmol/L Carbon Dioxide 25 (21-32) mmol/L Anion Gap 8.0 (6-13) BUN 17 (6-20) mg/dL Creatinine 1.0 (0.4-1.0) mg/dL Estimated GFR (MDRD) 54 L (>89) Glucose 103 H (70-100) mg/dL Calcium 8.7 (8.5-10.3) mg/dL Urine Color YELLOW Urine Clarity CLEAR (CLEAR) Urine pH 7.0 (5.0-7.5) PH Ur Specific [place] 1.015 (1.002-1.030) Urine Protein NEGATIVE (NEGATIVE) mg/dL Urine Glucose (UA) NEGATIVE (NEGATIVE) mg/dL Urine Ketones NEGATIVE (NEGATIVE) mg/dL Urine Occult Blood TRACE-INTA (NEGATIVE) Urine Nitrite NEGATIVE (NEGATIVE) Urine Bilirubin NEGATIVE (NEGATIVE) Urine Urobilinogen 0.2 (NORMAL) (NORMAL) E.U./dL Ur Leukocyte Esterase MODERATE H (NEGATIVE) Urine RBC 0-5 (0-5) /HPF Urine WBC 11-25 H (0-5) /HPF Ur Squamous Epith Cells FEW Squamous (<= Few) Urine Bacteria Rare (None Seen) /HPF Urine Culture Comments INDICATED - Diagnostic Imaging Diagnostic Imaging Results: negative: Final report reviewed ABX Reporting Has patient been on IV antibiotics over the past 48 hours?: Yes Assessment/Plan - Problem List (1) Urinary tract infection Impression: It is unclear if her symptoms represented true urinary tract infection or not. I suspect that her lower quadrant abdominal pain may be related to the sigmoid thickening that is evident on CT. Initial urine culture grew polymicrobial growth. In further history, she denies really any sense of dysuria, urgency, frequency. We will repeat a urinalysis today in hopes of obtaining one bacteria so we can de-escalate antibiotics to something oral. If this is not possible, we will likely discharge her on oral ciprofloxacin given she has already failed treatment with Bactrim a few times. Imaging on admission was also concerning for possible colovesical fistula. I spoke with general surgery today and they recommend obtaining a CT cystogram which has been ordered. We will follow up on the results of this. They are also to perform a colonoscopy tomorrow and so she will be started on a bowel prep in preparation for this. (2) Hyponatremia Impression: Has improved and is back to baseline. This was likely hypovolemic hyponatremia as she responded well to IV fluids and at an appropriate rate. We have since discontinued IV fluids. Daily BMP while hospitalized. 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 It is unclear if this is associated with her lung mass or her multiple myeloma. She was evaluated by orthopedic surgery and she will see her orthopedist in [place] to discuss further options for this lesion. I discussed with the patient and her daughter today that she is at high risk for fracture if she were to fall. The patient understands this and will take her time when ambulating and she will try not to be so impulsive. (4) Multiple myeloma Impression: She continues to receive ongoing treatment. We have continued her home medication during this hospitalization. She will continue outpatient follow-up with her oncologist, Dr. Cavanaugh. 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 It is unclear if this is metastatic or not at this point but there is concerns given the lytic lesion in the left hip. She will need outpatient follow-up with her oncologist as she will require biopsy and further evaluation. (6) Anemia Impression: He is chronically anemic secondary to her multiple myeloma. She received 1 unit of packed red blood cells during this hospitalization. Her hemoglobin has since been relatively stable. Her stool is Hemoccult positive. Given concern for the colovesical fistula, she will be undergoing a colonoscopy tomorrow. Continue with daily CBCs. Transfuse for goal hemoglobin greater than 8 given her history of coronary artery disease. (7) CAD (coronary artery disease), [place] coronary artery Impression: Stable. She has been continued on aspirin and Brilinta. She is anemic and her stool is Hemoccult positive. She was transfused 1 unit of packed red blood cell given hemoglobin was less than 8 and she has history of coronary artery disease. Plan is for colonoscopy tomorrow. We will continue aspirin and B rilinta for the time being. (8) Moderate protein-calorie malnutrition Impression: Nutrition has been consulted. Continue to encourage oral intake. Ensure with meals.
[2020-07-08] MEDS ORDERED: IOVERSOL 320 50 ML VIAL ONE (13:48)
[2020-07-08] MEDS ORDERED: IOVERSOL 320 100 ML VIAL IVP ONE ×2 (13:48→19:46)
[2020-07-08] MEDS ORDERED: LORazepam 0.5 MG TABLET PO STA (14:56)
[2020-07-08] MEDS: MIN OIL/DIMETHICON/COCONUT OIL 92 GM TUBE TOP SCH ×2 (16:01→20:48)
[2020-07-08] MEDS ORDERED: HYDROmorphone 1 MG/ML CARPUJECT IVP STA (16:51)
[2020-07-08] MEDS: MORPHINE 2 MG/ML CARPUJECT IVP PRN ×2 (17:13→20:13)
[2020-07-08] MEDS: SODIUM/POTASSIUM/MAG SULFATES 354 ML PREP KIT PO SCH (18:20)
--- NOTE | 2020-07-08 19:15 | CT Report ---
PROCEDURE: PELVIS W INDICATIONS: CONCERN FOR COLOVESICAL FISTULA CONTRAST: IV CONTRAST: Optiray 320 ml: 90 PO CONTRAST: *NO PO CONTRAST TECHNIQUE: Before and after the administration of intravesicular contrast, 5 mm thick sections acquired from the iliac crests to the symphysis. 5 mm thick coronal and sagittal reformats were acquired. For radiat ion dose reduction, the following was used: automated exposure control, adjustment of mA and/or kV a ccording to patient size. COMPARISON: CT abdomen/pelvis dated 07/06/2020. CT left hip 06/09/2019 FINDINGS: Image quality: Excellent. A Owens catheter is seen within the bladder with a small amount of nondependent air on precontrast im ages. Postcontrast images demonstrate contrast material filling the bladder without a focal filling d efect. No extravasation of intracystic contrast is seen. Delayed images demonstrate reflux of intracy stic contrast material into the ureters and into the included portions of the renal collecting system s. Mild diffuse bladder wall thickening is seen throughout the exam. Hyperdense fecal material is noted on precontrast exam, which mildly compromises evaluation for colov esical fistula. Multiple diverticula are again noted in the colon. Bowel wall thickening at the junct ion of the descending and sigmoid colon does not appear significantly changed when compared to the CT abdomen/pelvis from 07/06/2020. No ascites or pneumoperitoneum is seen. Atherosclerotic calcifications are seen in the abdominal aorta and iliac vessels. Status post hysterectomy. No adnexal mass is seen. Permeative lucency is again seen involving the proximal femoral head and neck to the level of the tro chanters. Chronic fracture deformity is seen in the right and left pubic bones. Irregular appearance of the sacrum is also likely related to a prior fracture. IMPRESSION: 1. No extravasation of intra-vesicular contrast is seen to suggest fistula formation. There is mild diffuse bladder wall thickening throughout the exam, which may be related to nonspecific cystitis. 2. Reflux of intravesicular contrast material is seen to the level of the renal pelvises bilaterally . 3. Bowel wall thickening in the sigmoid colon is again seen with surrounding diverticulosis, possibl y related to chronic muscular hypertrophy versus neoplasm. Again recommend correlation with colonosco py when feasible if not already obtained. 4. A permeative radiolucent lesion is redemonstrated in the left proximal femur that may be related to a primary malignancy or metastatic disease. Multiple chronic fracture deformities are seen in the pelvis and sacrum. Reviewed by: Marcus Perry MD on 07/08/2020 6:14 PM [facility] Approved by: Marcus Perry MD on 07/08/2020 6:14 PM [facility] Station ID: [id number]
[2020-07-08] MEDS ORDERED: IOVERSOL 320 50 ML VIAL PO ONE (19:45)
[2020-07-08] MEDS: MELATONIN 30 MG PO SCH (20:48)
[2020-07-08] MEDS: ZOLPIDEM 5 MG TABLET PO PRN (20:55)
[2020-07-09] MEDS: SODIUM CHLORIDE FLUSH 0.9% 10 ML SYRINGE IVP SCH ×3 (02:42→16:55)
[2020-07-09 05:14] LABS: BASOPHILS # (AUTO) 0.1 10^3/uL (0.0-0.1); BASOPHILS % (AUTO) 0.9 %; EOSINOPHILS # (AUTO) 0.3 10^3/uL (0.0-0.7); EOSINOPHILS % (AUTO) 4.3 %; HGB - HEMOGLOBIN 8.3 g/dL (12.0-16.0); LYMPHOCYTES # (AUTO) 0.7 10^3/uL (1.5-3.5); MEAN CORPUSCULAR HGB CONC 32.8 g/dL (32.0-36.0); MEAN CORPUSCULAR VOLUME 97.7 fL (81.0-99.0); MEAN PLATELET VOLUME 9.1 fL (7.9-10.8); MONOCYTES # (AUTO) 0.9 10^3/uL (0.0-1.0); MONOCYTES % (AUTO) 15.9 %; NEUTROPHILS # (AUTO) 3.9 10^3/uL (1.5-6.6); PLT - PLATELET COUNT 244 10^3/uL (130-450); RED BLOOD COUNT 2.59 10^6/uL (4.20-5.40); RED CELL DISTRIBUTION WIDTH 15.9 % (12.0-15.0); WHITE BLOOD COUNT 5.9 x10^3/uL (4.8-10.8)
[2020-07-09] MEDS: SODIUM/POTASSIUM/MAG SULFATES 354 ML PREP KIT PO SCH (05:20)
[2020-07-09 05:23] LABS: CALCIUM 8.4 mg/dL (8.5-10.3); CREATININE 0.9 mg/dL (0.4-1.0)
[2020-07-09] MEDS: DOCUSATE SODIUM 100 MG CAPSULE PO SCH (05:55)
[2020-07-09] MEDS: SODIUM CHLORIDE FLUSH 0.9% 10 ML SYRINGE IVP PRN ×2 (06:31→07:38)
[2020-07-09] MEDS: PIPERACILLIN/TAZOBACTAM 3.375 GM in SODIUM CHLORIDE 0.9% MINIBAG 100 ML IV SCH ×3 (06:35→22:49)
[2020-07-09] MEDS: MORPHINE 2 MG/ML CARPUJECT IVP PRN ×2 (07:30→10:34)
[2020-07-09] MEDS: POTASSIUM CHLOR 10 MEQ/100 ML 10 MEQ/100 ML BAG IV SCH ×4 (07:38→13:03)
[2020-07-09] MEDS: MIN OIL/DIMETHICON/COCONUT OIL 92 GM TUBE TOP SCH ×2 (08:02→20:01)
[2020-07-09] MEDS: polyethylene glycoL 3350 17 GM PACKET PO SCH (08:02)
[2020-07-09] MEDS: CALCIUM CARBONATE CHEW 500 MG TABLET PO SCH ×2 (09:44→20:01)
[2020-07-09] MEDS: ASPIRIN EC 81 MG TABLET PO SCH (10:27)
[2020-07-09] MEDS: carvediloL 3.125 MG TABLET PO SCH ×2 (10:29→20:01)
[2020-07-09] MEDS: ISOSORBIDE MONONITRATE ER 30 MG TABLET PO SCH (10:30)
[2020-07-09] MEDS: NON FORMULARY MED (Lenalidomide [Revlimid] 10 MG) PO SCH (11:16)
[2020-07-09] MEDS: D5NS W/20 MEQ KCL 1,000 ML IV SCH (11:52)
--- NOTE | 2020-07-09 14:45 | ANESTHESIA ---
Pre-Anesthesia VS, & Labs - Diagnosis anemia, lower abdominal pain - Procedure colonoscopy Vital Signs: Temp Pulse Resp BP Pulse Ox 37.2 C 76 18 147/52 H 94 07/09/20 08:00 07/09/20 08:00 07/09/20 08:00 07/09/20 08:00 07/09/20 08:00 Height: 5 ft 6 in Weight (kg): 124.5 kg Body Mass Index: 44.3 BMI Classification: Morbidly Obese - NPO >8 hours - Is Patient ?: No - Lab Results Current Lab Results: Laboratory Tests 07/09/20 04:50: Sodium 133 L, Potassium 3.0 L, Chloride 96 L, Carbon Dioxide 26, Anion Gap 11.0, BUN 18, Creatinine 0.9, Estimated GFR (MDRD) 61 L, Glucose 105 H , Calcium 8.4 L 07/09/20 04:50: WBC 5.9, RBC 2.59 L, Hgb 8.3 L, Hct 25.3 L, MCV 97.7, MCH 32.0 H , MCHC 32.8, RDW 15.9 H, Plt Count 244, MPV 9.1, Neut # (Auto) 3.9, Lymph # (Auto) 0.7 L, [place] # (Auto) 0.9, Eos # (Auto) 0.3, Baso # (Auto) 0.1, Absolute Nucleated RBC 0.00, Nucleated RBC % 0.0 07/08/20 05:22: Sodium 130 L, Potassium 3.7, Chloride 97 L, Carbon Dioxide 25, Anion Gap 8.0, BUN 17, Creatinine 1.0, Estimated GFR (MDRD) 54 L, Glucose 103 H, Calcium 8.7 07/08/20 05:22: WBC 4.5 L, RBC 2.53 L, Hgb 8.2 L, Hct 24.7 L, MCV 97.6, MCH 32.4 H, MCHC 33.2, RDW 16.2 H, Plt Count 237, MPV 9.2, Neut # (Auto) 3.0, Lymph # (Auto) 0.7 L, [place] # (Auto) 0.6, Eos # (Auto) 0.2, Baso # (Auto) 0.1, Absolute Nucleated RBC 0.00, Nucleated RBC % 0.0 07/07/20 10:42: Sodium 129 L, Potassium 3.7, Chloride 88 L, Carbon Dioxide 27, Anion Gap 14.0 H, BUN 19, Creatinine 1.0, Estimated GFR (MDRD) 54 L, Glucose 116 H, Calcium 8.8 07/07/20 05:26: Sodium 128 L, Potassium 3.6, Chloride 94 L, Carbon Dioxide 24, Anion Gap 10.0, BUN 19, Creatinine 0.9, Estimated GFR (MDRD) 61 L, Glucose 110 H , Calcium 8.7 07/07/20 05:26: WBC 7.2, RBC 2.67 L, Hgb 8.6 L, Hct 25.5 L, MCV 95.5, MCH 32.2 H , MCHC 33.7, RDW 15.9 H, Plt Count 251, MPV 8.8, Neut # (Auto) 5.6, Lymph # (Auto) 0.6 L, [place] # (Auto) 0.7, Eos # (Auto) 0.2, Baso # (Auto) 0.1, Absolute Nucleated RBC 0.00, Nucleated RBC % 0.0 07/06/20 21:21: Blood Type A NEGATIVE, Antibody Screen NEGATIVE, Crossmatch IS Only See Detail 07/06/20 16:35: Lactic Acid 1.2 07/06/20 16:35: Sodium 120 L*, Potassium 3.9, Chloride 85 L, Carbon Dioxide 24, Anion Gap 11.0, BUN 25 H, Creatinine 0.9, Estimated GFR (MDRD) 61 L, Glucose 123 H, Calcium 8.4 L, Total Bilirubin 0.6, AST 15, ALT 14, Alkaline Phosphatase 74, Total Protein 6.6 L, Albumin 3.0 L, Globulin 3.6, Albumin/Globulin Ratio 0.8 L, Lipase 34 07/06/20 16:35: WBC 8.1, RBC 2.21 L, Hgb 7.5 L, Hct 21.9 L, MCV 99.1 H, MCH 33.9 H, MCHC 34.2, RDW 14.6, Plt Count 299, MPV 8.7, Neut # (Auto) 6.5, Lymph # (Auto) 0.9 L, [place] # (Auto) 0.5, Eos # (Auto) 0.1, Baso # (Auto) 0.0, Absolute Nucleated RBC 0.00, Nucleated RBC % 0.0 Fish Bones: 07/09/20 04:50 07/09/20 04:50 Home Medications and Allergies Home Medications: Ambulatory Orders Carvedilol [Coreg] 3.125 mg PO BID 07/07/20 Lenalidomide [Revlimid] 10 mg PO DAILY 07/07/20 [place]-3/Dha/Epa/Fish Oil [Fish Oil 1,000 mg Softgel] 1 cap PO DAILY 07/09/20 Active Medications Acetaminophen (Tylenol) 650 mg PO Q4HR PRN PRN Reason: Pain 1 to 4 Last Admin: 07/07/20 02:51 Dose: 650 mg Documented by: Aspirin (Ecotrin) 81 mg PO DAILY [facility] Last Admin: 07/09/20 10:27 Dose: 81 mg Documented by: Calcium Carbonate/Glycine (Tums) 500 mg PO BID [facility] Last Admin: 07/09/20 09:44 Dose: Not Given Documented by: Carvedilol (Coreg) 3.125 mg PO BID [facility] Last Admin: 07/09/20 10:29 Dose: 3.125 mg Documented by: Docusate Sodium (Colace 100mg Capsule) 100 mg PO DAILY [facility] Last Admin: 07/09/20 05:55 Dose: Not Given Documented by: Piperacillin Sod/Tazobactam (Sod 3.375 gm/ Sodium Chloride) 100 mls @ 25 mls/hr IV Q8H [facility] Last Infusion: 07/09/20 10:35 Dose: Infused Documented by: Potassium Chloride/Dextrose/Sod Cl () 1,000 mls @ 60 mls/hr IV .[id number] [facility] Last Admin: 07/09/20 11:52 Dose: 60 mls/hr Documented by: Isosorbide Mononitrate (Imdur) 60 mg PO DAILY [facility] Last Admin: 07/09/20 10:30 Dose: 60 mg Documented by: Mineral Oil (Min Oil/Dimethicon/Coconut Oil 92 Gm Tube) 1 applic TOP BID [facility] Last Admin: 07/09/20 08:02 Dose: 1 applic Documented by: Morphine Sulfate (Morphine 2 Mg/Ml Carpuject) 2 mg IVP Q2HR PRN PRN Reason: PAIN Last Admin: 07/09/20 10:34 Dose: 2 mg Documented by: Nitroglycerin (Nitrostat) 0.4 mg SL Q5MIN PRN PRN Reason: Chest Pain Non-Formulary Medication (Melatonin) 30 mg PO QPM [facility] Last Admin: 07/08/20 20:48 Dose: 20 mg Documented by: Non-Formulary Medication (Lenalidomide [Revlimid]) 10 mg PO DAILY [facility] Last Admin: 07/09/20 11:16 Dose: 10 mg Documented by: [id number] Ethyl Esters ([place]-3 Acid Ethyl Esters 1 Gm Capsule) 1 gm PO DAILY [facility] Ondansetron HCl (Zofran Odt) 4 mg TL Q6HR PRN PRN Reason: Nausea / Vomiting Ondansetron HCl (Zofran Inj) 4 mg IVP Q6HR PRN PRN Reason: Nausea / Vomiting Last Admin: 07/09/20 06:20 Dose: 4 mg Documented by: Oxycodone HCl (Roxicodone) 5 mg PO Q4HR PRN PRN Reason: Pain 5 to 7 Last Admin: 07/08/20 21:02 Dose: 5 mg Documented by: Brilinta 90 Mg 1 each PO BID [facility] Last Admin: 07/09/20 10:28 Dose: 1 each Documented by: Polyethylene Glycol (Miralax) 17 gm PO DAILY [facility] Last Admin: 07/09/20 08:02 Dose: Not Given Documented by: Sodium Chloride (Normal Saline Flush 0.9%) 10 ml IVP PRN PRN PRN Reason: NEEDED PER PROVIDER ORDERS Last Admin: 07/09/20 07:38 Dose: 10 ml Documented by: Sodium Chloride (Normal Saline Flush 0.9%) 10 ml IVP 0100,0900,1700 [facility] Last Admin: 07/09/20 07:46 Dose: 10 ml Documented by: Zolpidem Tartrate (Ambien) 10 mg PO QPM PRN PRN Reason: Insomnia Last Admin: 07/08/20 20:55 Dose: 10 mg Documented by: Aspirin [Aspir-Low] 81 mg PO DAILY 12/19/15 Atorvastatin Calcium 80 mg PO QPM 06/09/19 Isosorbide Mononitrate [Isosorbide Mononitrate ER] 60 mg PO DAILY 06/09/19 Melatonin 10 mg PO QPM 06/09/19 Ticagrelor [Brilinta] 90 mg PO BID 06/09/19 Acyclovir 400 mg PO BID 08/27/19 Multivitamin [Theragran] 1 tab PO DAILY 08/27/19 Zolpidem Tartrate [Ambien] 10 mg PO QPM PRN 11/02/19 Carvedilol [Coreg] 3.125 mg PO BID 07/07/20 Lenalidomide [Revlimid] 10 mg PO DAILY 07/07/20 [place]-3/Dha/Epa/Fish Oil [Fish Oil 1,000 mg Softgel] 1 cap PO DAILY 07/09/20 Allergies/Adverse Reactions: Allergies Allergy/AdvReac Type Severity Reaction Status Date / Time clopidogrel [From Plavix] Allergy Severe Itching Verified 07/06/20 17:05 Anes History & Medical History - Anesthetic History Anesthesia Complications: reports: No previous complications - Medical History Cardiovascular: reports: Hypertension, Coronary artery disease, Peripheral Vascular Disease, [place] Pulmonary: reports: None Gastrointestinal: reports: GERD Urinary: reports: None, Kidney stones Neuro: reports: Peripheral neuropathy Musculoskeletal: reports: Osteoarthritis, Other (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 IgA kappa, FISH positive. 14: 16 translocation since May 28, 2019. C1D1 CyBorD initiated weekly June 12, 2019 at [facility]. Weekly Velcade instituted at cycle 3, August 16, 2019 due to neuropathy and fatigue. Completed cycle 8 of sideboard D on March 06, 2020. Follow-up BM BX (-). Maintenance lenalidomide 10 mg 3 weeks, 1 week off. Started March 10, 2020. Increased risk of DVTs on Revlimid. To continue antiplatelet therapy. - Surgical History General: Appendectomy Eyes Ears Nose Throat (EENT): Cataracts Cardiothoracic: Coronary stent, Cardiac catheterization Gynecologic: Hysterectomy, Oophrectomy Orthopedic: Knee replacement, Carpal Tunnel surgery, Spine surgery Exam General: Alert, Oriented x3, Cooperative, No acute distress Dental: WNL Mouth Openin Fingerbreadth Neck Mobility: Normal Mallampati classification: II Thyromental Distance: 4-6 cm Mental/Cognitive Status: Alert/Oriented X3, Normal for patient Plan Anesthesia Type: MAC Consent for Procedure(s) Verified and Reviewed: Yes Code Status: Attempt Resuscitation ASA classification: 4-Incapacitating disease Is this case an emergency?: No
--- NOTE | 2020-07-09 16:14 | HISTORY & PHYSICAL EXAMINATION ---
HPI - Admitted From Admitted from: ED - History Obtained From Records Reviewed: Old records reviewed History obtained from: Patient, Other (Other physicians) - History of Present Illness Severity at the worst: reports: Moderate HPI Comment/Other: 79-year-old lady admitted with chronic anemia and findings of multiple myeloma. She was noted on CT scan to have extensive thickening of the sigmoid colon as well as air in the bladder which could suggest a colonic fistula. This may significantly complicate her treatment for other malignancy. For this reason we have been consulted for consideration of colonoscopy.Amairani reports she took the prep today and has tolerated it reasonably well.She denies any abdominal pain currently.She reports that her abdomen is always a little "sore". 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 IgA kappa, FISH positive. 14: 16 translocation since May 28, 2019. C1D1 CyBorD initiated weekly June 12, [address] [facility]. Weekly Velcade instituted at cycle 3, August 16, 2019 due to neuropathy and fatigue. Completed cycle 8 of sideboard D on March 06, 2020. Follow-up BM BX (-). Maintenance lenalidomide 10 mg 3 weeks, 1 week off. Started March 10, 2020. Increased risk of DVTs on Revlimid. To continue antiplatelet therapy. 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: positive: Hysterectomy, Oophrectomy Cardiovascular: positive: Coronary stent, Cardiac catheterization HEENT: positive: Cataracts Social & Family Hx - Social History Does the pt smoke?: No Smoking Status: Never smoker Does the pt drink ETOH?: Yes Does the pt have substance abuse?: No - POLST Patient has POLST: No POLST Status: DNR (She wants everything done for aggressive treatment up until the time her heart stops or she stops breathing.) Meds/Allgy - Home Medications Home Medications: Ambulatory Orders Medication Instructions Recorded Confirmed Aspirin [Aspir-Low] 81 mg PO DAILY 12/19/15 07/07/20 Atorvastatin Calcium 80 mg PO QPM 06/09/19 07/07/20 Isosorbide Mononitrate [Isosorbide 60 mg PO DAILY 06/09/19 07/07/20 Mononitrate ER] Melatonin 10 mg PO QPM 06/09/19 07/07/20 Ticagrelor [Brilinta] 90 mg PO BID 06/09/19 07/07/20 Acyclovir 400 mg PO BID 08/27/19 07/07/20 Multivitamin [Theragran] 1 tab PO DAILY 08/27/19 07/07/20 Zolpidem Tartrate [Ambien] 10 mg PO QPM PRN 11/02/19 07/07/20 Carvedilol [Coreg] 3.125 mg PO BID 07/07/20 07/07/20 Lenalidomide [Revlimid] 10 mg PO DAILY 07/07/20 07/07/20 [place]-3/Dha/Epa/Fish Oil [Fish Oil 1 cap PO DAILY 07/09/20 07/09/20 1,000 mg Softgel] - Allergies Allergies/Adverse Reactions: Allergies Allergy/AdvReac Type Severity Reaction Status Date / Time clopidogrel [From Plavix] Allergy Severe Itching Verified 07/06/20 17:05 Exam - Vital Signs Reviewed Vital Signs: Yes - Physical Exam General Appearance: positive: No acute distress, Alert Eyes Bilateral: positive: Normal inspection, PERRL Neck: positive: Nml inspection Cardiovascular: positive: Regular rate & rhythm Abdomen: positive: Tenderness (Very mild suprapubic tenderness). negative: Guarding, Rebound Skin: positive: Color nml Neurologic/Psychiatric: positive: Oriented x3 Results - Lab Results Fish Bones: 07/09/20 04:50 07/09/20 04:50 Other Lab Results: Lab Results x24hrs 07/09/20 07/09/20 Range/Units 04:50 04:50 WBC 5.9 (4.8-10.8) x10^3/uL RBC 2.59 L (4.20-5.40) 10^6/uL Hgb 8.3 L (12.0-16.0) g/dL Hct 25.3 L (37.0-47.0) % MCV 97.7 (81.0-99.0) fL MCH 32.0 H (27.0-31.0) pg MCHC 32.8 (32.0-36.0) g/dL RDW 15.9 H (12.0-15.0) % Plt Count 244 (130-450) 10^3/uL MPV 9.1 (7.9-10.8) fL Neut # (Auto) 3.9 (1.5-6.6) 10^3/uL Lymph # (Auto) 0.7 L (1.5-3.5) 10^3/uL [place] # (Auto) 0.9 (0.0-1.0) 10^3/uL Eos # (Auto) 0.3 (0.0-0.7) 10^3/uL Baso # (Auto) 0.1 (0.0-0.1) 10^3/uL Absolute Nucleated RBC 0.00 x10^3/uL Nucleated RBC % 0.0 /100WBC Sodium 133 L (135-145) mmol/L Potassium 3.0 L (3.5-5.0) mmol/L Chloride 96 L (101-111) mmol/L Carbon Dioxide 26 (21-32) mmol/L Anion Gap 11.0 (6-13) BUN 18 (6-20) mg/dL Creatinine 0.9 (0.4-1.0) mg/dL Estimated GFR (MDRD) 61 L (>89) Glucose 105 H (70-100) mg/dL Calcium 8.4 L (8.5-10.3) mg/dL - Diagnostic Imaging Results Diagnostic Imaging Results Comments: CT abdomen pelvis results as reported in the history of present illness - EKG Results EKG Interpreted Independently: No Impression/Plan - Problem List Problem List: Complex issues in the setting of a 79-year-old lady with a spiculated mass in her lung and evidence of lytic lesions in the bone consistent with multiple myeloma who now has thickening of the sigmoid colon with evidence of air in the bladder which could be consistent with colovesicle fistula. I agree with plans for colonoscopy. We have discussed the risks and benefits of the procedure and the patient is expressed a desire to complete it today. Both verbal and written consent were obtained
[2020-07-09] MEDS ORDERED: fentaNYL 100 MCG/2 ML VIAL IVP ONE (16:23)
[2020-07-09] MEDS ORDERED: PROPOFOL 200 MG/20 ML VIAL IVP ONE (16:23)
[2020-07-09] MEDS ORDERED: METHYLENE BLUE 0.5% 50 MG/10 ML AMPULE IR ONE (16:32)
[2020-07-09] MEDS ORDERED: METHYLENE BLUE 0.5% 50 MG/10 ML AMPULE ONE (16:40)
--- NOTE | 2020-07-09 17:34 | PROVIDER PROGRESS NOTE ---
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 Status post prep. Seen with Dr. Marielos Luong. Results as follows: 1. 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 2. Proximal obstruction with extensive retained stool in spite of prep. Exceedingly tortuous and angular colon requiring counterpressure postural change and stiffening wire to achieve the cecum. 3. Poor prep with extensive proximal retained stool making visualization challenging. No large masses seen. However prep precluded full evaluation. 4. Instilled with methylene blue proximal to stricture and Owens placed to assess for any extravasation of dye within the bladder. Would maintain the patient on an aggressive bowel regimen going forward, however anticipate that the stricture is the source of chronic obstruction. In the setting of presumptive active diverticulitis would limit diet to clears. Continue antibiotics IV for presumptive diverticulitis. Stricturing it of itself is a surgical indication however given the patient's multiple competing pathologies she requires a care conference to decide if Weeks's procedure with end colostomy would be part of her therapeutic plan going forward. If the patient is to be considered for any kind of oncologic measures including chemotherapy would be our recommendation to proceed with resection and end colostomy given the risk associated of ongoing infectious compromise. Please note that voice recognition software was used to transcribe this note and inadvertent errors might persist in spite of review and editing. I am obliged to you for your attention. I am thankful to you for allowing me to participate with you in this care of this patient.
--- NOTE | 2020-07-09 17:37 | ANESTHESIA POST OP EVALUATION ---
Anesthesia Post Eval - Post Anesthesia Eval Vitals: Last Vital Signs Temp 37.2 C 07/09/20 16:00 Pulse 74 07/09/20 16:00 Resp 16 07/09/20 16:00 BP 138/84 H 07/09/20 16:00 Pulse Ox 95 07/09/20 16:00 CV Function Including HR & BP: positive: Stable Pain Control: positive: Satisfactory Nausea & Vomiting: positive: Negative Mental Status: positive: Baseline Respiratory Status: Airway Patent Hydration Status: Satisfactory Anesthesia Complications: positive: None
--- NOTE | 2020-07-09 18:06 | PROVIDER PROGRESS NOTE ---
Assessment/Plan - Problem List (1) Urinary tract infection Assessment/Plan: It is unclear if her symptoms represented true urinary tract infection or not. I suspect that her lower quadrant abdominal pain may be related to the sigmoid thickening that is evident on CT. Initial urine culture grew polymicrobial growth. In further history, she denies really any sense of dysuria, urgency, frequency. We repeated a urinalysis in hopes of obtaining one bacteria so we can de-escalate antibiotics to something oral. If this is not possible, we will likely discharge her on oral ciprofloxacin given she has already failed treatment with Bactrim a few times. Imaging on admission was also concerning for possible colovesical fistula. General surgery recommend obtaining a CT cystogram which has been ordered. She is to have a colonoscopy today. (2) Large bowel stricture Assessment/Plan: As per the colonoscopy done this afternoon. Dr Tomas recommended clear liquid diet, bowel protocol and continue iv antibx. (3) Hyponatremia Assessment/Plan: Has improved and is back to baseline. This was likely hypovolemic hyponatremia as she responded well to IV fluids and at an appropriate rate. We have since discontinued IV fluids. Daily BMP while hospitalized. 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 It is unclear if this is associated with her lung mass or her multiple myeloma. She was evaluated by orthopedic surgery and she will see her orthopedist in [place] to discuss further options for this lesion. The last Hospitalist discussed with the patient and her daughter that she is at high risk for fracture if she were to fall. The patient understands this and will take her time when ambulating and she will try not to be so impulsive. (5) Multiple myeloma Assessment/Plan: She continues to receive ongoing treatment. We have continued her home medication during this hospitalization. She will continue outpatient follow-up with her oncologist, Dr. Cavanaugh. 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 It is unclear if this is metastatic or not at this point but there is concerns given the lytic lesion in the left hip. She will need outpatient follow-up with her oncologist as she will require biopsy and further evaluation. (7) Anemia Assessment/Plan: She is chronically anemic secondary to her multiple myeloma. She received 1 u nit of packed red blood cells during this hospitalization. Her hemoglobin has since been relatively stable. Her stool is Hemoccult positive. Given concern for the colovesical fistula, she had ma colonoscopy today. Continue with daily CBCs. Transfuse for goal hemoglobin greater than 8 given her history of coronary artery disease. (8) CAD (coronary artery disease), [place] coronary artery Assessment/Plan: Stable. She has been continued on aspirin and Brilinta. She is anemic and her stool is Hemoccult positive. She was transfused 1 unit of packed red blood cell given hemoglobin was less than 8 and she has history of coronary artery disease. We will continue aspirin and Brilinta for the time being. No bleeding was seen during today's colonoscopy. (9) Moderate protein-calorie malnutrition Assessment/Plan: Nutrition has been consulted. Continue to encourage oral intake. Ensure with meals. (10) Hypokalemia Assessment/Plan: Likely due to inadequate intake Replace Follow BMP daily. - Current Meds Current Meds: Current Medications Generic Name Dose Route Start Last Admin Trade Name Freq PRN Reason Stop Dose Admin Acetaminophen 650 mg 07/06/20 19:49 07/07/20 02:51 Tylenol PO 650 mg Q4HR PRN Administration Pain 1 to 4 Aspirin 81 mg 07/07/20 09:00 07/09/20 10:27 Ecotrin PO 81 mg DAILY SHREYAS Administration Calcium Carbonate/Glycine 500 mg 07/07/20 09:00 07/09/20 09:44 Tums PO Not Given BID SHREYAS Carvedilol 3.125 mg 07/06/20 23:00 07/09/20 10:29 Coreg PO 3.125 mg BID SHREYAS Administration Docusate Sodium 100 mg 07/07/20 09:00 07/09/20 05:55 Colace 100mg Capsule PO Not Given DAILY SHREYAS Piperacillin Sod/Tazobactam 100 mls @ 25 mls/hr 07/08/20 15:00 07/09/20 16:36 Sod 3.375 gm/ Sodium Chloride IV Not Given Q8H SHREYAS Potassium Chloride/Dextrose/Sod Cl 1,000 mls @ 60 mls/hr 07/09/20 12:00 07/09/20 11:52 IV 60 mls/hr .[id number] SHREYAS Administration Isosorbide Mononitrate 60 mg 07/07/20 09:00 07/09/20 10:30 Imdur PO 60 mg DAILY SHREYAS Administration Mineral Oil 1 applic 07/08/20 14:00 07/09/20 08:02 Min Oil/Dimethicon/Coconut Oil 92 Gm Tube TOP 1 applic BID SHREYAS Administration Morphine Sulfate 2 mg 07/08/20 16:54 07/09/20 10:34 Morphine 2 Mg/Ml Carpuject IVP 2 mg Q2HR PRN Administration PAIN Non-Formulary Medication 30 mg 07/07/20 21:00 07/08/20 20:48 Melatonin PO 20 mg QPM SHREYAS Administration Non-Formulary Medication 10 mg 07/07/20 18:20 07/09/20 11:16 Lenalidomide [Revlimid] PO 10 mg DAILY SHREYAS Administration Ondansetron HCl 4 mg 07/06/20 19:49 07/09/20 06:20 Zofran Inj IVP 4 mg Q6HR PRN Administration Nausea / Vomiting Oxycodone HCl 5 mg 07/06/20 19:49 07/08/20 21:02 Roxicodone PO 5 mg Q4HR PRN Administration Pain 5 to 7 Brilinta 90 Mg 1 each 07/07/20 09:00 07/09/20 10:28 PO 1 each BID SHREYAS Administration Polyethylene Glycol 17 gm 07/07/20 09:00 07/09/20 08:02 Miralax PO Not Given DAILY SHREYAS Sodium Chloride 10 ml 07/06/20 19:49 07/09/20 07:38 Normal Saline Flush 0.9% IVP 10 ml PRN PRN Administration NEEDED PER PROVIDER ORDERS Sodium Chloride 10 ml 07/07/20 01:00 07/09/20 16:55 Normal Saline Flush 0.9% IVP Not Given 0100,0900,1700 SHREYAS Zolpidem Tartrate 10 mg 07/07/20 21:09 07/08/20 20:55 Ambien PO 10 mg QPM PRN Administration Insomnia - Lab Result Fish Bone Diagrams: 07/09/20 04:50 07/09/20 04:50 - Additional Planning My Orders: My Active Orders 07/09/20 11:39 Miscellaenous Nursing Order [RC] ONCE 07/09/20 12:00 D5ns W/20 Meq KCl 1,000 ml IV 60 mls/hr 12/01/20 Dinner Clear Liquid Diet [DIET] 07/10/20 09:00 Benjamin-3 Acid Ethyl Esters [Lovaza] 1 gm PO DAILY Subjective - Subjective Patient Reports: Feeling Better, Abdominal Pain (This a.m. she had severe lower abdominal pain, received IV morphine x1 and it resolved, then she has been on clear liquids and n.p.o. awaiting the colonoscopy and has had no further pain.) Objective Vital Signs: Vital Signs - 24 hr 07/08/20 07/09/20 07/09/20 20:46 00:57 08:00 Temperature 37.5 C 37.2 C Heart Rate [ 78 100 76 Brachial] Respiratory 16 18 Rate Blood Pressure 112/78 137/61 H 147/52 H [Right Brachial artery] O2 Saturation 95 94 07/09/20 16:00 Temperature 37.2 C Heart Rate [ 74 Brachial] Respiratory 16 Rate Blood Pressure 138/84 H [Right Brachial artery] O2 Saturation 95 Oxygen O2 Source Room air I&O (Last 24 Hrs): Intake and Output Totals x24h 07/07/20 07/08/20 07/09/20 23:59 23:59 23:59 Intake Total 1880.25 1130 589.167 Output Total 1650 800 700 Balance 230.25 330 -110.833 General: Alert, Oriented x3 HEENT: EOMI, Mucous membr. moist/pink Neck: Supple, No JVD Neuro: Alert, Non Focal Cardiovascular: Regular rate, No murmurs Respiratory: No respiratory distress Abdomen: Normal bowel sounds, Soft, No tenderness, No masses Extremities: No clubbing, No edema - Results Results: Laboratory Results WBC 5.9 x10^3/uL (4.8-10.8) 07/09/20 04:50 RBC 2.59 10^6/uL (4.20-5.40) L 07/09/20 04:50 Hgb 8.3 g/dL (12.0-16.0) L 07/09/20 04:50 Hct 25.3 % (37.0-47.0) L 07/09/20 04:50 MCV 97.7 fL (81.0-99.0) 07/09/20 04:50 MCH 32.0 pg (27.0-31.0) H 07/09/20 04:50 MCHC 32.8 g/dL (32.0-36.0) 07/09/20 04:50 RDW 15.9 % (12.0-15.0) H 07/09/20 04:50 Plt Count 244 10^3/uL (130-450) 07/09/20 04:50 MPV 9.1 fL (7.9-10.8) 07/09/20 04:50 Neut # (Auto) 3.9 10^3/uL (1.5-6.6) 07/09/20 04:50 Lymph # (Auto) 0.7 10^3/uL (1.5-3.5) L 07/09/20 04:50 [place] # (Auto) 0.9 10^3/uL (0.0-1.0) 07/09/20 04:50 Eos # (Auto) 0.3 10^3/uL (0.0-0.7) 07/09/20 04:50 Baso # (Auto) 0.1 10^3/uL (0.0-0.1) 07/09/20 04:50 Absolute Nucleated RBC 0.00 x10^3/uL 07/09/20 04:50 Nucleated RBC % 0.0 /100WBC 07/09/20 04:50 Sodium 133 mmol/L (135-145) L 07/09/20 04:50 Potassium 3.0 mmol/L (3.5-5.0) L 07/09/20 04:50 Chloride 96 mmol/L (101-111) L 07/09/20 04:50 Carbon Dioxide 26 mmol/L (21-32) 07/09/20 04:50 Anion Gap 11.0 (6-13) 07/09/20 04:50 BUN 18 mg/dL (6-20) 07/09/20 04:50 Creatinine 0.9 mg/dL (0.4-1.0) 07/09/20 04:50 Estimated GFR (MDRD) 61 (>89) L 07/09/20 04:50 Glucose 105 mg/dL (70-100) H 07/09/20 04:50 Lactic Acid 1.2 mmol/L (0.5-2.2) 07/06/20 16:35 Calcium 8.4 mg/dL (8.5-10.3) L 07/09/20 04:50 Total Bilirubin 0.6 mg/dL (0.2-1.0) 07/06/20 16:35 AST 15 IU/L (10-42) 07/06/20 16:35 ALT 14 IU/L (10-60) 07/06/20 16:35 Alkaline Phosphatase 74 IU/L (42-121) 07/06/20 16:35 Total Protein 6.6 g/dL (6.7-8.2) L 07/06/20 16:35 Albumin 3.0 g/dL (3.2-5.5) L 07/06/20 16:35 Globulin 3.6 g/dL (2.1-4.2) 07/06/20 16:35 Albumin/Globulin Ratio 0.8 (1.0-2.2) L 07/06/20 16:35 Lipase 34 U/L (22-51) 07/06/20 16:35 Urine Color YELLOW 07/08/20 10:15 Urine Clarity CLEAR (CLEAR) 07/08/20 10:15 Urine pH 7.0 PH (5.0-7.5) 07/08/20 10:15 Ur Specific [place] 1.015 (1.002-1.030) 07/08/20 10:15 Urine Protein NEGATIVE mg/dL (NEGATIVE) 07/08/20 10:15 Urine Glucose (UA) NEGATIVE mg/dL (NEGATIVE) 07/08/20 10:15 Urine Ketones NEGATIVE mg/dL (NEGATIVE) 07/08/20 10:15 Urine Occult Blood TRACE-INTA (NEGATIVE) 07/08/20 10:15 Urine Nitrite NEGATIVE (NEGATIVE) 07/08/20 10:15 Urine Bilirubin NEGATIVE (NEGATIVE) 07/08/20 10:15 Urine Urobilinogen 0.2 (NORMAL) E.U./dL (NORMAL) 07/08/20 10:15 Ur Leukocyte Esterase MODERATE (NEGATIVE) H 07/08/20 10:15 Urine RBC 0-5 /HPF (0-5) 07/08/20 10:15 Urine WBC 11-25 /HPF (0-5) H 07/08/20 10:15 Urine WBC Clumps PRESENT 07/06/20 17:10 Ur Squamous Epith Cells FEW Squamous (<= Few) 07/08/20 10:15 Urine Bacteria Rare /HPF (None Seen) 07/08/20 10:15 Ur Microscopic Review INDICATED 07/06/20 17:10 Urine Culture Comments INDICATED 07/08/20 10:15 Urine Sodium 17.0 mmol/L 07/06/20 21:50 Coronavirus (PCR) NEGATIVE 07/06/20 20:45 Blood Type A NEGATIVE 07/06/20 21:21 Antibody Screen NEGATIVE 07/06/20 21:21 Crossmatch IS Only See Detail 07/06/20 21:21 - Procedures Procedures: Procedures INSPECTION OF LOWER INTESTINAL TRACT, ENDO (12/19/15) TRANSFUSE NONAUT RED BLOOD CELLS IN PERIPH VEIN, PERC (06/09/19)
[2020-07-09] MEDS: MELATONIN 30 MG PO SCH (20:01)
[2020-07-09] MEDS: ZOLPIDEM 5 MG TABLET PO PRN (20:06)
[2020-07-09] MEDS: NITROGLYCERIN SL 0.4 MG TABLET SL PRN ×2 (21:51→21:56)
[2020-07-09] MEDS ORDERED: LORazepam 0.5 MG TABLET PO STA (22:00)
[2020-07-09] MEDS ORDERED: METOPROLOL 5 MG/5 ML VIAL IVP STA (22:13)
[2020-07-10] MEDS: SODIUM CHLORIDE FLUSH 0.9% 10 ML SYRINGE IVP SCH ×4 (00:54→19:50)
[2020-07-10] MEDS: D5NS W/20 MEQ KCL 1,000 ML IV SCH ×2 (03:29→20:10)
[2020-07-10 05:53] LABS: BASOPHILS % (AUTO) 0.6 %; EOSINOPHILS # (AUTO) 0.3 10^3/uL (0.0-0.7); EOSINOPHILS % (AUTO) 7.5 %; HGB - HEMOGLOBIN 7.3 g/dL (12.0-16.0); LYMPHOCYTES # (AUTO) 0.5 10^3/uL (1.5-3.5); MEAN CORPUSCULAR HEMOGLOBIN 32.3 pg (27.0-31.0); MEAN CORPUSCULAR HGB CONC 32.7 g/dL (32.0-36.0); MEAN CORPUSCULAR VOLUME 98.7 fL (81.0-99.0); MEAN PLATELET VOLUME 8.9 fL (7.9-10.8); MONOCYTES # (AUTO) 0.9 10^3/uL (0.0-1.0); MONOCYTES % (AUTO) 24.8 %; NEUTROPHILS # (AUTO) 1.8 10^3/uL (1.5-6.6); NEUTROPHILS % (AUTO) 52.9 %; PLT - PLATELET COUNT 210 10^3/uL (130-450); RED BLOOD COUNT 2.26 10^6/uL (4.20-5.40); RED CELL DISTRIBUTION WIDTH 15.5 % (12.0-15.0); WHITE BLOOD COUNT 3.5 x10^3/uL (4.8-10.8)
[2020-07-10 06:06] LABS: CALCIUM 8.4 mg/dL (8.5-10.3); CREATININE 0.8 mg/dL (0.4-1.0)
[2020-07-10] MEDS: PIPERACILLIN/TAZOBACTAM 3.375 GM in SODIUM CHLORIDE 0.9% MINIBAG 100 ML IV SCH ×3 (06:39→23:05)
[2020-07-10] MEDS ORDERED: POTASSIUM CHLORIDE 20 MEQ TABLET PO ONE (06:59)
[2020-07-10] MEDS ORDERED: ASPIRIN CHEW 81 MG TABLET PO STA (07:38)
[2020-07-10] MEDS: CALCIUM CARBONATE CHEW 500 MG TABLET PO SCH ×2 (08:38→19:49)
[2020-07-10] MEDS: OMEGA-3 ACID ETHYL ESTERS 1 GM CAPSULE PO SCH (08:39)
[2020-07-10] MEDS: ISOSORBIDE MONONITRATE ER 30 MG TABLET PO SCH (08:39)
[2020-07-10] MEDS: POTASSIUM CHLOR 10 MEQ/100 ML 10 MEQ/100 ML BAG IV SCH ×4 (08:39→13:29)
[2020-07-10] MEDS: DOCUSATE SODIUM 100 MG CAPSULE PO SCH ×3 (08:39→22:18)
[2020-07-10] MEDS: ASPIRIN EC 81 MG TABLET PO SCH (08:39)
[2020-07-10] MEDS: MIN OIL/DIMETHICON/COCONUT OIL 92 GM TUBE TOP SCH ×2 (08:40→22:20)
[2020-07-10] MEDS: polyethylene glycoL 3350 17 GM PACKET PO SCH (09:00)
[2020-07-10] MEDS ORDERED: carvediloL 3.125 MG TABLET PO SCH (09:00)
[2020-07-10] MEDS ORDERED: ATORVASTATIN 40 MG TABLET PO ONE (09:03)
--- NOTE | 2020-07-10 09:07 | PROVIDER PROGRESS NOTE ---
Assessment/Plan - Problem List (1) Type 2 AR (myocardial infarction) Assessment/Plan: She developed angina last night, required 2 sl NTG for relief. The EKG done at the time showed new onset of Afib and diffuse NSSTT changes. She received iv Lopressor and converted to sinus rhythm She got 4 baby aspirin. The morning EKG today shows new flat inferior T waves. Her hs-troponins were cycled: 8>> 40>> 179. She will get Lipitor 80 mg now and her nightly Lipitor resumed. No IV heparin or therapeutic Lovenox were started because of the heme positive stool found on this admission. Her Radiation / Chemistry Technician was contacted, and the covering Radiation / Chemistry Technician Dr. Lujan spoke to me. Dr Lujan recommended an Echo. If she has stress cardiomyopathy ([place]), then maximize B-blockers. If she has new inferior wall motion abnormality, then she will be transferred for a [id number] cor angio. The Echo showed LVH and no wall motion abnormalities. The next trop was 138. She likely had a Type 2 AR from demand ischemia from the Afib which had RVR. I called Dr Lujan back and discussed this and he agreed, and recommended no transfer for angio needed. (2) New onset a-fib Assessment/Plan: According to this EMR, she had paroxysmal atrial flutter on an old ER visit. I reviewed that EKG and it showed sinus tachycardia, not atrial flutter. This was new A. fib last night, therefore. Currently the patient cannot get anticoagulation because of her heme positive stool. We will continue with her beta-rula and increase the dose, for rate control if A. fib should recur (3) Large bowel stricture Assessment/Plan: Her stool was heme (+) this hospitalization, but the aspirin abd Brillinta were never stopped. Her case was discussed today with Dr Cavanaugh, her Oncologist. Dr Cavanaugh will be doing a consult here at bedside later today. The most likely management of this area is a resection, Dr Cavanuagh said, which was also the plan as per Dr Tomas, written yesterday. She remains on a clear liquid diet and antibiotics, as Dr Tomas advised yesterday. Per discussion with Dr Luong (Gen Surg) today, the patient will need a continued altered diet to avoid obstruction because of the colon narrowing, therefore will advance her diet to pured today and following that to a dysphagia advanced diet tomorrow. Will start 4 time a day docusate, per the General Surgeon. (4) Urinary tract infection Assessment/Plan: She is completing her antibx. 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 Light who wrote: "She wishes to reconsult with her orthopedist DR.. Castelan? at [facility] in [place], [place] re: TKR and possible prophyllactic stabilization of left femoral head vs hip hemiarthroplasty at the same time. Also preop consideration of a consult with a orthopedic oncologist would be helpful." The lesion of the hip could even be a myeloma location, per Dr Cavanaugh. This will need a biopsy. (6) Multiple myeloma Assessment/Plan: I discussed her case with Dr. Cavanaugh, her oncologist today. She has had stable multiple myeloma, is on maintenance therapy. The lesion of the hip could even be a myeloma location. 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 I discussed the case with her oncologist, Dr. Cavanaugh today. He will do a bedside consult today. The most likely next step for this lesion is a bronchoscopy with biopsy, and this would need to be done at [facility], Dr Cavanaugh said. (8) Anemia Assessment/Plan: She has chronic anemia, related to her multiple myeloma, during this admission s he already received 1 unit of blood transfused. Today hemoglobin is 7.3, and in the face of angina/NSTEMI 2 units PRBCs have been ordered to be transfused today. Follow CBC daily. (9) CAD (coronary artery disease), [place] coronary artery Assessment/Plan: Patient had STEMI in January 2019, got stenting, she had in stent restenosis and needed it redone in February 2019. She has been on aspirin and Brilinta since that time and we continued it throughout this hospitalization. Will restart her statin now that she is completed her n.p.o. status, and with the NSTEMI dx. (10) Moderate protein-calorie malnutrition Assessment/Plan: Nutrition service involved. She is getting protein supplements. (11) Hypokalemia Assessment/Plan: This is likely from inadequate intake. Needs replacement. Follow BMP daily. (12) Hyponatremia Assessment/Plan: Resolved. Will decrease iv rate - Current Meds Current Meds: Current Medications Generic Name Dose Route Start Last Admin Trade Name Freq PRN Reason Stop Dose Admin Acetaminophen 650 mg 07/06/20 19:49 07/07/20 02:51 Tylenol PO 650 mg Q4HR PRN Administration Pain 1 to 4 Aspirin 81 mg 07/07/20 09:00 07/10/20 08:39 Ecotrin PO 81 mg DAILY SHREYAS Administration Calcium Carbonate/Glycine 500 mg 07/07/20 09:00 07/10/20 08:38 Tums PO 500 mg BID SHREYAS Administration Carvedilol 6.25 mg 07/10/20 09:00 07/10/20 08:38 Carvedilol 3.125 Mg Tablet PO 6.25 mg BID SHREYAS Administration Docusate Sodium 100 mg 07/07/20 09:00 07/10/20 08:39 Colace 100mg Capsule PO Not Given DAILY SHREYAS Piperacillin Sod/Tazobactam 100 mls @ 25 mls/hr 07/08/20 15:00 07/10/20 06:39 Sod 3.375 gm/ Sodium Chloride IV 25 mls/hr Q8H SHREYAS Administration Potassium Chloride/Dextrose/Sod Cl 1,000 mls @ 60 mls/hr 07/09/20 12:00 07/10/20 03:29 IV 60 mls/hr .[id number] SHREYAS Administration Potassium Chloride 10 meq in 100 mls @ 100 mls/hr 07/10/20 07:00 07/10/20 08:39 Potassium Chloride IV 07/10/20 10:59 100 mls/hr Q1H SHREYAS Administration Isosorbide Mononitrate 60 mg 07/07/20 09:00 07/10/20 08:39 Imdur PO 60 mg DAILY SHREYAS Administration Mineral Oil 1 applic 07/08/20 14:00 07/10/20 08:40 Min Oil/Dimethicon/Coconut Oil 92 Gm Tube TOP 1 applic BID SHREYAS Administration Morphine Sulfate 2 mg 07/08/20 16:54 07/09/20 10:34 Morphine 2 Mg/Ml Carpuject IVP 2 mg Q2HR PRN Administration PAIN Nitroglycerin 0.4 mg 07/06/20 22:23 07/09/20 21:56 Nitrostat SL 0.4 mg Q5MIN PRN Administration Chest Pain Non-Formulary Medication 30 mg 07/07/20 21:00 07/09/20 20:01 Melatonin PO 30 mg QPM SHREYAS Administration Non-Formulary Medication 10 mg 07/07/20 18:20 07/09/20 11:16 Lenalidomide [Revlimid] PO 10 mg DAILY SHREYAS Administration [id number] Ethyl Esters 1 gm 07/10/20 09:00 07/10/20 08:39 [place]-3 Acid Ethyl Esters 1 Gm Capsule PO 1 gm DAILY SHREYAS Administration Ondansetron HCl 4 mg 07/06/20 19:49 07/09/20 06:20 Zofran Inj IVP 4 mg Q6HR PRN Administration Nausea / Vomiting Oxycodone HCl 5 mg 07/06/20 19:49 07/08/20 21:02 Roxicodone PO 5 mg Q4HR PRN Administration Pain 5 to 7 Brilinta 90 Mg 1 each 07/07/20 09:00 07/10/20 08:40 PO 1 each BID SHREYAS Administration Polyethylene Glycol 17 gm 07/07/20 09:00 07/10/20 09:00 Miralax PO Not Given DAILY SHREYAS Sodium Chloride 10 ml 07/06/20 19:49 07/09/20 07:38 Normal Saline Flush 0.9% IVP 10 ml PRN PRN Administration NEEDED PER PROVIDER ORDERS Sodium Chloride 10 ml 07/07/20 01:00 07/10/20 00:54 Normal Saline Flush 0.9% IVP Not Given 0100,0900,1700 SHREYAS Zolpidem Tartrate 10 mg 07/07/20 21:09 07/09/20 20:06 Ambien PO 10 mg QPM PRN Administration Insomnia - Lab Result Fish Bone Diagrams: 07/11/20 04:40 07/11/20 04:40 - Additional Planning My Orders: My Active Orders 07/09/20 12:00 D5ns W/20 Meq KCl 1,000 ml IV 60 mls/hr 07/09/20 Dinner Clear Liquid Diet [DIET] 07/10/20 09:00 [place]anner-3 Acid Ethyl Esters [Lovaza] 1 gm PO DAILY 07/10/20 09:01 Echo Transthoracic Complete [ECHO] Routine 07/10/20 09:03 Atorvastatin [Lipitor] 80 mg PO ONCE ONE 07/11/20 21:00 Atorvastatin [Lipitor] 80 mg PO QPM Subjective - Subjective Patient Reports: Feeling Better, Resting Comfortably, No Complaints Objective Vital Signs: Vital Signs - 24 hr 07/09/20 07/09/20 07/09/20 16:00 17:05 17:20 Temperature 37.2 C 36.7 C Heart Rate Heart Rate [ 74 76 44 L Brachial] Heart Rate [ Radial] Respiratory 16 Rate Blood Pressure Blood Pressure 138/84 H 113/46 L 135/43 H [Right Brachial artery] O2 Saturation 95 94 93 07/09/20 07/09/20 07/09/20 17:35 17:50 18:20 Temperature Heart Rate Heart Rate [ 46 L 83 82 Brachial] Heart Rate [ Radial] Respiratory Rate Blood Pressure Blood Pressure 141/49 H 134/54 H 145/122 H [Right Brachial artery] O2 Saturation 95 95 95 07/09/20 07/09/20 07/09/20 18:50 19:50 21:00 Temperature 36.9 C 36.9 C Heart Rate Heart Rate [ 87 79 72 Brachial] Heart Rate [ Radial] Respiratory 16 16 Rate Blood Pressure Blood Pressure 151/61 H 134/44 H 149/46 H [Right Brachial artery] O2 Saturation 95 95 95 07/09/20 07/09/20 07/09/20 21:49 21:51 21:56 Temperature Heart Rate 135 H 147 H Heart Rate [ 141 H Brachial] Heart Rate [ Radial] Respiratory 20 Rate Blood Pressure 161/91 H 161/91 H Blood Pressure 161/91 H [Right Brachial artery] O2 Saturation 95 07/09/20 07/09/20 07/09/20 22:20 22:25 22:30 Temperature Heart Rate Heart Rate [ 94 101 H Brachial] Heart Rate [ 109 H Radial] Respiratory Rate Blood Pressure 118/67 Blood Pressure 118/67 119/49 L 109/60 [Right Brachial artery] O2 Saturation 07/09/20 07/09/20 07/10/20 22:45 23:10 03:33 Temperature 36.8 C 36.9 C Heart Rate Heart Rate [ 92 98 77 Brachial] Heart Rate [ Radial] Respiratory 16 18 Rate Blood Pressure Blood Pressure 112/65 103/47 L 138/47 H [Right Brachial artery] O2 Saturation 96 94 07/10/20 07:32 Temperature 37.0 C Heart Rate Heart Rate [ 86 Brachial] Heart Rate [ Radial] Respiratory 18 Rate Blood Pressure Blood Pressure 146/54 H [Right Brachial artery] O2 Saturation 96 Oxygen O2 Source Room air I&O (Last 24 Hrs): Intake and Output Totals x24h 07/08/20 07/09/20 07/10/20 23:59 23:59 23:59 Intake Total 1130 664.396 2117 Output Total 800 1900 Balance 330 -9386.787 5004 General: Alert, Oriented x3 HEENT: EOMI, Mucous membr. moist/pink Neck: Supple, No JVD Neuro: Alert, Non Focal Cardiovascular: Regular rate, No murmurs Respiratory: No respiratory distress, Breath sounds nml Abdomen: Normal bowel sounds, Soft Extremities: No edema - Results Results: Laboratory Results WBC 3.5 x10^3/uL (4.8-10.8) L 07/10/20 05:45 RBC 2.26 10^6/uL (4.20-5.40) L 07/10/20 05:45 Hgb 7.3 g/dL (12.0-16.0) L 07/10/20 05:45 Hct 22.3 % (37.0-47.0) L 07/10/20 05:45 MCV 98.7 fL (81.0-99.0) 07/10/20 05:45 MCH 32.3 pg (27.0-31.0) H 07/10/20 05:45 MCHC 32.7 g/dL (32.0-36.0) 07/10/20 05:45 RDW 15.5 % (12.0-15.0) H 07/10/20 05:45 Plt Count 210 10^3/uL (130-450) 07/10/20 05:45 MPV 8.9 fL (7.9-10.8) 07/10/20 05:45 Neut # (Auto) 1.8 10^3/uL (1.5-6.6) 07/10/20 05:45 Lymph # (Auto) 0.5 10^3/uL (1.5-3.5) L 07/10/20 05:45 [place] # (Auto) 0.9 10^3/uL (0.0-1.0) 07/10/20 05:45 Eos # (Auto) 0.3 10^3/uL (0.0-0.7) 07/10/20 05:45 Baso # (Auto) 0.0 10^3/uL (0.0-0.1) 07/10/20 05:45 Absolute Nucleated RBC 0.00 x10^3/uL 07/10/20 05:45 Nucleated RBC % 0.0 /100WBC 07/10/20 05:45 Sodium 135 mmol/L (135-145) 07/10/20 05:45 Potassium 3.0 mmol/L (3.5-5.0) L 07/10/20 05:45 Chloride 99 mmol/L (101-111) L 07/10/20 05:45 Carbon Dioxide 27 mmol/L (21-32) 07/10/20 05:45 Anion Gap 9.0 (6-13) 07/10/20 05:45 BUN 12 mg/dL (6-20) 07/10/20 05:45 Creatinine 0.8 mg/dL (0.4-1.0) 07/10/20 05:45 Estimated GFR (MDRD) 70 (>89) L 07/10/20 05:45 Glucose 112 mg/dL (70-100) H 07/10/20 05:45 Lactic Acid 1.2 mmol/L (0.5-2.2) 07/06/20 16:35 Calcium 8.4 mg/dL (8.5-10.3) L 07/10/20 05:45 Total Bilirubin 0.6 mg/dL (0.2-1.0) 07/06/20 16:35 AST 15 IU/L (10-42) 07/06/20 16:35 ALT 14 IU/L (10-60) 07/06/20 16:35 Alkaline Phosphatase 74 IU/L (42-121) 07/06/20 16:35 Troponin I High Sens 179.0 ng/L (2.3-14.8) H* 07/10/20 05:45 Total Protein 6.6 g/dL (6.7-8.2) L 07/06/20 16:35 Albumin 3.0 g/dL (3.2-5.5) L 07/06/20 16:35 Globulin 3.6 g/dL (2.1-4.2) 07/06/20 16:35 Albumin/Globulin Ratio 0.8 (1.0-2.2) L 07/06/20 16:35 Lipase 34 U/L (22-51) 07/06/20 16:35 Urine Color YELLOW 07/08/20 10:15 Urine Clarity CLEAR (CLEAR) 07/08/20 10:15 Urine pH 7.0 PH (5.0-7.5) 07/08/20 10:15 Ur Specific [place] 1.015 (1.002-1.030) 07/08/20 10:15 Urine Protein NEGATIVE mg/dL (NEGATIVE) 07/08/20 10:15 Urine Glucose (UA) NEGATIVE mg/dL (NEGATIVE) 07/08/20 10:15 Urine Ketones NEGATIVE mg/dL (NEGATIVE) 07/08/20 10:15 Urine Occult Blood TRACE-INTA (NEGATIVE) 07/08/20 10:15 Urine Nitrite NEGATIVE (NEGATIVE) 07/08/20 10:15 Urine Bilirubin NEGATIVE (NEGATIVE) 07/08/20 10:15 Urine Urobilinogen 0.2 (NORMAL) E.U./dL (NORMAL) 07/08/20 10:15 Ur Leukocyte Esterase MODERATE (NEGATIVE) H 07/08/20 10:15 Urine RBC 0-5 /HPF (0-5) 07/08/20 10:15 Urine WBC 11-25 /HPF (0-5) H 07/08/20 10:15 Urine WBC Clumps PRESENT 07/06/20 17:10 Ur Squamous Epith Cells FEW Squamous (<= Few) 07/08/20 10:15 Urine Bacteria Rare /HPF (None Seen) 07/08/20 10:15 Ur Microscopic Review INDICATED 07/06/20 17:10 Urine Culture Comments INDICATED 07/08/20 10:15 Urine Sodium 17.0 mmol/L 07/06/20 21:50 Coronavirus (PCR) NEGATIVE 07/06/20 20:45 Blood Type A NEGATIVE 07/10/20 07:00 Antibody Screen NEGATIVE 07/10/20 07:00 Crossmatch IS Only See Detail 07/10/20 07:00 - Procedures Procedures: Procedures INSPECTION OF LOWER INTESTINAL TRACT, ENDO (12/19/15) TRANSFUSE NONAUT RED BLOOD CELLS IN PERIPH VEIN, PERC (06/09/19)
[2020-07-10] MEDS ORDERED: SODIUM CHLORIDE 0.9% 500 ML IV ONE (09:50)
[2020-07-10] MEDS: NON FORMULARY MED (Lenalidomide [Revlimid] 10 MG) PO SCH (11:48)
[2020-07-10] MEDS: MORPHINE 2 MG/ML CARPUJECT IVP PRN (19:50)
[2020-07-10] MEDS: MELATONIN 30 MG PO SCH (22:19)
[2020-07-10] MEDS: METOPROLOL SUCCINATE 25 MG TABLET PO SCH (22:20)
[2020-07-10] MEDS: oxyCODONE 5 MG TABLET PO PRN (22:21)
[2020-07-10] MEDS: ZOLPIDEM 5 MG TABLET PO PRN (22:27)
[2020-07-11] MEDS: oxyCODONE 5 MG TABLET PO PRN ×2 (02:22→11:15)
[2020-07-11] MEDS: MORPHINE 2 MG/ML CARPUJECT IVP PRN ×2 (04:30→07:58)
[2020-07-11 04:49] LABS: BASOPHILS % (AUTO) 0.8 %; EOSINOPHILS # (AUTO) 0.4 10^3/uL (0.0-0.7); EOSINOPHILS % (AUTO) 7.2 %; HGB - HEMOGLOBIN 9.6 g/dL (12.0-16.0); LYMPHOCYTES # (AUTO) 0.7 10^3/uL (1.5-3.5); LYMPHOCYTES % (AUTO) 13.9 %; MEAN CORPUSCULAR HEMOGLOBIN 30.9 pg (27.0-31.0); MEAN CORPUSCULAR HGB CONC 32.8 g/dL (32.0-36.0); MEAN CORPUSCULAR VOLUME 94.2 fL (81.0-99.0); MEAN PLATELET VOLUME 9.2 fL (7.9-10.8); MONOCYTES # (AUTO) 1.2 10^3/uL (0.0-1.0); MONOCYTES % (AUTO) 22.7 %; NEUTROPHILS # (AUTO) 2.9 10^3/uL (1.5-6.6); NEUTROPHILS % (AUTO) 54.6 %; PLT - PLATELET COUNT 195 10^3/uL (130-450); RED BLOOD COUNT 3.11 10^6/uL (4.20-5.40); RED CELL DISTRIBUTION WIDTH 17.1 % (12.0-15.0); WHITE BLOOD COUNT 5.3 x10^3/uL (4.8-10.8)
[2020-07-11 05:01] LABS: CALCIUM 8.4 mg/dL (8.5-10.3); CREATININE 0.8 mg/dL (0.4-1.0)
[2020-07-11] MEDS: PIPERACILLIN/TAZOBACTAM 3.375 GM in SODIUM CHLORIDE 0.9% MINIBAG 100 ML IV SCH (06:56)
[2020-07-11] MEDS: DOCUSATE SODIUM 100 MG CAPSULE PO SCH ×2 (06:56→11:15)
[2020-07-11] MEDS: ISOSORBIDE MONONITRATE ER 30 MG TABLET PO SCH (08:28)
[2020-07-11] MEDS: METOPROLOL SUCCINATE 25 MG TABLET PO SCH (08:28)
[2020-07-11] MEDS: CALCIUM CARBONATE CHEW 500 MG TABLET PO SCH (08:28)
[2020-07-11] MEDS: polyethylene glycoL 3350 17 GM PACKET PO SCH (08:28)
[2020-07-11] MEDS: ASPIRIN EC 81 MG TABLET PO SCH (08:29)
[2020-07-11] MEDS: MIN OIL/DIMETHICON/COCONUT OIL 92 GM TUBE TOP SCH (08:29)
[2020-07-11] MEDS: SODIUM CHLORIDE FLUSH 0.9% 10 ML SYRINGE IVP SCH (08:30)
[2020-07-11] MEDS: NON FORMULARY MED (Lenalidomide [Revlimid] 10 MG) PO SCH (09:18)
[2020-07-11] MEDS: OMEGA-3 ACID ETHYL ESTERS 1 GM CAPSULE PO SCH (09:18)
--- NOTE | 2020-07-11 10:58 | Discharge Plan ---
Discharge Plan Problem Reviewed?: Yes Disposition: Home, Self Care Condition: Fair Prescriptions: Docusate Sodium 100Mg Capsule [Colace 100Mg Capsule] 100 mg PO ACHS #120 capsule Metoprolol Succinate [Toprol Xl] 12.5 mg PO BID #30 tablet Diet: Soft (You need to eat a pured or extremely soft and easily digestible diet (claims adjudicator gave you recommendations), plus take Colace 4 times a day, to achieve loose BMs (due to the colon stricture)) Activity Restrictions: Activity as Tolerated Shower Restrictions: No Instruction Topics: Dysphagia Diet Pureed Health Concerns: You were admitted due to lower abdominal pain, and treated for a urinary tract infection and we also found that your colon has a stricture, and there is a new mass seen in the lungs and a new lesion seen in the left hip. Dr. Cavanaugh (your Oncologist) has arranged for all your next work-up to be done at [facility], and he had submitted authorizations to get all the testing done soon. You are being discharged home and advised to stay well-hydrated and also to alter your diet significantly in order to prevent any stool obstruction in the bowel where the colon has a stricture. You should eat a diet as reviewed with you by the Slackline Operator. You have completed a course of antibiotics to treat the urinary tract infection, while here. You had an episode of chest pain that did result in a very small heart attack; no damage was visible on the ultrasound image of your heart (Echocardiogram). We were in contact with your Sales Supervisor's partner (Dr. Lujan) who advised continued medical management, no angiogram was needed. There has been a small increase in your dosage of beta-blockers (changed from Coreg to Metoprolol now). New prescriptions were electronically sent to your [facility] pharmacy in [place]. Resume all your other pre-hospital medications. Plan of Treatment: As above. Care Goals: Improvement in symptoms and stabilization are the goals. Assessment: Patient understands and is agreeable with the plan. Additional Instructions or Follow Up instructions: If you have new or worsening symptoms, call Dr. Cavanaugh's office for advice or call your PCP for advice. No Smoking: If you smoke, Please STOP! Call for help. Follow-up with: Bri Javier MD [Primary Care Provider] -
--- NOTE | 2020-07-11 11:06 | DISCHARGE SUMMARY ---
Discharge Summary Discharge Date: 07/11/20 Discharging Provider: Dr Andreia Jonas Primary Care Provider: Dr Bri Javier Code Status: Do Not Attempt Resuscitation Condition at Discharge: Fair Discharge Disposition: 01 Home, Self Care - HPI History of Present Illness: From the admission H&P of Dr Enedina Mims: This is a 79-year-old female who was last admitted in August 2019 for syncope due to inadequate steroids in the face of adrenal insufficiency from chronic steroid suppression, chronic anemia, and has been closely followed by Dr. Marcus Cavanaugh in the Oncology clinic for her multiple myeloma diagnosed 06/2019 after fall with 10 cm pelvic hematoma and found to have hypercalcemia, PERLA, and anemia that presents today with lower abdominal pain in the pelvis that is waxing and waning over the last 5 days. Bowel movements are the same as always. No diarrhea, no emesis. She is passing gas, and there is no blood in urine or stool. The pain will last about a minute and then goes away but then will have frequent episodes throughout the day. She was seen by her primary care provider 3 days ago and started on Bactrim for a UTI. There has been no relief of her pain with this. CT of the abdomen was done June 20 to work-up hematuria with a possible kidney stone and ordered by her Piano Instructor. That CT showed a lobulated mass of the left lower lobe that was 3 x 3 cm. Liver and spleen were normal. No adrenal masses. Kidneys were normal without hydro or nep hrolithiasis. She also had a sharply demarcated radiolucency at the femoral head on the left that extended inferiorly at the posterior aspect of the proximal femoral left diaphysis and more ostial lucency extending into the lesser trochanter. Overall it measured about 2.9 cm. It was felt to be br onchogenic carcinoma with a presumed metastatic osteolytic process of the left femoral neck and intertrochanteric left femur that was not present on previous CT June 09, 2019. There was also unexplained findings of gas within the bladder lumen. She does have osteoarthritis of the knee. She was scheduled to have an elective knee replacement next week. She was instructed By Dr. Cavanaugh to stop her Brilinta and her aspirin this week in preparation for surgery. Unfortunately the patient was not aware of this process. Dr. Hernandez verified the news with her as well as her daughter. On physical examination the patient is afebrile at 36.6. Heart rate 81. Blood pressure 162/63. Respiratory rate 15. She is 99% on room air. Weight is 55.3 kg. In reviewing her weight the following was noted: December 19, 2015 74.1 kg. June 09, 2019 68.5 kg. September 06, 2019 62.5. kg November 29, 2019 58.96 kg. March 06, 2020 56.1 kg. She was found to be alert and oriented. No acute distress. Negative cardiac and pulmonary exam. Abdomen had normal bowel sounds, was soft, nontender. Extremities were without edema. White cell count was 8.1. Hemoglobin is 7.5. Sodium is 120. Potassium 3.9. BUN 25, creatinine 0.9. Random glucose 123. Lactic acid 1.2. Total protein is 6.6 with albumin 3.0. Urinalysis had small amount of occult blood, large amount of leukocyte Estrace, 11-25 RBCs, greater than 25 white cells. Rare squamous epithelial cells. Moderate bacteria. He ordered a repeat CT of the chest abdomen and pelvis on the basis of the previous CT results. She continues to have a spiculated mass of the left lower lung that is 3.6 cm. Advanced coronary calcifications. Liver and spleen normal. No adrenal masses. Marked diffuse sigmoid wall thickening and mild associated diverticulosis. Proximal to the sigmoid there is a large amount of fecal debris. Air is again present in the bladder. Bladder wall thickening is present. Lytic lesion in the left femoral head is 3.3 x 2.7 cm. There is also a permeative lucency present in the femoral neck as well as a focal lytic area that is 2.5 x 1.8 cm. There is risk for pathologic fracture. Chronic deformity of the right symphysis pubis related to remote fracture. Differential diagnosis includes bronchogenic carcinoma with metastatic disease to the bones. Also cannot exclude a superficial spreading neoplasm to the colon. Air in the bladder seen today and with previous CT may indicate bacterial cystitis with gas-forming organism or a fistula between the sigmoid bowel and the bladder. 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 I had an Advanced Care Plan meeting with her and she wishes to be a DNR. - HOSPITAL COURSE Hospital Course: (1) Urinary tract infection She was started on empiric antibiotics and completed a course while here. The urine culture grew mixed karen and blood cultures were all neg to date. During the colonoscopy (see below) she was instilled with methylene blue proximal to stricture and a Owens was placed to assess for any extravasation of dye into the bladder, and there was none. (2) Large bowel stricture She was seen in consult by general surgeon, Dr. Tomas. A colonoscopy was done (which had a poor prep). There was a long stricture in the distal colon found. No biopsies were done. Dr Cavanaugh, her Oncologist did a consult here at bedside. The next management of this area is a resection, Dr Cavanaugh said, which was also the plan as per Dr Tomas. She was on a clear liquid diet and the next general surgeon, Dr Luong, recommended the patient will need to continueon an altered diet to avoid obstruction because of the colon narrowing. The patient was seen by the Dietitian for recommendations, on the day of discharge. Dr Cavanaugh will be arranging foa colo-rectal surgery evaluation at [facility]. 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 It is unclear if this is associated with her lung mass or possible colon cancer or her multiple myeloma. The Hospitalist discussed with the patient and her daughter that she is at high risk for fracture if she were to fall. The patient understands this and will take her time when ambulating and she will try not to be so impulsive. She was seen in consult by the orthopedist Dr. Light who wrote: "She wishes to reconsult with her orthopedist Dr Castelan? at [facility] in [place], [place] re: TKR and possible prophyllactic stabilization of left femoral head vs hip hemiarthroplasty at the same time. 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 The next step for this lesion is a bronchoscopy with biopsy, and this will be done at [facility], Dr Cavanaugh is arranging for this to be done soon. (4) Multiple myeloma She has had stable multiple myeloma, is was on maintenance therapy. The lesion of the hip could be from myeloma and this will need a biopsy, to be arranged by Dr. Cavanaugh as well. (6) Anemia She has chronic anemia, related to her multiple myeloma, and during this admission she received 1 unit of blood transfused. Her stool was heme (+) this hospitalization, but the aspirin and Brillinta needed to be continued. When hemoglobin was 7.3, and in the face of angina/NSTEMI (see below), 2 more units PRBCs were transfused. Hgb at discharge was 9.6. (7) Type 2 FL (myocardial infarction) She developed angina on 07/09 and required 2 sl NTG for relief. The EKG done at the time showed new onset of Afib and diffuse NSSTT changes. She received iv Lopressor and converted to sinus rhythm She got 4 baby aspirin. The morning EKG today showed new flat inferior T waves. Her hs-troponins were cycled: 8>> 40>> 179. She got Lipitor 80 mg and her nightly Lipitor was resumed. No IV heparin or therapeutic Lovenox were started because of the heme positive stool found on this admission. Her Slide Maker was contacted, and the covering Slide Maker Dr. Lujan spoke to me. Dr Lujan recommended an Echo. If she has stress cardiomyopathy (Takotsubo), then maximize B-blockers. If she has new inferior wall motion abnormality, then she will be transferred for a possible cor angio. The Echo showed LVH and no wall motion abnormalities. The next trop was 138. She likely had a Type 2 FL from demand ischemia from the Afib which had RVR. I called Dr Lujan back and discussed this and he agreed, and recommended no transfer for angio was needed. (8) New onset a-fib According to this EMR, she had paroxysmal atrial flutter on an old ER visit. I reviewed that EKG and it showed sinus tachycardia, not atrial flutter. This was new A. fib that night, therefore. Currently the patient cannot get anticoagulation because of her heme positive stool. We increased her beta- rula dose, for rate control if A. fib should recur. (9) CAD with stent of [place] coronary artery Patient had STEMI in January 2019, got stenting, then she had restenosis and needed it redone in February 2019. She has been on aspirin and Brilinta since that time and we continued it throughout this hospitalization. (10) Moderate protein-calorie malnutrition Nutrition service was involved. She was getting protein supplements. (11) Hypokalemia This was likely from inadequate intake. It was replaced. (12) Hyponatremia Resolved after saline administered. Her serum sodium was 135 on 07/10, and was 133 on the day of discharge. (13) History of dysphasia Due to esophageal stricture and she has had previous dilations. (14) Osteoarthritis of knee Her knee surgery will most likely be canceled for right now. A Lidocaine Patch was prescribed at discharge, to decrease oral narcotic use, that could add to constipation. - ALLERGIES Allergies/Adverse Reactions: Allergies Allergy/AdvReac Type Severity Reaction Status Date / Time clopidogrel [From Plavix] Allergy Severe Itching Verified 07/06/20 17:05 - MEDICATIONS Home Medications: Ambulatory Orders Medication Instructions Recorded Confirmed Aspirin [Aspir-Low] 81 mg PO DAILY 12/19/15 07/07/20 Atorvastatin Calcium 80 mg PO QPM 06/09/19 07/07/20 Isosorbide Mononitrate [Isosorbide 60 mg PO DAILY 06/09/19 07/07/20 Mononitrate ER] Melatonin 10 mg PO QPM 06/09/19 07/07/20 Ticagrelor [Brilinta] 90 mg PO BID 06/09/19 07/07/20 Acyclovir 400 mg PO BID 08/27/19 07/07/20 Multivitamin [Theragran] 1 tab PO DAILY 08/27/19 07/07/20 Zolpidem Tartrate [Ambien] 10 mg PO QPM PRN 11/02/19 07/07/20 Lenalidomide [Revlimid] 10 mg PO DAILY 07/07/20 07/07/20 [place]-3/Dha/Epa/Fish Oil [Fish Oil 1 cap PO DAILY 07/09/20 07/09/20 1,000 mg Softgel] Docusate Sodium 100Mg Capsule 100 mg PO ACHS #120 capsule 07/11/20 [Colace 100Mg Capsule] Lidocaine Patch 5% [Lidoderm Patch] 1 each TOP DAILY #30 patch 07/11/20 Metoprolol Succinate [Toprol Xl] 12.5 mg PO BID #30 tablet 07/11/20 - PHYSICAL EXAM AT DISCHARGE General Appearance: positive: No acute distress, Alert Eyes Bilateral: positive: Normal inspection, EOMI ENT: positive: ENT inspection nml, Other (She has constant pursing of her lips toward the left.) Neck: positive: Nml inspection, Thyroid nml, No JVD Respiratory: positive: No respiratory distress, Breath sounds nml Cardiovascular: positive: Regular rate & rhythm, No murmur Abdomen: positive: Non-tender, Nml bowel sounds, No distention Skin: positive: Warm, Dry, Pallor Extremities: positive: No pedal edema, Other (L knee in a brace.) Neurologic/Psychiatric: positive: Oriented x3, Motor nml - LABS Result Diagrams: 07/11/20 04:40 07/11/20 04:40 - DIAGNOSTIC IMAGING Diagnostic Imaging Results: Final report reviewed - FOLLOW UP Follow Up: See all the specialists and attend all the tests that are being arranged by Dr Cavanaugh, at [facility]. - TIME SPENT Time Spent in Discharge (Minutes): 60
[2020-07-11] MEDS ORDERED: LIDOCAINE PATCH 5% TOP PRN (12:04)
[2020-07-11 13:38] VITALS: BP 161/65
[2020-07-11] MEDS ORDERED: ATORVASTATIN 40 MG TABLET PO SCH (21:00)
== END 2020-07-11 14:35 | disposition home or self-care (01) | DRG 640 ==
LOC: ED 15:51 → MS2 19:49
PROVIDERS: ADMIT Specialist; ATTEND Internal Medicine
PROC: 30233N1 Transfusion of Nonautologous Red Blood Cells into Peripheral Vein, Percutaneous Approach (ICD-10-PCS; 2020-07-06)
PROC: 0DJD8ZZ Inspection of Lower Intestinal Tract, Via Natural or Artificial Opening Endoscopic (ICD-10-PCS; 2020-07-09)
PROC: 3E0H8KZ Introduction of Other Diagnostic Substance into Lower GI, Via Natural or Artificial Opening Endoscopic (ICD-10-PCS; principal; 2020-07-09 16:00)
PROC: 30233N1 Transfusion of Nonautologous Red Blood Cells into Peripheral Vein, Percutaneous Approach (ICD-10-PCS; 2020-07-10)
DX: E87.1 Hypo-osmolality and hyponatremia (principal); I21.A1 Myocardial infarction type 2; R91.8 Other nonspecific abnormal finding of lung field; D61.89 Other specified aplastic anemias and other bone marrow failure syndromes; I25.10 Atherosclerotic heart disease of native coronary artery without angina pectoris; N39.0 Urinary tract infection, site not specified; C79.51 Secondary malignant neoplasm of bone; E44.0 Moderate protein-calorie malnutrition; C90.01 Multiple myeloma in remission; K57.32 Diverticulitis of large intestine without perforation or abscess without bleeding; K56.699 Other intestinal obstruction unspecified as to partial versus complete obstruction; K92.1 Melena; Z68.41 Body mass index [BMI] 40.0-44.9, adult; D38.1 Neoplasm of uncertain behavior of trachea, bronchus and lung; D63.0 Anemia in neoplastic disease; I48.91 Unspecified atrial fibrillation; I25.118 Atherosclerotic heart disease of native coronary artery with other forms of angina pectoris; Z95.5 Presence of coronary angioplasty implant and graft; I25.2 Old myocardial infarction; E87.6 Hypokalemia; K22.2 Esophageal obstruction; M17.11 Unilateral primary osteoarthritis, right knee; K57.30 Diverticulosis of large intestine without perforation or abscess without bleeding; Z87.891 Personal history of nicotine dependence; Z66 Do not resuscitate; K21.9 Gastro-esophageal reflux disease without esophagitis; Z91.81 History of falling; F51.04 Psychophysiologic insomnia; I10 Essential (primary) hypertension; Z79.02 Long term (current) use of antithrombotics/antiplatelets; N32.89 Other specified disorders of bladder; E66.01 Morbid (severe) obesity due to excess calories; Z20.828 Contact with and (suspected) exposure to other viral communicable diseases; Z80.0 Family history of malignant neoplasm of digestive organs; I73.9 Peripheral vascular disease, unspecified; Z80.42 Family history of malignant neoplasm of prostate
CPT/HCPCS: 36415; 71260; 72193; 74177; 80048; 80053; 81001; 82272; 83605; 83690; 84300; 84484; 85025; 86850; 86900; 86901; 86920; 87086; 93005; 93306; 96374; 96375; 96376; 99233; 99284; 99285; A6250; A9270; P9016; Q9967; U0004; 81003

== ENCOUNTER 2020-07-27 00:57 | Outpatient (CLI) | payer MEDICARE, OTHER | END 2020-07-27 00:58 | disposition critical access hospital (66) | LOC: EMS 00:57 | PROVIDERS: ATTEND Surgery | DX: M25.552 Pain in left hip (principal); M25.562 Pain in left knee | CPT/HCPCS: A0425; A0429 ==

== ENCOUNTER 2020-07-27 01:13 | Emergency (ER) | payer MEDICARE, OTHER ==
--- NOTE | 2020-07-27 01:42 | ED Physician Documentation ---
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 significantly worse with movement, improved with rest. BIBA Review of Systems Constitutional: reports: Reviewed and negative Cardiac: reports: Reviewed and negative Respiratory: reports: Reviewed and negative GI: reports: Reviewed and negative Musculoskeletal: reports: Joint pain, Pain with weight bearing (able to weight- bear LEAD BURNER APPRENTICE (after symptom onset), but this exacerbates the pain) Neurologic: denies: Focal weakness, Numbness PD PAST MEDICAL HISTORY - Past Medical History Past Medical History: Yes Cardiovascular: Hypertension, Coronary artery disease, Peripheral Vascular Disease, [place] Respiratory: None Neuro: Peripheral neuropathy Endocrine/Autoimmune: Other GI: GERD BELL HOLE DIGGER: Other : None, Kidney stones HEENT: Chronic vision loss Psych: None Musculoskeletal: Osteoarthritis, Other Derm: None - Past Surgical History Past Surgical History: Yes General: Appendectomy Ortho: Knee replacement, Carpal Tunnel surgery, Spine surgery /BELL HOLE DIGGER: Hysterectomy, Oophrectomy Cardiovascular: Coronary stent, Cardiac catheterization HEENT: Cataracts - Present Medications Home Medications: Ambulatory Orders Medication Instructions Recorded Confirmed Aspirin [Aspir-Low] 81 mg PO DAILY 12/19/15 07/07/20 Atorvastatin Calcium 80 mg PO QPM 06/09/19 07/07/20 Isosorbide Mononitrate [Isosorbide 60 mg PO DAILY 06/09/19 07/07/20 Mononitrate ER] Melatonin 10 mg PO QPM 06/09/19 07/07/20 Ticagrelor [Brilinta] 90 mg PO BID 06/09/19 07/07/20 Multivitamin [Theragran] 1 tab PO DAILY 08/27/19 07/07/20 Zolpidem Tartrate [Ambien] 10 mg PO QPM PRN 11/02/19 07/07/20 Lenalidomide [Revlimid] 10 mg PO DAILY 07/07/20 07/07/20 [place]-3/Dha/Epa/Fish Oil [Fish Oil 1 cap PO DAILY 07/09/20 07/09/20 1,000 mg Softgel] Docusate Sodium 100Mg Capsule 100 mg PO ACHS #120 capsule 07/11/20 [Colace 100Mg Capsule] Metoprolol Succinate [Toprol Xl] 12.5 mg PO BID #30 tablet 07/11/20 Nitroglycerin [Nitrostat] 0.4 mg SL Q5MIN PRN 07/27/20 07/27/20 Prochlorperazine [Compazine] 10 mg PO Q6H 07/27/20 07/27/20 Tramadol HCl 200 mg PO TID 07/27/20 07/27/20 - Allergies Allergies/Adverse Reactions: Allergies Allergy/AdvReac Type Severity Reaction Status Date / Time clopidogrel [From Plavix] Allergy Severe Itching Verified 07/06/20 17:05 - Social History Does the pt smoke?: No Smoking Status: Never smoker Does the pt drink ETOH?: Yes Does the pt have substance abuse?: No - Immunizations Immunizations are current?: Yes Immunizations: TDAP >10years/unknown - POLST Patient has POLST: No POLST Status: DNR (She wants everything done for aggressive treatment up until the time her heart stops or she stops breathing.) PD ED PE NORMAL - Vitals Vital signs reviewed: Yes - General General: Alert and oriented X 3, No acute distress, Well developed/nourished - Derm Derm: Normal color, Warm and dry - Extremities Extremities: No tenderness to palpate, No edema, Other (mild swelling left knee, medial aspect: there is TTP left knee, anteromedial aspect. there is mild limitation in ROM left knee and hip due to pain, but remainder of LLE exam is otherwise unremarkable.) - Neuro Neuro: No motor deficit, No sensory deficit Results - Vitals Vitals: Oxygen O2 Source Room air - Rads (name of study) left hip xrays Radiology: Prelim report reviewed, See rad report left knee xrays Radiology: Prelim report reviewed PD MEDICAL DECISION MAKING - ED course Complexity details: reviewed results, re-evaluated patient, considered differential, d/w patient ED course: on reevaluation, patient is in NAD and reports improvement after IM dilaudid. re sults of xrays d/w patient. ED RN says patient was able to ambulate to/from bathroom albeit with assistance. patient requesting d/c home. Departure - Departure Disposition: Home, Self Care Clinical Impression: Knee pain, left Qualifiers: Chronicity: acute Qualified Code(s): M25.562 - Pain in left knee Condition: Good Instructions: ED Sprain Knee Follow-Up: Bri Javier MD [Primary Care Provider] - Discharge Date/Time: 07/27/20 05:38
[2020-07-27] MEDS ORDERED: HYDROmorphone 1 MG/ML CARPUJECT IM STA ×2 (01:52→05:19)
[2020-07-27 05:31] VITALS: BP 138/118
--- NOTE | 2020-07-27 09:32 | XRAY Report ---
PROCEDURE: Knee 4 View LT INDICATIONS: Trauma TECHNIQUE: 6 views of the left knee(s) were acquired. COMPARISON: None. FINDINGS: Bones: No fractures or dislocations. Tricompartmental osteophytosis. Moderate joint space narrowing. No suspicious bony lesions. Soft tissues: No significant joint effusion. No suspicious soft tissue calcifications. Vascular yuri cifications. Chondrocalcinosis. IMPRESSION: No acute osseous abnormality. Moderate to severe degenerative disease. This report is concordant with the overnight pulmonary interpretation. Reviewed by: Vik Valdez MD on 07/27/2020 8:31 AM [facility] Approved by: Vik Valdez MD on 07/27/2020 8:31 AM [facility] Station ID: [id number]
--- NOTE | 2020-07-27 10:01 | XRAY Report ---
PROCEDURE: Hip w/Pelvis 2-3V LT INDICATIONS: pain with ambulation TECHNIQUE: AP pelvis with lateral view(s) of the left hip(s). COMPARISON: CT pelvis 07/08/2020. FINDINGS: Bones: Multiple lucencies in the proximal left femur that are seen on prior CT. The bones appear het erogeneous. There is minimal irregularity at the left femoral neck seen on the lateral projection. Ho wever, this appears similar to the CT from 07/08/2020. Suspect healed right superior pubic ramus frac ture with bony remodeling. Pelvic ring appears intact. Bilateral joint space narrowing. Soft tissues: The visualized bowel gas pattern is normal. No suspicious soft tissue calcifications. IMPRESSION: No discrete pathologic fracture. Similar lytic lesions in the left proximal femur. This report is concordant with the overnight preliminary interpretation. Reviewed by: Vik Valdez MD on 07/27/2020 9:00 AM [facility] Approved by: Vik Valdez MD on 07/27/2020 9:00 AM [facility] Station ID: [id number]
== END 2020-07-27 05:38 | disposition home or self-care (01) ==
LOC: EDUNIT# → SUPCPDRO 01:13 → ED 01:13
DX: M25.562 Pain in left knee (principal); I10 Essential (primary) hypertension; I73.9 Peripheral vascular disease, unspecified; Z66 Do not resuscitate
CPT/HCPCS: 73502; 73564; 96372; 99283; 99284; J1170